=== PATIENT | female | born 1955 | race Caucasian/White ===

== ENCOUNTER 2016-11-06 15:03 | Inpatient (IN) | payer MEDICAID ==
[~2016-11-06] VITALS: Ht 167.6 cm; Wt 114.0 kg
[~2016-11-06 15:03] MED LIST: ASPI-231 PO; ATO40T PO; CLOP75TA28 PO; ESCI20TA PO; FUR40T PO; KEP500T PO; PANT40TA2 PO; PREG25CA PO; ROPI1TAB22 PO; TRAZ100T2 PO
[2016-11-06] MEDS ORDERED: ASPirin 81 mg TAB PO ONE (15:45)
[2016-11-06] MEDS ORDERED: SODIUM CHLORIDE 0.9% 1,000 ML IV ONE (16:05)
[2016-11-06] MEDS ORDERED: MORPHINE SULFATE 4 MG/ML SYRG IV ONE (16:30)
[2016-11-06] MEDS ORDERED: ONDANSETRON HCL 4 MG/2 ML VIAL IV ONE (16:30)
[2016-11-06 16:50] LABS: Basophils # (auto) 0 uL; Eosinophils # (auto) 0 uL; Eosinophils % (auto) 0.1 % (0.0-7.0); Hematocrit 42.2 % (36.0-46.0); Hemoglobin 14.2 g/dL (12.2-16.2); Lymphocytes # (auto) 0.8 uL; Lymphocytes % (auto) 8.4 % (10.0-50.0); Mean Corpuscular Hemoglobin 31.7 pg (28.0-32.0); Mean Corpuscular Hgb Conc. 33.6 g/dL (32.0-36.0); Mean Corpuscular Volume 94.3 fL (80.0-100.0); Mean Platelet Volume 9.2 fL (7.4-10.4); Monocytes # (auto) 0.3 uL; Monocytes % (auto) 3.4 % (0.0-12.0); Neutrophils # (auto) 8.8 uL; Neutrophils % (auto) 88.1 % (37.0-80.0); Platelet Count (auto) 136 10^3/uL (140-450); Red Cell Distribution Width 14.5 % (11.6-16.0)
[2016-11-06 17:00] LABS: Partial Thromboplastin Time 27.1 sec (22.64-33.71)
[2016-11-06 17:12] LABS: Albumin 3.4 g/dL (3.4-5.0); BUN/Creatinine Ratio 32.9; Bilirubin, Total 1.5 mg/dL (0.2-1.0); Calcium 8.8 mg/dL (8.5-10.1); Total Protein 6.7 g/dL (6.4-8.2)
[2016-11-06 17:16] LABS: INR 1.22 (0.9-1.15); Prothrombin Time 12.6 sec (9.37-12.3)
[2016-11-06 17:18] LABS: Amylase 13 U/L (25-115)
[2016-11-06] MEDS: diphenhdrAMINE HCL 50 MG/1 ML VL ONE ×2 (17:27→17:47)
[2016-11-06] MEDS ORDERED: diphenhdrAMINE HCL 50 MG/1 ML VL IV ONE (18:00)
[2016-11-06] MEDS ORDERED: metroNIDAZOLE 500MG/100ML 100 ML IV ONE (18:15)
[2016-11-06] MEDS ORDERED: PIPERACILLIN-TAZOB 3.375GM 100 ML IV ONE (18:15)
[2016-11-06] MEDS ORDERED: ASPirin 325 MG TAB PO ONE (18:15)
[2016-11-06] MEDS ORDERED: SODIUM CHLORIDE 0.9% 1,000 ML IV SCH (18:39)
[2016-11-06] MEDS ORDERED: PANTOPRAZOLE SODIUM 40 MG/10 ML VIAL IV ONE (18:45)
[2016-11-06] MEDS ORDERED: DEXTROSE (50%) 50ML SYRG IV PRN (18:45)
[2016-11-06] MEDS ORDERED: cefTRIAXone 1GM/50ML D5W 50 ML IV ONE (18:45)
[2016-11-06] MEDS ORDERED: LORazepam 2MG/ML-1ML VIAL IV PRN (18:45)
[2016-11-06] MEDS ORDERED: MORPHINE SULF INJ 2 MG/ML SYRINGE 1ML IV PRN (18:45)
[2016-11-06] MEDS ORDERED: NITROGLYCERIN 0.4 MG SL TAB SL PRN (18:45)
[2016-11-06] MEDS ORDERED: SOD CHL 0.9%/ KCL 20MEQ 1,000 ML IV ONE (18:45)
[2016-11-06] MEDS: POTASSIUM CHL 20MEQ/100ML 100 ML IV SCH ×3 (18:57→23:55)
[2016-11-06] MEDS ORDERED: IOHEXOL 350 MG/ML 100ML IJ ONE (20:01)
[2016-11-06] MEDS: HYDROmorphone HCL 2 MG/ML VL IV PRN (20:30)
[2016-11-06 20:53] VITALS: BP 88/47
[2016-11-06 22:00] VITALS: BP 88/47
[2016-11-07] MEDS ORDERED: metroNIDAZOLE 500MG/100ML 100 ML IV SCH
[2016-11-07] MEDS: ACCU-CHEK COMFORT CURVE STRIP VI SCH ×4 (00:22→18:15)
[2016-11-07 02:50] LABS: Urine Bilirubin Negative (Negative); Urine Blood Negative /uL (Negative); Urine Color Yellow (Yellow); Urine Glucose Normal (Normal); Urine Ketone Negative (Negative); Urine Mucus FEW (None Seen); Urine Nitrite Negative (Negative); Urine RBC 34 /hpf (0 - 4); Urine Squamous Epithelial Cell FEW /hpf (<5); Urine Urobilinogen Normal (Negative)
[2016-11-07] MEDS: HYDROmorphone HCL 2 MG/ML VL IV PRN ×5 (03:09→23:49)
[2016-11-07 05:00] VITALS: BP 105/51
[2016-11-07] MEDS: InsuLIN REG 1unit/0.01ml Soln (100units/ml) SC SCH ×4 (06:00→18:00)
[2016-11-07 06:24] LABS: Basophils # (auto) 0 uL; Basophils % (auto) 0.1 % (0.0-2.0); Eosinophils # (auto) 0.1 uL; Eosinophils % (auto) 0.8 % (0.0-7.0); Hematocrit 36.9 % (36.0-46.0); Lymphocytes # (auto) 0.8 uL; Lymphocytes % (auto) 12.1 % (10.0-50.0); Mean Corpuscular Hemoglobin 30.8 pg (28.0-32.0); Mean Corpuscular Hgb Conc. 32.4 g/dL (32.0-36.0); Mean Corpuscular Volume 94.9 fL (80.0-100.0); Mean Platelet Volume 8.6 fL (7.4-10.4); Monocytes # (auto) 0.3 uL; Monocytes % (auto) 3.7 % (0.0-12.0); Neutrophils # (auto) 5.8 uL; Neutrophils % (auto) 83.3 % (37.0-80.0); Platelet Count (auto) 115 10^3/uL (140-450); Red Cell Distribution Width 14.5 % (11.6-16.0)
[2016-11-07 06:44] LABS: Albumin 2.6 g/dL (3.4-5.0); BUN/Creatinine Ratio 34.5; Bilirubin, Total 0.7 mg/dL (0.2-1.0); Calcium 8.6 mg/dL (8.5-10.1); Potassium 3.7 mmol/L (3.5-5.1); Total Protein 5.6 g/dL (6.4-8.2)
[2016-11-07 08:00] VITALS: BP 100/47
[2016-11-07 08:11] VITALS: BP 100/47
[2016-11-07] MEDS ORDERED: GASTROGRAFIN 120 ML SOL ONE (08:35)
[2016-11-07] MEDS ORDERED: cefTRIAXone 1GM/50ML D5W 50 ML IV SCH (09:00)
[2016-11-07] MEDS: metroNIDAZOLE 500MG/100ML 100 ML IV SCH ×3 (09:00→21:59)
[2016-11-07] MEDS: PANTOPRAZOLE SODIUM 40 MG/10 ML VIAL IV SCH (11:19)
[2016-11-07] MEDS: cefTRIAXone 1GM/50ML D5W 50 ML IV SCH (11:19)
[2016-11-07 12:50] VITALS: BP 107/57
[2016-11-07 17:14] VITALS: BP 108/52
[2016-11-07 22:00] VITALS: BP 80/37
[2016-11-08] MEDS: ACCU-CHEK COMFORT CURVE STRIP VI SCH ×5 (00:01→22:10)
[2016-11-08] MEDS: metroNIDAZOLE 500MG/100ML 100 ML IV SCH ×4 (03:09→22:06)
[2016-11-08] MEDS: HYDROmorphone HCL 2 MG/ML VL IV PRN ×5 (04:30→22:09)
[2016-11-08 05:00] VITALS: BP 98/52
[2016-11-08 05:58] LABS: Basophils # (auto) 0 uL; Basophils % (auto) 0.1 % (0.0-2.0); Eosinophils # (auto) 0.1 uL; Eosinophils % (auto) 1.1 % (0.0-7.0); Hematocrit 36.6 % (36.0-46.0); Hemoglobin 11.7 g/dL (12.2-16.2); Lymphocytes # (auto) 0.6 uL; Lymphocytes % (auto) 9.2 % (10.0-50.0); Mean Corpuscular Hemoglobin 30.5 pg (28.0-32.0); Mean Corpuscular Volume 95.2 fL (80.0-100.0); Mean Platelet Volume 8.3 fL (7.4-10.4); Monocytes # (auto) 0.2 uL; Monocytes % (auto) 3.5 % (0.0-12.0); Neutrophils # (auto) 5.2 uL; Neutrophils % (auto) 86.1 % (37.0-80.0); Platelet Count (auto) 138 10^3/uL (140-450); Red Cell Distribution Width 14.4 % (11.6-16.0); White Blood Cell 6.1 10^3/uL (4.4-10.8)
[2016-11-08] MEDS: InsuLIN REG 1unit/0.01ml Soln (100units/ml) SC SCH ×5 (06:00→22:10)
[2016-11-08 06:16] LABS: Albumin 2.6 g/dL (3.4-5.0); BUN/Creatinine Ratio 39.5; Calcium 8.5 mg/dL (8.5-10.1); Potassium 3.7 mmol/L (3.5-5.1)
[2016-11-08 06:19] LABS: Bilirubin, Total 0.5 mg/dL (0.2-1.0); Total Protein 5.6 g/dL (6.4-8.2)
[2016-11-08 08:00] VITALS: BP 101/54
[2016-11-08 08:55] VITALS: BP 111/57
[2016-11-08 12:39] VITALS: BP 101/54
[2016-11-08] MEDS: PANTOPRAZOLE SODIUM 40 MG/10 ML VIAL IV SCH (14:29)
[2016-11-08] MEDS: cefTRIAXone 1GM/50ML D5W 50 ML IV SCH (14:29)
[2016-11-08 16:38] VITALS: BP 125/70
[2016-11-08 22:00] VITALS: BP 125/66
[2016-11-08] MEDS: PROMETHAZINE HCL 25 MG/ML 1ML IV PRN (22:09)
[2016-11-09] MEDS: metroNIDAZOLE 500MG/100ML 100 ML IV SCH ×4 (03:06→20:59)
[2016-11-09] MEDS: HYDROmorphone HCL 2 MG/ML VL IV PRN ×5 (04:01→23:57)
[2016-11-09 05:00] VITALS: BP 121/74
[2016-11-09] MEDS: InsuLIN REG 1unit/0.01ml Soln (100units/ml) SC SCH ×3 (06:00→17:34)
[2016-11-09] MEDS: ACCU-CHEK COMFORT CURVE STRIP VI SCH ×3 (06:16→17:33)
[2016-11-09 06:51] LABS: BUN/Creatinine Ratio 34.1; Calcium 8.2 mg/dL (8.5-10.1); Potassium 3.2 mmol/L (3.5-5.1)
[2016-11-09] MEDS: cefTRIAXone 1GM/50ML D5W 50 ML IV SCH (08:51)
[2016-11-09] MEDS: PANTOPRAZOLE SODIUM 40 MG/10 ML VIAL IV SCH (08:52)
[2016-11-09 09:00] VITALS: BP 176/65
[2016-11-09] MEDS ORDERED: POTASSIUM CHLORIDE 40 MEQ, LIDOCAINE 1% (LOCAL ANESTH.) 4 ML in SODIUM CHL 0.9% 250 ML IV ONE (10:30)
[2016-11-09 13:00] VITALS: BP 133/73
[2016-11-09] MEDS: PROMETHAZINE HCL 25 MG/ML 1ML IV PRN ×3 (15:12→23:57)
[2016-11-09 16:54] VITALS: BP 125/65
[2016-11-09 21:51] VITALS: BP 126/74
[2016-11-10] MEDS: ACCU-CHEK COMFORT CURVE STRIP VI SCH ×5 (00:11→21:23)
[2016-11-10] MEDS: metroNIDAZOLE 500MG/100ML 100 ML IV SCH ×4 (02:41→21:17)
[2016-11-10] MEDS: HYDROmorphone HCL 2 MG/ML VL IV PRN ×5 (04:39→21:18)
[2016-11-10] MEDS: PROMETHAZINE HCL 25 MG/ML 1ML IV PRN ×2 (04:39→22:52)
[2016-11-10 05:00] VITALS: BP 13/70
[2016-11-10] MEDS: InsuLIN REG 1unit/0.01ml Soln (100units/ml) SC SCH ×5 (05:50→21:23)
[2016-11-10 05:53] LABS: Basophils # (auto) 0 uL; Basophils % (auto) 0.2 % (0.0-2.0); Eosinophils # (auto) 0.1 uL; Eosinophils % (auto) 2.5 % (0.0-7.0); Hematocrit 36.8 % (36.0-46.0); Hemoglobin 11.9 g/dL (12.2-16.2); Lymphocytes % (auto) 27.7 % (10.0-50.0); Mean Corpuscular Hemoglobin 30.4 pg (28.0-32.0); Mean Corpuscular Hgb Conc. 32.4 g/dL (32.0-36.0); Mean Corpuscular Volume 93.7 fL (80.0-100.0); Mean Platelet Volume 8.4 fL (7.4-10.4); Monocytes # (auto) 0.2 uL; Monocytes % (auto) 5.5 % (0.0-12.0); Neutrophils # (auto) 2.2 uL; Neutrophils % (auto) 64.1 % (37.0-80.0); Platelet Count (auto) 149 10^3/uL (140-450); Red Cell Distribution Width 14.1 % (11.6-16.0); White Blood Cell 3.5 10^3/uL (4.4-10.8)
[2016-11-10 06:15] LABS: Albumin 2.5 g/dL (3.4-5.0); BUN/Creatinine Ratio 14.3; Calcium 8.5 mg/dL (8.5-10.1)
[2016-11-10 06:17] LABS: Bilirubin, Total 0.5 mg/dL (0.2-1.0); Total Protein 5.4 g/dL (6.4-8.2)
[2016-11-10 09:00] VITALS: BP 134/76
[2016-11-10] MEDS: PANTOPRAZOLE SODIUM 40 MG/10 ML VIAL IV SCH (09:07)
[2016-11-10] MEDS: cefTRIAXone 1GM/50ML D5W 50 ML IV SCH (09:07)
[2016-11-10 12:48] VITALS: BP 140/93
[2016-11-10 17:25] VITALS: BP 150/86
[2016-11-10 22:59] VITALS: BP 120/61
[2016-11-11] MEDS: metroNIDAZOLE 500MG/100ML 100 ML IV SCH ×2 (03:26→08:32)
[2016-11-11 05:46] VITALS: BP 122/60
[2016-11-11] MEDS: ACCU-CHEK COMFORT CURVE STRIP VI SCH ×2 (05:51→12:00)
[2016-11-11] MEDS: HYDROmorphone HCL 2 MG/ML VL IV PRN ×2 (05:54→10:27)
[2016-11-11] MEDS: InsuLIN REG 1unit/0.01ml Soln (100units/ml) SC SCH ×2 (05:54→12:00)
[2016-11-11 09:00] VITALS: BP 132/80
[2016-11-11] MEDS: PANTOPRAZOLE SODIUM 40 MG/10 ML VIAL IV SCH (10:00)
[2016-11-11] MEDS: cefTRIAXone 1GM/50ML D5W 50 ML IV SCH (10:00)
[2016-11-11] MEDS: PROMETHAZINE HCL 25 MG/ML 1ML IV PRN (10:28)
== END 2016-11-11 13:00 | disposition home or self-care (01) | DRG 247 ==
LOC: ER 15:21 → TELE 15:22 → TELE-WESTW 20:50
PROVIDERS: ADMIT Internal Medicine; ATTEND Internal Medicine
DX: K56.5 Intestinal adhesions [bands] with obstruction (postinfection) (principal); E87.0 Hyperosmolality and hypernatremia; E44.0 Moderate protein-calorie malnutrition; I50.9 Heart failure, unspecified; I11.0 Hypertensive heart disease with heart failure; K56.60 Unspecified intestinal obstruction; E87.1 Hypo-osmolality and hyponatremia; K52.9 Noninfective gastroenteritis and colitis, unspecified; R07.89 Other chest pain; E87.6 Hypokalemia; E66.01 Morbid (severe) obesity due to excess calories; E11.65 Type 2 diabetes mellitus with hyperglycemia; G89.29 Other chronic pain; F32.9 Major depressive disorder, single episode, unspecified; G40.909 Epilepsy, unspecified, not intractable, without status epilepticus; I25.10 Atherosclerotic heart disease of native coronary artery without angina pectoris; J45.909 Unspecified asthma, uncomplicated; K21.9 Gastro-esophageal reflux disease without esophagitis; Z82.49 Family history of ischemic heart disease and other diseases of the circulatory system; Z86.711 Personal history of pulmonary embolism; Z98.84 Bariatric surgery status; Z83.3 Family history of diabetes mellitus; Z86.718 Personal history of other venous thrombosis and embolism; Z86.73 Personal history of transient ischemic attack (TIA), and cerebral infarction without residual deficits; Z87.11 Personal history of peptic ulcer disease; Z90.49 Acquired absence of other specified parts of digestive tract; Z98.890 Other specified postprocedural states; Z90.89 Acquired absence of other organs; Z88.5 Allergy status to narcotic agent; Z88.8 Allergy status to other drugs, medicaments and biological substances; Z68.41 Body mass index [BMI] 40.0-44.9, adult
CPT/HCPCS: 36415; 51702; 71010; 71275; 74000; 74176; 74250; 80048; 80053; 80061; 81001; 82150; 82378; 82550; 82962; 83036; 83605; 83690; 84443; 84484; 85025; 85379; 85610; 85652; 85730; 86141; 87040; 87493; 93005; 93306; 93970; 96361; 96365; 96368; 96375; 97001; 97116; 97530; 99291; C9113; G0434; J0696; J2001; J2405; J2543; J3480; J3490

== ENCOUNTER 2016-12-23 14:05 | Emergency (ER) | payer MEDICAID ==
[~2016-12-23] VITALS: Ht 167.6 cm; Wt 106.6 kg
[2016-12-23 20:23] VITALS: BP 114/70
[2016-12-23] MEDS ORDERED: diphenhdrAMINE HCL 50 MG/1 ML VL IM ONE (21:15)
== END 2016-12-23 22:28 | disposition home or self-care (01) ==
LOC: ER 14:05
DX: R21 Rash and other nonspecific skin eruption (principal); E11.9 Type 2 diabetes mellitus without complications; K21.9 Gastro-esophageal reflux disease without esophagitis; I10 Essential (primary) hypertension; Z79.899 Other long term (current) drug therapy; Z88.5 Allergy status to narcotic agent; Z88.8 Allergy status to other drugs, medicaments and biological substances; Z86.73 Personal history of transient ischemic attack (TIA), and cerebral infarction without residual deficits
CPT/HCPCS: 82962; 94761; 96372; 99283; J1200

== ENCOUNTER 2017-07-26 18:33 | Inpatient (IN) | payer MEDICAID ==
[~2017-07-26] VITALS: Ht 167.6 cm; Wt 112.1 kg
[2017-07-26 20:18] LABS: Basophils # (auto) 0 uL; Basophils % (auto) 0.6 % (0.0-2.0); Eosinophils # (auto) 0.7 uL; Eosinophils % (auto) 10.8 % (0.0-7.0); Hematocrit 39.7 % (36.0-46.0); Hemoglobin 13.2 g/dL (12.2-16.2); Lymphocytes # (auto) 1.7 uL; Lymphocytes % (auto) 26.8 % (10.0-50.0); Mean Corpuscular Hemoglobin 29.7 pg (28.0-32.0); Mean Corpuscular Hgb Conc. 33.2 g/dL (32.0-36.0); Mean Corpuscular Volume 89.3 fL (80.0-100.0); Monocytes # (auto) 0.3 uL; Monocytes % (auto) 5.3 % (0.0-12.0); Neutrophils # (auto) 3.6 uL; Neutrophils % (auto) 56.5 % (37.0-80.0); Nucleated Red Blood Cells % 0.1 %; Platelet Count (auto) 160 10^3/uL (140-450); Red Blood Cells 4.45 10^6/uL (4.0-5.20); Red Cell Distribution Width 17.4 % (11.8-14.3); White Blood Cell 6.3 10^3/uL (4.4-10.8)
[2017-07-26 20:33] LABS: INR 0.96 (0.9-1.15); Partial Thromboplastin Time 29.4 sec (22.64-33.71); Prothrombin Time 10.5 sec (9.37-12.3)
[2017-07-26 20:38] LABS: Alanine Aminotransferase 28 U/L (13-56); Albumin 3.2 g/dL (3.4-5.0); Alkaline Phosphatase 127 U/L (45-117); Anion Gap 6 (5-15); Aspartate Aminotransferase 22 U/L (15-37); BUN/Creatinine Ratio 32.3; Bilirubin, Total 0.3 mg/dL (0.2-1.0); Blood Urea Nitrogen 21 mg/dL (7-18); Calcium 8.6 mg/dL (8.5-10.1); Carbon Dioxide 25 mmol/L (21-32); Chloride 110 mmol/L (98-107); GFR African American 118 mL/min; GFR Non-African American 98 mL/min; Glucose 73 mg/dL (74-106); Potassium 3.9 mmol/L (3.5-5.1); Sodium 141 mmol/L (136-145); Total Protein 7.3 g/dL (6.4-8.2)
[2017-07-27] MEDS ORDERED: HYDROcodone-ACET 10/325MG TAB PO ONE (02:15)
[2017-07-27] MEDS ORDERED: ACETAMINOPHEN 500 MG TAB PO PRN (06:45)
[2017-07-27] MEDS ORDERED: NITROGLYCERIN 0.4 MG SL TAB SL PRN (06:45)
[2017-07-27] MEDS: PREGABALIN 25 MG CAP PO SCH ×2 (07:39→21:39)
[2017-07-27] MEDS: LEVETIRACETAM 500 MG TAB PO SCH ×2 (07:39→21:38)
[2017-07-27] MEDS: PANTOPRAZOLE 40 MG TAB PO SCH (07:39)
[2017-07-27] MEDS: FUROSEMIDE 40 MG TAB PO SCH (07:39)
[2017-07-27] MEDS: HYDROcodone-ACET 5/325MG TAB PO PRN ×2 (08:24→12:13)
[2017-07-27 08:39] LABS: Basophils # (auto) 0 uL; Basophils % (auto) 0.5 % (0.0-2.0); Eosinophils # (auto) 0.5 uL; Eosinophils % (auto) 10.4 % (0.0-7.0); Hematocrit 35.9 % (36.0-46.0); Hemoglobin 12.1 g/dL (12.2-16.2); Lymphocytes # (auto) 1.6 uL; Lymphocytes % (auto) 31.6 % (10.0-50.0); Mean Corpuscular Hemoglobin 29.4 pg (28.0-32.0); Mean Corpuscular Hgb Conc. 33.8 g/dL (32.0-36.0); Mean Corpuscular Volume 86.9 fL (80.0-100.0); Monocytes # (auto) 0.3 uL; Monocytes % (auto) 5.3 % (0.0-12.0); Neutrophils # (auto) 2.6 uL; Neutrophils % (auto) 52.2 % (37.0-80.0); Nucleated Red Blood Cells % 0.1 %; Platelet Count (auto) 118 10^3/uL (140-450); Red Blood Cells 4.13 10^6/uL (4.0-5.20); Red Cell Distribution Width 17.5 % (11.8-14.3); White Blood Cell 5.1 10^3/uL (4.4-10.8)
[2017-07-27] MEDS ORDERED: DEXTROSE (50%) 50ML SYRG IV PRN (09:00)
[2017-07-27 09:06] LABS: BUN/Creatinine Ratio 32.1; Calcium 8.3 mg/dL (8.5-10.1); Potassium 3.8 mmol/L (3.5-5.1)
[2017-07-27] MEDS: ONDANSETRON HCL 4 MG/2 ML VIAL IV PRN (09:59)
[2017-07-27] MEDS ORDERED: ASPirin-EC 81 mg tab PO SCH (10:00)
[2017-07-27 10:30] LABS: Urine Bacteria FEW /hpf (None Seen); Urine Blood Negative /uL (Negative); Urine Specific Gravity 1.005 (1.001-1.035); Urine WBC 1 /hpf (0 - 5)
[2017-07-27] MEDS: ACCU-CHEK COMFORT CURVE STRIP VI SCH ×3 (11:16→21:39)
[2017-07-27] MEDS: InsuLIN REG 1unit/0.01ml Soln (100units/ml) SC SCH ×3 (11:16→21:40)
[2017-07-27] MEDS ORDERED: LORazepam 2MG/ML-1ML VIAL IV PRN (18:15)
[2017-07-27 18:41] LABS: Cholesterol 117 mg/dL (< 200); HDL Cholesterol 42 mg/dL (40-59); LDL Cholesterol 60 mg/dL (< 100); Triglycerides 168 mg/dL (< 150)
[2017-07-27] MEDS ORDERED: MET50T PO (20:25)
[2017-07-27] MEDS ORDERED: LORA-655 PO (20:25)
[2017-07-27] MEDS ORDERED: IPRAAER6 IN (20:25)
[2017-07-27] MEDS ORDERED: CYAN100023 PO (20:25)
[2017-07-27] MEDS ORDERED: FLUT1SPR5 (20:25)
[2017-07-27] MEDS ORDERED: FER325T PO (20:25)
[2017-07-27] MEDS ORDERED: HYDR-4072 PO (20:25)
[2017-07-27] MEDS ORDERED: PYRI50TA67 PO (20:25)
[2017-07-27] MEDS ORDERED: LIDO5DIS21 TOP (20:25)
[2017-07-27] MEDS: HYDROmorphone HCL 2 MG/ML VL IV PRN (21:38)
[2017-07-27] MEDS: ATORVASTATIN 20 MG TAB PO SCH (21:38)
[2017-07-27] MEDS: PRAMIPEXOLE DIHYDROCHLORIDE MO 0.25 MG TAB PO SCH (21:39)
[2017-07-27] MEDS: ASPIRIN-DIPYRIDAMOLE (25/200MG) CAPSULE PO SCH (21:39)
[2017-07-27] MEDS: traZODone HCL 50 MG TAB PO SCH (21:39)
[2017-07-27 22:00] VITALS: BP 108/71
[2017-07-28] MEDS: HYDROmorphone HCL 2 MG/ML VL IV PRN ×5 (02:36→22:11)
[2017-07-28] MEDS: ONDANSETRON HCL 4 MG/2 ML VIAL IV PRN (02:37)
[2017-07-28 05:00] VITALS: BP 109/69
[2017-07-28] MEDS: InsuLIN REG 1unit/0.01ml Soln (100units/ml) SC SCH ×4 (06:35→21:49)
[2017-07-28] MEDS: ACCU-CHEK COMFORT CURVE STRIP VI SCH ×4 (06:35→21:49)
[2017-07-28 07:48] LABS: Basophils # (auto) 0 uL; Basophils % (auto) 0.4 % (0.0-2.0); Eosinophils # (auto) 0.5 uL; Eosinophils % (auto) 8.6 % (0.0-7.0); Hematocrit 36.5 % (36.0-46.0); Hemoglobin 12.3 g/dL (12.2-16.2); Lymphocytes # (auto) 1.7 uL; Lymphocytes % (auto) 31.1 % (10.0-50.0); Mean Corpuscular Hemoglobin 29.7 pg (28.0-32.0); Mean Corpuscular Hgb Conc. 33.6 g/dL (32.0-36.0); Mean Corpuscular Volume 88.3 fL (80.0-100.0); Monocytes # (auto) 0.3 uL; Monocytes % (auto) 5.7 % (0.0-12.0); Neutrophils % (auto) 54.2 % (37.0-80.0); Nucleated Red Blood Cells % 0.1 %; Platelet Count (auto) 121 10^3/uL (140-450); Red Blood Cells 4.14 10^6/uL (4.0-5.20); Red Cell Distribution Width 17.5 % (11.8-14.3); White Blood Cell 5.6 10^3/uL (4.4-10.8)
[2017-07-28 07:51] LABS: Calcium 8.6 mg/dL (8.5-10.1); Potassium 4.4 mmol/L (3.5-5.1)
[2017-07-28 07:54] LABS: BUN/Creatinine Ratio 31.4
[2017-07-28 07:58] LABS: Bilirubin, Total 0.4 mg/dL (0.2-1.0); Total Protein 6.4 g/dL (6.4-8.2)
[2017-07-28] MEDS: HYDROcodone-ACET 5/325MG TAB PO PRN ×3 (08:43→17:54)
[2017-07-28 08:58] VITALS: BP 105/62
[2017-07-28] MEDS: LEVETIRACETAM 500 MG TAB PO SCH ×2 (10:22→21:44)
[2017-07-28] MEDS: PREGABALIN 25 MG CAP PO SCH ×2 (10:22→21:45)
[2017-07-28] MEDS: FUROSEMIDE 40 MG TAB PO SCH (10:23)
[2017-07-28] MEDS: ASPIRIN-DIPYRIDAMOLE (25/200MG) CAPSULE PO SCH ×2 (10:23→21:45)
[2017-07-28] MEDS: PANTOPRAZOLE 40 MG TAB PO SCH (10:24)
[2017-07-28] MEDS ORDERED: LORazepam 2MG/ML-1ML VIAL IV ONE ×2 (12:00→12:15)
[2017-07-28 14:13] VITALS: BP 106/64
[2017-07-28] MEDS: traZODone HCL 50 MG TAB PO SCH (21:44)
[2017-07-28] MEDS: ATORVASTATIN 20 MG TAB PO SCH (21:45)
[2017-07-28] MEDS: PRAMIPEXOLE DIHYDROCHLORIDE MO 0.25 MG TAB PO SCH (21:45)
[2017-07-28 22:00] VITALS: BP 109/53
[2017-07-29] MEDS: HYDROmorphone HCL 2 MG/ML VL IV PRN ×4 (02:50→18:02)
[2017-07-29 05:00] VITALS: BP 97/51
[2017-07-29] MEDS: HYDROcodone-ACET 5/325MG TAB PO PRN (06:25)
[2017-07-29] MEDS: InsuLIN REG 1unit/0.01ml Soln (100units/ml) SC SCH ×3 (06:26→17:40)
[2017-07-29] MEDS: ACCU-CHEK COMFORT CURVE STRIP VI SCH ×3 (06:26→17:39)
[2017-07-29 08:49] VITALS: BP 123/76
[2017-07-29] MEDS: PREGABALIN 25 MG CAP PO SCH (09:44)
[2017-07-29] MEDS: LEVETIRACETAM 500 MG TAB PO SCH (09:44)
[2017-07-29] MEDS: PANTOPRAZOLE 40 MG TAB PO SCH (09:44)
[2017-07-29] MEDS: ASPIRIN-DIPYRIDAMOLE (25/200MG) CAPSULE PO SCH (09:44)
[2017-07-29] MEDS: FUROSEMIDE 40 MG TAB PO SCH (09:45)
[2017-07-29 13:00] VITALS: BP 130/74
[2017-07-29] MEDS: ONDANSETRON HCL 4 MG/2 ML VIAL IV PRN (13:50)
[2017-07-29 16:54] VITALS: BP 124/69
== END 2017-07-29 19:10 | disposition home health service (06) | DRG 45 ==
LOC: ER 18:40 → TELE 18:41 → TELE-CENTR 07-27 15:00
PROVIDERS: ADMIT Nurse Practitioner Family; ATTEND Internal Medicine
DX: I63.9 Cerebral infarction, unspecified (principal); E11.42 Type 2 diabetes mellitus with diabetic polyneuropathy; D68.69 Other thrombophilia; E44.0 Moderate protein-calorie malnutrition; I48.92 Unspecified atrial flutter; I11.0 Hypertensive heart disease with heart failure; I50.9 Heart failure, unspecified; I48.91 Unspecified atrial fibrillation; F32.9 Major depressive disorder, single episode, unspecified; E78.5 Hyperlipidemia, unspecified; G25.81 Restless legs syndrome; D64.9 Anemia, unspecified; K21.9 Gastro-esophageal reflux disease without esophagitis; G89.29 Other chronic pain; G40.909 Epilepsy, unspecified, not intractable, without status epilepticus; G47.00 Insomnia, unspecified; I25.2 Old myocardial infarction; Z79.82 Long term (current) use of aspirin; Z79.899 Other long term (current) drug therapy; Z82.49 Family history of ischemic heart disease and other diseases of the circulatory system; Z86.711 Personal history of pulmonary embolism; Z83.3 Family history of diabetes mellitus; Z87.11 Personal history of peptic ulcer disease; Z88.5 Allergy status to narcotic agent; Z90.49 Acquired absence of other specified parts of digestive tract; Z90.89 Acquired absence of other organs; Z68.39 Body mass index [BMI] 39.0-39.9, adult
CPT/HCPCS: 36415; 70450; 70551; 71010; 80048; 80053; 80061; 81001; 82962; 84443; 84484; 85025; 85610; 85730; 93005; 93306; 93886; 96374; 97163; J1815; J2405

== ENCOUNTER 2017-08-20 13:35 | Inpatient (IN) | payer MEDICAID ==
[~2017-08-20] VITALS: Ht 167.6 cm; Wt 108.7 kg
[~2017-08-20 13:35] MED LIST changes: +CYAN100023 PO; +FER325T PO; +FLUT1SPR5; +HYDR-4072 PO; +IPRAAER6 IN; +LIDO5DIS21 TOP; +LORA-655 PO; +MET50T PO; +PYRI50TA67 PO
[2017-08-20 15:44] LABS: Urine RBC None Seen /hpf (0 - 4)
[2017-08-20 15:50] LABS: Basophils # (auto) 0 uL; Basophils % (auto) 0.7 % (0.0-2.0); Eosinophils # (auto) 0.2 uL; Eosinophils % (auto) 4.4 % (0.0-7.0); Hematocrit 42.6 % (36.0-46.0); Hemoglobin 14.2 g/dL (12.2-16.2); Lymphocytes % (auto) 34.6 % (10.0-50.0); Mean Corpuscular Hemoglobin 29.6 pg (28.0-32.0); Mean Corpuscular Hgb Conc. 33.4 g/dL (32.0-36.0); Mean Corpuscular Volume 88.5 fL (80.0-100.0); Mean Platelet Volume 7.9 fL (6.9-10.8); Monocytes # (auto) 0.4 uL; Monocytes % (auto) 6.5 % (0.0-12.0); Neutrophils % (auto) 53.8 % (37.0-80.0); Platelet Count (auto) 187 10^3/uL (140-450); Red Cell Distribution Width 18.5 % (11.8-14.3); White Blood Cell 5.7 10^3/uL (4.4-10.8)
[2017-08-20 15:54] LABS: Urine Bilirubin Negative (Negative); Urine Blood Negative /uL (Negative); Urine Color Colorless (Yellow); Urine Glucose Normal (Normal); Urine Ketone Negative (Negative); Urine Nitrite Negative (Negative); Urine Squamous Epithelial Cell FEW /hpf (<5); Urine Urobilinogen Normal (Negative)
[2017-08-20 16:06] LABS: Albumin 3.8 g/dL (3.4-5.0); BUN/Creatinine Ratio 22.4; Calcium 8.9 mg/dL (8.5-10.1)
[2017-08-20 16:08] LABS: Bilirubin, Total 0.6 mg/dL (0.2-1.0); Total Protein 7.8 g/dL (6.4-8.2)
[2017-08-21] MEDS ORDERED: HYDROmorphone HCL 2 MG/ML VL IV ONE (01:45)
[2017-08-21] MEDS ORDERED: LORazepam 2MG/ML-1ML VIAL IV ONE (01:45)
[2017-08-21] MEDS ORDERED: ONDANSETRON HCL 4 MG/2 ML VIAL IV ONE (01:45)
[2017-08-21] MEDS ORDERED: PENICILLIN G POTASSIUM 2,500,000 UNITS in D5W 5% 50 ML IV SCH ×2 (03:15→07:00)
[2017-08-21 03:25] LABS: Basophils # (auto) 0 uL; Basophils % (auto) 0.5 % (0.0-2.0); Eosinophils # (auto) 0.3 uL; Eosinophils % (auto) 5.4 % (0.0-7.0); Hematocrit 41.6 % (36.0-46.0); Hemoglobin 14.2 g/dL (12.2-16.2); Lymphocytes # (auto) 1.9 uL; Lymphocytes % (auto) 31.2 % (10.0-50.0); Mean Corpuscular Hemoglobin 30.2 pg (28.0-32.0); Mean Corpuscular Hgb Conc. 34.2 g/dL (32.0-36.0); Mean Corpuscular Volume 88.4 fL (80.0-100.0); Monocytes # (auto) 0.5 uL; Neutrophils # (auto) 3.3 uL; Neutrophils % (auto) 54.9 % (37.0-80.0); Nucleated Red Blood Cells % 0.1 %; Platelet Count (auto) 152 10^3/uL (140-450); Red Cell Distribution Width 18.2 % (11.8-14.3); White Blood Cell 6.1 10^3/uL (4.4-10.8)
[2017-08-21 03:41] LABS: Albumin 3.6 g/dL (3.4-5.0); Potassium 3.7 mmol/L (3.5-5.1)
[2017-08-21 03:44] LABS: Bilirubin, Total 0.5 mg/dL (0.2-1.0); Total Protein 7.4 g/dL (6.4-8.2)
[2017-08-21] MEDS ORDERED: CEFTRIAXONE SODIUM 2 GM in D5W 5% 50 ML IV ONE (03:45)
[2017-08-21] MEDS ORDERED: MIDAZOLAM DRIP 50 mg/50mL 50 ML IV SCH (05:09)
[2017-08-21] MEDS ORDERED: TEMAZEPAM 15 MG CAP PO PRN (05:15)
[2017-08-21] MEDS ORDERED: ONDANSETRON HCL 4 MG/2 ML VIAL IV PRN (05:15)
[2017-08-21] MEDS ORDERED: ACETAMINOPHEN 325 MG TAB PO PRN (05:15)
[2017-08-21] MEDS ORDERED: DEXTROSE (50%) 50ML SYRG IV PRN (05:15)
[2017-08-21] MEDS ORDERED: cefTRIAXone SOD 1,000 MG VL ONE (06:01)
[2017-08-21] MEDS: ACCU-CHEK COMFORT CURVE STRIP VI SCH ×4 (06:27→23:12)
[2017-08-21] MEDS: InsuLIN REG 1unit/0.01ml Soln (100units/ml) SC SCH ×4 (06:30→23:12)
[2017-08-21] MEDS: HYDROcodone-ACET 5/325MG TAB PO PRN ×3 (08:19→16:36)
[2017-08-21 09:00] VITALS: BP_SYST 114; BP_SYST 134; BP_DIAS 64; BP_DIAS 78
[2017-08-21] MEDS ORDERED: CLOPIDOGREL BISULFATE 75 MG TAB PO SCH (10:00)
[2017-08-21] MEDS ORDERED: ENOXAPARIN SOD 40 MG/0.4 ML SYRINGE SC SCH (10:00)
[2017-08-21] MEDS: PREGABALIN CAPSULE 75 MG CAP PO SCH (10:05)
[2017-08-21] MEDS: FAMOTIDINE 20 MG TAB PO SCH ×2 (10:05→21:41)
[2017-08-21] MEDS: predniSONE 20 MG TAB PO SCH (10:05)
[2017-08-21] MEDS: LEVETIRACETAM 500 MG TAB PO SCH ×2 (10:06→21:41)
[2017-08-21] MEDS: FUROSEMIDE 40 MG TAB PO SCH (10:06)
[2017-08-21] MEDS: METOPROLOL TARTRATE 50 MG TAB PO SCH ×2 (10:07→21:45)
[2017-08-21 12:58] VITALS: BP 110/67
[2017-08-21] MEDS: PENICILLIN G POTASSIUM 2,500,000 UNITS in D5W 5% 50 ML IV SCH ×3 (14:12→21:57)
[2017-08-21 17:00] VITALS: BP 110/64
[2017-08-21] MEDS: ATORVASTATIN 20 MG TAB PO SCH (21:41)
[2017-08-21] MEDS: traZODone HCL 50 MG TAB PO SCH (21:41)
[2017-08-21] MEDS: HYDROmorphone HCL 2 MG TAB PO PRN (21:42)
[2017-08-21 22:00] VITALS: BP 105/92
[2017-08-21] MEDS: PRAMIPEXOLE DIHYDROCHLORIDE MO 0.25 MG TAB PO SCH (22:00)
[2017-08-21 23:32] LABS: INR 1.02 (0.9-1.15); Prothrombin Time 11.1 sec (9.37-12.3)
[2017-08-22] MEDS: PENICILLIN G POTASSIUM 2,500,000 UNITS in D5W 5% 50 ML IV SCH ×6 (02:00→22:46)
[2017-08-22] MEDS: HYDROcodone-ACET 5/325MG TAB PO PRN ×3 (04:44→23:48)
[2017-08-22 05:00] VITALS: BP 102/60
[2017-08-22 05:50] LABS: Basophils # (auto) 0 uL; Basophils % (auto) 0.3 % (0.0-2.0); Eosinophils # (auto) 0.1 uL; Eosinophils % (auto) 1.9 % (0.0-7.0); Hematocrit 40.5 % (36.0-46.0); Hemoglobin 13.9 g/dL (12.2-16.2); Lymphocytes # (auto) 2.2 uL; Lymphocytes % (auto) 29.4 % (10.0-50.0); Mean Corpuscular Hgb Conc. 34.3 g/dL (32.0-36.0); Mean Corpuscular Volume 87.7 fL (80.0-100.0); Mean Platelet Volume 8.3 fL (6.9-10.8); Monocytes # (auto) 0.5 uL; Monocytes % (auto) 7.2 % (0.0-12.0); Neutrophils # (auto) 4.6 uL; Neutrophils % (auto) 61.2 % (37.0-80.0); Platelet Count (auto) 173 10^3/uL (140-450); Red Cell Distribution Width 18.3 % (11.8-14.3); White Blood Cell 7.5 10^3/uL (4.4-10.8)
[2017-08-22] MEDS: InsuLIN REG 1unit/0.01ml Soln (100units/ml) SC SCH ×4 (06:00→23:52)
[2017-08-22] MEDS: ACCU-CHEK COMFORT CURVE STRIP VI SCH ×4 (06:10→23:52)
[2017-08-22 06:16] LABS: Albumin 3.5 g/dL (3.4-5.0); BUN/Creatinine Ratio 28.8; Bilirubin, Total 0.4 mg/dL (0.2-1.0); Calcium 9.2 mg/dL (8.5-10.1); Potassium 3.7 mmol/L (3.5-5.1); Total Protein 7.5 g/dL (6.4-8.2)
[2017-08-22 08:31] VITALS: BP 106/68
[2017-08-22] MEDS: HYDROmorphone HCL 2 MG TAB PO PRN ×2 (09:27→17:59)
[2017-08-22] MEDS: PREGABALIN CAPSULE 75 MG CAP PO SCH (09:28)
[2017-08-22] MEDS: LEVETIRACETAM 500 MG TAB PO SCH ×2 (09:28→22:38)
[2017-08-22] MEDS: predniSONE 20 MG TAB PO SCH (09:28)
[2017-08-22] MEDS: METOPROLOL TARTRATE 50 MG TAB PO SCH ×2 (09:29→22:00)
[2017-08-22] MEDS: FUROSEMIDE 40 MG TAB PO SCH (09:29)
[2017-08-22] MEDS: FAMOTIDINE 20 MG TAB PO SCH ×2 (09:29→22:38)
[2017-08-22 12:39] VITALS: BP 108/65
[2017-08-22 17:00] VITALS: BP 95/62
[2017-08-22 22:00] VITALS: BP 116/79
[2017-08-22] MEDS: ATORVASTATIN 20 MG TAB PO SCH (22:37)
[2017-08-22] MEDS: traZODone HCL 50 MG TAB PO SCH (22:38)
[2017-08-23] MEDS: PENICILLIN G POTASSIUM 2,500,000 UNITS in D5W 5% 50 ML IV SCH ×6 (03:47→21:49)
[2017-08-23] MEDS: InsuLIN REG 1unit/0.01ml Soln (100units/ml) SC SCH ×4 (05:58→23:31)
[2017-08-23] MEDS: ACCU-CHEK COMFORT CURVE STRIP VI SCH ×4 (05:58→23:31)
[2017-08-23] MEDS: HYDROcodone-ACET 5/325MG TAB PO PRN ×2 (05:58→13:19)
[2017-08-23 09:00] VITALS: BP 116/73
[2017-08-23] MEDS ORDERED: LIDOCAINE 2%HCL (LOCAL ANESTH.) INJ 20ML MDV ONE (10:14)
[2017-08-23] MEDS: predniSONE 20 MG TAB PO SCH (10:18)
[2017-08-23] MEDS: PREGABALIN CAPSULE 75 MG CAP PO SCH (10:18)
[2017-08-23] MEDS: FAMOTIDINE 20 MG TAB PO SCH ×2 (10:19→21:48)
[2017-08-23] MEDS: LEVETIRACETAM 500 MG TAB PO SCH ×2 (10:19→21:48)
[2017-08-23] MEDS: METOPROLOL TARTRATE 50 MG TAB PO SCH ×2 (10:20→21:48)
[2017-08-23] MEDS: HYDROmorphone HCL 2 MG TAB PO PRN ×2 (10:20→18:51)
[2017-08-23] MEDS: FUROSEMIDE 40 MG TAB PO SCH (10:21)
[2017-08-23 13:00] VITALS: BP 114/61
[2017-08-23 17:00] VITALS: BP 127/70
[2017-08-23 18:11] LABS: TUBE NUMBER TUBE 3
[2017-08-23] MEDS ORDERED: INFLUENZA QUAD 2017-2018 0.5 ML SYRG IM ONE (18:15)
[2017-08-23] MEDS: traZODone HCL 50 MG TAB PO SCH (21:47)
[2017-08-23] MEDS: ATORVASTATIN 20 MG TAB PO SCH (21:47)
[2017-08-23] MEDS: PRAMIPEXOLE DIHYDROCHLORIDE MO 0.25 MG TAB PO SCH (21:48)
[2017-08-23 22:18] VITALS: BP 101/55
[2017-08-24] MEDS: PENICILLIN G POTASSIUM 2,500,000 UNITS in D5W 5% 50 ML IV SCH ×3 (01:42→10:00)
[2017-08-24] MEDS: HYDROcodone-ACET 5/325MG TAB PO PRN (04:42)
[2017-08-24 05:32] VITALS: BP 135/84
[2017-08-24] MEDS: InsuLIN REG 1unit/0.01ml Soln (100units/ml) SC SCH ×2 (05:48→12:00)
[2017-08-24] MEDS: ACCU-CHEK COMFORT CURVE STRIP VI SCH ×2 (05:48→12:00)
[2017-08-24 05:59] LABS: Basophils # (auto) 0 uL; Basophils % (auto) 0.2 % (0.0-2.0); Eosinophils # (auto) 0.1 uL; Eosinophils % (auto) 0.7 % (0.0-7.0); Hematocrit 40.8 % (36.0-46.0); Lymphocytes # (auto) 2.2 uL; Lymphocytes % (auto) 26.3 % (10.0-50.0); Mean Corpuscular Hemoglobin 30.3 pg (28.0-32.0); Mean Corpuscular Hgb Conc. 34.3 g/dL (32.0-36.0); Mean Corpuscular Volume 88.4 fL (80.0-100.0); Mean Platelet Volume 8.4 fL (6.9-10.8); Monocytes # (auto) 0.5 uL; Monocytes % (auto) 6.1 % (0.0-12.0); Neutrophils # (auto) 5.6 uL; Neutrophils % (auto) 66.7 % (37.0-80.0); Nucleated Red Blood Cells % 0.1 %; Platelet Count (auto) 142 10^3/uL (140-450); Red Cell Distribution Width 17.9 % (11.8-14.3); White Blood Cell 8.4 10^3/uL (4.4-10.8)
[2017-08-24 06:24] LABS: Albumin 3.6 g/dL (3.4-5.0); BUN/Creatinine Ratio 39.7; Bilirubin, Total 0.4 mg/dL (0.2-1.0); Calcium 9.2 mg/dL (8.5-10.1); Total Protein 7.5 g/dL (6.4-8.2)
[2017-08-24 09:00] VITALS: BP 145/65
[2017-08-24] MEDS: FAMOTIDINE 20 MG TAB PO SCH (09:08)
[2017-08-24] MEDS: HYDROmorphone HCL 2 MG TAB PO PRN (09:08)
[2017-08-24] MEDS: predniSONE 20 MG TAB PO SCH (09:09)
[2017-08-24] MEDS: PREGABALIN CAPSULE 75 MG CAP PO SCH (09:09)
[2017-08-24] MEDS: LEVETIRACETAM 500 MG TAB PO SCH (09:09)
[2017-08-24] MEDS: FUROSEMIDE 40 MG TAB PO SCH (09:12)
[2017-08-24] MEDS: METOPROLOL TARTRATE 50 MG TAB PO SCH (09:12)
[2017-08-24 10:56] VITALS: BP 130/60
== END 2017-08-24 13:15 | disposition home or self-care (01) | DRG 54 ==
LOC: ER 13:35 → OVERFLOW 13:36 → WEST WING 08-21 07:57
PROVIDERS: ADMIT Nurse Practitioner; ATTEND Internal Medicine
PROC: 009U3ZX Drainage of Spinal Canal, Percutaneous Approach, Diagnostic (ICD-10-PCS; principal; 2017-08-23)
PROC: B01B1ZZ Fluoroscopy of Spinal Cord using Low Osmolar Contrast (ICD-10-PCS; 2017-08-23)
DX: R51 Headache (principal); E11.42 Type 2 diabetes mellitus with diabetic polyneuropathy; I10 Essential (primary) hypertension; E11.9 Type 2 diabetes mellitus without complications; F32.9 Major depressive disorder, single episode, unspecified; E66.9 Obesity, unspecified; G47.00 Insomnia, unspecified; G25.81 Restless legs syndrome; G40.909 Epilepsy, unspecified, not intractable, without status epilepticus; I70.0 Atherosclerosis of aorta; K21.9 Gastro-esophageal reflux disease without esophagitis; M17.10 Unilateral primary osteoarthritis, unspecified knee; G89.29 Other chronic pain; M54.5 Low back pain; Z90.49 Acquired absence of other specified parts of digestive tract; Z88.8 Allergy status to other drugs, medicaments and biological substances; Z88.5 Allergy status to narcotic agent; Z79.899 Other long term (current) drug therapy; Z82.49 Family history of ischemic heart disease and other diseases of the circulatory system; Z83.3 Family history of diabetes mellitus; Z86.73 Personal history of transient ischemic attack (TIA), and cerebral infarction without residual deficits; Z87.11 Personal history of peptic ulcer disease; Z88.6 Allergy status to analgesic agent; Z68.38 Body mass index [BMI] 38.0-38.9, adult; Z23 Encounter for immunization
CPT/HCPCS: 36415; 62272; 70450; 71010; 71020; 80053; 81001; 82945; 82962; 84157; 85025; 85610; 87040; 89051; 93005; 96365; 96375; J0696; J1815; J2250; J2405; J7060

== ENCOUNTER 2017-09-28 19:24 | Emergency (ER) | payer MEDICAID ==
[~2017-09-28] VITALS: Ht 167.6 cm; Wt 104.8 kg
[~2017-09-28 19:24] MED LIST changes: -CLOP75TA28 PO
[2017-09-28 20:16] LABS: Urine Bilirubin Negative (Negative); Urine Blood Negative /uL (Negative); Urine Color Yellow (Yellow); Urine Glucose Normal (Normal); Urine Ketone Negative (Negative); Urine Nitrite Negative (Negative); Urine RBC <1 /hpf (0 - 4); Urine Squamous Epithelial Cell FEW /hpf (<5); Urine Urobilinogen Normal (Negative)
[2017-09-28 20:23] LABS: Basophils # (auto) 0 uL; Basophils % (auto) 0.2 % (0.0-2.0); Eosinophils # (auto) 0.3 uL; Eosinophils % (auto) 3.7 % (0.0-7.0); Hematocrit 42.6 % (36.0-46.0); Hemoglobin 14.2 g/dL (12.2-16.2); Lymphocytes # (auto) 1.9 uL; Lymphocytes % (auto) 27.7 % (10.0-50.0); Mean Corpuscular Hgb Conc. 33.4 g/dL (32.0-36.0); Mean Corpuscular Volume 89.8 fL (80.0-100.0); Mean Platelet Volume 8.5 fL (6.9-10.8); Monocytes # (auto) 0.4 uL; Monocytes % (auto) 5.8 % (0.0-12.0); Neutrophils # (auto) 4.3 uL; Neutrophils % (auto) 62.6 % (37.0-80.0); Platelet Count (auto) 139 10^3/uL (140-450); Red Cell Distribution Width 16.5 % (11.8-14.3); White Blood Cell 6.8 10^3/uL (4.4-10.8)
[2017-09-28 20:34] LABS: INR 0.98 (0.9-1.15); Partial Thromboplastin Time 26.9 sec (22.64-33.71); Prothrombin Time 10.7 sec (9.37-12.3)
[2017-09-28 20:36] LABS: Albumin 3.6 g/dL (3.4-5.0); Anion Gap 8 (5-15); Aspartate Aminotransferase 22 U/L (15-37); BUN/Creatinine Ratio 30.7; Blood Urea Nitrogen 23 mg/dL (7-18); Calcium 8.9 mg/dL (8.5-10.1); Carbon Dioxide 28 mmol/L (21-32); Chloride 104 mmol/L (98-107); GFR African American 100 mL/min; GFR Non-African American 83 mL/min; Glucose 92 mg/dL (74-106); Magnesium 2.5 mg/dL (1.6-2.6); Potassium 3.6 mmol/L (3.5-5.1); Sodium 140 mmol/L (136-145)
[2017-09-28 20:41] LABS: Alkaline Phosphatase 105 U/L (45-117); Bilirubin, Total 0.6 mg/dL (0.2-1.0); Total Protein 7.3 g/dL (6.4-8.2)
[2017-09-28 22:53] VITALS: BP 103/62
[2017-09-28] MEDS ORDERED: HYDROcodone-ACET 7.5/325MG TAB PO ONE (23:45)
[2017-09-28] MEDS ORDERED: HYDROcodone-ACET 5/325MG TAB PO ONE (23:45)
== END 2017-09-29 00:05 | disposition home or self-care (01) ==
LOC: ER 19:24
DX: I87.2 Venous insufficiency (chronic) (peripheral) (principal); E11.9 Type 2 diabetes mellitus without complications; K21.9 Gastro-esophageal reflux disease without esophagitis; I10 Essential (primary) hypertension; Z90.49 Acquired absence of other specified parts of digestive tract; Z79.899 Other long term (current) drug therapy; Z88.8 Allergy status to other drugs, medicaments and biological substances; Z88.6 Allergy status to analgesic agent
CPT/HCPCS: 36415; 71010; 80053; 81001; 83735; 84484; 85025; 85379; 85610; 85730; 93005; 93971

== ENCOUNTER 2018-09-02 10:18 | Emergency (ER) | payer MEDICAID ==
[~2018-09-02] VITALS: Ht 167.6 cm; Wt 103.4 kg
[~2018-09-02 10:18] MED LIST changes: +ROPI1TAB PO; -ROPI1TAB22 PO
[2018-09-02 11:44] LABS: Basophils # (auto) 0 uL; Basophils % (auto) 0.3 % (0.0-2.0); Eosinophils # (auto) 0.2 uL; Hematocrit 41.1 % (36.0-46.0); Lymphocytes # (auto) 1.7 uL; Lymphocytes % (auto) 22.4 % (10.0-50.0); Mean Corpuscular Hemoglobin 31.6 pg (28.0-32.0); Mean Corpuscular Hgb Conc. 34.1 g/dL (32.0-36.0); Mean Corpuscular Volume 92.6 fL (80.0-100.0); Monocytes # (auto) 0.4 uL; Monocytes % (auto) 4.8 % (0.0-12.0); Neutrophils # (auto) 5.4 uL; Neutrophils % (auto) 69.5 % (37.0-80.0); Nucleated Red Blood Cells % 0.2 %; Platelet Count (auto) 145 10^3/uL (140-450); Red Blood Cells 4.43 10^6/uL (4.0-5.20); Red Cell Distribution Width 14.3 % (11.8-14.3); White Blood Cell 7.7 10^3/uL (4.4-10.8)
[2018-09-02 11:54] LABS: Albumin 3.5 g/dL (3.4-5.0); Calcium 8.6 mg/dL (8.5-10.1); Potassium 3.8 mmol/L (3.5-5.1)
[2018-09-02 11:57] LABS: BUN/Creatinine Ratio 18.8; Bilirubin, Total 0.7 mg/dL (0.2-1.0); Total Protein 6.9 g/dL (6.4-8.2)
[2018-09-02] MEDS ORDERED: MORPHINE SULFATE 4 MG/ML SYR/VIAL IV ONE (12:00)
[2018-09-02] MEDS ORDERED: ONDANSETRON HCL 4 MG/2 ML VIAL IV ONE (12:00)
[2018-09-02 12:12] LABS: Urine Bacteria FEW /hpf (None Seen); Urine Blood Negative /uL (Negative); Urine Specific Gravity 1.008 (1.001-1.035); Urine WBC 11 /hpf (0 - 5)
[2018-09-02] MEDS ORDERED: KETOROLAC TROMETH 30 MG/ML 1ML VIAL IV ONE (12:30)
[2018-09-02 13:02] VITALS: BP 129/72
== END 2018-09-02 13:11 | disposition home or self-care (01) ==
LOC: ER 10:18
DX: N39.0 Urinary tract infection, site not specified (principal); R11.0 Nausea; R19.7 Diarrhea, unspecified; I25.10 Atherosclerotic heart disease of native coronary artery without angina pectoris; E11.9 Type 2 diabetes mellitus without complications; K21.9 Gastro-esophageal reflux disease without esophagitis; I11.0 Hypertensive heart disease with heart failure; I50.9 Heart failure, unspecified; Z88.5 Allergy status to narcotic agent; Z88.8 Allergy status to other drugs, medicaments and biological substances; Z79.82 Long term (current) use of aspirin; Z79.899 Other long term (current) drug therapy; Z86.73 Personal history of transient ischemic attack (TIA), and cerebral infarction without residual deficits
CPT/HCPCS: 36415; 74176; 80053; 81001; 85025; 96374; 96375; 99284; J1885; J2405

== ENCOUNTER 2018-09-11 09:55 | Emergency (ER) | payer MEDICAID ==
[~2018-09-11] VITALS: Ht 167.6 cm; Wt 103.4 kg
[2018-09-11 10:13] VITALS: BP 144/73
[2018-09-11] MEDS ORDERED: ONDANSETRON HCL 4 MG/2 ML VIAL IV ONE (10:45)
[2018-09-11] MEDS ORDERED: HYDROmorphone HCL 2 MG/ML VL IV ONE (11:00)
[2018-09-11 11:07] LABS: Basophils # (auto) 0 uL; Basophils % (auto) 0.4 % (0.0-2.0); Eosinophils # (auto) 0.2 uL; Eosinophils % (auto) 3.5 % (0.0-7.0); Hematocrit 41.5 % (36.0-46.0); Hemoglobin 14.2 g/dL (12.2-16.2); Lymphocytes # (auto) 1.1 uL; Lymphocytes % (auto) 16.4 % (10.0-50.0); Mean Corpuscular Hemoglobin 31.6 pg (28.0-32.0); Mean Corpuscular Hgb Conc. 34.3 g/dL (32.0-36.0); Mean Corpuscular Volume 92.2 fL (80.0-100.0); Monocytes # (auto) 0.3 uL; Neutrophils # (auto) 5.1 uL; Neutrophils % (auto) 74.7 % (37.0-80.0); Nucleated Red Blood Cells % 0.1 %; Platelet Count (auto) 150 10^3/uL (140-450); Red Cell Distribution Width 14.2 % (11.8-14.3); White Blood Cell 6.9 10^3/uL (4.4-10.8)
[2018-09-11 11:20] LABS: INR 0.92 (0.9-1.15); Partial Thromboplastin Time 25.7 sec (23.78-33.04); Prothrombin Time 9.9 sec (9.27-12.13)
[2018-09-11 11:38] LABS: Albumin 3.6 g/dL (3.4-5.0); Calcium 8.9 mg/dL (8.5-10.1); Potassium 3.3 mmol/L (3.5-5.1)
[2018-09-11 11:42] LABS: BUN/Creatinine Ratio 25.4; Bilirubin, Total 0.6 mg/dL (0.2-1.0); Total Protein 7.1 g/dL (6.4-8.2)
[2018-09-11] MEDS ORDERED: cefTRIAXone 1GM/50ML D5W 50 ML IV ONE (12:45)
== END 2018-09-11 13:14 | disposition home or self-care (01) ==
LOC: ER 09:55
DX: N39.0 Urinary tract infection, site not specified (principal); J45.909 Unspecified asthma, uncomplicated; I11.0 Hypertensive heart disease with heart failure; I50.9 Heart failure, unspecified; E11.9 Type 2 diabetes mellitus without complications; K21.9 Gastro-esophageal reflux disease without esophagitis; E78.5 Hyperlipidemia, unspecified; I25.10 Atherosclerotic heart disease of native coronary artery without angina pectoris; Z86.73 Personal history of transient ischemic attack (TIA), and cerebral infarction without residual deficits; Z87.11 Personal history of peptic ulcer disease; Z90.49 Acquired absence of other specified parts of digestive tract; Z90.710 Acquired absence of both cervix and uterus; Z88.6 Allergy status to analgesic agent; Z88.8 Allergy status to other drugs, medicaments and biological substances
CPT/HCPCS: 36415; 80053; 81002; 85025; 85610; 85730; 96365; 96375; 99284; J0696; J1170; J2405

== ENCOUNTER 2018-09-17 10:35 | Emergency (ER) | payer MEDICAID ==
[~2018-09-17] VITALS: Ht 167.6 cm; Wt 108.9 kg
[2018-09-17 11:26] LABS: Basophils # (auto) 0 uL; Basophils % (auto) 0.3 % (0.0-2.0); Eosinophils # (auto) 0.3 uL; Eosinophils % (auto) 5.3 % (0.0-7.0); Hematocrit 41.1 % (36.0-46.0); Hemoglobin 13.9 g/dL (12.2-16.2); Lymphocytes # (auto) 1.3 uL; Lymphocytes % (auto) 20.6 % (10.0-50.0); Mean Corpuscular Hemoglobin 31.8 pg (28.0-32.0); Mean Corpuscular Hgb Conc. 33.8 g/dL (32.0-36.0); Mean Corpuscular Volume 94.1 fL (80.0-100.0); Monocytes # (auto) 0.4 uL; Monocytes % (auto) 5.7 % (0.0-12.0); Neutrophils # (auto) 4.5 uL; Neutrophils % (auto) 68.1 % (37.0-80.0); Platelet Count (auto) 148 10^3/uL (140-450); Red Blood Cells 4.37 10^6/uL (4.0-5.20); Red Cell Distribution Width 14.2 % (11.8-14.3); White Blood Cell 6.6 10^3/uL (4.4-10.8)
[2018-09-17 11:49] LABS: Alanine Aminotransferase 23 U/L (13-56); Albumin 3.4 g/dL (3.4-5.0); Anion Gap 2 (5-15); Aspartate Aminotransferase 11 U/L (15-37); BUN/Creatinine Ratio 18.8; Blood Urea Nitrogen 12 mg/dL (7-18); Calcium 8.7 mg/dL (8.5-10.1); Carbon Dioxide 27 mmol/L (21-32); Chloride 109 mmol/L (98-107); GFR African American 120 mL/min; GFR Non-African American 99 mL/min; Glucose 135 mg/dL (74-106); Potassium 4.3 mmol/L (3.5-5.1); Sodium 138 mmol/L (136-145)
[2018-09-17 11:54] LABS: Alkaline Phosphatase 124 U/L (45-117); Bilirubin, Total 0.5 mg/dL (0.2-1.0); Total Protein 6.8 g/dL (6.4-8.2)
[2018-09-17 12:03] LABS: Urine Bacteria NONE SEEN /hpf (None Seen); Urine Blood Negative /uL (Negative); Urine Specific Gravity 1.013 (1.001-1.035); Urine WBC <1 /hpf (0 - 5)
[2018-09-17] MEDS ORDERED: SODIUM CHLORIDE 0.9% 1,000 ML IVB ONE (12:04)
[2018-09-17 12:41] LABS: INR 0.92 (0.9-1.15); Partial Thromboplastin Time 26.6 sec (23.78-33.04); Prothrombin Time 9.9 sec (9.27-12.13)
[2018-09-17 12:47] LABS: Magnesium 2.4 mg/dL (1.6-2.6)
[2018-09-17] MEDS ORDERED: ONDANSETRON HCL 4 MG/2 ML VIAL IV ONE (13:30)
[2018-09-17] MEDS ORDERED: MEPERIDINE HCL (25 MG/ML) 1ML VIAL IV ONE (13:30)
[2018-09-17 16:18] VITALS: BP 131/79
== END 2018-09-17 17:02 | disposition home or self-care (01) ==
LOC: EDBD 10:35 → ER 10:39
DX: R10.9 Unspecified abdominal pain (principal); E11.9 Type 2 diabetes mellitus without complications; K21.9 Gastro-esophageal reflux disease without esophagitis; I11.0 Hypertensive heart disease with heart failure; I50.9 Heart failure, unspecified; Z90.710 Acquired absence of both cervix and uterus; Z90.89 Acquired absence of other organs; Z90.49 Acquired absence of other specified parts of digestive tract; Z79.899 Other long term (current) drug therapy; Z88.6 Allergy status to analgesic agent; Z88.1 Allergy status to other antibiotic agents
CPT/HCPCS: 36415; 71045; 74176; 80053; 81001; 82150; 83690; 83735; 84484; 85025; 85610; 85730; 93005; 94761; 96374; 96375; 99284; J2175; J2405

== ENCOUNTER 2019-12-17 20:09 | Inpatient (IN) | payer MEDICARE, MEDICAID ==
[~2019-12-17] VITALS: Ht 167.6 cm; Wt 112.5 kg
--- NOTE | 2019-12-17 02:09 | NUR ---
Telemetry admit from ER [facility] admitted to Telemetry unit after SBAR received. Patient oriented to Alexia Rodrigues primary RN, unit, room, bed, and unit policies regarding patient care and visiting hours. Patient now on continuous telemetry monitoring, tele box # [id number] and telemetry reading on arrival to unit is SINUS RHYTHM. Patient placed on bedside oxygen, weighed by bed scale and encouraged to call if they need something. All questions and concerns addressed, patient verbalized understanding.
[~2019-12-17 20:09] MED LIST changes: +DIA5T PO; +DIGO1TAB35 PO; -LORA-655 PO; -TRAZ100T2 PO; +TRAZ100T3 PO
[2019-12-17 21:34] LABS: Basophils # (auto) 0 10 ^3/uL (0-0.2); Basophils % (auto) 0.5 % (0.0-2.0); Eosinophils # (auto) 0.1 10 ^3/uL (0-0.8); Eosinophils % (auto) 1.4 % (0.0-7.0); Hematocrit 36.9 % (36.0-46.0); Hemoglobin 12.9 g/dL (12.2-16.2); Lymphocytes # (auto) 1.1 10 ^3/uL (0.4-5.4); Lymphocytes % (auto) 10.4 % (10.0-50.0); Mean Corpuscular Hemoglobin 30.6 pg (28.0-32.0); Mean Corpuscular Hgb Conc. 34.9 g/dL (32.0-36.0); Mean Corpuscular Volume 87.7 fL (80.0-100.0); Monocytes # (auto) 0.5 10 ^3/uL (0-1.3); Monocytes % (auto) 5.2 % (0.0-12.0); Neutrophils # (auto) 8.4 10 ^3/uL (1.6-8.6); Neutrophils % (auto) 82.5 % (37.0-80.0); Platelet Count (auto) 234 10^3/uL (140-450); Red Blood Cells 4.21 10^6/uL (4.0-5.20); Red Cell Distribution Width 14.3 % (11.8-14.3); White Blood Cell 10.1 10^3/uL (4.4-10.8)
[2019-12-17 21:54] LABS: Albumin 2.9 g/dL (3.4-5.0); Calcium 8.5 mg/dL (8.5-10.1); Potassium 3.6 mmol/L (3.5-5.1)
[2019-12-17 21:57] LABS: BUN/Creatinine Ratio 17.5; Bilirubin, Total 0.8 mg/dL (0.2-1.0)
[2019-12-18] VITALS (8 sets, daily range): BP systolic 89–111; BP diastolic 46–75
[2019-12-18] MEDS ORDERED: LORazepam 0.5 MG TAB PO ONE (00:30)
[2019-12-18] MEDS ORDERED: PIPERACILLIN-TAZOB 3.375GM 100 ML IV ONE (00:30)
[2019-12-18] MEDS ORDERED: VANCOMYCIN PER PHARMACY 0 MG IV SCH (00:30)
[2019-12-18] MEDS ORDERED: diazePAM 5 MG TAB PO PRN (01:00)
[2019-12-18] MEDS ORDERED: MORPHINE SULFATE 4 MG/ML SYR/VIAL IV PRN (01:00)
[2019-12-18] MEDS ORDERED: HYDROmorphone HCL 2 MG/ML VL IV ONE (01:00)
[2019-12-18] MEDS ORDERED: VANCOMYCIN 1GM/250ML 250 ML IV ONE (01:00)
[2019-12-18] MEDS ORDERED: ONDANSETRON HCL 4 MG/2 ML VIAL IV ONE (01:00)
[2019-12-18] MEDS ORDERED: ALBUTEROL SULF 2.5 MG/0.5ML(0.5%) NEB SOLN NEB PRN (01:00)
[2019-12-18] MEDS ORDERED: ACETAMINOPHEN 325 MG TAB PO PRN (01:00)
[2019-12-18] MEDS ORDERED: DOCUSATE SOD 100 MG CAP PO PRN (01:00)
[2019-12-18] MEDS ORDERED: DEXTROSE (50%) 50ML SYRG IV PRN ×3 (01:00→13:00)
[2019-12-18] MEDS ORDERED: FLUTICASONE PROP NASAL SPR 0.05 % (50MCG) 16GM PRN (01:00)
[2019-12-18] MEDS ORDERED: IPRATROPIUM BROM 0.5 MG/2.5ML INH SOL NEB PRN (01:00)
[2019-12-18] MEDS: SODIUM CHLORIDE 0.9% 1,000 ML IV SCH ×2 (01:00→16:30)
[2019-12-18] MEDS ORDERED: metroNIDAZOLE 500MG/100ML 100 ML IV SCH ×2 (02:00→10:00)
--- NOTE | 2019-12-18 02:28 | NUR ---
Respiratory note: PT STATES SHE IS IN NOT IN DISTRESS AT THIS TIME. PRN HHN TX NOT INDICATED AT THIS TIME. HR 85 RR 20 SPO2 96% ON RA BS CLEAR WILL CONTINUE TO MONITOR.
[2019-12-18] MEDS: HYDROcodone-ACET 5/325MG TAB PO PRN ×4 (03:16→23:58)
[2019-12-18] MEDS: InsuLIN REG 1unit/0.01ml Soln (100units/ml) SC SCH ×4 (03:59→23:56)
[2019-12-18] MEDS ORDERED: InsuLIN REG 1unit/0.01ml Soln (100units/ml) SC SCH (04:00)
[2019-12-18] MEDS ORDERED: ACCU-CHEK COMFORT CURVE STRIP VI SCH (04:00)
[2019-12-18] MEDS: ACCU-CHEK COMFORT CURVE STRIP VI SCH ×4 (04:00→23:57)
[2019-12-18] MEDS ORDERED: FERROUS SULFATE 325 MG TAB PO SCH ×2 (06:00→12:00)
[2019-12-18] MEDS: ONDANSETRON HCL 4 MG/2 ML VIAL IV PRN (06:23)
[2019-12-18 06:32] LABS: Basophils # (auto) 0 10 ^3/uL (0-0.2); Basophils % (auto) 0.2 % (0.0-2.0); Eosinophils # (auto) 0.2 10 ^3/uL (0-0.8); Eosinophils % (auto) 2.2 % (0.0-7.0); Hemoglobin 11.3 g/dL (12.2-16.2); Lymphocytes # (auto) 1.3 10 ^3/uL (0.4-5.4); Lymphocytes % (auto) 18.5 % (10.0-50.0); Mean Corpuscular Hemoglobin 30.4 pg (28.0-32.0); Mean Corpuscular Hgb Conc. 34.1 g/dL (32.0-36.0); Mean Corpuscular Volume 89.1 fL (80.0-100.0); Monocytes # (auto) 0.5 10 ^3/uL (0-1.3); Monocytes % (auto) 6.8 % (0.0-12.0); Neutrophils % (auto) 72.3 % (37.0-80.0); Platelet Count (auto) 189 10^3/uL (140-450); Red Blood Cells 3.71 10^6/uL (4.0-5.20)
[2019-12-18 06:40] LABS: Potassium 3.4 mmol/L (3.5-5.1)
[2019-12-18 06:43] LABS: BUN/Creatinine Ratio 15.6
--- NOTE | 2019-12-18 08:00 | NUR ---
Received pt resting in bed, call light within reach, pt reports incision pain 8/10, mid abdominal dressing clean and dry, rt lower abdomen LILI drain present with minimal brown drainage, lili dressing clean and dry, will medicate pt for pain and will continue to monitor pt. Addendum: 12/18/19 at 1657 by Maria C Gleason RN Received pt resting in bed, call light within reach, pt reports incision pain 10/10, mid abdominal dressing clean and dry, rt lower abdomen LILI drain present with minimal brown drainage, lili dressing clean and dry, will medicate pt for pain and will continue to monitor pt.
--- NOTE | 2019-12-18 08:54 | NUR ---
Pt resting sleeping comfortably, call light within reach, no pain or distress noted at this time.
--- NOTE | 2019-12-18 09:05 | NUR ---
Respiratory note: PT AWAKE, AND ALERT. NO RESPIRATORY DISTRESS NOTED. SPO2 100% ON 3L NC, (TITRATED FIO2 TO 2L NC) PT TOLERATING CHANGE WELL. SPO2 98% 2L NC, HR 66, RR 18, BS CLEAR BILATERALLY. PRN MEDNEB TX NOT INDICATED. PT INFORMED TO PUSH CALL BUTTON IF INCREASED WOB, SOB, OR WHEEZING OCCURS.
[2019-12-18] MEDS ORDERED: METOPROLOL TARTRATE 50 MG TAB PO SCH (10:00)
[2019-12-18] MEDS: levETIRAcetam 500 MG TAB PO SCH ×2 (11:11→21:26)
[2019-12-18] MEDS: PANTOPRAZOLE 40 MG TAB PO SCH (11:11)
[2019-12-18] MEDS: DIGOXIN 0.125 MG TAB PO SCH (11:11)
[2019-12-18] MEDS: PREGABALIN CAPSULE 75 MG CAP PO SCH (11:12)
[2019-12-18] MEDS: CITALOPRAM HYDROBR 20 MG TAB PO SCH (11:12)
[2019-12-18] MEDS: PYRIDOXINE HCL 50 MG TAB PO SCH (11:12)
[2019-12-18] MEDS: ATORVASTATIN 20 MG TAB PO SCH (11:13)
[2019-12-18] MEDS: FUROSEMIDE 40 MG TAB PO SCH (11:13)
[2019-12-18] MEDS: ASPirin-EC 81 mg tab PO SCH (11:13)
--- NOTE | 2019-12-18 12:08 | NUR ---
WOUND CARE NOTE: Wound care in to see patient per wound care request regarding abdominal wound/incision that are noted present on admission. Bedside nurse took photograph of patient's wound upon admission for reference. Patient is 64 years old female with admitting diagnosis of Intraabdominal Infection. Patient is resting in bed in Rm. 298B. Patient is awake, alert and oriented. Patient is in no stated pain at this time. She's able to turn and reposition self. Her López score is 20. Patient recently at [facility] and diagnosed of ischemic Colitis. She undergone Exploratory Lap and Rt colectomy by Dr. Wallace. Patient's medial abdomen has 20 cm, well approximated, stapled incision. 29 intact ramos noted along incision, surrounding skin has erythema, possible skin irritation from drainage. No active drainage noted at this time, however old dressing has minimal serous drainage, no odor noted. Wound culture noted sent to lab for processing. Cleansed patient's abdominal wound with NS,patted dry with sterile gauze, applied Sure prep skin protectant to surrounding skin, covered wound with large abd pad and secure with Medipore tape. Patient has pending surgical consult. No pressure injury noted. Patient tolerated well. Bed in low position, call clement on hand, all safety precautions in placed. No further wound care monitoring needed at this time. RECOMMENDATION: Nursing to continue Daily/PRN dressing change to abdominal wound per MD order, surgical consult, reconsult for active wound, pressure injury, Low López score of 12 and below. Addendum: 12/18/19 at 1650 by Jill Grant RN Amended: Links added.
[2019-12-18] MEDS: CYANOCOBALAMIN 500 MCG TAB PO SCH (12:14)
[2019-12-18] MEDS: PIPERACILLIN-TAZOB 3.375GM 100 ML IV SCH ×3 (12:15→23:56)
--- NOTE | 2019-12-18 12:50 | NUR ---
Dr. Nova at bed side to see pt, doctor discussed the plan of care with pt, doctor informed that metoprolol was held due to low BP.
--- NOTE | 2019-12-18 12:50 | NUR ---
Dr. Luke informed that pt only has norco for pain medication.
[2019-12-18] MEDS ORDERED: POTASSIUM CHL 20 Meq TABLET PO ONE (13:00)
[2019-12-18] MEDS: VANCOMYCIN 1GM/250ML 250 ML IV SCH (14:03)
--- NOTE | 2019-12-18 16:30 | NUR ---
Respiratory note: PT CLAIMS THAT SHE WEARS CPAP AT NIGHT FOR SLEEP APNEA. RN MADE AWARE, AND PAGED DR TO GET AN ORDER FOR CPAP @ NOC.
--- NOTE | 2019-12-18 16:30 | NUR ---
UA sample sent out to lab.
[2019-12-18 17:15] LABS: Urine Bacteria NONE SEEN /hpf (None Seen); Urine Blood Negative /uL (Negative); Urine Hyaline Cast FEW /lpf (0 - 2); Urine Specific Gravity 1.009 (1.001-1.035); Urine WBC 1 /hpf (0 - 5)
[2019-12-18] MEDS: traZODone HCL 50 MG TAB PO SCH ×2 (17:36→17:44)
--- NOTE | 2019-12-18 18:33 | NUR ---
Pt reported pain 6/10 and requested the [facility] for pain medication, will medicate pt as order.
--- NOTE | 2019-12-18 19:15 | NUR ---
Opening Shift Note Assumed care of patient, awake and alert. No S/S of distress/SOB or pain. Instructed on POC and to call for assist PRN, will continue to monitor for changes Q1hr and PRN. PATIENT RESTING IN BED PATIENT GRANDSON AT BEDSIDE, BED IN LOWEST POSITION, SIDE RALES UP X2, AND CALL LIGHT WITHIN REACH.
--- NOTE | 2019-12-18 21:50 | NUR ---
Respiratory note: PT ASSESSED FOR PRN MED NEB TX. HR 66, RR 18, SPO2 96% ON 1L NC. NO SIGNS OF ANY RESPIRATORY DISTRESS NOTED. ADVISED PT TO CALL IF TX IS NEEDED. RT NAME AND PAGER NUMBER WRITTEN ON PT'S BOARD.
--- NOTE | 2019-12-18 22:36 | NUR ---
RT NOTE: PT WOKEN UP FOR CPAP, PT STATED SHE FEELS FINE WITH JUST THE NASAL CANULA ON. PT NOTIFIED OF CPAP ORDER AND IF SHE CHANGES HER MIND TO HAVE RT PAGED. RN NOTIFIED.
--- NOTE | 2019-12-18 23:59 | NUR ---
PATIENT HAVING PAIN 6/10 ADMINISTERED NORCO 5 PER DOCTORS ORDER WILL REASSESS IN ONE HOUR.
[2019-12-19] VITALS (7 sets, daily range): BP systolic 86–110; BP diastolic 54–62
[2019-12-19] MEDS: SODIUM CHLORIDE 0.9% 1,000 ML IV SCH ×2 (00:48→19:54)
[2019-12-19] MEDS: VANCOMYCIN 1GM/250ML 250 ML IV SCH ×3 (00:53→14:20)
[2019-12-19] MEDS: ONDANSETRON HCL 4 MG/2 ML VIAL IV PRN (01:23)
[2019-12-19 05:10] LABS: Basophils # (auto) 0 10 ^3/uL (0-0.2); Basophils % (auto) 0.2 % (0.0-2.0); Eosinophils # (auto) 0.3 10 ^3/uL (0-0.8); Eosinophils % (auto) 5.1 % (0.0-7.0); Hematocrit 32.6 % (36.0-46.0); Hemoglobin 11.1 g/dL (12.2-16.2); Lymphocytes # (auto) 0.9 10 ^3/uL (0.4-5.4); Lymphocytes % (auto) 15.3 % (10.0-50.0); Mean Corpuscular Hemoglobin 30.3 pg (28.0-32.0); Monocytes # (auto) 0.3 10 ^3/uL (0-1.3); Monocytes % (auto) 4.6 % (0.0-12.0); Neutrophils # (auto) 4.4 10 ^3/uL (1.6-8.6); Neutrophils % (auto) 74.8 % (37.0-80.0); Platelet Count (auto) 194 10^3/uL (140-450); Red Blood Cells 3.66 10^6/uL (4.0-5.20); Red Cell Distribution Width 14.1 % (11.8-14.3); White Blood Cell 5.9 10^3/uL (4.4-10.8)
[2019-12-19 05:30] LABS: Calcium 8.3 mg/dL (8.5-10.1); Potassium 3.5 mmol/L (3.5-5.1)
[2019-12-19 05:33] LABS: BUN/Creatinine Ratio 19.6
[2019-12-19] MEDS: ACCU-CHEK COMFORT CURVE STRIP VI SCH ×4 (06:05→23:47)
[2019-12-19] MEDS: PIPERACILLIN-TAZOB 3.375GM 100 ML IV SCH ×3 (06:05→21:41)
[2019-12-19] MEDS: InsuLIN REG 1unit/0.01ml Soln (100units/ml) SC SCH ×4 (06:06→23:47)
[2019-12-19] MEDS: HYDROcodone-ACET 5/325MG TAB PO PRN ×4 (06:45→20:30)
--- NOTE | 2019-12-19 06:45 | NUR ---
PT HAVING PAIN 6/10 PATIENT REPORTS BACK PAIN ADMINISTERED NORCO 5 AND REPOSITIONED WITH PILLOW TO COMFORT WILL ENDORSE REASSESSMENT TO DAY SHIFT NURSE.
--- NOTE | 2019-12-19 07:09 | NUR ---
PRN [place] TX NOT INDICATED AT THIS TIME. PT IS AWAKE, ALERT AND ORIENTED. PT ON 1L/MIN VIA NC, 97% O2 SATS, HR 69 BPM, RR19 BPM, BS ARE CLEAR TO AUSCULTATION. PT DENIES SOB OR ANY OTHER RESPIRATORY DISTRESS. PT INSTRUCTED TO CALL IF [place] TX IS INDICATED. PT VERBALIZED UNDERSTANDING.
[2019-12-19] MEDS: ASPirin-EC 81 mg tab PO SCH (09:33)
[2019-12-19] MEDS: CITALOPRAM HYDROBR 20 MG TAB PO SCH (09:34)
[2019-12-19] MEDS: FUROSEMIDE 40 MG TAB PO SCH (09:35)
[2019-12-19] MEDS: levETIRAcetam 500 MG TAB PO SCH ×2 (09:35→21:42)
[2019-12-19] MEDS: ATORVASTATIN 20 MG TAB PO SCH (09:35)
[2019-12-19] MEDS: POTASSIUM CHL 20 Meq TABLET PO SCH (09:35)
[2019-12-19] MEDS: PANTOPRAZOLE 40 MG TAB PO SCH (09:36)
[2019-12-19] MEDS: DIGOXIN 0.125 MG TAB PO SCH (09:36)
[2019-12-19] MEDS: PREGABALIN CAPSULE 75 MG CAP PO SCH (09:37)
[2019-12-19] MEDS: PYRIDOXINE HCL 50 MG TAB PO SCH (09:38)
[2019-12-19] MEDS: CYANOCOBALAMIN 500 MCG TAB PO SCH (09:38)
--- NOTE | 2019-12-19 10:25 | NUR ---
PAIN PATIENT VERBALIZES RIGHT LOWER BACK PAIN, RATES IT 6/10. PATIENT REPOSITIONED FOR OPTIMAL COMFORT. WILL ADMINISTER PAIN PRN PER ORDER.
--- NOTE | 2019-12-19 11:00 | NUR ---
AM CARE PATIENT AMBULATED TO RESTROOM WITH MINIMUM ASSIST FOR AM HYGIENE CARE. BED LINEN CHANGE COMPLETED
--- NOTE | 2019-12-19 11:26 | NUR ---
PAIN REASSESSMENT PATIENT VERBALIZES PAIN RELIEF, RATING IT A 2/10 WHICH IS TOLERABLE LEVEL FOR PATIENT. PATIENT ENCOURAGED TO SIT ON BED SIDE CHAIR FOR BACK PRESSURE RELIEF. PATIENT VERBALIZES UNDERSTANDING.
--- NOTE | 2019-12-19 12:00 | NUR ---
1200 ABX LATE DUE TO NO IV ACCESS. WILL ATTEMPT NEW ACCESS.
--- NOTE | 2019-12-19 13:10 | NUR ---
AWAITING MIDLINE PLACEMENT TO RESUME ABX
--- NOTE | 2019-12-19 14:00 | NUR ---
RIGHT AC 18G MIDLINE IN PLACE PATIENT TOLERATED WELL
--- NOTE | 2019-12-19 14:12 | NUR ---
Midline Placement: Patient educated on need for midline placement. All risks and benefits explained and all questions and concerns addresses prior to procedure. 18g/10cm midline inserted via right basilic vein using Ultrasound. Sterile technique utilized. Blood return obtained from lumen and flushed easily with NS using proper technique. Midline secured with saline lock; biodisc and occlusive dressing applied. Primary RN notified. Midline lot #[id number].
--- NOTE | 2019-12-19 14:56 | NUR ---
NUTRITION ASSESSMENT NOTES Please refer to link notes of nutrition screen form filed under the intervention section of the plan of care for further details. Est. Energy Needs: 2182-5911 kcal (14-18 kcal/kg BW). Est. Protein Needs: 86-108 gms/day (1.2-1.5 gms/kg Adj.BW). Will continue to monitor pertinent labs and reassess nutrient need prn Addendum: 12/19/19 at [address] Amended: Links added.
--- NOTE | 2019-12-19 16:00 | NUR ---
DR SHIPMAN AT BED SIDE DISCUSSING POC WITH PATIENT. PATIENT VERBALIZES UNDERSTANDING.
--- NOTE | 2019-12-19 16:06 | NUR ---
SURGICAL CONSULT/ DR Fabiano ADHIKARI SURGICAL CONSULT RE CALLED
[2019-12-19] MEDS: traZODone HCL 50 MG TAB PO SCH (18:00)
--- NOTE | 2019-12-19 19:15 | NUR ---
Opening Shift Note Assumed care of patient, awake and alert. No S/S of distress/SOB or pain. Instructed on POC and to call for assist PRN, will continue to monitor for changes Q1hr and PRN. PATIENT RESTING IN BED, BED IN LOWEST POSITION, SIDE RALES UP X2, AND CALL LIGHT WITHIN REACH.
--- NOTE | 2019-12-19 20:30 | NUR ---
PAT REQUESTING PAIN MED PATIENT STATES ABDOMINAL/BACK PAIN 8/10 PATIENT ALLERGIC TO MORPHINE SO NORCO 5 WAS GIVEN AND PATIENT REPOSITIONED. WILL REASSESS IN ONE HOUR.
[2019-12-19] MEDS ORDERED: diphenhdrAMINE HCL 25 MG CAP PO ONE (20:45)
--- NOTE | 2019-12-19 21:10 | NUR ---
RECALLED REQUIP PATIENT NOW REQUESTING REQUIP THAT WAS "NON ADMINISTERED" EARLIER SHE USUALLY TAKES IT LATTER IN THE EVENING RECALLED DOSE TO ADMINISTER NOW.
--- NOTE | 2019-12-20 00:40 | NUR ---
PT CARE RESUMED/REPORT RECEIVED FROM KYARA SANTOS PT AT THIS TIME, SLEEPING, BREATHING EVEN AND UNLABORED, CURRENTLY ON C-PAP MACHINE, NO DISTRESS NOTED, EASILY AWAKENED VIA VERBAL STIMULI, RIGHT AC ML CDI, MID ABD DRESSING CDI, AND RLQ JAMIE DRAIN NOTED DRAINING MIN SEROUS FLUID, NO CURRENT C/O SOB, PAIN, N/V, BLE +2 NONPITTING EDEMA NOTED, REDNESS NOTED BEHIND BILATERAL KNEES , INSTRUCTED TO CALL FOR ASSIST, CALL LIGHT WITHIN REACH, BED ALARM ACTIVATED, 2 SIDE RAILS UP, CONT CARE
[2019-12-20] MEDS: VANCOMYCIN 1GM/250ML 250 ML IV SCH ×2 (00:44→13:00)
--- NOTE | 2019-12-20 01:00 | NUR ---
Respiratory note: PT TAKEN OFF CPAP PER PT REQUEST AT 0100. PT STATED SHE IS IN PAIN AND DOESN'T WANT TO WEAR IT ANYMORE. PT AWARE TO CALL FOR RT IF SHE WISHES TO GO BACK ON AT A LATER TIME.
[2019-12-20] MEDS: HYDROcodone-ACET 5/325MG TAB PO PRN ×2 (01:03→09:53)
--- NOTE | 2019-12-20 01:04 | NUR ---
PAIN PT REQUESTING PAIN MEDICATIONS, ADMINISTERED NORCO ORDERED, REPORTS PAIN 8 OUT OF 10 PAIN SCALE, PT REPORTS HAVING AN ALLERGY TO MORPHINE AND STATES " I GET WELTS", PT REPOSITIONED WITH PILLOWS AND LIGHTS TURNED DOWN, WILL CLOSELY MONITOR EFFECTIVENESS OF MEDICATION
[2019-12-20] MEDS: PIPERACILLIN-TAZOB 3.375GM 100 ML IV SCH ×4 (04:09→21:33)
--- NOTE | 2019-12-20 04:18 | NUR ---
MUSIC STORE MANAGER HOSPITALIST PAGED/RE:PAIN PT C/O ABD AND RIGHT HIP PAIN, NORCO NOT DUE AND PT HAS A HX OF ALLERGY TO MORPHINE, CURRENTLY ASSISTED TO TURN ON HER LEFT FOR COMFORT, CALL LIGHT WITHIN REACH, WILL AWAIT CALL BACK FROM MD FOR FURTHER ORDERS
[2019-12-20 05:00] VITALS: BP 104/48
[2019-12-20] MEDS ORDERED: KETOROLAC TROMETH 15 mg/ml 1ML VL IV ONE (05:00)
[2019-12-20] MEDS: InsuLIN REG 1unit/0.01ml Soln (100units/ml) SC SCH ×4 (05:03→23:55)
[2019-12-20] MEDS: ACCU-CHEK COMFORT CURVE STRIP VI SCH ×4 (06:06→23:52)
--- NOTE | 2019-12-20 06:30 | NUR ---
ACTIVITY PT ABLE TO TRANSFER SELF TO BSC, WITH STANDBY ASSIST, PT TOLERATED TRANSFER WELL, NO C/O SOB, OR PAIN AT THIS TIME, PT GOT PAIN RELIEF FROM ADMINISTRATION OF TORADOL, ASSISTED BACK TO BED, BED ALARM ACTIVATED AND CALL LIGHT WITHIN REACH, CONT CARE
[2019-12-20 06:51] LABS: INR 1.12 (0.9-1.15); Partial Thromboplastin Time 27.1 sec (23.64-32.05)
--- NOTE | 2019-12-20 07:30 | NUR ---
Opening shift note Assumed care of patient. Patient sitting up in bed A&Ox4, respirations even and non-labored without s/s of distress. IV flushed, patent and intact. Applied antifungal cream/linen sheet to bilateral posterior knees. Discussed NPO status and POC with patient. Bed lowered, wheels locked and side rails up x2. Call light within reach, advised patient to call for assistance. Family bedside, will continue to monitor.
[2019-12-20 08:00] VITALS: BP 114/61
--- NOTE | 2019-12-20 08:37 | NUR ---
Respiratory note: ASSESSED PT FOR PRN TX PT WAS AWAKE AND ALERT, NO RESP DISTRESS NOTED. HR 67, RR 18, SPO2 96% ON ROOM AIR. BS ARE CLEAR, NO INDICATION FOR TX AT THIS TIME. PT KNOWS TO HAVE RT PAGED IF TX IS NEEDED.
[2019-12-20 09:00] VITALS: BP 114/61
[2019-12-20] MEDS: DIGOXIN 0.125 MG TAB PO SCH (09:53)
[2019-12-20] MEDS: PREGABALIN CAPSULE 75 MG CAP PO SCH (09:53)
[2019-12-20] MEDS: levETIRAcetam 500 MG TAB PO SCH ×2 (09:53→21:33)
--- NOTE | 2019-12-20 09:53 | NUR ---
Pain Patient c/o 8 pain. Administered [place] per EMAR. Will continue to monitor.
[2019-12-20] MEDS: CITALOPRAM HYDROBR 20 MG TAB PO SCH (09:54)
[2019-12-20] MEDS: POTASSIUM CHL 20 Meq TABLET PO SCH (10:00)
[2019-12-20] MEDS: ASPirin-EC 81 mg tab PO SCH (10:00)
[2019-12-20] MEDS: ATORVASTATIN 20 MG TAB PO SCH (10:00)
[2019-12-20] MEDS: PANTOPRAZOLE 40 MG TAB PO SCH (10:00)
[2019-12-20] MEDS: CYANOCOBALAMIN 500 MCG TAB PO SCH (10:00)
[2019-12-20] MEDS: PYRIDOXINE HCL 50 MG TAB PO SCH (10:00)
[2019-12-20] MEDS: SODIUM CHLORIDE 0.9% 1,000 ML IV SCH (10:12)
--- NOTE | 2019-12-20 10:53 | NUR ---
Pain Reassessment Patient reassessed for pain after [place] administration. Patient stated 6/10 pain and tolerable. Will continue to monitor.
[2019-12-20] MEDS: diphenhdrAMINE HCL 50 MG/1 ML VL IV PRN ×2 (11:25→22:16)
--- NOTE | 2019-12-20 11:25 | NUR ---
Patient c/o itching to arms and legs. Administered Benadryl per EMAR. Will Continue to monitor.
--- NOTE | 2019-12-20 11:55 | NUR ---
Reassessed Patient reassessed for itching on arms and legs after benadryl administration. Patient stated that she no longer felt any sensation of itching and had no other complaints. Will continue to monitor.
--- NOTE | 2019-12-20 12:20 | NUR ---
CHG wipes administered per protocol.
--- NOTE | 2019-12-20 12:30 | NUR ---
Patient taken to surgery.
--- NOTE | 2019-12-20 12:51 | NUR ---
PATIENT TAKEN DOWN FOR PROCEDURE.
[2019-12-20 13:00] VITALS: BP 162/74
--- NOTE | 2019-12-20 13:15 | NUR ---
HOLD P.T. TODAY. PT WENT DOWN FOR A PROCEDURE.
[2019-12-20] MEDS ORDERED: ROCURONIUM 10MG/ML 10ML VIAL IV ONE (13:19)
[2019-12-20] MEDS ORDERED: ceFAZolin 1GM VL ONE (13:21)
[2019-12-20] MEDS ORDERED: MIDAZOLAM HCL 1MG/1ML-2 ML VIAL ONE (13:23)
[2019-12-20] MEDS ORDERED: LIDOCAINE 1% (LOCAL ANESTH.) PF 5ml SDV ONE (13:23)
[2019-12-20] MEDS ORDERED: ETOMIDATE (2MG/ML) 20ML VIAL IV ONE (13:25)
[2019-12-20] MEDS ORDERED: hydrALAZINE HCL 20 MG/ML VL IV PRN (13:45)
[2019-12-20] MEDS ORDERED: HYDROmorphone HCL 2 MG/ML VL IV PRN ×2 (13:45)
[2019-12-20] MEDS ORDERED: NALOXONE HCL 0.4 MG/ML VIAL IV PRN (13:45)
[2019-12-20] MEDS ORDERED: ACCU-CHEK COMFORT CURVE STRIP VI ONE (13:45)
[2019-12-20] MEDS ORDERED: ONDANSETRON HCL 4 MG/2 ML VIAL IV PRN (13:45)
[2019-12-20] MEDS ORDERED: fentaNYL CITRATE 100 MCG/2 ML VL ONE (13:48)
[2019-12-20] MEDS ORDERED: NEOSTIGMINE 1 MG/ML INJ (10mg/10ML VIAL) ONE (13:56)
[2019-12-20] MEDS ORDERED: GLYCOPYRROLATE 0.2 MG/ML 1ML VIAL ONE (13:56)
--- NOTE | 2019-12-20 16:08 | NUR ---
WOUND CARE NOTE: Received order from Dr. Henson to apply Ulta Vac to patient's abdominal wound/incision. Patient is resting in bed in Rm. 298B. Patient is awake, alert and oriented. Patient is in no stated pain at this time. She's able to turn and reposition self. Her López score is 18. Patient's education provided regarding NPWT, patient verbalized understanding. Patient is s/p abdominal wound exploration, drainage of abscess, secondary closure of non healing wound by Dr. Cullen. Wound care in to apply wound vac to patient's abdominal wounds per Dr. Henson's order. Removed patient's abdominal wound dressing. Patient's medial abdominal incision measuring 16cm, closed with 22 ramos and two sutures. There's 1x0.5cm open wound noted to distal aspect of incision to lower abdominal area. Wound is red with bright and dark red jan wound. Two drains noted, one to L upper quadrant with serosanguineous drainage, and one to Rt lower quadrant with clear yellow serous drainage. Lower abdominal wound has packing with minimal sanguinous drainage. Removed lower abdominal wound packing. Cleansed patient's abdominal wounds with NS,patted dry with sterile gauze, applied Sure prep skin protectant to surrounding skin. Applied surrounding skin near incision and open wound with transparent drape. Applied two pieces black granu foam on wounds, secured with transparent drape, applied trac pad on hole and attached to wound Vac. Good suction noted, no leak detected. Wound Vac functioning well. Reviewed with bedside nurse wound vac trouble shooting's steps; verbalized understanding. Patient tolerated well. New photograph of patient's wounds are taken for reference. Bed in low position, call clement on hand, all safety precautions in placed. RECOMMENDATION: Wound vac dressing change per surgeon's order, continue with skin wound plan of care, continue monitoring by wound care while patient is hospitalized. Addendum: 12/20/19 at 1736 by Jill Grant RN Amended: Links added.
[2019-12-20] MEDS: HYDROmorphone HCL 2 MG/ML VL IV PRN ×2 (16:12→21:02)
[2019-12-20] MEDS: traZODone HCL 50 MG TAB PO SCH (18:00)
--- NOTE | 2019-12-20 19:50 | NUR ---
Opening Shift Note Assumed care of patient, sleeping at this time. No S/S of distress/SOB or pain. Will continue to monitor for changes Q1hr and PRN.
--- NOTE | 2019-12-20 19:50 | NUR ---
Respiratory note: PT ASSESSED FOR PRN MED NEB TX. HR 69, RR 16, SPO2 99% ON 2L NC. NO SIGNS OF ANY RESPIRATORY DISTRESS NOTED. ADVISED PT TO CALL IF TX IS NEEDED. RT NAME AND PAGER NUMBER WRITTEN ON PT'S BOARD.
[2019-12-20] MEDS: ONDANSETRON HCL 4 MG/2 ML VIAL IV PRN (21:02)
--- NOTE | 2019-12-20 21:08 | NUR ---
NAUSEA/PAIN ASSESSMENT PATIENT COMPLAINS OF PAIN 8/10 ASSOCIATED WITH NAUSEA. PRN PAIN AND NAUSEA MEDICATION GIVEN AT THIS TIME. PATIENT DRY HEAVING, NO EMESIS NOTED. PATIENT RESTING IN BED. WILL CONTINUE TO MONITOR.
[2019-12-20 22:00] VITALS: BP 102/62
--- NOTE | 2019-12-20 22:08 | NUR ---
REASSESSMENT REASSESSMENT OF PAIN AND NAUSEA, PATIENT STATED NAUSEA RESOLVED WELL PAIN BEING TOLERABLE. WILL CONTINUE TO MONITOR. PATIENT RESTING COMFORTABLY IN BED.
--- NOTE | 2019-12-20 23:30 | NUR ---
Respiratory note: PT REFUSING TO WEAR CPAP AT THIS TIME. PT STATED SHE FELT FINE WITHOUT IT AND DID NOT WANT TO WEAR IT. NO SIGNS OF ANY DISTRESS NOTED. RN NOTIFIED.
[2019-12-21] MEDS: SODIUM CHLORIDE 0.9% 1,000 ML IV SCH ×2 (00:35→14:48)
[2019-12-21] MEDS: VANCOMYCIN 1GM/250ML 250 ML IV SCH ×2 (01:26→13:07)
[2019-12-21] MEDS: PIPERACILLIN-TAZOB 3.375GM 100 ML IV SCH ×4 (04:26→21:27)
[2019-12-21] MEDS: diphenhdrAMINE HCL 50 MG/1 ML VL IV PRN ×3 (04:27→18:09)
[2019-12-21] MEDS: HYDROmorphone HCL 2 MG/ML VL IV PRN ×4 (04:27→22:25)
--- NOTE | 2019-12-21 04:27 | NUR ---
PAIN AND ITCHINESS PATIENT COMPLAINS OF PAIN 10/10 AND ITCHINESS AT THIS TIME. PRN MEDICATION FOR PAIN AND ITCHING GIVEN AT THIS TIME. PATIENT IS RESTING IN BED, WILL CONTINUE TO MONITOR.
[2019-12-21 05:00] VITALS: BP 110/58
[2019-12-21] MEDS: InsuLIN REG 1unit/0.01ml Soln (100units/ml) SC SCH ×3 (06:00→18:07)
[2019-12-21 06:01] LABS: Basophils # (auto) 0 10 ^3/uL (0-0.2); Basophils % (auto) 0.3 % (0.0-2.0); Eosinophils # (auto) 0.4 10 ^3/uL (0-0.8); Eosinophils % (auto) 7.5 % (0.0-7.0); Hematocrit 34.5 % (36.0-46.0); Hemoglobin 11.6 g/dL (12.2-16.2); Lymphocytes # (auto) 0.8 10 ^3/uL (0.4-5.4); Lymphocytes % (auto) 15.9 % (10.0-50.0); Mean Corpuscular Hemoglobin 30.3 pg (28.0-32.0); Mean Corpuscular Hgb Conc. 33.6 g/dL (32.0-36.0); Mean Corpuscular Volume 90.2 fL (80.0-100.0); Monocytes # (auto) 0.2 10 ^3/uL (0-1.3); Monocytes % (auto) 4.6 % (0.0-12.0); Neutrophils # (auto) 3.7 10 ^3/uL (1.6-8.6); Neutrophils % (auto) 71.7 % (37.0-80.0); Platelet Count (auto) 201 10^3/uL (140-450); Red Blood Cells 3.83 10^6/uL (4.0-5.20); Red Cell Distribution Width 14.3 % (11.8-14.3); White Blood Cell 5.2 10^3/uL (4.4-10.8)
[2019-12-21 06:17] LABS: Potassium 3.9 mmol/L (3.5-5.1)
[2019-12-21 06:24] LABS: Albumin 2.2 g/dL (3.4-5.0); BUN/Creatinine Ratio 14.5; Bilirubin, Total 0.2 mg/dL (0.2-1.0); Calcium 8.4 mg/dL (8.5-10.1); Total Protein 5.5 g/dL (6.4-8.2)
[2019-12-21] MEDS: ACCU-CHEK COMFORT CURVE STRIP VI SCH ×3 (06:24→17:53)
[2019-12-21 08:43] VITALS: BP 110/58
--- NOTE | 2019-12-21 08:58 | NUR ---
WOUND CARE NOTE: Wound care in for daily monitoring of wound vac functioning. Patient's abdominal wound has C/D/I wound vac dressing and remain attached to Ulta Vac. Wound Vac functioning well @ 125mmHg continuos per MD order. Good seal noted, no indications of leak. Patient tolerated well. No drainage noted in canister. Wound care will continue monitoring.
[2019-12-21 09:00] VITALS: BP 96/55
[2019-12-21] MEDS: PYRIDOXINE HCL 50 MG TAB PO SCH (10:30)
[2019-12-21] MEDS: CYANOCOBALAMIN 500 MCG TAB PO SCH (10:30)
[2019-12-21] MEDS: CITALOPRAM HYDROBR 20 MG TAB PO SCH (10:31)
[2019-12-21] MEDS: PANTOPRAZOLE 40 MG TAB PO SCH (10:32)
[2019-12-21] MEDS: ATORVASTATIN 20 MG TAB PO SCH (10:33)
[2019-12-21] MEDS: PREGABALIN CAPSULE 75 MG CAP PO SCH (10:33)
[2019-12-21] MEDS: DIGOXIN 0.125 MG TAB PO SCH (10:34)
[2019-12-21] MEDS: ASPirin-EC 81 mg tab PO SCH (10:35)
[2019-12-21] MEDS: levETIRAcetam 500 MG TAB PO SCH ×2 (10:35→21:27)
[2019-12-21] MEDS: POTASSIUM CHL 20 Meq TABLET PO SCH (10:36)
[2019-12-21 13:00] VITALS: BP 107/63
[2019-12-21] MEDS: ONDANSETRON HCL 4 MG/2 ML VIAL IV PRN (13:08)
--- NOTE | 2019-12-21 14:50 | NUR ---
assessment Patient is a 64 year old female who is alert and oriented. Patients cognitive abilities are intact. Prior to admission patient lived home with family and functioned with assistance. 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 Patient informed me she has a fww, cane, wheelchair, and cpap for home use. Patients PCP is Dr Martinez. Patient has an [facility] caregiver. Patient is on service with [facility]. Patient will need a resumption order on discharge if she returns home. Patient has no safety issues. I informed patient she has a right to speak to a criminal justice social worker regarding all care. I informed patient she has a right to participate in any and all discharge planning. Patient does not have a POA and advanced directive. I have offered patient information on POA and advanced directives. I informed the patient the advantages and benefits of having an Advanced Directive. Patient verbalized understanding and agreed to discharge plan. Addendum: 12/21/19 at 1452 by Zuly CHAVARRIA Amended: Links added.
[2019-12-21 17:00] VITALS: BP 114/64
--- NOTE | 2019-12-21 19:32 | NUR ---
Opening Shift Note Assumed care of patient, patient sleeping. No S/S of distress/SOB or pain. Will continue to monitor for changes Q1hr and PRN.
--- NOTE | 2019-12-21 20:13 | NUR ---
Trazadone Held Helped the patient's 1800hr Trazadone per her request. She stated its a sleeping aid and it was too early to take it. Left the medication available on the MAR so she could get it later. Explained it to the on coming nurse, Betsey. Will continue to monitor.
[2019-12-21] MEDS: traZODone HCL 50 MG TAB PO SCH (21:45)
--- NOTE | 2019-12-21 21:46 | NUR ---
TRAZADONE GIVEN DAY NURSE, ATTILA, STATED PATIENTS REQUEST TO HOLD TRAZADONE AT 1800, PATIENT STATING SHE TAKES IT LATER IN THE EVENING TO AIDE HER WITH SLEEP. PATIENT REQUESTED TRAZADONE AT THIS TIME, MEDICATION GIVEN AND DOCUMENTED IN DEC.
--- NOTE | 2019-12-21 21:49 | NUR ---
ITCHING PATIENT COMPLAINS OF ITCHING, PATIENT WAS INFORMED THAT PRN BENADRYL FOR ITCHING IS NOT YET DUE AT THIS TIME. PATIENT VERBALIZED UNDERSTANDING. COMFORT MEASURES TAKEN; APPLIED ZGAURD TO IRRITATED AREAS WELL ICE PACKS. PATIENT STATED THAT IT HELPED. PATIENT RESTING COMFORTABLY IN BED AT THIS TIME, WILL ADMINISTER PRN MEDICATION FOR ITCHING WHEN IT IS AVAILABLE.
[2019-12-21 22:00] VITALS: BP 112/64
--- NOTE | 2019-12-21 22:24 | NUR ---
PT CHECKED FOR TO SEE IF SHE'D LIKE TO GO ON HER CPAP FOR THE NIGHT. PT DENIED NEED FOR IT AT THIS TIME AND IS AWARE TO PAGE IF SHE WANTED TO GO ON. PT WAS SLEEPING WITH NO ACUTE DISTRESS NOTED. TX IS NOT INDICATED. HR 72 RR 20 POX 92% ON ROOM AIR.
[2019-12-22] MEDS: ACCU-CHEK COMFORT CURVE STRIP VI SCH ×4 (00:27→18:05)
[2019-12-22] MEDS: diphenhdrAMINE HCL 50 MG/1 ML VL IV PRN ×2 (01:26→13:34)
[2019-12-22] MEDS: VANCOMYCIN 1GM/250ML 250 ML IV SCH ×2 (01:30→13:30)
[2019-12-22] MEDS: PIPERACILLIN-TAZOB 3.375GM 100 ML IV SCH ×4 (03:58→21:55)
[2019-12-22] MEDS: HYDROmorphone HCL 2 MG/ML VL IV PRN ×4 (04:07→20:58)
[2019-12-22 05:00] VITALS: BP 110/66
[2019-12-22] MEDS: SODIUM CHLORIDE 0.9% 1,000 ML IV SCH ×2 (05:23→19:56)
[2019-12-22 05:41] LABS: Basophils # (auto) 0 10 ^3/uL (0-0.2); Basophils % (auto) 0.1 % (0.0-2.0); Eosinophils # (auto) 0.4 10 ^3/uL (0-0.8); Eosinophils % (auto) 7.8 % (0.0-7.0); Hematocrit 32.5 % (36.0-46.0); Lymphocytes % (auto) 18.6 % (10.0-50.0); Mean Corpuscular Hemoglobin 30.2 pg (28.0-32.0); Mean Corpuscular Hgb Conc. 33.9 g/dL (32.0-36.0); Mean Corpuscular Volume 88.8 fL (80.0-100.0); Monocytes # (auto) 0.3 10 ^3/uL (0-1.3); Monocytes % (auto) 5.6 % (0.0-12.0); Neutrophils # (auto) 3.7 10 ^3/uL (1.6-8.6); Neutrophils % (auto) 67.9 % (37.0-80.0); Nucleated Red Blood Cells % 0.1 %; Platelet Count (auto) 185 10^3/uL (140-450); Red Blood Cells 3.66 10^6/uL (4.0-5.20); Red Cell Distribution Width 14.1 % (11.8-14.3); White Blood Cell 5.5 10^3/uL (4.4-10.8)
[2019-12-22] MEDS: InsuLIN REG 1unit/0.01ml Soln (100units/ml) SC SCH ×4 (06:49→18:00)
--- NOTE | 2019-12-22 07:30 | NUR ---
Opening Shift Note Assuming care of patient at this time. Patient is awake and alert. Patient denies pain. Patient shows no signs or symptoms of distress or shortness of breath. Instructed patient on the plan of care for today and to call for assistance as needed. Call light within reach. Will continue to round hourly and as needed. Call light within reach.
--- NOTE | 2019-12-22 07:35 | NUR ---
Drain Output Emptied drain at this time. Drain to left upper quadrant had 30mL of serosanguineous fluid. Drain to right lower quadrant had 15 mL of yellow-tinged malodorous fluid. Patient is wearing and abdominal binder with wound vac currently on and draining.
--- NOTE | 2019-12-22 07:44 | NUR ---
CARE ENDORSED PATIENT RESTING COMFORTABLY IN BED, NO S/S OF DISTRESS, SOB, OR PAIN.
[2019-12-22 09:00] VITALS: BP 114/58
[2019-12-22] MEDS: PREGABALIN CAPSULE 75 MG CAP PO SCH (10:10)
[2019-12-22] MEDS: PANTOPRAZOLE 40 MG TAB PO SCH (10:10)
[2019-12-22] MEDS: CYANOCOBALAMIN 500 MCG TAB PO SCH (10:11)
[2019-12-22] MEDS: levETIRAcetam 500 MG TAB PO SCH ×2 (10:11→21:55)
[2019-12-22] MEDS: ATORVASTATIN 20 MG TAB PO SCH (10:11)
[2019-12-22] MEDS: ASPirin-EC 81 mg tab PO SCH (10:11)
[2019-12-22] MEDS: POTASSIUM CHL 20 Meq TABLET PO SCH (10:11)
[2019-12-22] MEDS: CITALOPRAM HYDROBR 20 MG TAB PO SCH (10:11)
[2019-12-22] MEDS: DIGOXIN 0.125 MG TAB PO SCH (10:13)
[2019-12-22] MEDS: PYRIDOXINE HCL 50 MG TAB PO SCH (10:13)
[2019-12-22] MEDS: ONDANSETRON HCL 4 MG/2 ML VIAL IV PRN ×2 (10:21→15:55)
--- NOTE | 2019-12-22 11:00 | NUR ---
WOUND CARE NOTE: IN TO ASSESS FUNCTION OF WOUND VAC TO WOUND ON ABDOMEN AT THIS TIME. PATIENT'S VAC IS SET TO 125 MM/HG CONTINUOUS. GOOD SUCTION, NO LEAKS DETECTED. WOUND CARE TEAM WILL CONTINUE TO MONITOR. HOME VAC REQUEST FORM COMPLETE, SIGNED BY HOSPITALIST, PLACED IN FRONT OF CHART FOR RADIOLOGY ADMINISTRATOR ACTION.
[2019-12-22 13:00] VITALS: BP 92/46
--- NOTE | 2019-12-22 14:10 | NUR ---
ASSESSED PT FOR MED NEB PRN TX, PT IN NO DISTRESS ON RA WITH SPO2 100%, HR 77, RR 15. NO INDICATION FOR PRN MED NEB AT THIS TIME.
[2019-12-22] MEDS: Glucerna Carbsteady SHAKE Vanilla 8oz PO SCH ×2 (14:28→18:05)
[2019-12-22 17:00] VITALS: BP 99/55
[2019-12-22] MEDS: traZODone HCL 50 MG TAB PO SCH (18:00)
--- NOTE | 2019-12-22 18:43 | NUR ---
Drain Output Emptied drain at this time. Drain to left upper quadrant had 50mL of serosanguineous fluid. Drain to right lower quadrant had 10 mL of yellow-tinged malodorous fluid.
--- NOTE | 2019-12-22 19:16 | NUR ---
Closing Shift Note Patient resting in bed. No distress noted. Report given. Will endorse care to the material handler 1st shift RN.
--- NOTE | 2019-12-22 19:43 | NUR ---
OPENING SHIFT NOTE ASSUMED CARE OF PATIENT AFTER REPORT FROM DAY RNDAYANA. INTRODUCED SELF TO PATIENT, INSTRUCTED ON PLAN OF CARE AND TO CALL FOR ASSISTANCE PRN. NO S/S OF DISTRESS OR SOB NOTED AT THIS TIME. PATIENT CURRENTLY OUT OF BED ON BSC. WILL CONTINUE TO MONITOR Q1H AND PRN.
[2019-12-22 22:00] VITALS: BP 111/58
[2019-12-23] MEDS: ACCU-CHEK COMFORT CURVE STRIP VI SCH ×5 (00:21→23:27)
[2019-12-23] MEDS: VANCOMYCIN 1GM/250ML 250 ML IV SCH ×2 (01:28→15:23)
[2019-12-23] MEDS: diphenhdrAMINE HCL 50 MG/1 ML VL IV PRN ×3 (01:40→21:35)
[2019-12-23] MEDS: HYDROmorphone HCL 2 MG/ML VL IV PRN ×4 (01:41→20:10)
[2019-12-23] MEDS: PIPERACILLIN-TAZOB 3.375GM 100 ML IV SCH ×4 (04:14→21:35)
[2019-12-23 05:00] VITALS: BP 112/61
[2019-12-23] MEDS: InsuLIN REG 1unit/0.01ml Soln (100units/ml) SC SCH ×4 (06:00→17:50)
--- NOTE | 2019-12-23 07:00 | NUR ---
Opening Shift Note Received report on the patient. Awake lying in bed. Discussed the plan of care with the patient. Patient shows no signs of distress at this time. Bed in lowest position, side rails up x2, and the call light is within reach. Will continue to monitor.
[2019-12-23 07:14] LABS: Basophils # (auto) 0 10 ^3/uL (0-0.2); Basophils % (auto) 0.2 % (0.0-2.0); Eosinophils # (auto) 0.4 10 ^3/uL (0-0.8); Eosinophils % (auto) 8.6 % (0.0-7.0); Hematocrit 31.6 % (36.0-46.0); Hemoglobin 10.7 g/dL (12.2-16.2); Lymphocytes # (auto) 0.9 10 ^3/uL (0.4-5.4); Lymphocytes % (auto) 18.9 % (10.0-50.0); Mean Corpuscular Hgb Conc. 33.7 g/dL (32.0-36.0); Mean Corpuscular Volume 88.9 fL (80.0-100.0); Monocytes # (auto) 0.3 10 ^3/uL (0-1.3); Monocytes % (auto) 6.5 % (0.0-12.0); Neutrophils # (auto) 3.2 10 ^3/uL (1.6-8.6); Neutrophils % (auto) 65.8 % (37.0-80.0); Platelet Count (auto) 163 10^3/uL (140-450); Red Blood Cells 3.55 10^6/uL (4.0-5.20); Red Cell Distribution Width 14.1 % (11.8-14.3); White Blood Cell 4.9 10^3/uL (4.4-10.8)
--- NOTE | 2019-12-23 07:20 | NUR ---
DRAINAGE DRAINED 15 ML TIFFANY RED FROM MARY DRAIN.
[2019-12-23 07:34] LABS: Calcium 8.4 mg/dL (8.5-10.1); Potassium 4.1 mmol/L (3.5-5.1)
[2019-12-23 07:36] LABS: BUN/Creatinine Ratio 14.5
[2019-12-23 08:00] VITALS: BP 99/62
[2019-12-23 08:50] VITALS: BP 118/69
[2019-12-23] MEDS: Glucerna Carbsteady SHAKE Vanilla 8oz PO SCH ×3 (08:52→17:49)
[2019-12-23] MEDS: ASPirin-EC 81 mg tab PO SCH (10:57)
[2019-12-23] MEDS: CITALOPRAM HYDROBR 20 MG TAB PO SCH (10:57)
[2019-12-23] MEDS: POTASSIUM CHL 20 Meq TABLET PO SCH (10:58)
[2019-12-23] MEDS: levETIRAcetam 500 MG TAB PO SCH ×2 (10:58→21:34)
[2019-12-23] MEDS: DIGOXIN 0.125 MG TAB PO SCH (10:58)
[2019-12-23] MEDS: CYANOCOBALAMIN 500 MCG TAB PO SCH (10:59)
[2019-12-23] MEDS: ATORVASTATIN 20 MG TAB PO SCH (10:59)
[2019-12-23] MEDS: PANTOPRAZOLE 40 MG TAB PO SCH (10:59)
[2019-12-23] MEDS: PREGABALIN CAPSULE 75 MG CAP PO SCH (10:59)
[2019-12-23] MEDS: PYRIDOXINE HCL 50 MG TAB PO SCH (11:00)
[2019-12-23] MEDS: ONDANSETRON HCL 4 MG/2 ML VIAL IV PRN ×2 (11:01→20:10)
[2019-12-23] MEDS: SODIUM CHLORIDE 0.9% 1,000 ML IV SCH ×2 (11:01→23:19)
[2019-12-23 12:43] VITALS: BP 122/70
--- NOTE | 2019-12-23 13:00 | NUR ---
ASSESSED PT FOR PRN MED NEB PRN TX, PT ON RA WITH SPO2 95, HR 72, RR 16 WITH CLEAR BS. NO DISTRESS NOTED. PRN MED NEB NOT INDICATED AT THIS TIME. WILL CONTINUE TO MONITOR PT.
--- NOTE | 2019-12-23 14:24 | NUR ---
Vanco Trough Vanco trough still pending. Called lab and they said it's running now. Awaiting results.
[2019-12-23 16:37] VITALS: BP 98/64
[2019-12-23] MEDS: traZODone HCL 50 MG TAB PO SCH (19:06)
--- NOTE | 2019-12-23 19:35 | NUR ---
Opening Shift Note Assumed care of patient, awake and alert oriented x4. No S/S of distress/SOB noted. Bed is in lowest locked position with bedrails up x2 and call light is within reach of the patient. Instructed on POC and to call for assist PRN.
--- NOTE | 2019-12-23 19:56 | NUR ---
Respiratory note: ASSESSED PT FOR PRN MED NEB AT THIS TIME, PT DENIES SOB AT THIS TIME, NO RESP DISTRESS NOTED, NO TX INDICATED. PULSE OX 89 ON RA, PLACED PT ON 2LNC AT THIS TIME, HR 90, RR 18, BILATERAL BS CLEAR. PT STATES SHE DOES NOT WANT TO WEAR CPAP AND TO TAKE IT OUT OF HER ROOM. REMOVED CPAP AT THIS TIME
[2019-12-23 22:00] VITALS: BP 103/42
[2019-12-24] VITALS (7 sets, daily range): BP systolic 91–119; BP diastolic 52–65
[2019-12-24] MEDS: VANCOMYCIN 1GM/250ML 250 ML IV SCH ×2 (02:39→16:33)
[2019-12-24] MEDS: HYDROmorphone HCL 2 MG/ML VL IV PRN ×4 (02:52→21:47)
[2019-12-24] MEDS: ONDANSETRON HCL 4 MG/2 ML VIAL IV PRN (02:52)
[2019-12-24] MEDS: PIPERACILLIN-TAZOB 3.375GM 100 ML IV SCH ×4 (03:58→23:48)
[2019-12-24] MEDS: ACCU-CHEK COMFORT CURVE STRIP VI SCH ×4 (05:36→23:48)
[2019-12-24] MEDS: InsuLIN REG 1unit/0.01ml Soln (100units/ml) SC SCH ×5 (05:36→23:52)
[2019-12-24 06:01] LABS: Basophils # (auto) 0 10 ^3/uL (0-0.2); Basophils % (auto) 0.3 % (0.0-2.0); Eosinophils # (auto) 0.4 10 ^3/uL (0-0.8); Eosinophils % (auto) 8.1 % (0.0-7.0); Hematocrit 30.8 % (36.0-46.0); Hemoglobin 10.9 g/dL (12.2-16.2); Lymphocytes # (auto) 0.9 10 ^3/uL (0.4-5.4); Mean Corpuscular Hemoglobin 31.5 pg (28.0-32.0); Mean Corpuscular Hgb Conc. 35.4 g/dL (32.0-36.0); Monocytes # (auto) 0.3 10 ^3/uL (0-1.3); Monocytes % (auto) 5.9 % (0.0-12.0); Neutrophils # (auto) 3.3 10 ^3/uL (1.6-8.6); Neutrophils % (auto) 66.7 % (37.0-80.0); Nucleated Red Blood Cells % 0.1 %; Platelet Count (auto) 165 10^3/uL (140-450); Red Blood Cells 3.46 10^6/uL (4.0-5.20); Red Cell Distribution Width 14.6 % (11.8-14.3); White Blood Cell 4.9 10^3/uL (4.4-10.8)
[2019-12-24 06:27] LABS: BUN/Creatinine Ratio 12.5; Calcium 8.2 mg/dL (8.5-10.1); Potassium 4.2 mmol/L (3.5-5.1)
--- NOTE | 2019-12-24 07:30 | NUR ---
Opening Shift Note Received report on the patient. Awake sitting up in bed eating breakfast. Discussed the plan of care with the patient. The patient shows no signs of distress at this time. The bed is in the lowest position, the side rails are up x2, and the call light is within reach. Will continue to monitor.
--- NOTE | 2019-12-24 07:30 | NUR ---
DRAINAGE DRAINED 30 ML TIFFANY RED FROM MARY DRAIN. DRAINED 5 ML OF YELLOW FLUID FROM JAMIE DRAIN.
[2019-12-24] MEDS: CITALOPRAM HYDROBR 20 MG TAB PO SCH (11:29)
[2019-12-24] MEDS: Glucerna Carbsteady SHAKE Vanilla 8oz PO SCH ×3 (11:29→18:00)
[2019-12-24] MEDS: ASPirin-EC 81 mg tab PO SCH (11:29)
[2019-12-24] MEDS: POTASSIUM CHL 20 Meq TABLET PO SCH (11:30)
[2019-12-24] MEDS: DIGOXIN 0.125 MG TAB PO SCH (11:30)
[2019-12-24] MEDS: levETIRAcetam 500 MG TAB PO SCH ×2 (11:30→21:40)
[2019-12-24] MEDS: ATORVASTATIN 20 MG TAB PO SCH (11:30)
[2019-12-24] MEDS: PANTOPRAZOLE 40 MG TAB PO SCH (11:31)
[2019-12-24] MEDS: PREGABALIN CAPSULE 75 MG CAP PO SCH (11:31)
[2019-12-24] MEDS: PYRIDOXINE HCL 50 MG TAB PO SCH (11:31)
[2019-12-24] MEDS: CYANOCOBALAMIN 500 MCG TAB PO SCH (11:31)
[2019-12-24] MEDS: diphenhdrAMINE HCL 50 MG/1 ML VL IV PRN ×2 (11:32→20:32)
--- NOTE | 2019-12-24 12:00 | NUR ---
WOUND CARE NOTE: IN TO SEE PATIENT, CHANGE WOUND VAC DRESSING AT THIS TIME. PATIENT HAS CURRENT DIOGO SCORE OF 20. PATIENT IS ABLE TO SELF TURN/REPOSITION SELF. WOUND VAC DRESSING TO ABDOMINAL INCISION CHANGED AT THIS TIME. DRESSING REMOVED. 19 CM MIDLINE ABDOMINAL INCISION CONTINUES TO BE WELL APPROXIMATED, WITH MADELINE/SUTURES INTACT. LOWER MIDLINE ABDOMEN OPEN INCISION APPEARS TO BE GRANULATING WELL, WITH BRIGHT RED BEEFY RED GRANULATION NOTED WITHIN WOUND BED. WOUND MEASURES 1.2 X 0.8 X 1 CM. SCANT SEROUS DRAINAGE NOTED, PINK PERIWOUND. APPLIED CAVILON NO STING BARRIER FILM TO ALL PERIWOUND SKIN AREAS. APPLIED PROTECTIVE DRAPE. APPLIED BLACK GRANUFOAM FROM OPEN INCISION, BRIDGING UP ALONG INCISION WITH MADELINE. COVERED/SEALED WITH DRAPE. APPLIED TRAC PAD. TURNED ON VAC, SET TO 125 MM/HG CONTINUOUS. GOOD SUCTION, NO LEAKS DETECTED. PATIENT TURNED TO RIGHT SIDE LYING POSITION, SO TO VISUALIZE SKIN TO BILATERAL POSTERIOR KNEES/LEGS. SHE IS NOTED NO HAVE INTACT SKIN, BUT IT IS DARK RED/PURPLE WITH ECCHYMOSIS AND RASH. PATIENT NOT SURE OF HOW SHE OBTAINED THESE ECCHYMOTIC AREAS. LEFT OPEN TO AIR. RECOMMEND: BID APPLICATIONS WITH HYDRAGUARD CREAM TO ECCHYMOTIC AREAS OF POSTERIOR BILATERAL KNEES, CONTINUATION WITH ALL OTHER WOUND CARE ORDERS PREVIOUSLY PRESCRIBED BY MD. WOUND CARE TEAM WILL CONTINUE TO MONITOR. Addendum: 12/24/19 at 1654 by Kate Warner RN Amended: Links added.
[2019-12-24] MEDS: SODIUM CHLORIDE 0.9% 1,000 ML IV SCH (14:18)
[2019-12-24] MEDS: traZODone HCL 50 MG TAB PO SCH (19:05)
--- NOTE | 2019-12-24 19:30 | NUR ---
Opening Shift Note Assumed care of patient, awake and alert oriented x4. No S/S of distress/SOB noted. Bed is in lowest locked position with bedrails up x2 and call light is within reach of the patient. Instructed on POC and to call for assist PRN. Wound vac attached and at 125 mmhg. Patient on 2 liters nasal cannula.
--- NOTE | 2019-12-24 21:56 | NUR ---
Called [facility] pharmacy regarding Zosyn: Previous zosyn still infusing from previous shift and Zosyn is due now. Called extended pharmacy for clarification and rescheduling antibiotic. Zosyn rescheduled for midnight. Holding Zosyn pulled out at 2200 for 0000.
--- NOTE | 2019-12-24 23:26 | NUR ---
Respiratory note: AT BEDSIDE TO ASSESS PT FOR PRN TX. PT CURRENTLY FOUND OFF O2 POX88% ON RA PT STATED SHE TOOK IT OFF A LITTLE WHILE AGO TO GO TO THE RESTROOM. PLACED PT ON 2LPM NC. SATS UP TO 90S. RT NAME AND PAGER ASSIGNMENT WRITTEN ON PTS ROOM BOARD. BS ARE DIMINISHED CLEAR T/O. NO TX INDICATED AT THIS TIME.
[2019-12-25] MEDS: SODIUM CHLORIDE 0.9% 1,000 ML IV SCH (00:38)
[2019-12-25] MEDS: VANCOMYCIN 1GM/250ML 250 ML IV SCH (02:57)
[2019-12-25] MEDS: diphenhdrAMINE HCL 50 MG/1 ML VL IV PRN ×3 (03:23→23:35)
[2019-12-25] MEDS: HYDROmorphone HCL 2 MG/ML VL IV PRN ×4 (04:43→22:09)
[2019-12-25 05:00] VITALS: BP 95/54
[2019-12-25 05:25] LABS: Basophils # (auto) 0 10 ^3/uL (0-0.2); Basophils % (auto) 0.4 % (0.0-2.0); Eosinophils # (auto) 0.4 10 ^3/uL (0-0.8); Eosinophils % (auto) 7.2 % (0.0-7.0); Hematocrit 34.7 % (36.0-46.0); Hemoglobin 11.8 g/dL (12.2-16.2); Lymphocytes # (auto) 1.1 10 ^3/uL (0.4-5.4); Lymphocytes % (auto) 22.8 % (10.0-50.0); Mean Corpuscular Hemoglobin 30.5 pg (28.0-32.0); Mean Corpuscular Hgb Conc. 33.9 g/dL (32.0-36.0); Mean Corpuscular Volume 89.9 fL (80.0-100.0); Monocytes # (auto) 0.3 10 ^3/uL (0-1.3); Monocytes % (auto) 5.8 % (0.0-12.0); Neutrophils # (auto) 3.2 10 ^3/uL (1.6-8.6); Neutrophils % (auto) 63.8 % (37.0-80.0); Platelet Count (auto) 171 10^3/uL (140-450); Red Blood Cells 3.86 10^6/uL (4.0-5.20); Red Cell Distribution Width 14.8 % (11.8-14.3)
[2019-12-25] MEDS: PIPERACILLIN-TAZOB 3.375GM 100 ML IV SCH ×4 (05:30→23:35)
[2019-12-25] MEDS: ACCU-CHEK COMFORT CURVE STRIP VI SCH ×4 (05:31→23:35)
[2019-12-25 05:41] LABS: BUN/Creatinine Ratio 13.1; Calcium 8.6 mg/dL (8.5-10.1); Potassium 3.8 mmol/L (3.5-5.1)
[2019-12-25] MEDS: InsuLIN REG 1unit/0.01ml Soln (100units/ml) SC SCH ×4 (05:43→23:35)
--- NOTE | 2019-12-25 05:46 | NUR ---
DRAINAGE DRAINED 30 ML OF SANGUINOUS FROM MARY DRAIN. DRAINED 10 ML OF YELLOW FLUID FROM JAMIE DRAIN.
--- NOTE | 2019-12-25 07:15 | NUR ---
PT ASSESSED FOR PRN HHN TX. PT IS ON 2LNC, SPO2 93%, HR 57, RR 16. NO S/S OF RESPIRATORY DISTRESS. HHN TX NOT INDICATED AT THIS TIME. WILL CONTINUE TO MONITOR.
[2019-12-25 07:30] VITALS: BP 99/62
[2019-12-25 08:00] VITALS: BP 120/53
[2019-12-25] MEDS: ASPirin-EC 81 mg tab PO SCH (10:27)
[2019-12-25] MEDS: Glucerna Carbsteady SHAKE Vanilla 8oz PO SCH ×3 (10:27→17:42)
[2019-12-25] MEDS: CITALOPRAM HYDROBR 20 MG TAB PO SCH (10:27)
[2019-12-25] MEDS: levETIRAcetam 500 MG TAB PO SCH ×2 (10:27→22:06)
[2019-12-25] MEDS: PREGABALIN CAPSULE 75 MG CAP PO SCH (10:28)
[2019-12-25] MEDS: DIGOXIN 0.125 MG TAB PO SCH (10:28)
[2019-12-25] MEDS: ATORVASTATIN 20 MG TAB PO SCH (10:28)
[2019-12-25] MEDS: POTASSIUM CHL 20 Meq TABLET PO SCH (10:28)
[2019-12-25] MEDS: PANTOPRAZOLE 40 MG TAB PO SCH (10:29)
[2019-12-25] MEDS: PYRIDOXINE HCL 50 MG TAB PO SCH (10:29)
[2019-12-25] MEDS: CYANOCOBALAMIN 500 MCG TAB PO SCH (10:29)
[2019-12-25 12:00] VITALS: BP 117/62
[2019-12-25 17:00] VITALS: BP 104/65
[2019-12-25] MEDS: traZODone HCL 50 MG TAB PO SCH (19:17)
--- NOTE | 2019-12-25 19:30 | NUR ---
Opening Shift Note Assumed care of patient, awake and alert. No S/S of distress/SOB. Patient stated pain 7/10. Will medicate for pain. Instructed on POC and to call for assist as needed. Pt is currently in bed with the rails up x2 and the bed is locked in the lowest position. Wound Vac is running and both drain bulbs are depressed. Hydraguard was applied to the bilateral knee areas. Call light was explained and left within the patients reach. Will continue to monitor.
[2019-12-25 22:00] VITALS: BP 104/55
[2019-12-25] MEDS: DOXYCYCLINE 100 MG TAB/CAP PO SCH (22:06)
[2019-12-26] MEDS: HYDROmorphone HCL 2 MG/ML VL IV PRN ×2 (03:19→16:09)
[2019-12-26 05:00] VITALS: BP 112/61
[2019-12-26] MEDS: PIPERACILLIN-TAZOB 3.375GM 100 ML IV SCH ×3 (05:46→18:00)
[2019-12-26] MEDS: diphenhdrAMINE HCL 50 MG/1 ML VL IV PRN ×2 (05:46→14:17)
[2019-12-26] MEDS: ACCU-CHEK COMFORT CURVE STRIP VI SCH ×3 (05:47→18:00)
[2019-12-26] MEDS: InsuLIN REG 1unit/0.01ml Soln (100units/ml) SC SCH ×3 (06:00→18:00)
--- NOTE | 2019-12-26 06:09 | NUR ---
25ml of serous fluid drained from Left upper quadrant Clayton drain. Bulb compressed and recapped. No drainage noted from Right lower quadrant JAMIE drain. Bulb still compressed.
--- NOTE | 2019-12-26 07:30 | NUR ---
OPENING NOTE ASSUMED CARE OF PT. ALERT AND ORIENTED. NO S/S OF SOB/DISTRESS NOTED. DENIES ANY PAIN. SAFETY PRECAUTIONS IN PLACE. BED SET TO LOWEST POSITION/LOCKED, BEDSIDE RAILS UP X2, CALL LIGHT WITHIN REACH. INSTRUCTED PT TO CALL FOR ASSISTANCE. UPDATED ON POC. PT VERBALIZED UNDERSTANDING. WILL CONTINUE TO MONITOR Q 1HR AND PRN.
[2019-12-26 08:00] VITALS: BP 98/55
[2019-12-26] MEDS: Glucerna Carbsteady SHAKE Vanilla 8oz PO SCH ×3 (08:00→18:00)
--- NOTE | 2019-12-26 09:05 | NUR ---
Respiratory note: PT ASSESSED FOR PRN HHN TX. PT IS ON ROOM AIR, SPO2 98%, HR 74, RR 16. NO S/S OF RESPIRATORY DISTRESS. HHN TX NOT INDICATED AT THIS TIME. PATIENT KNOWS TO HAVE RT PAGED IF TX IS NEEDED.
[2019-12-26] MEDS: ASPirin-EC 81 mg tab PO SCH (10:00)
[2019-12-26] MEDS: HYDROcodone-ACET 5/325MG TAB PO PRN (10:35)
[2019-12-26] MEDS: POTASSIUM CHL 20 Meq TABLET PO SCH (10:35)
[2019-12-26] MEDS: PREGABALIN CAPSULE 75 MG CAP PO SCH (10:36)
[2019-12-26] MEDS: DOXYCYCLINE 100 MG TAB/CAP PO SCH (10:36)
[2019-12-26] MEDS: ATORVASTATIN 20 MG TAB PO SCH (10:36)
[2019-12-26] MEDS: PANTOPRAZOLE 40 MG TAB PO SCH (10:36)
[2019-12-26] MEDS: PYRIDOXINE HCL 50 MG TAB PO SCH (10:36)
[2019-12-26] MEDS: levETIRAcetam 500 MG TAB PO SCH (10:37)
[2019-12-26] MEDS: CYANOCOBALAMIN 500 MCG TAB PO SCH (10:37)
[2019-12-26] MEDS: CITALOPRAM HYDROBR 20 MG TAB PO SCH (10:37)
[2019-12-26] MEDS: DIGOXIN 0.125 MG TAB PO SCH (10:41)
--- NOTE | 2019-12-26 10:45 | NUR ---
WOUND CARE NOTE: Wound care in for daily monitoring of wound vac functioning. Patient continue resting ini bed in 298B, awake, alert and oriented. She's in no stated pain at this time. Abdominal wound vac dressing is C/D/I and attached to Ulta Vac, functioning well at 125mm Hg continuous with no leak detected. No drainage noted in Vacutainer. Wound care team will continue to monitor.
--- NOTE | 2019-12-26 12:03 | NUR ---
consult for Home Health and Wound Vac completed. Clinical information faxed to Demetrius Callahan ( [phone]) and confirmed with Sierra that pt is on schedule to be seen for today after discharged. Clinical information faxed to [facility](ph [phone]) and confirmed delivery of wound vac to pt's home today. Daughter has been contacted and delivery time has been coordinated with her. Pt's family to provide transportation home. No further social service needs or concerns at this time. Addendum: 12/26/19 at 1206 by LAZ TENA Amended: Links added.
[2019-12-26 13:00] VITALS: BP 107/62
--- NOTE | 2019-12-26 14:20 | NUR ---
DRAINAGE OUTPUT LUQ 5ML SEROSANGUINEOUS FLUID RLQ 2ML SEROUS FLUID
[2019-12-26 15:33] VITALS: BP 110/58
--- NOTE | 2019-12-26 16:05 | NUR ---
NUTRITION FOLLOWUP NOTES . Pt weight is 112.5 kg today Pt was awake with no relatives at bedside when rounded this morning. Pt noted no distress or complaints. Pt appetite is good aeb 100% x7 PO intake per RN doc. Will continue to monitor and followup prn. Est. Energy Needs: 7066-1645 kcal (14-18 kcal/kg BW). Est. Protein Needs: 86-108 gms/day (1.2-1.5 gms/kg Adj.BW). Will continue to monitor pertinent labs and reassess nutrient need prn LABS: GLUC WNL, A1C 6.8 H, TOT PRO 5.5 L, ALB 2.2 L GI: Last BM noted on 12/26/19 per RN doc BS: 19 low risk, Please refer to wound assessment report for full details PES: Problem 1) Altered nutrition related lab values r/t current medical condition aeb hyperglycemia, hypocalcemia 2) Obese, Class II r/t excessive emergy intake prior to admission aeb BMI 39.2 kg/m2 and 186% IBW Comments Will continue to monitor PO intake, pertinent labs, skin status and weight trends. F/u in 3 to 5 days. Additional Recommendation: 1) Provide Prostat 1 pkt daily 2) Continue close supervision and feeding assistance prn during meals. 3) Refer to RD for further nutrition education and weight monitoring upon discharge. 4) Continue current plan of care.
[2019-12-26 17:00] VITALS: BP 106/69
[2019-12-26] MEDS: traZODone HCL 50 MG TAB PO SCH (18:00)
--- NOTE | 2019-12-26 18:30 | NUR ---
WOUND VAC PATIENT [id number] BROUGHT IN PATIENT WOUND VAC THAT WAS DELIVERED TO HOME. WOUND CARE NURSE APPLIED WOUND VAC.
--- NOTE | 2019-12-26 18:50 | NUR ---
DISCHARGE Discharge instructions given as ordered. Encourage to follow up with PMD as instructed. All questions and concerns addressed. Patient verbalized understanding. Home medications held in Pharmacy returned to patient. IV removed with catheter intact, pressure dressing applied. Patient taken to vehicle via wheelchair with all personal belongings, accompanied by staff and family member. No distress noted at time of departure.
== END 2019-12-26 18:50 | disposition home or self-care (01) | DRG 857 ==
LOC: ER 20:11 → TELE 20:12 → TELE-WESTW 12-18 02:09 → WEST WING 12-25 12:45
PROVIDERS: ADMIT Hospitalist; ATTEND Internal Medicine
PROC: 0W9F00Z Drainage of Abdominal Wall with Drainage Device, Open Approach (ICD-10-PCS; principal; 2019-12-20 13:24)
DX: T81.49XA Infection following a procedure, other surgical site, initial encounter (principal); I50.32 Chronic diastolic (congestive) heart failure; Z68.41 Body mass index [BMI] 40.0-44.9, adult; E44.0 Moderate protein-calorie malnutrition; L02.211 Cutaneous abscess of abdominal wall; L03.90 Cellulitis, unspecified; I11.0 Hypertensive heart disease with heart failure; E11.9 Type 2 diabetes mellitus without complications; E66.9 Obesity, unspecified; Z98.84 Bariatric surgery status; I89.0 Lymphedema, not elsewhere classified; K21.9 Gastro-esophageal reflux disease without esophagitis; E78.5 Hyperlipidemia, unspecified; J45.909 Unspecified asthma, uncomplicated; D64.9 Anemia, unspecified; F41.9 Anxiety disorder, unspecified; K27.9 Peptic ulcer, site unspecified, unspecified as acute or chronic, without hemorrhage or perforation; I25.10 Atherosclerotic heart disease of native coronary artery without angina pectoris; F32.9 Major depressive disorder, single episode, unspecified; Y83.9 Surgical procedure, unspecified as the cause of abnormal reaction of the patient, or of later complication, without mention of misadventure at the time of the procedure; K43.9 Ventral hernia without obstruction or gangrene; B95.62 Methicillin resistant Staphylococcus aureus infection as the cause of diseases classified elsewhere; E78.00 Pure hypercholesterolemia, unspecified; G40.909 Epilepsy, unspecified, not intractable, without status epilepticus; Z86.711 Personal history of pulmonary embolism; Z90.49 Acquired absence of other specified parts of digestive tract; Z86.73 Personal history of transient ischemic attack (TIA), and cerebral infarction without residual deficits; Z88.5 Allergy status to narcotic agent; Z88.8 Allergy status to other drugs, medicaments and biological substances; Z79.899 Other long term (current) drug therapy; Z79.82 Long term (current) use of aspirin; Z90.710 Acquired absence of both cervix and uterus; Z83.3 Family history of diabetes mellitus; Z82.49 Family history of ischemic heart disease and other diseases of the circulatory system; Z95.828 Presence of other vascular implants and grafts
CPT/HCPCS: 36415; 71045; 74176; 80048; 80053; 80162; 80202; 81001; 82565; 82962; 83036; 85025; 85610; 85730; 86850; 86900; 86901; 87070; 87075; 87077; 87081; 87186; 87205; 94660; 96365; 96375; 97116; 97163; 97530; G0378; J0690; J1815; J2250; J2405; J2543; J3490

== ENCOUNTER 2020-09-02 11:28 | Inpatient (IN) | payer MEDICARE, MEDICAID ==
[~2020-09-02] VITALS: Ht 167.6 cm; Wt 105.5 kg
[2020-09-02] MEDS ORDERED: SODIUM CHLORIDE 0.9% 500 ML IVB ONE (12:00)
[2020-09-02] MEDS ORDERED: ONDANSETRON HCL 4 MG/2 ML VIAL IV ONE (12:00)
[2020-09-02] MEDS ORDERED: MORPHINE SULFATE 4 MG/ML SYR/VIAL IV ONE (12:00)
[2020-09-02 13:43] LABS: Basophils # (auto) 0 10 ^3/uL (0-0.2); Basophils % (auto) 0.4 % (0.0-2.0); Eosinophils # (auto) 0.2 10 ^3/uL (0-0.8); Eosinophils % (auto) 2.9 % (0.0-7.0); Hematocrit 42.9 % (36.0-46.0); Hemoglobin 14.9 g/dL (12.2-16.2); Lymphocytes # (auto) 1.4 10 ^3/uL (0.4-5.4); Lymphocytes % (auto) 20.5 % (10.0-50.0); Mean Corpuscular Hemoglobin 31.6 pg (28.0-32.0); Mean Corpuscular Hgb Conc. 34.7 g/dL (32.0-36.0); Mean Corpuscular Volume 91.2 fL (80.0-100.0); Monocytes # (auto) 0.4 10 ^3/uL (0-1.3); Monocytes % (auto) 5.5 % (0.0-12.0); Neutrophils # (auto) 4.8 10 ^3/uL (1.6-8.6); Neutrophils % (auto) 70.7 % (37.0-80.0); Nucleated Red Blood Cells % 0.2 %; Platelet Count (auto) 173 10^3/uL (140-450); Red Blood Cells 4.71 10^6/uL (4.0-5.20); White Blood Cell 6.8 10^3/uL (4.4-10.8)
[2020-09-02 15:25] LABS: BUN/Creatinine Ratio 23.6; Bilirubin, Total 0.8 mg/dL (0.2-1.0); Calcium 9.1 mg/dL (8.5-10.1); Potassium 3.8 mmol/L (3.5-5.1)
[2020-09-02 15:26] LABS: Albumin 3.9 g/dL (3.4-5.0); Total Protein 7.3 g/dL (6.4-8.2)
[2020-09-02] MEDS ORDERED: MORPHINE SULF INJ 2 MG/ML SYRINGE 1ML IV PRN (16:15)
[2020-09-02] MEDS ORDERED: DEXTROSE (50%) 50ML SYRG IV PRN (16:15)
[2020-09-02] MEDS ORDERED: ACETAMINOPHEN 500 MG TAB PO PRN (16:15)
[2020-09-02] MEDS ORDERED: NITROGLYCERIN 0.4 MG SL TAB SL PRN (16:15)
[2020-09-02] MEDS: ACCU-CHEK COMFORT CURVE STRIP VI SCH ×2 (17:00→21:54)
[2020-09-02] MEDS: InsuLIN REG 1unit/0.01ml Soln (100units/ml) SC SCH ×2 (17:00→22:09)
--- NOTE | 2020-09-02 17:45 | NUR ---
I did not receive report from ER, there was no IV and there was no belonging sheet done.
--- NOTE | 2020-09-02 17:58 | NUR ---
Telemetry admit from ER TRI[facility] FOOTE admitted to Telemetry unit after SBAR received. Patient oriented to Vida Vazquez, primary RN, unit, room, bed, and unit policies regarding patient care and visiting hours. Patient now on continuous telemetry monitoring, tele box and telemetry reading on arrival to unit is . Patient placed on bedside oxygen, weighed by bed scale and encouraged to call if they need something. All questions and concerns addressed, patient verbalized understanding.
[2020-09-02 18:05] VITALS: BP 140/73
[2020-09-02] MEDS: DOCUSATE SOD 100 MG CAP PO SCH (21:54)
[2020-09-02 21:58] VITALS: BP 122/66
[2020-09-02 22:25] LABS: Urine Bacteria MOD /hpf (None Seen); Urine Blood Negative /uL (Negative); Urine Specific Gravity 1.012 (1.001-1.035); Urine WBC 25 /hpf (0 - 5)
[2020-09-02] MEDS: SODIUM CHLORIDE 0.9% 1,000 ML IV SCH (22:51)
[2020-09-02] MEDS: MORPHINE SULF INJ 2 MG/ML SYRINGE 1ML IV PRN (22:52)
[2020-09-03] MEDS: ONDANSETRON HCL 4 MG/2 ML VIAL IV PRN ×3 (00:09→21:14)
[2020-09-03] MEDS: MORPHINE SULF INJ 2 MG/ML SYRINGE 1ML IV PRN ×3 (04:10→21:14)
[2020-09-03 04:53] VITALS: BP 95/50
--- NOTE | 2020-09-03 06:10 | NUR ---
HOSPITALIST PAGED PATIENT REQUESTING MEDICATION FOR MUSCLE SPASMS.
[2020-09-03] MEDS ORDERED: CYCL10TA6 PO (06:14)
--- NOTE | 2020-09-03 06:50 | NUR ---
HOSPITALIST RETURNS CALL SPOKE TO RHEA ROWELL. INFORMED HIM OF PATIENT REQUEST FOR FLEXERIL FOR MUSCLE SPASMS. NEW ORDER RECEIVED FOR FLEXERIL 10MGPO X1. ORDER READ BACK AND VERIFIED.
[2020-09-03] MEDS ORDERED: CYCLOBENZAPRINE HCL 10 MG TAB PO ONE (07:00)
[2020-09-03] MEDS: InsuLIN REG 1unit/0.01ml Soln (100units/ml) SC SCH ×4 (07:00→21:39)
[2020-09-03] MEDS: SODIUM CHLORIDE 0.9% 1,000 ML IV SCH ×2 (07:07→19:00)
[2020-09-03] MEDS: ACCU-CHEK COMFORT CURVE STRIP VI SCH ×4 (07:07→21:14)
--- NOTE | 2020-09-03 07:26 | NUR ---
IV removal IV DC'd RT UA with clean sterile technique, catheter fully intact. Pressure dressing applied to site. Patient tolerated well. NOTE: Patient reporting tenderness at site.
[2020-09-03 09:00] VITALS: BP 112/83
[2020-09-03] MEDS: PANTOPRAZOLE 40 MG/10 ML VIAL INJ IV SCH (10:00)
[2020-09-03] MEDS: DOCUSATE SOD 100 MG CAP PO SCH ×2 (10:23→21:12)
[2020-09-03] MEDS ORDERED: cefTRIAXone 1GM/50ML D5W 50 ML IV ONE (12:15)
[2020-09-03 12:42] VITALS: BP 119/67
[2020-09-03] MEDS ORDERED: CYCLOBENZAPRINE HCL 10 MG TAB PO PRN (13:30)
--- NOTE | 2020-09-03 15:25 | NUR ---
Midline Placement: Patient educated on need for midline placement. All risks and benefits explained and all questions and concerns addresses prior to procedure. 18g/10 cm midline inserted via RIGHT BRACHIAL vein using Ultrasound. Sterile technique utilized. Blood return obtained from THE SINGLE lumen and flushed easily with NS using proper technique. Midline secured with saline lock; biodisc and occlusive dressing applied. Primary RN notified. Midline lot # [id number]
[2020-09-03 16:53] VITALS: BP 154/77
[2020-09-03] MEDS ORDERED: PREGABALIN CAPSULE 75 MG CAP PO ONE (20:30)
[2020-09-03] MEDS: levETIRAcetam 500 MG TAB PO SCH (21:13)
[2020-09-03] MEDS: traZODone HCL 50 MG TAB PO SCH (21:59)
[2020-09-03 22:00] VITALS: BP 106/64
--- NOTE | 2020-09-04 00:34 | NUR ---
PATIENT STATES, SHE IS NOT ALLERGIC TO MORPHINE. SHE HAS RECEIVED IT DURING THE DAY AND NO REACTIONS TO MORPHINE. WILL CONTINUE TO MONITOR PATIENT.
[2020-09-04] MEDS: MORPHINE SULF INJ 2 MG/ML SYRINGE 1ML IV PRN ×4 (04:51→21:18)
[2020-09-04] MEDS: ONDANSETRON HCL 4 MG/2 ML VIAL IV PRN ×2 (04:51→22:01)
[2020-09-04 05:29] VITALS: BP 110/63
[2020-09-04] MEDS: InsuLIN REG 1unit/0.01ml Soln (100units/ml) SC SCH ×4 (06:21→21:18)
[2020-09-04] MEDS: ACCU-CHEK COMFORT CURVE STRIP VI SCH ×4 (06:21→21:18)
--- NOTE | 2020-09-04 07:26 | NUR ---
PROVIDED REPORT TO DAY RN, PATIENT IS RESTING IN BED WITH NO SIGNS OF DISTRESS.
[2020-09-04 08:00] VITALS: BP 116/59
[2020-09-04] MEDS: SODIUM CHLORIDE 0.9% 1,000 ML IV SCH ×3 (08:15→23:54)
[2020-09-04] MEDS: cefTRIAXone 1GM/50ML D5W 50 ML IV SCH (08:46)
[2020-09-04 09:00] VITALS: BP 116/59
[2020-09-04] MEDS: PANTOPRAZOLE 40 MG/10 ML VIAL INJ IV SCH (10:00)
[2020-09-04] MEDS: PREGABALIN CAPSULE 75 MG CAP PO SCH (10:13)
[2020-09-04] MEDS: levETIRAcetam 500 MG TAB PO SCH ×2 (10:14→21:23)
[2020-09-04] MEDS: DOCUSATE SOD 100 MG CAP PO SCH ×2 (10:15→21:22)
[2020-09-04] MEDS: ASPirin 81 mg TAB PO SCH (10:15)
[2020-09-04] MEDS ORDERED: FAMOTIDINE (10MG/ML) 2ML VL IV ONE (10:45)
[2020-09-04 13:00] VITALS: BP 129/69
[2020-09-04 16:29] VITALS: BP 142/74
--- NOTE | 2020-09-04 19:30 | NUR ---
Opening Shift Note Assumed care of patient, awake and alert. No S/S of distress/SOB or pain. Instructed on POC and to call for assist PRN, will continue to monitor for changes Q1hr and PRN.
[2020-09-04] MEDS: traZODone HCL 50 MG TAB PO SCH (21:23)
[2020-09-04 22:00] VITALS: BP 121/73
[2020-09-05] MEDS: MORPHINE SULF INJ 2 MG/ML SYRINGE 1ML IV PRN ×2 (02:59→08:51)
[2020-09-05 05:00] VITALS: BP 106/58
[2020-09-05] MEDS: InsuLIN REG 1unit/0.01ml Soln (100units/ml) SC SCH (06:17)
[2020-09-05] MEDS: ACCU-CHEK COMFORT CURVE STRIP VI SCH (06:18)
--- NOTE | 2020-09-05 07:18 | NUR ---
closing note endorsed care to TOM Thrasher. Pt is resting comfortably. no sign of distress/pain at this time
[2020-09-05] MEDS: cefTRIAXone 1GM/50ML D5W 50 ML IV SCH (08:48)
[2020-09-05] MEDS: PREGABALIN CAPSULE 75 MG CAP PO SCH (08:49)
[2020-09-05] MEDS: levETIRAcetam 500 MG TAB PO SCH (08:49)
[2020-09-05] MEDS: DOCUSATE SOD 100 MG CAP PO SCH (08:49)
[2020-09-05] MEDS: ASPirin 81 mg TAB PO SCH (08:49)
--- NOTE | 2020-09-05 09:20 | NUR ---
PATIENT PAIN LEVEL NOW 6/10, DOWN FROM 9/10. PATIENT STATES SHE IS COMFORTABLE RIGHT NOW.
[2020-09-05] MEDS ORDERED: FAMOTIDINE (10MG/ML) 2ML VL IV SCH (10:00)
[2020-09-05 10:15] VITALS: BP 110/53
--- NOTE | 2020-09-05 10:49 | NUR ---
PATIENT BEING DISCHARGED HOME. PATIENT RECEIVED PRESCRIPTIONS AND EDUCATION, BOTH VERBAL AND WRITTEN ON FOLLOW UP APPTS., MEDICATIONS, DIET AND ACTIVITY. ALSO, INSTRUCTED TO RETURN TO ED FOR WORSENING ABD PAIN, SOB OR CHEST PAIN. PATIENT IS ALERT/ORIENTED AND VERBALIZED UNDERSTANDING. MIDLINE REMOVED/ TIP INTACT AND DRY DRESSING PLACED- NO OVERT S/S OF BLEEDING. VS ARE WNL. TELE BOX REMOVED AND RETURNED. PATIENT WHEELED DOWN TO PRIVATE VEHICLE.
--- NOTE | 2020-09-05 11:38 | NUR ---
PATIENT INFORMED PRIMARY RN THAT SHE HAS AN APPOINTMENT WITH PCP ON 09/09.
== END 2020-09-05 11:31 | disposition home or self-care (01) | DRG 690 ==
LOC: ER 11:28 → TELE-CENTR 16:13
PROVIDERS: ADMIT Nurse Practitioner Acute Care; ATTEND Family Medicine
DX: N39.0 Urinary tract infection, site not specified (principal); I50.32 Chronic diastolic (congestive) heart failure; K43.9 Ventral hernia without obstruction or gangrene; I25.10 Atherosclerotic heart disease of native coronary artery without angina pectoris; E66.9 Obesity, unspecified; E11.9 Type 2 diabetes mellitus without complications; F41.9 Anxiety disorder, unspecified; E78.5 Hyperlipidemia, unspecified; G40.909 Epilepsy, unspecified, not intractable, without status epilepticus; B96.20 Unspecified Escherichia coli [E. coli] as the cause of diseases classified elsewhere; I11.0 Hypertensive heart disease with heart failure; J45.909 Unspecified asthma, uncomplicated; K21.9 Gastro-esophageal reflux disease without esophagitis; F32.9 Major depressive disorder, single episode, unspecified; M16.11 Unilateral primary osteoarthritis, right hip; Z68.37 Body mass index [BMI] 37.0-37.9, adult; Z88.8 Allergy status to other drugs, medicaments and biological substances; Z88.5 Allergy status to narcotic agent; Z79.82 Long term (current) use of aspirin; Z79.84 Long term (current) use of oral hypoglycemic drugs; Z79.899 Other long term (current) drug therapy; Z82.49 Family history of ischemic heart disease and other diseases of the circulatory system; Z83.3 Family history of diabetes mellitus; Z86.73 Personal history of transient ischemic attack (TIA), and cerebral infarction without residual deficits; Z87.11 Personal history of peptic ulcer disease; Z90.49 Acquired absence of other specified parts of digestive tract; Z90.710 Acquired absence of both cervix and uterus; Z95.828 Presence of other vascular implants and grafts; Z98.84 Bariatric surgery status
CPT/HCPCS: 36415; 74176; 80053; 81001; 82962; 83036; 83690; 85025; 87086; 87088; 87186; 93005; G0378; J0696; J1815; J2405; J3490

== ENCOUNTER 2021-05-04 16:52 | Inpatient (IN) | payer MEDICARE, MEDICAID ==
[~2021-05-04] VITALS: Ht 167.6 cm; Wt 96.0 kg
[~2021-05-04 16:52] MED LIST changes: -ASPI-231 PO; +ASPI1TAB20 PO; +CYCL-839 PO
[2021-05-04 18:34] LABS: Basophils # (auto) 0 10 ^3/uL (0-0.2); Basophils % (auto) 0.5 % (0.0-2.0); Eosinophils # (auto) 0.4 10 ^3/uL (0-0.8); Eosinophils % (auto) 10.2 % (0.0-7.0); Hematocrit 36.3 % (36.0-46.0); Hemoglobin 12.4 g/dL (12.2-16.2); Lymphocytes # (auto) 0.7 10 ^3/uL (0.4-5.4); Lymphocytes % (auto) 16.7 % (10.0-50.0); Mean Corpuscular Hemoglobin 30.4 pg (28.0-32.0); Mean Corpuscular Hgb Conc. 34.1 g/dL (32.0-36.0); Monocytes # (auto) 0.3 10 ^3/uL (0-1.3); Monocytes % (auto) 7.4 % (0.0-12.0); Neutrophils # (auto) 2.7 10 ^3/uL (1.6-8.6); Neutrophils % (auto) 65.2 % (37.0-80.0); Red Blood Cells 4.07 10^6/uL (4.0-5.20); Red Cell Distribution Width 14.2 % (11.8-14.3); White Blood Cell 4.2 10^3/uL (4.4-10.8)
[2021-05-04 18:51] LABS: Albumin 2.8 g/dL (3.4-5.0); Anion Gap 5 (5-15); Blood Urea Nitrogen 9 mg/dL (7-18); Calcium 8.3 mg/dL (8.5-10.1); Carbon Dioxide 27 mmol/L (21-32); Chloride 105 mmol/L (98-107); Glucose 103 mg/dL (74-106); Potassium 3.2 mmol/L (3.5-5.1); Sodium 137 mmol/L (136-145)
[2021-05-04 18:56] LABS: Alanine Aminotransferase 21 U/L (13-56); Alkaline Phosphatase 102 U/L (45-117); Aspartate Aminotransferase 23 U/L (15-37); BUN/Creatinine Ratio 23.7; Bilirubin, Total 0.5 mg/dL (0.2-1.0); GFR African American 218 mL/min; GFR Non-African American 180 mL/min; Total Protein 6.8 g/dL (6.4-8.2)
[2021-05-04] MEDS ORDERED: POTASSIUM EFFERVESENT TAB 25 MEQ PO ONE (19:45)
[2021-05-04 20:41] LABS: INR 1.02 (0.9-1.15)
[2021-05-04] MEDS ORDERED: DOCUSATE SOD 100 MG CAP PO PRN (22:00)
[2021-05-04] MEDS ORDERED: MORPHINE SULFATE INJECTION 2 MG/ML SYRG IV PRN (22:00)
[2021-05-04] MEDS ORDERED: NITROGLYCERIN 0.4 MG SL TAB SL PRN (22:00)
[2021-05-04] MEDS ORDERED: LORazepam 0.5 MG TAB PO PRN (22:00)
[2021-05-04] MEDS ORDERED: ACETAMINOPHEN 325 MG TAB PO PRN (22:00)
[2021-05-04] MEDS ORDERED: MORPHINE SULFATE INJECTION 2 MG/ML SYRG IV ONE (23:00)
[2021-05-04] MEDS ORDERED: ONDANSETRON HCL 4 MG/2 ML VIAL IV ONE (23:00)
[2021-05-05] MEDS ORDERED: levETIRAcetam 500 MG/5ML INJ IV ONE (00:02)
[2021-05-05] MEDS: CARVEDILOL 12.5 MG TAB PO SCH ×2 (00:15→10:00)
[2021-05-05] MEDS: FAMOTIDINE (10MG/ML) 2ML VL IV SCH ×3 (00:15→21:52)
[2021-05-05] MEDS: SODIUM CHLOR 0.9% PF (SALINE LOCK) 10ML VIAL/SYR IV SCH ×4 (00:15→21:52)
[2021-05-05] MEDS: ATORVASTATIN 20 MG TAB PO SCH ×2 (00:16→21:51)
[2021-05-05] MEDS: ASCORBIC ACID 500 MG TAB PO SCH ×2 (00:16→11:39)
[2021-05-05] MEDS: MORPHINE SULFATE 4 MG/ML SYR/VIAL IV PRN ×3 (03:26→22:31)
[2021-05-05 05:47] LABS: Basophils # (auto) 0 10 ^3/uL (0-0.2); Basophils % (auto) 0.4 % (0.0-2.0); Eosinophils # (auto) 0.3 10 ^3/uL (0-0.8); Eosinophils % (auto) 9.9 % (0.0-7.0); Hematocrit 30.5 % (36.0-46.0); Lymphocytes # (auto) 0.8 10 ^3/uL (0.4-5.4); Lymphocytes % (auto) 23.8 % (10.0-50.0); Mean Corpuscular Hemoglobin 31.6 pg (28.0-32.0); Mean Corpuscular Volume 87.9 fL (80.0-100.0); Monocytes # (auto) 0.3 10 ^3/uL (0-1.3); Monocytes % (auto) 8.7 % (0.0-12.0); Neutrophils # (auto) 1.9 10 ^3/uL (1.6-8.6); Neutrophils % (auto) 57.2 % (37.0-80.0); Red Blood Cells 3.47 10^6/uL (4.0-5.20); Red Cell Distribution Width 13.9 % (11.8-14.3); White Blood Cell 3.3 10^3/uL (4.4-10.8)
[2021-05-05 06:19] LABS: Potassium 3.6 mmol/L (3.5-5.1)
[2021-05-05 06:27] LABS: Albumin 2.4 g/dL (3.4-5.0); BUN/Creatinine Ratio 20.9; Bilirubin, Total 0.4 mg/dL (0.2-1.0); Calcium 8.2 mg/dL (8.5-10.1); Total Protein 5.6 g/dL (6.4-8.2)
[2021-05-05] MEDS: ONDANSETRON HCL 4 MG/2 ML VIAL IV PRN (08:39)
[2021-05-05] MEDS: FERROUS SULFATE 325mg EC TAB PO SCH ×3 (08:40→17:48)
[2021-05-05] MEDS ORDERED: ENOXAPARIN SOD 40 MG/0.4 ML SYRINGE SC SCH (10:00)
[2021-05-05] MEDS: MULTIPLE VITAMIN TAB PO SCH (10:00)
[2021-05-05] MEDS ORDERED: FUROSEMIDE 20 MG/2 ML VIAL IV SCH (10:00)
[2021-05-05] MEDS: ZINC SULFATE 220mg CAP or TAB PO SCH (11:38)
[2021-05-05] MEDS: ASPirin 81 mg TAB PO SCH (11:38)
[2021-05-05] MEDS: HYDROcodone-ACET 5/325MG TAB PO PRN ×2 (14:15→18:16)
[2021-05-05 15:18] VITALS: BP 131/66
[2021-05-05] MEDS ORDERED: DexAMETHasone SOD PHOS 10MG/1ML VIAL INJ IV ONE (15:36)
[2021-05-05] MEDS ORDERED: IVERMECTIN 3 MG TAB PO ONE (15:36)
[2021-05-05] MEDS ORDERED: PNEUMOCOCCAL VACC POLYS 25 MCG/0.5 ML VIAL IM ONE (15:45)
[2021-05-05] MEDS ORDERED: ACETAMINOPHEN 500 MG TAB PO PRN (15:45)
[2021-05-05 15:51] VITALS: BP 131/66
[2021-05-05] MEDS ORDERED: DEXTROSE (50%) 50ML SYRG IV PRN (16:00)
[2021-05-05 17:00] VITALS: BP 112/52
[2021-05-05] MEDS: InsuLIN REG 1unit/0.01ml Soln (100units/ml) SC SCH ×2 (17:00→21:54)
[2021-05-05] MEDS: ACCU-CHEK COMFORT CURVE STRIP VI SCH ×2 (17:00→21:50)
[2021-05-05] MEDS: IPRATROPIUM BROMIDE HFA AER IN SCH ×2 (19:29→22:50)
[2021-05-05 21:37] VITALS: BP 143/86
[2021-05-05] MEDS: ENOXAPARIN SOD 40 MG/0.4 ML SYRINGE SC SCH (21:51)
[2021-05-05] MEDS: levETIRAcetam 500 MG TAB PO SCH (21:52)
[2021-05-05] MEDS: traZODone HCL 50 MG TAB PO SCH (21:52)
[2021-05-05] MEDS: METOPROLOL TARTRATE 25 MG TAB PO SCH (21:52)
[2021-05-05] MEDS: DOXYCYCLINE 100MG/250ML 250 ML IV SCH (21:53)
[2021-05-05] MEDS: ALBUTEROL SULF HFA 90MCG INH 200DOSE IN PRN (22:50)
[2021-05-05] MEDS: BUDESONIDE (INHALATION) 180 MCG IH IN SCH (22:50)
[2021-05-06] MEDS: MORPHINE SULFATE 4 MG/ML SYR/VIAL IV PRN ×5 (02:31→23:05)
[2021-05-06 04:32] VITALS: BP 136/73
[2021-05-06 05:25] VITALS: BP 140/69
[2021-05-06] MEDS: SODIUM CHLOR 0.9% PF (SALINE LOCK) 10ML VIAL/SYR IV SCH ×3 (05:56→21:58)
[2021-05-06] MEDS: ACCU-CHEK COMFORT CURVE STRIP VI SCH ×4 (06:26→22:00)
[2021-05-06] MEDS: InsuLIN REG 1unit/0.01ml Soln (100units/ml) SC SCH ×4 (06:30→22:01)
[2021-05-06 07:20] LABS: Basophils # (auto) 0 10 ^3/uL (0-0.2); Basophils % (auto) 0.2 % (0.0-2.0); Eosinophils # (auto) 0 10 ^3/uL (0-0.8); Eosinophils % (auto) 0.2 % (0.0-7.0); Hematocrit 32.4 % (36.0-46.0); Hemoglobin 11.5 g/dL (12.2-16.2); Lymphocytes # (auto) 0.5 10 ^3/uL (0.4-5.4); Lymphocytes % (auto) 14.3 % (10.0-50.0); Mean Corpuscular Hemoglobin 31.3 pg (28.0-32.0); Mean Corpuscular Hgb Conc. 35.5 g/dL (32.0-36.0); Mean Corpuscular Volume 88.3 fL (80.0-100.0); Monocytes # (auto) 0.3 10 ^3/uL (0-1.3); Monocytes % (auto) 8.7 % (0.0-12.0); Neutrophils # (auto) 2.5 10 ^3/uL (1.6-8.6); Neutrophils % (auto) 76.6 % (37.0-80.0); Nucleated Red Blood Cells % 0.1 %; Red Blood Cells 3.66 10^6/uL (4.0-5.20); Red Cell Distribution Width 13.8 % (11.8-14.3); White Blood Cell 3.2 10^3/uL (4.4-10.8)
[2021-05-06] MEDS: IPRATROPIUM BROMIDE HFA AER IN SCH ×4 (07:25→22:22)
[2021-05-06 07:36] LABS: Calcium 8.5 mg/dL (8.5-10.1); Magnesium 2.4 mg/dL (1.6-2.6)
[2021-05-06 07:48] LABS: BUN/Creatinine Ratio 21.1; CRP High Sensitivity 1.81 mg/dL (< 0.3)
[2021-05-06 09:00] VITALS: BP 129/61
[2021-05-06] MEDS: ENOXAPARIN SOD 40 MG/0.4 ML SYRINGE SC SCH ×2 (09:22→21:59)
[2021-05-06] MEDS: FAMOTIDINE (10MG/ML) 2ML VL IV SCH ×2 (09:23→21:58)
[2021-05-06] MEDS: DexAMETHasone SOD PHOS 10MG/1ML VIAL INJ IV SCH (09:24)
[2021-05-06] MEDS: FUROSEMIDE 20 MG/2 ML VIAL IV SCH (09:24)
[2021-05-06] MEDS: FERROUS SULFATE 325mg EC TAB PO SCH ×3 (09:24→17:27)
[2021-05-06] MEDS: ZINC SULFATE 220mg CAP or TAB PO SCH (09:25)
[2021-05-06] MEDS: ASPirin 81 mg TAB PO SCH (09:25)
[2021-05-06] MEDS: levETIRAcetam 500 MG TAB PO SCH ×2 (09:26→21:59)
[2021-05-06] MEDS: METOPROLOL TARTRATE 25 MG TAB PO SCH ×2 (09:26→22:00)
[2021-05-06] MEDS: ASCORBIC ACID 1,000 MG TAB PO SCH (09:39)
[2021-05-06] MEDS: MULTIPLE VITAMIN TAB PO SCH (09:39)
[2021-05-06] MEDS: CHOLECALCIFEROL (VITD3) 2,000 UNIT CAP/TAB PO SCH (09:39)
[2021-05-06] MEDS: IVERMECTIN 3 MG TAB PO SCH (09:40)
[2021-05-06] MEDS: DOXYCYCLINE 100MG/250ML 250 ML IV SCH ×2 (09:40→21:58)
[2021-05-06] MEDS ORDERED: DIGOXIN 0.125 MG TAB PO SCH (10:00)
[2021-05-06] MEDS: BUDESONIDE (INHALATION) 180 MCG IH IN SCH ×2 (12:08→19:06)
[2021-05-06 13:00] VITALS: BP 137/66
[2021-05-06] MEDS: ALBUTEROL SULF HFA 90MCG INH 200DOSE IN PRN (14:02)
[2021-05-06] MEDS: HYDROcodone-ACET 5/325MG TAB PO PRN ×2 (14:47→19:56)
[2021-05-06 17:00] VITALS: BP 139/69
[2021-05-06] MEDS: ONDANSETRON HCL 4 MG/2 ML VIAL IV PRN (18:05)
[2021-05-06] MEDS: ATORVASTATIN 20 MG TAB PO SCH (21:59)
[2021-05-06] MEDS: traZODone HCL 50 MG TAB PO SCH (21:59)
[2021-05-06 22:00] VITALS: BP 143/80
[2021-05-07 05:00] VITALS: BP 133/73
[2021-05-07] MEDS: MORPHINE SULFATE 4 MG/ML SYR/VIAL IV PRN ×5 (05:19→21:00)
[2021-05-07] MEDS: IPRATROPIUM BROMIDE HFA AER IN SCH ×4 (06:08→22:00)
[2021-05-07] MEDS: BUDESONIDE (INHALATION) 180 MCG IH IN SCH ×2 (06:09→19:58)
[2021-05-07] MEDS: ALBUTEROL SULF HFA 90MCG INH 200DOSE IN PRN ×2 (06:09→20:01)
[2021-05-07] MEDS: InsuLIN REG 1unit/0.01ml Soln (100units/ml) SC SCH ×4 (06:24→22:06)
[2021-05-07] MEDS: ACCU-CHEK COMFORT CURVE STRIP VI SCH ×4 (06:24→22:02)
[2021-05-07] MEDS: SODIUM CHLOR 0.9% PF (SALINE LOCK) 10ML VIAL/SYR IV SCH ×3 (06:24→20:59)
[2021-05-07] MEDS: DexAMETHasone SOD PHOS 10MG/1ML VIAL INJ IV SCH (08:20)
[2021-05-07] MEDS: FAMOTIDINE (10MG/ML) 2ML VL IV SCH (08:20)
[2021-05-07] MEDS: MULTIPLE VITAMIN TAB PO SCH (08:21)
[2021-05-07] MEDS: ASCORBIC ACID 1,000 MG TAB PO SCH (08:21)
[2021-05-07] MEDS: ENOXAPARIN SOD 40 MG/0.4 ML SYRINGE SC SCH ×2 (08:21→21:00)
[2021-05-07] MEDS: FERROUS SULFATE 325mg EC TAB PO SCH ×3 (08:21→17:38)
[2021-05-07] MEDS: ZINC SULFATE 220mg CAP or TAB PO SCH (08:21)
[2021-05-07] MEDS: ASPirin 81 mg TAB PO SCH (08:21)
[2021-05-07] MEDS: IVERMECTIN 3 MG TAB PO SCH (08:21)
[2021-05-07] MEDS: METOPROLOL TARTRATE 25 MG TAB PO SCH ×2 (08:22→22:04)
[2021-05-07] MEDS: levETIRAcetam 500 MG TAB PO SCH ×2 (08:22→21:00)
[2021-05-07] MEDS: DOXYCYCLINE 100MG/250ML 250 ML IV SCH ×2 (08:23→20:59)
[2021-05-07] MEDS: FUROSEMIDE 20 MG/2 ML VIAL IV SCH (08:23)
[2021-05-07] MEDS: CHOLECALCIFEROL (VITD3) 2,000 UNIT CAP/TAB PO SCH (08:24)
[2021-05-07 09:00] VITALS: BP 142/70
[2021-05-07] MEDS: ONDANSETRON HCL 4 MG/2 ML VIAL IV PRN (11:05)
[2021-05-07 12:34] VITALS: BP 108/64
[2021-05-07 16:32] VITALS: BP 123/75
[2021-05-07] MEDS: traZODone HCL 50 MG TAB PO SCH (21:00)
[2021-05-07] MEDS: ATORVASTATIN 20 MG TAB PO SCH (21:00)
[2021-05-07 22:00] VITALS: BP 138/71
[2021-05-08] MEDS: MORPHINE SULFATE 4 MG/ML SYR/VIAL IV PRN (02:49)
[2021-05-08 05:00] VITALS: BP 123/52
[2021-05-08] MEDS: SODIUM CHLOR 0.9% PF (SALINE LOCK) 10ML VIAL/SYR IV SCH ×2 (05:56→14:01)
[2021-05-08] MEDS: InsuLIN REG 1unit/0.01ml Soln (100units/ml) SC SCH ×2 (06:07→11:13)
[2021-05-08] MEDS: ACCU-CHEK COMFORT CURVE STRIP VI SCH ×2 (06:07→11:12)
[2021-05-08] MEDS: BUDESONIDE (INHALATION) 180 MCG IH IN SCH (06:45)
[2021-05-08] MEDS: IPRATROPIUM BROMIDE HFA AER IN SCH ×2 (06:46→11:22)
[2021-05-08] MEDS: ALBUTEROL SULF HFA 90MCG INH 200DOSE IN PRN (06:46)
[2021-05-08] MEDS: FERROUS SULFATE 325mg EC TAB PO SCH ×3 (08:00→12:00)
[2021-05-08] MEDS ORDERED: IOHEXOL 350 MG/ML 100ML IJ ONE (08:33)
[2021-05-08 09:00] VITALS: BP 128/74
[2021-05-08] MEDS: MORPHINE SULFATE INJECTION 2 MG/ML SYRG IV PRN ×2 (09:27→12:45)
[2021-05-08] MEDS: ZINC SULFATE 220mg CAP or TAB PO SCH (09:31)
[2021-05-08] MEDS: DOXYCYCLINE 100MG/250ML 250 ML IV SCH (09:31)
[2021-05-08] MEDS: ASPirin 81 mg TAB PO SCH (09:31)
[2021-05-08] MEDS: levETIRAcetam 500 MG TAB PO SCH (09:32)
[2021-05-08] MEDS: ENOXAPARIN SOD 40 MG/0.4 ML SYRINGE SC SCH (09:32)
[2021-05-08] MEDS: ASCORBIC ACID 1,000 MG TAB PO SCH (09:32)
[2021-05-08] MEDS: CHOLECALCIFEROL (VITD3) 2,000 UNIT CAP/TAB PO SCH (09:32)
[2021-05-08] MEDS: IVERMECTIN 3 MG TAB PO SCH (09:32)
[2021-05-08] MEDS: MULTIPLE VITAMIN TAB PO SCH (09:32)
[2021-05-08] MEDS: METOPROLOL TARTRATE 25 MG TAB PO SCH (09:35)
[2021-05-08] MEDS: FUROSEMIDE 20 MG/2 ML VIAL IV SCH (09:35)
[2021-05-08 13:00] VITALS: BP 95/44
[2021-05-08] MEDS ORDERED: MET25T PO (14:28)
[2021-05-08] MEDS ORDERED: CHOL1CAP47 PO (14:33)
[2021-05-08] MEDS ORDERED: ZINC220T6 PO (14:33)
[2021-05-08] MEDS ORDERED: ALBUAER3 IN (14:33)
[2021-05-08] MEDS ORDERED: ASCO10003 PO (14:33)
[2021-05-08] MEDS ORDERED: IVER3TAB PO (15:12)
[2021-05-08 15:27] VITALS: BP 95/44
[2021-05-08] MEDS: HYDROcodone-ACET 5/325MG TAB PO PRN (15:51)
== END 2021-05-08 16:20 | disposition home or self-care (01) | DRG 177 ==
LOC: ER 16:52 → TELE 22:00 → TELE-EAST 05-05 15:15
PROVIDERS: ADMIT Nurse Practitioner Family; ATTEND Internal Medicine
DX: U07.1 COVID-19 (principal); J12.82 Pneumonia due to coronavirus disease 2019; I50.33 Acute on chronic diastolic (congestive) heart failure; J21.9 Acute bronchiolitis, unspecified; F11.20 Opioid dependence, uncomplicated; I25.110 Atherosclerotic heart disease of native coronary artery with unstable angina pectoris; E87.6 Hypokalemia; E88.09 Other disorders of plasma-protein metabolism, not elsewhere classified; D89.839 Cytokine release syndrome, grade unspecified; E78.5 Hyperlipidemia, unspecified; E66.9 Obesity, unspecified; G47.30 Sleep apnea, unspecified; K21.9 Gastro-esophageal reflux disease without esophagitis; F41.8 Other specified anxiety disorders; E11.9 Type 2 diabetes mellitus without complications; I11.0 Hypertensive heart disease with heart failure; J45.909 Unspecified asthma, uncomplicated; G40.909 Epilepsy, unspecified, not intractable, without status epilepticus; Z86.718 Personal history of other venous thrombosis and embolism; Z79.51 Long term (current) use of inhaled steroids; Z79.84 Long term (current) use of oral hypoglycemic drugs; Z82.49 Family history of ischemic heart disease and other diseases of the circulatory system; Z83.3 Family history of diabetes mellitus; Z86.711 Personal history of pulmonary embolism; Z86.73 Personal history of transient ischemic attack (TIA), and cerebral infarction without residual deficits; Z87.11 Personal history of peptic ulcer disease; Z90.710 Acquired absence of both cervix and uterus; Z95.828 Presence of other vascular implants and grafts; Z98.84 Bariatric surgery status; Z79.899 Other long term (current) drug therapy; Z88.6 Allergy status to analgesic agent; Z88.8 Allergy status to other drugs, medicaments and biological substances; Z99.81 Dependence on supplemental oxygen; Z90.89 Acquired absence of other organs; Z68.36 Body mass index [BMI] 36.0-36.9, adult
CPT/HCPCS: 36415; 71045; 71250; 71275; 76604; 80048; 80053; 80061; 80162; 82306; 82542; 82728; 82962; 83036; 83605; 83615; 83735; 83880; 84484; 85025; 85379; 85610; 86141; 87081; 87426; 93005; 93306; 93970; 94640; 96365; 96366; 96372; 96375; 96376; G0378; J1100; J1815; J2405; J3490; J7060

== ENCOUNTER 2021-07-28 03:46 | Emergency (ER) | payer MEDICARE, MEDICAID ==
[~2021-07-28] VITALS: Ht 175.3 cm; Wt 99.8 kg
[~2021-07-28 03:46] MED LIST changes: +ALBUAER3 IN; +ASCO10003 PO; +CHOL1CAP47 PO; +MET25T PO; -MET50T PO; +ZINC220T6 PO
[2021-07-28] MEDS ORDERED: TETANUS-DIPTH-ACEL PERTUSSIS 0.5ML SYR Tdap IM ONE (04:00)
[2021-07-28] MEDS ORDERED: HYDROcodone-ACET 5/325MG TAB PO ONE (05:15)
[2021-07-28 05:30] VITALS: BP 132/67
== END 2021-07-28 05:51 | disposition home or self-care (01) ==
LOC: EDBD 03:46 → ER 03:46
DX: S91.312A Laceration without foreign body, left foot, initial encounter (principal); F41.9 Anxiety disorder, unspecified; J45.909 Unspecified asthma, uncomplicated; I25.10 Atherosclerotic heart disease of native coronary artery without angina pectoris; F32.9 Major depressive disorder, single episode, unspecified; E11.9 Type 2 diabetes mellitus without complications; K21.9 Gastro-esophageal reflux disease without esophagitis; E78.5 Hyperlipidemia, unspecified; I11.0 Hypertensive heart disease with heart failure; I50.9 Heart failure, unspecified; Z88.6 Allergy status to analgesic agent; Z88.8 Allergy status to other drugs, medicaments and biological substances; Z88.9 Allergy status to unspecified drugs, medicaments and biological substances; Z79.82 Long term (current) use of aspirin; Z79.899 Other long term (current) drug therapy; Z86.711 Personal history of pulmonary embolism; Z87.11 Personal history of peptic ulcer disease; W23.0XXA Caught, crushed, jammed, or pinched between moving objects, initial encounter; Y93.89 Activity, other specified; Y92.89 Other specified places as the place of occurrence of the external cause; Y99.8 Other external cause status; Z90.89 Acquired absence of other organs; Z90.49 Acquired absence of other specified parts of digestive tract; Z90.710 Acquired absence of both cervix and uterus
CPT/HCPCS: 12001; 73620; 90471; 90715

== ENCOUNTER 2021-09-10 15:27 | Inpatient (IN) | payer MEDICARE, MEDICAID ==
[~2021-09-10] VITALS: Ht 167.6 cm; Wt 100.0 kg
[2021-09-10] MEDS ORDERED: ASPirin 81 mg TAB PO ONE (17:15)
[2021-09-10] MEDS ORDERED: HYDROcodone-ACET 5/325MG TAB PO ONE (18:15)
[2021-09-10 19:08] LABS: Basophils # (auto) 0 10 ^3/uL (0-0.2); Basophils % (auto) 0.2 % (0.0-2.0); Eosinophils # (auto) 0.2 10 ^3/uL (0-0.8); Eosinophils % (auto) 1.3 % (0.0-7.0); Hematocrit 42.9 % (36.0-46.0); Lymphocytes # (auto) 1.3 10 ^3/uL (0.4-5.4); Lymphocytes % (auto) 10.1 % (10.0-50.0); Mean Corpuscular Hemoglobin 28.1 pg (28.0-32.0); Mean Corpuscular Hgb Conc. 32.7 g/dL (32.0-36.0); Monocytes # (auto) 0.8 10 ^3/uL (0-1.3); Monocytes % (auto) 5.9 % (0.0-12.0); Neutrophils % (auto) 82.5 % (37.0-80.0); Nucleated Red Blood Cells % 0.1 %; Red Blood Cells 4.99 10^6/uL (4.0-5.20); White Blood Cell 13.3 10^3/uL (4.4-10.8)
[2021-09-10 19:26] LABS: Albumin 3.3 g/dL (3.4-5.0); BUN/Creatinine Ratio 24.7; Calcium 8.7 mg/dL (8.5-10.1); Magnesium 2.4 mg/dL (1.6-2.6); Potassium 4.3 mmol/L (3.5-5.1)
[2021-09-10 19:28] LABS: Bilirubin, Total 0.7 mg/dL (0.2-1.0); Total Protein 6.8 g/dL (6.4-8.2)
[2021-09-11] MEDS ORDERED: NITROGLYCERIN 0.4 MG SL TAB SL PRN (02:30)
[2021-09-11] MEDS ORDERED: ACETAMINOPHEN 325 MG TAB PO PRN (02:30)
[2021-09-11] MEDS ORDERED: DEXTROSE (50%) 50ML SYRG IV PRN (02:30)
[2021-09-11] MEDS ORDERED: ALBUTEROL SULF 2.5 MG/0.5ML(0.5%) NEB SOLN NEB PRN (02:30)
[2021-09-11] MEDS ORDERED: IOHEXOL 350 MG/ML 100ML IJ ONE (02:50)
[2021-09-11] MEDS: MORPHINE SULFATE INJECTION 2 MG/ML SYRG IV PRN ×3 (03:18→07:35)
[2021-09-11] MEDS: ONDANSETRON HCL 4 MG/2 ML VIAL IV PRN (04:32)
[2021-09-11 05:44] VITALS: BP 154/81
[2021-09-11] MEDS ORDERED: LORazepam 0.5 MG TAB PO ONE (05:45)
[2021-09-11] MEDS ORDERED: LORazepam 0.5 MG TAB ONE (05:52)
[2021-09-11] MEDS: ACCU-CHEK COMFORT CURVE STRIP VI SCH ×4 (07:33→22:02)
[2021-09-11] MEDS: InsuLIN REG 1unit/0.01ml Soln (100units/ml) SC SCH ×4 (07:34→22:03)
[2021-09-11] MEDS: PANTOPRAZOLE 40 MG TAB PO SCH (09:20)
[2021-09-11] MEDS ORDERED: PANTOPRAZOLE 40 MG TAB PO SCH (10:00)
[2021-09-11] MEDS: ASPirin 81 mg TAB PO SCH (10:24)
[2021-09-11] MEDS: levETIRAcetam 500 MG TAB PO SCH ×2 (10:25→22:01)
[2021-09-11] MEDS: DIGOXIN 0.125 MG TAB PO SCH (10:25)
[2021-09-11] MEDS: METOPROLOL TARTRATE 25 MG TAB PO SCH ×2 (10:25→22:02)
[2021-09-11] MEDS: ENOXAPARIN SOD 40 MG/0.4 ML SYRINGE SC SCH (10:26)
[2021-09-11] MEDS: HYDROcodone-ACET 5/325MG TAB PO PRN ×2 (16:26→21:16)
[2021-09-11] MEDS: ATORVASTATIN 20 MG TAB PO SCH (22:01)
[2021-09-12] MEDS ORDERED: PNEUMOCOCCAL VACC POLYS 25 MCG/0.5 ML VIAL IM ONE
[2021-09-12 00:02] VITALS: BP 130/61
[2021-09-12] MEDS ORDERED: DIPH25CA66 PO (00:23)
[2021-09-12] MEDS ORDERED: ONDA-144 PO (00:25)
[2021-09-12] MEDS ORDERED: NORT25CA PO (00:28)
[2021-09-12] MEDS ORDERED: ECON1CRE6 TOP (00:32)
[2021-09-12] MEDS ORDERED: ERGO2000 PO (00:32)
[2021-09-12] MEDS ORDERED: MYC15TP TOP (00:32)
[2021-09-12] MEDS ORDERED: PYRI50TA71 PO (00:32)
[2021-09-12] MEDS: TEMAZEPAM 15 MG CAP PO PRN ×2 (00:51→22:00)
[2021-09-12] MEDS: HYDROcodone-ACET 5/325MG TAB PO PRN ×3 (02:23→17:25)
[2021-09-12] MEDS: ACCU-CHEK COMFORT CURVE STRIP VI SCH ×4 (06:37→21:42)
[2021-09-12] MEDS: InsuLIN REG 1unit/0.01ml Soln (100units/ml) SC SCH ×4 (06:43→21:43)
[2021-09-12 07:55] LABS: Basophils # (auto) 0 10 ^3/uL (0-0.2); Basophils % (auto) 0.1 % (0.0-2.0); Eosinophils # (auto) 0.1 10 ^3/uL (0-0.8); Eosinophils % (auto) 2.9 % (0.0-7.0); Hematocrit 38.2 % (36.0-46.0); Hemoglobin 12.8 g/dL (12.2-16.2); Lymphocytes # (auto) 0.7 10 ^3/uL (0.4-5.4); Lymphocytes % (auto) 14.3 % (10.0-50.0); Mean Corpuscular Hemoglobin 28.9 pg (28.0-32.0); Mean Corpuscular Hgb Conc. 33.6 g/dL (32.0-36.0); Monocytes # (auto) 0.5 10 ^3/uL (0-1.3); Monocytes % (auto) 8.8 % (0.0-12.0); Neutrophils # (auto) 3.8 10 ^3/uL (1.6-8.6); Neutrophils % (auto) 73.9 % (37.0-80.0); Nucleated Red Blood Cells % 0.1 %; Red Blood Cells 4.43 10^6/uL (4.0-5.20); Red Cell Distribution Width 14.5 % (11.8-14.3); White Blood Cell 5.2 10^3/uL (4.4-10.8)
[2021-09-12 09:00] VITALS: BP 122/51
[2021-09-12] MEDS: ASPirin 81 mg TAB PO SCH (10:44)
[2021-09-12] MEDS: PANTOPRAZOLE 40 MG TAB PO SCH (10:45)
[2021-09-12] MEDS: levETIRAcetam 500 MG TAB PO SCH ×2 (10:45→21:42)
[2021-09-12] MEDS: DIGOXIN 0.125 MG TAB PO SCH (10:48)
[2021-09-12] MEDS: FUROSEMIDE 40 MG TAB PO SCH (10:48)
[2021-09-12] MEDS: METOPROLOL TARTRATE 25 MG TAB PO SCH ×2 (10:49→21:42)
[2021-09-12] MEDS: ENOXAPARIN SOD 40 MG/0.4 ML SYRINGE SC SCH (10:53)
[2021-09-12 12:01] LABS: BUN/Creatinine Ratio 35.9; Calcium 8.7 mg/dL (8.5-10.1); Magnesium 2.8 mg/dL (1.6-2.6); Potassium 3.7 mmol/L (3.5-5.1)
[2021-09-12 12:15] LABS: Barbiturate Scree,Urine NEGATIVE (NEGATIVE); Benzodiazephine Screen, Urine NEGATIVE (NEGATIVE); Cannabinoid Screen, Urine NEGATIVE (NEGATIVE)
[2021-09-12 12:34] LABS: Alcohol, Urine < 3.0 mg/dL (0-10); Amphetamine Screen, Urine NEGATIVE (NEGATIVE); Cocaine Screen, Urine NEGATIVE (NEGATIVE); Opiate Scree,Urine POSITIVE (NEGATIVE); Phencyclidine Screen, Urine NEGATIVE (NEGATIVE)
[2021-09-12 13:00] VITALS: BP 127/67
[2021-09-12 17:00] VITALS: BP 141/83
[2021-09-12] MEDS: ATORVASTATIN 20 MG TAB PO SCH (21:42)
[2021-09-12 21:53] VITALS: BP 122/63
[2021-09-13] MEDS: HYDROcodone-ACET 5/325MG TAB PO PRN ×5 (04:42→23:10)
[2021-09-13 05:03] VITALS: BP 121/62
[2021-09-13] MEDS: ACCU-CHEK COMFORT CURVE STRIP VI SCH ×4 (06:28→21:33)
[2021-09-13] MEDS: InsuLIN REG 1unit/0.01ml Soln (100units/ml) SC SCH ×4 (06:31→21:33)
[2021-09-13 09:00] VITALS: BP 130/62
[2021-09-13] MEDS: FUROSEMIDE 40 MG TAB PO SCH (09:35)
[2021-09-13] MEDS: ENOXAPARIN SOD 40 MG/0.4 ML SYRINGE SC SCH (09:36)
[2021-09-13] MEDS: ASPirin 81 mg TAB PO SCH (09:36)
[2021-09-13] MEDS: PANTOPRAZOLE 40 MG TAB PO SCH (09:36)
[2021-09-13] MEDS: levETIRAcetam 500 MG TAB PO SCH ×2 (09:36→21:32)
[2021-09-13] MEDS: METOPROLOL TARTRATE 25 MG TAB PO SCH ×2 (09:37→21:33)
[2021-09-13] MEDS: DIGOXIN 0.125 MG TAB PO SCH (09:37)
[2021-09-13 13:00] VITALS: BP 130/64
[2021-09-13 17:00] VITALS: BP 147/82
[2021-09-13] MEDS: SUCRALFATE 1 GM/10 ML ORAL SUSP PO SCH ×2 (17:16→21:32)
[2021-09-13] MEDS: ATORVASTATIN 20 MG TAB PO SCH (21:32)
[2021-09-13 22:00] VITALS: BP 128/56
[2021-09-13] MEDS: TEMAZEPAM 15 MG CAP PO PRN (22:30)
[2021-09-14 05:00] VITALS: BP 118/61
[2021-09-14] MEDS: HYDROcodone-ACET 5/325MG TAB PO PRN ×4 (05:03→22:00)
[2021-09-14] MEDS: ACCU-CHEK COMFORT CURVE STRIP VI SCH ×4 (06:26→21:58)
[2021-09-14] MEDS: SUCRALFATE 1 GM/10 ML ORAL SUSP PO SCH ×4 (06:26→21:57)
[2021-09-14] MEDS: InsuLIN REG 1unit/0.01ml Soln (100units/ml) SC SCH ×4 (06:26→21:58)
[2021-09-14 09:28] VITALS: BP 114/54
[2021-09-14] MEDS: ASPirin 81 mg TAB PO SCH (10:53)
[2021-09-14] MEDS: levETIRAcetam 500 MG TAB PO SCH ×2 (10:53→21:57)
[2021-09-14] MEDS: DIGOXIN 0.125 MG TAB PO SCH (10:57)
[2021-09-14] MEDS: FUROSEMIDE 40 MG TAB PO SCH (10:58)
[2021-09-14] MEDS: METOPROLOL TARTRATE 25 MG TAB PO SCH ×2 (10:59→21:58)
[2021-09-14] MEDS: PANTOPRAZOLE 40 MG TAB PO SCH (10:59)
[2021-09-14] MEDS: ENOXAPARIN SOD 40 MG/0.4 ML SYRINGE SC SCH (10:59)
[2021-09-14 12:50] LABS: Basophils # (auto) 0 10 ^3/uL (0-0.2); Basophils % (auto) 0.5 % (0.0-2.0); Eosinophils # (auto) 0.1 10 ^3/uL (0-0.8); Eosinophils % (auto) 2.5 % (0.0-7.0); Hematocrit 43.7 % (36.0-46.0); Hemoglobin 14.3 g/dL (12.2-16.2); Lymphocytes # (auto) 0.7 10 ^3/uL (0.4-5.4); Lymphocytes % (auto) 14.6 % (10.0-50.0); Mean Corpuscular Hemoglobin 28.2 pg (28.0-32.0); Mean Corpuscular Hgb Conc. 32.7 g/dL (32.0-36.0); Mean Corpuscular Volume 86.1 fL (80.0-100.0); Monocytes # (auto) 0.5 10 ^3/uL (0-1.3); Monocytes % (auto) 10.5 % (0.0-12.0); Neutrophils # (auto) 3.7 10 ^3/uL (1.6-8.6); Neutrophils % (auto) 71.9 % (37.0-80.0); Nucleated Red Blood Cells % 0.1 %; Red Blood Cells 5.07 10^6/uL (4.0-5.20); Red Cell Distribution Width 14.5 % (11.8-14.3); White Blood Cell 5.1 10^3/uL (4.4-10.8)
[2021-09-14 13:02] LABS: BUN/Creatinine Ratio 29.8; Calcium 8.9 mg/dL (8.5-10.1); Potassium 4.4 mmol/L (3.5-5.1)
[2021-09-14] MEDS: LORATADINE 10 MG TAB PO SCH (15:08)
[2021-09-14 16:00] VITALS: BP 137/73
[2021-09-14] MEDS: ONDANSETRON HCL 4 MG/2 ML VIAL IV PRN (19:46)
[2021-09-14] MEDS: ATORVASTATIN 20 MG TAB PO SCH (21:57)
[2021-09-14 22:21] LABS: INR 1.03 (0.9-1.15); Partial Thromboplastin Time 26.5 sec (23.6-33.0)
[2021-09-14 23:07] VITALS: BP 130/71
[2021-09-14] MEDS: TEMAZEPAM 15 MG CAP PO PRN (23:40)
[2021-09-15] VITALS (9 sets, daily range): BP systolic 108–150; BP diastolic 50–85
[2021-09-15 05:40] LABS: Basophils # (auto) 0 10 ^3/uL (0-0.2); Basophils % (auto) 0.4 % (0.0-2.0); Eosinophils # (auto) 0.2 10 ^3/uL (0-0.8); Eosinophils % (auto) 3.3 % (0.0-7.0); Hematocrit 40.1 % (36.0-46.0); Hemoglobin 13.4 g/dL (12.2-16.2); Lymphocytes # (auto) 1.1 10 ^3/uL (0.4-5.4); Lymphocytes % (auto) 19.3 % (10.0-50.0); Mean Corpuscular Hemoglobin 28.6 pg (28.0-32.0); Mean Corpuscular Hgb Conc. 33.4 g/dL (32.0-36.0); Mean Corpuscular Volume 85.8 fL (80.0-100.0); Monocytes # (auto) 0.6 10 ^3/uL (0-1.3); Monocytes % (auto) 10.9 % (0.0-12.0); Neutrophils # (auto) 3.9 10 ^3/uL (1.6-8.6); Neutrophils % (auto) 66.1 % (37.0-80.0); Nucleated Red Blood Cells % 0.2 %; Red Blood Cells 4.67 10^6/uL (4.0-5.20); Red Cell Distribution Width 14.4 % (11.8-14.3); White Blood Cell 5.9 10^3/uL (4.4-10.8)
[2021-09-15 05:50] LABS: INR 1.05 (0.9-1.15)
[2021-09-15 05:57] LABS: Calcium 8.6 mg/dL (8.5-10.1)
[2021-09-15 06:00] LABS: BUN/Creatinine Ratio 28.8
[2021-09-15] MEDS: InsuLIN REG 1unit/0.01ml Soln (100units/ml) SC SCH ×4 (06:28→22:06)
[2021-09-15] MEDS: SUCRALFATE 1 GM/10 ML ORAL SUSP PO SCH ×4 (06:28→22:04)
[2021-09-15] MEDS: ACCU-CHEK COMFORT CURVE STRIP VI SCH ×4 (06:28→22:05)
[2021-09-15] MEDS: HYDROcodone-ACET 5/325MG TAB PO PRN ×3 (07:53→22:05)
[2021-09-15] MEDS: ONDANSETRON HCL 4 MG/2 ML VIAL IV PRN ×2 (08:04→13:24)
[2021-09-15] MEDS: ENOXAPARIN SOD 40 MG/0.4 ML SYRINGE SC SCH (09:30)
[2021-09-15] MEDS: ASPirin 81 mg TAB PO SCH (09:35)
[2021-09-15] MEDS: METOPROLOL TARTRATE 25 MG TAB PO SCH ×2 (09:35→22:00)
[2021-09-15] MEDS: LORATADINE 10 MG TAB PO SCH (09:36)
[2021-09-15] MEDS: PANTOPRAZOLE 40 MG TAB PO SCH (09:36)
[2021-09-15] MEDS: levETIRAcetam 500 MG TAB PO SCH ×2 (09:36→22:04)
[2021-09-15] MEDS: FUROSEMIDE 40 MG TAB PO SCH (09:36)
[2021-09-15] MEDS: DIGOXIN 0.125 MG TAB PO SCH (09:36)
[2021-09-15] MEDS ORDERED: fentaNYL CITRATE 100 MCG/2 ML VL ONE (15:56)
[2021-09-15] MEDS ORDERED: MIDAZOLAM HCL 2MG/2ML 2ml VIAL (1mg/ml) ONE (15:56)
[2021-09-15] MEDS ORDERED: METOCLOPRAMIDE HCL 5MG/ml INJ 2ml VIAL ONE (15:59)
[2021-09-15] MEDS ORDERED: HEPARIN IN NS 1000Units/500mL 1,500 ML ONE (16:25)
[2021-09-15] MEDS ORDERED: LIDOCAINE 2%HCL (LOCAL ANESTH.) INJ 20ML MDV ONE (16:25)
[2021-09-15] MEDS ORDERED: IOHEXOL 350 MG/ML 100ML IJ ONE (16:25)
[2021-09-15] MEDS: ATORVASTATIN 20 MG TAB PO SCH (22:04)
[2021-09-15] MEDS: TEMAZEPAM 15 MG CAP PO PRN (22:05)
[2021-09-16] MEDS: HYDROcodone-ACET 5/325MG TAB PO PRN ×3 (04:01→13:17)
[2021-09-16 05:00] VITALS: BP 122/68
[2021-09-16] MEDS: ONDANSETRON HCL 4 MG/2 ML VIAL IV PRN ×3 (05:00→13:17)
[2021-09-16] MEDS: ACCU-CHEK COMFORT CURVE STRIP VI SCH ×2 (06:17→12:02)
[2021-09-16] MEDS: SUCRALFATE 1 GM/10 ML ORAL SUSP PO SCH ×2 (06:17→12:02)
[2021-09-16] MEDS: InsuLIN REG 1unit/0.01ml Soln (100units/ml) SC SCH ×2 (06:18→11:30)
[2021-09-16 06:32] LABS: BUN/Creatinine Ratio 23.5; Calcium 8.7 mg/dL (8.5-10.1); Magnesium 2.5 mg/dL (1.6-2.6); Potassium 3.9 mmol/L (3.5-5.1)
[2021-09-16 09:00] VITALS: BP 117/53
[2021-09-16] MEDS: FUROSEMIDE 40 MG TAB PO SCH (09:14)
[2021-09-16] MEDS: ASPirin 81 mg TAB PO SCH (09:14)
[2021-09-16] MEDS: LORATADINE 10 MG TAB PO SCH (09:14)
[2021-09-16] MEDS: PANTOPRAZOLE 40 MG TAB PO SCH (09:15)
[2021-09-16] MEDS: METOPROLOL TARTRATE 25 MG TAB PO SCH (09:16)
[2021-09-16] MEDS: DIGOXIN 0.125 MG TAB PO SCH (09:16)
[2021-09-16] MEDS: levETIRAcetam 500 MG TAB PO SCH (09:16)
[2021-09-16] MEDS: ENOXAPARIN SOD 40 MG/0.4 ML SYRINGE SC SCH (09:17)
[2021-09-16 11:27] VITALS: BP 117/53
== END 2021-09-16 14:30 | disposition home or self-care (01) | DRG 286 ==
LOC: ER 15:27 → TELE 09-11 02:30 → TELE-WESTW 09-11 20:40
PROVIDERS: ADMIT Nurse Practitioner; ATTEND Internal Medicine
PROC: 4A023N7 Measurement of Cardiac Sampling and Pressure, Left Heart, Percutaneous Approach (ICD-10-PCS; principal; 2021-09-15)
PROC: B211YZZ Fluoroscopy of Multiple Coronary Arteries using Other Contrast (ICD-10-PCS; 2021-09-15)
PROC: B215YZZ Fluoroscopy of Left Heart using Other Contrast (ICD-10-PCS; 2021-09-15)
DX: R07.89 Other chest pain (principal); I50.43 Acute on chronic combined systolic (congestive) and diastolic (congestive) heart failure; I24.9 Acute ischemic heart disease, unspecified; R65.10 Systemic inflammatory response syndrome (SIRS) of non-infectious origin without acute organ dysfunction; F11.20 Opioid dependence, uncomplicated; I25.110 Atherosclerotic heart disease of native coronary artery with unstable angina pectoris; E11.9 Type 2 diabetes mellitus without complications; E66.9 Obesity, unspecified; G40.909 Epilepsy, unspecified, not intractable, without status epilepticus; K21.9 Gastro-esophageal reflux disease without esophagitis; E78.5 Hyperlipidemia, unspecified; G25.81 Restless legs syndrome; G89.29 Other chronic pain; I73.9 Peripheral vascular disease, unspecified; Z20.822 Contact with and (suspected) exposure to COVID-19; I11.0 Hypertensive heart disease with heart failure; F32.A Depression, unspecified; F41.9 Anxiety disorder, unspecified; J44.9 Chronic obstructive pulmonary disease, unspecified; Z82.49 Family history of ischemic heart disease and other diseases of the circulatory system; Z83.3 Family history of diabetes mellitus; Z85.038 Personal history of other malignant neoplasm of large intestine; Z86.718 Personal history of other venous thrombosis and embolism; Z86.73 Personal history of transient ischemic attack (TIA), and cerebral infarction without residual deficits; Z87.11 Personal history of peptic ulcer disease; Z90.49 Acquired absence of other specified parts of digestive tract; Z90.710 Acquired absence of both cervix and uterus; Z98.84 Bariatric surgery status; Z88.8 Allergy status to other drugs, medicaments and biological substances; Z68.34 Body mass index [BMI] 34.0-34.9, adult
CPT/HCPCS: 36415; 71045; 71275; 80048; 80053; 80162; 80307; 82306; 82962; 83036; 83735; 83880; 84484; 85025; 85379; 85610; 85730; 87081; 87426; 93005; 93458; 93970; 94640; 96372; 96374; 96375; 99152; G0378; J1815; J2250; J2405

== ENCOUNTER 2022-05-28 17:23 | Inpatient (IN) | payer MEDICARE, MEDICAID ==
[~2022-05-28] VITALS: Ht 167.6 cm; Wt 106.5 kg
[~2022-05-28 17:23] MED LIST changes: -DIA5T PO; +DIPH25CA66 PO; +ECON1CRE6 TOP; +ERGO2000 PO; +MYC15TP TOP; +NORT25CA PO; +ONDA-144 PO; -PYRI50TA67 PO; +PYRI50TA71 PO
[2022-05-28 18:09] LABS: Basophils # (auto) 0 10 ^3/uL (0-0.2); Basophils % (auto) 0.2 % (0.0-2.0); Eosinophils # (auto) 0.2 10 ^3/uL (0-0.8); Eosinophils % (auto) 3.1 % (0.0-7.0); Hematocrit 40.3 % (36.0-46.0); Hemoglobin 13.4 g/dL (12.2-16.2); Lymphocytes # (auto) 1.4 10 ^3/uL (0.4-5.4); Mean Corpuscular Hemoglobin 27.6 pg (28.0-32.0); Mean Corpuscular Hgb Conc. 33.3 g/dL (32.0-36.0); Mean Corpuscular Volume 82.8 fL (80.0-100.0); Monocytes # (auto) 0.5 10 ^3/uL (0-1.3); Monocytes % (auto) 6.8 % (0.0-12.0); Neutrophils # (auto) 5.2 10 ^3/uL (1.6-8.6); Neutrophils % (auto) 70.9 % (37.0-80.0); Nucleated Red Blood Cells % 0.1 %; Red Blood Cells 4.86 10^6/uL (4.0-5.20); Red Cell Distribution Width 15.5 % (11.8-14.3); White Blood Cell 7.3 10^3/uL (4.4-10.8)
[2022-05-28 18:28] LABS: INR 0.96 (0.9-1.15); Partial Thromboplastin Time 22.8 sec (24.6-33.4)
[2022-05-28 18:30] LABS: Albumin 3.6 g/dL (3.4-5.0); Calcium 9.3 mg/dL (8.5-10.1); Magnesium 2.3 mg/dL (1.6-2.6)
[2022-05-28 18:34] LABS: BUN/Creatinine Ratio 25.8; Bilirubin, Total 0.5 mg/dL (0.2-1.0); Total Protein 6.8 g/dL (6.4-8.2)
[2022-05-28 18:43] LABS: Potassium 2.2 mmol/L (3.5-5.1)
[2022-05-28] MEDS: POTASSIUM CHL 20 Meq TABLET PO ONE ×2 (19:15→19:58)
[2022-05-28] MEDS ORDERED: POTASSIUM CHL 20MEQ/100ML 100 ML IV ONE (19:15)
[2022-05-28 19:32] LABS: Urine Bacteria NONE SEEN /hpf (None Seen); Urine Blood Negative /uL (Negative); Urine Specific Gravity 1.016 (1.001-1.035); Urine WBC <1 /hpf (0 - 5)
[2022-05-28] MEDS ORDERED: POTASSIUM EFFERVESENT TAB 25 MEQ PO ONE (20:30)
[2022-05-29] VITALS (8 sets, daily range): BP systolic 94–122; BP diastolic 41–55
[2022-05-29] MEDS ORDERED: DEXTROSE (50%) 50ML SYRG IV PRN (02:30)
[2022-05-29] MEDS ORDERED: MORPHINE SULFATE INJ 2 MG/ml SYRG IV PRN (02:30)
[2022-05-29] MEDS ORDERED: DOCUSATE SOD 100 MG CAP PO PRN (02:30)
[2022-05-29] MEDS ORDERED: NITROGLYCERIN 0.4 MG SL TAB SL PRN (02:30)
[2022-05-29] MEDS ORDERED: ONDANSETRON HCL 4 MG/2 ML VIAL IV PRN (02:30)
[2022-05-29] MEDS: HYDROcodone-ACET 5/325MG TAB PO PRN ×4 (03:00→21:51)
[2022-05-29] MEDS: SODIUM CHLOR 0.9% PF (SALINE LOCK) 10ML VIAL/SYR IV SCH ×3 (06:26→21:49)
[2022-05-29] MEDS: ACCU-CHEK COMFORT CURVE STRIP VI SCH ×4 (06:26→21:50)
[2022-05-29] MEDS: InsuLIN REG 1unit/0.01ml Soln (100units/ml) SC SCH ×4 (06:59→22:29)
[2022-05-29] MEDS: ASPirin 81 mg TAB PO SCH (11:12)
[2022-05-29] MEDS: FAMOTIDINE (10MG/ML) 2ML VL IV SCH ×2 (11:13→21:49)
[2022-05-29] MEDS: FUROSEMIDE 20 MG/2 ML VIAL IV SCH (11:13)
[2022-05-29 12:19] LABS: Basophils # (auto) 0 10 ^3/uL (0-0.2); Basophils % (auto) 0.3 % (0.0-2.0); Eosinophils # (auto) 0.2 10 ^3/uL (0-0.8); Eosinophils % (auto) 2.6 % (0.0-7.0); Hematocrit 38.4 % (36.0-46.0); Hemoglobin 12.8 g/dL (12.2-16.2); Lymphocytes # (auto) 1.1 10 ^3/uL (0.4-5.4); Lymphocytes % (auto) 18.1 % (10.0-50.0); Mean Corpuscular Hemoglobin 28.2 pg (28.0-32.0); Mean Corpuscular Hgb Conc. 33.3 g/dL (32.0-36.0); Mean Corpuscular Volume 84.5 fL (80.0-100.0); Monocytes # (auto) 0.4 10 ^3/uL (0-1.3); Monocytes % (auto) 6.8 % (0.0-12.0); Neutrophils # (auto) 4.3 10 ^3/uL (1.6-8.6); Neutrophils % (auto) 72.2 % (37.0-80.0); Nucleated Red Blood Cells % 0.1 %; Red Blood Cells 4.54 10^6/uL (4.0-5.20); Red Cell Distribution Width 15.3 % (11.8-14.3)
[2022-05-29 12:50] LABS: Albumin 3.1 g/dL (3.4-5.0); Calcium 8.9 mg/dL (8.5-10.1)
[2022-05-29 12:53] LABS: BUN/Creatinine Ratio 26.6; Bilirubin, Total 0.6 mg/dL (0.2-1.0); Total Protein 6.2 g/dL (6.4-8.2)
[2022-05-29 13:50] LABS: Potassium 2.5 mmol/L (3.5-5.1)
[2022-05-29] MEDS ORDERED: POTASSIUM CHLORIDE 40 MEQ, LIDOCAINE 1% (LOCAL ANESTH.) 4 ML in SODIUM CHL 0.9% 250 ML IV ONE (14:15)
[2022-05-29] MEDS ORDERED: POTASSIUM EFFERVESENT TAB 25 MEQ PO ONE (14:15)
[2022-05-29] MEDS: ATORVASTATIN 20 MG TAB PO SCH (21:49)
[2022-05-30] MEDS: HYDROcodone-ACET 5/325MG TAB PO PRN ×4 (04:01→20:23)
[2022-05-30 05:00] VITALS: BP 95/42
[2022-05-30] MEDS: SODIUM CHLOR 0.9% PF (SALINE LOCK) 10ML VIAL/SYR IV SCH ×3 (06:27→22:05)
[2022-05-30] MEDS: ACCU-CHEK COMFORT CURVE STRIP VI SCH ×4 (06:27→22:06)
[2022-05-30] MEDS: InsuLIN REG 1unit/0.01ml Soln (100units/ml) SC SCH ×4 (06:29→22:05)
[2022-05-30 09:00] VITALS: BP 99/40
[2022-05-30] MEDS: ASPirin 81 mg TAB PO SCH (09:42)
[2022-05-30] MEDS: FUROSEMIDE 20 MG/2 ML VIAL IV SCH (09:43)
[2022-05-30] MEDS: FAMOTIDINE (10MG/ML) 2ML VL IV SCH ×2 (09:43→22:04)
[2022-05-30 10:15] LABS: Potassium 2.9 mmol/L (3.5-5.1)
[2022-05-30 10:19] LABS: BUN/Creatinine Ratio 18.2; Bilirubin, Total 0.4 mg/dL (0.2-1.0); Calcium 8.5 mg/dL (8.5-10.1); Total Protein 5.9 g/dL (6.4-8.2)
[2022-05-30] MEDS ORDERED: POTASSIUM EFFERVESENT TAB 25 MEQ PO ONE (10:45)
[2022-05-30] MEDS: POTASSIUM CHLORIDE 40 MEQ in SOD CHL 0.45% 1,000 ML IV SCH (11:51)
[2022-05-30 13:00] VITALS: BP 109/56
[2022-05-30] MEDS: ACETAMINOPHEN 325 MG TAB PO PRN ×2 (14:43→20:23)
[2022-05-30 17:33] VITALS: BP 122/59
[2022-05-30 20:00] VITALS: BP 122/55
[2022-05-30 22:00] VITALS: BP 117/51
[2022-05-30] MEDS: ATORVASTATIN 20 MG TAB PO SCH (22:05)
[2022-05-31] MEDS: HYDROcodone-ACET 5/325MG TAB PO PRN ×4 (02:09→21:44)
[2022-05-31] MEDS: ACETAMINOPHEN 325 MG TAB PO PRN ×2 (02:10→08:33)
[2022-05-31] MEDS: POTASSIUM CHLORIDE 40 MEQ in SOD CHL 0.45% 1,000 ML IV SCH ×2 (03:45→16:50)
[2022-05-31 05:00] VITALS: BP 114/37
[2022-05-31 06:22] LABS: Albumin 3.2 g/dL (3.4-5.0); Potassium 3.5 mmol/L (3.5-5.1)
[2022-05-31 06:24] LABS: BUN/Creatinine Ratio 20.6
[2022-05-31] MEDS: ACCU-CHEK COMFORT CURVE STRIP VI SCH ×4 (06:24→21:34)
[2022-05-31] MEDS: InsuLIN REG 1unit/0.01ml Soln (100units/ml) SC SCH ×4 (06:25→21:35)
[2022-05-31] MEDS: SODIUM CHLOR 0.9% PF (SALINE LOCK) 10ML VIAL/SYR IV SCH ×3 (06:25→21:35)
[2022-05-31 06:27] LABS: Bilirubin, Total 0.5 mg/dL (0.2-1.0); Total Protein 6.2 g/dL (6.4-8.2)
[2022-05-31 08:00] VITALS: BP 113/67
[2022-05-31 09:00] VITALS: BP 111/67
[2022-05-31] MEDS: FAMOTIDINE (10MG/ML) 2ML VL IV SCH ×2 (11:46→21:45)
[2022-05-31] MEDS: FUROSEMIDE 20 MG/2 ML VIAL IV SCH (11:46)
[2022-05-31] MEDS: ASPirin 81 mg TAB PO SCH (11:46)
[2022-05-31 13:00] VITALS: BP 128/61
[2022-05-31 17:00] VITALS: BP 118/57
[2022-05-31] MEDS ORDERED: ATORVASTATIN 20 MG TAB PO SCH (20:15)
[2022-05-31] MEDS: levETIRAcetam 500 MG TAB PO SCH (21:44)
[2022-05-31 22:00] VITALS: BP 113/55
[2022-06-01] MEDS: HYDROcodone-ACET 5/325MG TAB PO PRN ×2 (04:46→09:16)
[2022-06-01] MEDS: POTASSIUM CHLORIDE 40 MEQ in SOD CHL 0.45% 1,000 ML IV SCH (04:47)
[2022-06-01 05:00] VITALS: BP 113/52
[2022-06-01] MEDS: SODIUM CHLOR 0.9% PF (SALINE LOCK) 10ML VIAL/SYR IV SCH (06:00)
[2022-06-01] MEDS: ACCU-CHEK COMFORT CURVE STRIP VI SCH ×2 (06:38→11:20)
[2022-06-01] MEDS: InsuLIN REG 1unit/0.01ml Soln (100units/ml) SC SCH ×2 (06:39→11:20)
[2022-06-01 06:47] LABS: Chloride 106 mmol/L (98-107); Potassium 3.7 mmol/L (3.5-5.1); Sodium 141 mmol/L (136-145)
[2022-06-01 06:52] LABS: Alanine Aminotransferase 21 U/L (13-56); Albumin 2.8 g/dL (3.4-5.0); Anion Gap 6 (5-15); Blood Urea Nitrogen 12 mg/dL (7-18); Calcium 8.5 mg/dL (8.5-10.1); Carbon Dioxide 29 mmol/L (21-32); GFR African American 121 mL/min; GFR Non-African American 100 mL/min; Glucose 104 mg/dL (74-106)
[2022-06-01 07:01] LABS: Alkaline Phosphatase 48 U/L (45-117); Aspartate Aminotransferase 15 U/L (15-37); Bilirubin, Total 0.4 mg/dL (0.2-1.0); Total Protein 5.8 g/dL (6.4-8.2)
[2022-06-01 09:00] VITALS: BP 126/65
[2022-06-01] MEDS: FUROSEMIDE 20 MG/2 ML VIAL IV SCH (09:14)
[2022-06-01] MEDS: FAMOTIDINE (10MG/ML) 2ML VL IV SCH (09:15)
[2022-06-01] MEDS: levETIRAcetam 500 MG TAB PO SCH (09:15)
[2022-06-01] MEDS: ASPirin 81 mg TAB PO SCH (09:15)
[2022-06-01 12:01] VITALS: BP 116/67
== END 2022-06-01 14:13 | disposition home or self-care (01) | DRG 303 ==
LOC: ER 17:23 → TELE 05-29 02:48 → ER 05-29 03:43 → TELE 05-29 05:42 → TELE-CENTR 05-29 05:46
PROVIDERS: ADMIT Nurse Practitioner Family; ATTEND Family Medicine
DX: I25.10 Atherosclerotic heart disease of native coronary artery without angina pectoris (principal); C18.9 Malignant neoplasm of colon, unspecified; G45.9 Transient cerebral ischemic attack, unspecified; I11.0 Hypertensive heart disease with heart failure; F41.9 Anxiety disorder, unspecified; D64.9 Anemia, unspecified; E11.36 Type 2 diabetes mellitus with diabetic cataract; E78.5 Hyperlipidemia, unspecified; E87.6 Hypokalemia; F17.210 Nicotine dependence, cigarettes, uncomplicated; F32.A Depression, unspecified; G40.909 Epilepsy, unspecified, not intractable, without status epilepticus; I50.9 Heart failure, unspecified; J45.909 Unspecified asthma, uncomplicated; M54.50 Low back pain, unspecified; R07.89 Other chest pain; G89.29 Other chronic pain; R47.81 Slurred speech; Z20.822 Contact with and (suspected) exposure to COVID-19; K21.9 Gastro-esophageal reflux disease without esophagitis; R26.9 Unspecified abnormalities of gait and mobility; K27.9 Peptic ulcer, site unspecified, unspecified as acute or chronic, without hemorrhage or perforation; M19.90 Unspecified osteoarthritis, unspecified site; Z79.82 Long term (current) use of aspirin; Z85.038 Personal history of other malignant neoplasm of large intestine; Z87.11 Personal history of peptic ulcer disease; Z90.710 Acquired absence of both cervix and uterus; Z83.3 Family history of diabetes mellitus; Z82.49 Family history of ischemic heart disease and other diseases of the circulatory system; Z79.899 Other long term (current) drug therapy; Z88.8 Allergy status to other drugs, medicaments and biological substances; Z90.49 Acquired absence of other specified parts of digestive tract; Z86.73 Personal history of transient ischemic attack (TIA), and cerebral infarction without residual deficits
CPT/HCPCS: 36415; 70450; 70551; 71045; 80053; 81001; 82962; 83735; 83880; 84443; 84484; 85025; 85610; 85730; 93005; 93306; 96360; 97163; G0378; J1815; J2001; J2405; J3480; J3490; J7060

== ENCOUNTER 2022-06-08 11:00 | Outpatient (CLI) | payer MEDICARE, MEDICAID ==
[2022-06-08 11:32] LABS: Basophils # (auto) 0 10 ^3/uL (0-0.2); Basophils % (auto) 0.5 % (0.0-2.0); Eosinophils # (auto) 0.2 10 ^3/uL (0-0.8); Eosinophils % (auto) 1.8 % (0.0-7.0); Hematocrit 42.8 % (36.0-46.0); Hemoglobin 13.9 g/dL (12.2-16.2); Lymphocytes # (auto) 1.8 10 ^3/uL (0.4-5.4); Lymphocytes % (auto) 19.7 % (10.0-50.0); Mean Corpuscular Hemoglobin 27.2 pg (28.0-32.0); Mean Corpuscular Hgb Conc. 32.4 g/dL (32.0-36.0); Mean Corpuscular Volume 83.8 fL (80.0-100.0); Monocytes # (auto) 0.5 10 ^3/uL (0-1.3); Monocytes % (auto) 5.3 % (0.0-12.0); Neutrophils # (auto) 6.8 10 ^3/uL (1.6-8.6); Neutrophils % (auto) 72.7 % (37.0-80.0); Red Blood Cells 5.12 10^6/uL (4.0-5.20); Red Cell Distribution Width 15.3 % (11.8-14.3); White Blood Cell 9.3 10^3/uL (4.4-10.8)
[2022-06-08 11:49] LABS: INR 1.02 (0.9-1.15)
[2022-06-08 11:52] LABS: Partial Thromboplastin Time 23.9 sec (24.6-33.4)
[2022-06-08 12:13] LABS: Albumin 3.7 g/dL (3.4-5.0); Calcium 9.9 mg/dL (8.5-10.1)
[2022-06-08 12:16] LABS: BUN/Creatinine Ratio 26.9; Bilirubin, Total 0.7 mg/dL (0.2-1.0); Total Protein 7.3 g/dL (6.4-8.2)
[2022-06-08 14:05] LABS: Potassium 2.7 mmol/L (3.5-5.1)
[2022-06-09] MEDS ORDERED: ALEN70TA2 PO (12:29)
[2022-06-09] MEDS ORDERED: SUVO1TAB PO (12:29)
[2022-06-09] MEDS ORDERED: SERT50TA PO (12:29)
[2022-06-09] MEDS ORDERED: EMPA1TAB3 PO (12:29)
[2022-06-09] MEDS ORDERED: GLYB5TAB9 PO (12:29)
[2022-06-09] MEDS ORDERED: LORA-622 PO (12:29)
[2022-06-09] MEDS ORDERED: BUPR1TAB11 PO (12:29)
[2022-06-09] MEDS ORDERED: SECU1INJ4 SC (12:29)
[2022-06-09] MEDS ORDERED: MET50T PO (12:29)
== END 2022-06-08 13:16 | disposition home or self-care (01) ==
LOC: LAB 11:00 → EDSTATUS 06-10 09:15
PROVIDERS: ATTEND Internal Medicine Gastroenterology
DX: K21.9 Gastro-esophageal reflux disease without esophagitis (principal); Z86.2 Personal history of diseases of the blood and blood-forming organs and certain disorders involving the immune mechanism
CPT/HCPCS: 36415; 80053; 85025; 85610; 85730; U0003

== ENCOUNTER 2022-06-08 17:12 | Inpatient (IN) | payer MEDICARE, MEDICAID ==
[~2022-06-08] VITALS: Ht 167.6 cm; Wt 100.2 kg
[2022-06-08 19:10] LABS: Basophils # (auto) 0.2 10 ^3/uL (0-0.2); Basophils % (auto) 2.5 % (0.0-2.0); Eosinophils # (auto) 0.2 10 ^3/uL (0-0.8); Eosinophils % (auto) 2.4 % (0.0-7.0); Hematocrit 42.6 % (36.0-46.0); Hemoglobin 13.9 g/dL (12.2-16.2); Lymphocytes # (auto) 1.6 10 ^3/uL (0.4-5.4); Lymphocytes % (auto) 16.4 % (10.0-50.0); Mean Corpuscular Hemoglobin 27.7 pg (28.0-32.0); Mean Corpuscular Hgb Conc. 32.5 g/dL (32.0-36.0); Mean Corpuscular Volume 85.1 fL (80.0-100.0); Monocytes # (auto) 0.5 10 ^3/uL (0-1.3); Monocytes % (auto) 5.4 % (0.0-12.0); Neutrophils # (auto) 7.1 10 ^3/uL (1.6-8.6); Neutrophils % (auto) 73.3 % (37.0-80.0); Nucleated Red Blood Cells % 0.1 %; Red Blood Cells 5.01 10^6/uL (4.0-5.20); Red Cell Distribution Width 15.1 % (11.8-14.3); White Blood Cell 9.7 10^3/uL (4.4-10.8)
[2022-06-08] MEDS ORDERED: SODIUM CHLORIDE 0.9% 1,000 ML IV ONE (19:15)
[2022-06-08 19:19] LABS: Albumin 3.7 g/dL (3.4-5.0); Calcium 9.8 mg/dL (8.5-10.1)
[2022-06-08 19:22] LABS: BUN/Creatinine Ratio 28.7; Bilirubin, Total 0.8 mg/dL (0.2-1.0); Total Protein 7.3 g/dL (6.4-8.2)
[2022-06-08 19:29] LABS: Potassium 2.3 mmol/L (3.5-5.1)
[2022-06-08] MEDS: POTASSIUM CHL 20MEQ/100ML 100 ML IV SCH ×2 (20:22→23:47)
[2022-06-08 21:01] LABS: Urine Bacteria FEW /hpf (None Seen); Urine Blood Negative /uL (Negative); Urine Hyaline Cast FEW /lpf (0 - 2); Urine Specific Gravity 1.012 (1.001-1.035); Urine WBC 25 /hpf (0 - 5)
[2022-06-08] MEDS ORDERED: ONDANSETRON HCL 4 MG/2 ML VIAL IV ONE (21:45)
[2022-06-08] MEDS ORDERED: MORPHINE SULFATE INJ 2 MG/ml SYRG IV ONE (21:45)
[2022-06-08] MEDS ORDERED: cefTRIAXone 1GM/50ML D5W 50 ML IV ONE (22:15)
[2022-06-08] MEDS ORDERED: ENOXAPARIN SOD 100 MG/1 ML SYRINGE SC ONE (22:15)
[2022-06-09] MEDS: POTASSIUM CHL 20MEQ/100ML 100 ML IV SCH (01:59)
[2022-06-09] MEDS ORDERED: MORPHINE SULFATE INJ 2 MG/ml SYRG IV PRN (03:15)
[2022-06-09] MEDS ORDERED: DEXTROSE (50%) 50ML SYRG IV PRN (03:15)
[2022-06-09] MEDS ORDERED: NITROGLYCERIN 0.4 MG SL TAB SL PRN (03:15)
[2022-06-09] MEDS ORDERED: ONDANSETRON HCL 4 MG/2 ML VIAL IV PRN (03:15)
[2022-06-09] MEDS: ACETAMINOPHEN 325 MG TAB PO PRN ×2 (03:40→12:56)
[2022-06-09] MEDS: ACCU-CHEK COMFORT CURVE STRIP VI SCH ×4 (07:17→22:08)
[2022-06-09] MEDS: InsuLIN REG 1unit/0.01ml Soln (100units/ml) SC SCH ×4 (07:18→22:15)
[2022-06-09] MEDS: levETIRAcetam 500 MG TAB PO SCH ×2 (09:50→22:15)
[2022-06-09] MEDS: ENOXAPARIN SOD 40 MG/0.4 ML SYRINGE SC SCH (09:50)
[2022-06-09] MEDS: PANTOPRAZOLE 40 MG TAB PO SCH (09:50)
[2022-06-09] MEDS: ASPirin 81 mg TAB PO SCH (09:50)
[2022-06-09] MEDS ORDERED: FUROSEMIDE 40 MG TAB PO SCH (10:00)
[2022-06-09] MEDS ORDERED: GLYB5TAB9 PO (12:29)
[2022-06-09] MEDS ORDERED: BUPR1TAB11 PO (12:29)
[2022-06-09] MEDS ORDERED: SERT50TA PO (12:29)
[2022-06-09] MEDS ORDERED: EMPA1TAB3 PO (12:29)
[2022-06-09] MEDS ORDERED: MET50T PO (12:29)
[2022-06-09] MEDS ORDERED: LORA-622 PO (12:29)
[2022-06-09] MEDS ORDERED: SUVO1TAB PO (12:29)
[2022-06-09] MEDS ORDERED: SECU1INJ4 SC (12:29)
[2022-06-09] MEDS ORDERED: ALEN70TA2 PO (12:29)
[2022-06-09 13:42] LABS: Albumin 3.3 g/dL (3.4-5.0); Calcium 9.1 mg/dL (8.5-10.1)
[2022-06-09 13:59] LABS: BUN/Creatinine Ratio 29.2; Bilirubin, Total 0.5 mg/dL (0.2-1.0); Total Protein 6.4 g/dL (6.4-8.2)
[2022-06-09 14:18] LABS: Potassium 2.7 mmol/L (3.5-5.1)
[2022-06-09] MEDS ORDERED: POTASSIUM CHL 20 Meq TABLET PO ONE ×2 (14:30→18:30)
[2022-06-09 16:30] VITALS: BP 108/52
[2022-06-09 22:00] VITALS: BP 95/55
[2022-06-10] VITALS (7 sets, daily range): BP systolic 101–117; BP diastolic 48–63
[2022-06-10] MEDS: HYDROcodone-ACET 5/325MG TAB PO PRN ×4 (00:25→22:32)
[2022-06-10 06:02] LABS: Basophils # (auto) 0 10 ^3/uL (0-0.2); Basophils % (auto) 0.3 % (0.0-2.0); Eosinophils # (auto) 0.1 10 ^3/uL (0-0.8); Eosinophils % (auto) 2.2 % (0.0-7.0); Lymphocytes # (auto) 1.1 10 ^3/uL (0.4-5.4); Lymphocytes % (auto) 19.4 % (10.0-50.0); Mean Corpuscular Hemoglobin 28.1 pg (28.0-32.0); Mean Corpuscular Hgb Conc. 34.1 g/dL (32.0-36.0); Mean Corpuscular Volume 82.5 fL (80.0-100.0); Monocytes # (auto) 0.4 10 ^3/uL (0-1.3); Monocytes % (auto) 6.8 % (0.0-12.0); Neutrophils % (auto) 71.3 % (37.0-80.0); Nucleated Red Blood Cells % 0.1 %; Red Blood Cells 4.61 10^6/uL (4.0-5.20); Red Cell Distribution Width 15.3 % (11.8-14.3); White Blood Cell 5.6 10^3/uL (4.4-10.8)
[2022-06-10 06:22] LABS: Albumin 3.3 g/dL (3.4-5.0); Calcium 9.3 mg/dL (8.5-10.1)
[2022-06-10 06:26] LABS: Bilirubin, Total 0.5 mg/dL (0.2-1.0); Total Protein 6.5 g/dL (6.4-8.2)
[2022-06-10] MEDS: ACCU-CHEK COMFORT CURVE STRIP VI SCH ×4 (06:28→21:41)
[2022-06-10 06:29] LABS: Potassium 2.9 mmol/L (3.5-5.1)
[2022-06-10] MEDS: InsuLIN REG 1unit/0.01ml Soln (100units/ml) SC SCH ×4 (06:38→22:31)
[2022-06-10] MEDS: POTASSIUM CHL 20 Meq TABLET PO SCH ×2 (09:22→11:14)
[2022-06-10] MEDS: PANTOPRAZOLE 40 MG TAB PO SCH (09:23)
[2022-06-10] MEDS: ASPirin 81 mg TAB PO SCH (09:23)
[2022-06-10] MEDS: levETIRAcetam 500 MG TAB PO SCH ×2 (09:23→21:41)
[2022-06-10] MEDS: ENOXAPARIN SOD 40 MG/0.4 ML SYRINGE SC SCH (09:24)
[2022-06-10] MEDS ORDERED: POTASSIUM CHL 20MEQ/100ML 100 ML IV ONE (11:15)
[2022-06-10] MEDS ORDERED: POTASSIUM CHL 20 Meq TABLET PO ONE (12:00)
[2022-06-10] MEDS: SOD CHL 0.9%/ KCL 40MEQ 1,000 ML IV ONE ×3 (12:16→23:00)
[2022-06-10 12:49] LABS: Urine Bacteria NONE SEEN /hpf (None Seen); Urine Blood Negative /uL (Negative); Urine Hyaline Cast FEW /lpf (0 - 2); Urine Specific Gravity 1.028 (1.001-1.035); Urine WBC 2 /hpf (0 - 5)
[2022-06-10 19:24] LABS: BUN/Creatinine Ratio 23.9; Calcium 9.3 mg/dL (8.5-10.1); Potassium 3.4 mmol/L (3.5-5.1)
[2022-06-10] MEDS: ACETAMINOPHEN 325 MG TAB PO PRN (20:20)
[2022-06-11] MEDS: ACETAMINOPHEN 325 MG TAB PO PRN (03:38)
[2022-06-11 04:55] VITALS: BP 127/48
[2022-06-11] MEDS: ACCU-CHEK COMFORT CURVE STRIP VI SCH ×2 (06:19→12:18)
[2022-06-11] MEDS: InsuLIN REG 1unit/0.01ml Soln (100units/ml) SC SCH ×2 (06:29→12:17)
[2022-06-11 06:49] LABS: BUN/Creatinine Ratio 31.5; Magnesium 2.1 mg/dL (1.6-2.6); Potassium 3.3 mmol/L (3.5-5.1)
[2022-06-11] MEDS ORDERED: POTASSIUM CHLORIDE 20 MEQ, LIDOCAINE 1% (LOCAL ANESTH.) 2 ML in SODIUM CHL 0.9% 100 ML IV ONE (07:30)
[2022-06-11] MEDS ORDERED: POTASSIUM CHL 20 Meq TABLET PO ONE ×3 (07:30→12:00)
[2022-06-11 09:00] VITALS: BP 111/40
[2022-06-11 09:03] LABS: Creatinine, Urine 50 mg/dL (30.0-125.0); Sodium Urine 79 mmol/L (40-220)
[2022-06-11] MEDS: ASPirin 81 mg TAB PO SCH (09:07)
[2022-06-11] MEDS: PANTOPRAZOLE 40 MG TAB PO SCH (09:08)
[2022-06-11] MEDS: levETIRAcetam 500 MG TAB PO SCH (09:08)
[2022-06-11] MEDS: ENOXAPARIN SOD 40 MG/0.4 ML SYRINGE SC SCH (09:08)
[2022-06-11] MEDS ORDERED: SPIRONOLACTONE 25 MG TAB PO SCH (10:00)
[2022-06-11 13:00] VITALS: BP 116/58
[2022-06-11] MEDS: HYDROcodone-ACET 5/325MG TAB PO PRN (13:59)
[2022-06-11 14:45] VITALS: BP 109/81
== END 2022-06-11 16:18 | disposition home or self-care (01) | DRG 303 ==
LOC: ER 17:12 → TELE 06-09 03:07 → TELE-WESTW 06-09 16:04
PROVIDERS: ADMIT Nurse Practitioner; ATTEND Internal Medicine
PROC: 05HA33Z Insertion of Infusion Device into Left Brachial Vein, Percutaneous Approach (ICD-10-PCS; principal; 2022-06-10)
PROC: B54NZZA Ultrasonography of Left Upper Extremity Veins, Guidance (ICD-10-PCS; 2022-06-10)
DX: I25.110 Atherosclerotic heart disease of native coronary artery with unstable angina pectoris (principal); N39.0 Urinary tract infection, site not specified; E87.3 Alkalosis; I11.0 Hypertensive heart disease with heart failure; I95.9 Hypotension, unspecified; E78.5 Hyperlipidemia, unspecified; E87.6 Hypokalemia; F17.210 Nicotine dependence, cigarettes, uncomplicated; R00.1 Bradycardia, unspecified; J45.909 Unspecified asthma, uncomplicated; E66.9 Obesity, unspecified; I89.0 Lymphedema, not elsewhere classified; Z82.49 Family history of ischemic heart disease and other diseases of the circulatory system; Z86.73 Personal history of transient ischemic attack (TIA), and cerebral infarction without residual deficits; Z87.11 Personal history of peptic ulcer disease; Z88.8 Allergy status to other drugs, medicaments and biological substances; Z68.35 Body mass index [BMI] 35.0-35.9, adult; Z83.3 Family history of diabetes mellitus; Z90.710 Acquired absence of both cervix and uterus
CPT/HCPCS: 36415; 71045; 80048; 80053; 80162; 81001; 82088; 82570; 82962; 83735; 84133; 84244; 84300; 84484; 85025; 85610; 85730; 93005; 96361; 96365; 96367; 96372; 96375; G0378; J0696; J1815; J2001; J2405; J3480

== ENCOUNTER 2022-08-20 17:49 | Inpatient (IN) | payer MEDICARE, MEDICAID ==
[~2022-08-20] VITALS: Ht 167.6 cm; Wt 95.4 kg
[~2022-08-20 17:49] MED LIST changes: +ALEN70TA2 PO; +BUPR1TAB11 PO; +EMPA1TAB3 PO; -ESCI20TA PO; +GLYB5TAB9 PO; +LORA-622 PO; -MET25T PO; +MET50T PO; -NORT25CA PO; +SECU1INJ4 SC; +SERT50TA PO; +SUVO1TAB PO; -TRAZ100T3 PO
[2022-08-20] MEDS ORDERED: SODIUM CHLORIDE 0.9% 1,000 ML IVB ONE (19:00)
[2022-08-20 19:53] LABS: Basophils # (auto) 0 10 ^3/uL (0-0.2); Basophils % (auto) 0.2 % (0.0-2.0); Eosinophils # (auto) 0.2 10 ^3/uL (0-0.8); Eosinophils % (auto) 2.4 % (0.0-7.0); Hematocrit 40.9 % (36.0-46.0); Hemoglobin 13.9 g/dL (12.2-16.2); Lymphocytes # (auto) 1.3 10 ^3/uL (0.4-5.4); Lymphocytes % (auto) 18.9 % (10.0-50.0); Mean Corpuscular Hemoglobin 27.8 pg (28.0-32.0); Mean Corpuscular Volume 81.8 fL (80.0-100.0); Monocytes # (auto) 0.5 10 ^3/uL (0-1.3); Monocytes % (auto) 6.8 % (0.0-12.0); Neutrophils % (auto) 71.7 % (37.0-80.0); Nucleated Red Blood Cells % 0.1 %; Red Blood Cells 4.99 10^6/uL (4.0-5.20); Red Cell Distribution Width 15.7 % (11.8-14.3); White Blood Cell 6.9 10^3/uL (4.4-10.8)
[2022-08-20 20:09] LABS: Albumin 3.7 g/dL (3.4-5.0); BUN/Creatinine Ratio 23.1; Calcium 8.9 mg/dL (8.5-10.1)
[2022-08-20 20:12] LABS: Bilirubin, Total 1.1 mg/dL (0.2-1.0); Total Protein 7.1 g/dL (6.4-8.2)
[2022-08-20 20:16] LABS: Potassium 2.6 mmol/L (3.5-5.1)
[2022-08-20] MEDS ORDERED: SODIUM CHLORIDE 0.9% 1,000 ML IV ONE (20:30)
[2022-08-20] MEDS ORDERED: POTASSIUM CHL 20 Meq TABLET PO ONE (21:15)
[2022-08-20] MEDS ORDERED: ALBUTEROL SULF HFA 90MCG INH 200DOSE IN SCH (22:00)
[2022-08-20] MEDS ORDERED: DOCUSATE SOD 100 MG CAP PO PRN (22:00)
[2022-08-20] MEDS ORDERED: ACETAMINOPHEN 325 MG TAB PO PRN (22:00)
[2022-08-20] MEDS: InsuLIN REG 1unit/0.01ml Soln (100units/ml) SC SCH (22:00)
[2022-08-20] MEDS ORDERED: DEXTROSE (50%) 50ML SYRG IV PRN (22:00)
[2022-08-20] MEDS ORDERED: ONDANSETRON HCL 4 MG/2 ML VIAL IV PRN (22:00)
[2022-08-20] MEDS: SODIUM CHLOR 0.9% PF (SALINE LOCK) 10ML VIAL/SYR IV SCH (22:15)
[2022-08-20 22:25] LABS: Urine Bacteria FEW /hpf (None Seen); Urine Blood TRACE /uL (Negative); Urine Budding Yeast OCCASIONAL /hpf (None Seen); Urine Hyaline Cast FEW /lpf (0 - 2); Urine Specific Gravity 1.013 (1.001-1.035); Urine WBC 6 /hpf (0 - 5)
[2022-08-20] MEDS: ACCU-CHEK COMFORT CURVE STRIP VI SCH (22:28)
[2022-08-20] MEDS: FAMOTIDINE (10MG/ML) 2ML VL IV SCH (22:31)
[2022-08-20] MEDS: ATORVASTATIN 20 MG TAB PO SCH (22:31)
[2022-08-21] MEDS ORDERED: NITROGLYCERIN 0.4 MG SL TAB SL PRN
[2022-08-21] MEDS ORDERED: MORPHINE SULFATE INJ 2 MG/ml SYRG IV PRN
[2022-08-21] MEDS ORDERED: ALBUTEROL SULF 2.5 MG/0.5ML(0.5%) NEB SOLN NEB PRN (01:30)
[2022-08-21 02:57] VITALS: BP 102/50
[2022-08-21 06:14] VITALS: BP 110/61
[2022-08-21] MEDS: ACCU-CHEK COMFORT CURVE STRIP VI SCH ×4 (06:45→21:23)
[2022-08-21] MEDS: SODIUM CHLOR 0.9% PF (SALINE LOCK) 10ML VIAL/SYR IV SCH ×3 (06:45→21:21)
[2022-08-21] MEDS: InsuLIN REG 1unit/0.01ml Soln (100units/ml) SC SCH ×4 (06:45→21:19)
[2022-08-21] MEDS: HYDROcodone-ACET 5/325MG TAB PO PRN ×2 (06:46→12:22)
[2022-08-21 08:43] VITALS: BP 94/38
[2022-08-21 09:17] LABS: Albumin 3.3 g/dL (3.4-5.0)
[2022-08-21 09:20] LABS: BUN/Creatinine Ratio 23.2; Bilirubin, Total 0.8 mg/dL (0.2-1.0); Total Protein 7.1 g/dL (6.4-8.2)
[2022-08-21 09:26] LABS: Hematocrit 41.9 % (36.0-46.0); Hemoglobin 13.7 g/dL (12.2-16.2); Mean Corpuscular Hemoglobin 27.3 pg (28.0-32.0); Mean Corpuscular Hgb Conc. 32.6 g/dL (32.0-36.0); Mean Corpuscular Volume 83.7 fL (80.0-100.0); Potassium 2.9 mmol/L (3.5-5.1); Red Blood Cells 5.01 10^6/uL (4.0-5.20); Red Cell Distribution Width 15.3 % (11.8-14.3); White Blood Cell 8.7 10^3/uL (4.4-10.8)
[2022-08-21 09:32] LABS: Basophils % (manual) 0 (0.0-2.0); Blast Cells 0; Metamyelocytes % 0; Myelocytes % 0; Promyelocytes % 0; Reactive Lymphocytes 0
[2022-08-21] MEDS: ASPirin 81 mg TAB PO SCH (10:20)
[2022-08-21] MEDS: SERTRALINE HCL 50 MG TAB PO SCH (10:20)
[2022-08-21] MEDS: FAMOTIDINE (10MG/ML) 2ML VL IV SCH ×2 (10:20→21:21)
[2022-08-21] MEDS ORDERED: POTASSIUM CHLORIDE 60 MEQ, LIDOCAINE 1% (LOCAL ANESTH.) 6 ML in SODIUM CHL 0.9% 500 ML IV ONE (11:00)
[2022-08-21] MEDS ORDERED: cefTRIAXone 1GM/50ML D5W 50 ML IV ONE (11:15)
[2022-08-21] MEDS ORDERED: METO-158 PO (11:30)
[2022-08-21 12:46] VITALS: BP 125/65
[2022-08-21] MEDS: IPRATROPIUM BROM 0.5 MG/2.5ML INH SOL NEB SCH ×2 (12:56→17:48)
[2022-08-21] MEDS: ALBUTEROL SULF 2.5 MG/0.5ML(0.5%) NEB SOLN NEB SCH ×2 (12:56→17:48)
[2022-08-21 13:13] LABS: Magnesium 2.4 mg/dL (1.6-2.6)
[2022-08-21] MEDS: metroNIDAZOLE 500MG/100ML 100 ML IV SCH ×2 (14:19→21:20)
[2022-08-21 16:11] LABS: Band Neutrophils % (manual) 4; Eosinophils % (manual) 2 (0-7); Lymphocytes % (manual) 16 (10.0-50.0); Monocytes % (manual) 1 (0-12)
[2022-08-21 17:00] VITALS: BP 109/63
[2022-08-21] MEDS: SUCRALFATE 1 GM/10 ML ORAL SUSP PO SCH (17:40)
[2022-08-21] MEDS: ATORVASTATIN 20 MG TAB PO SCH (21:22)
[2022-08-21] MEDS: levETIRAcetam 500 MG TAB PO SCH (21:22)
[2022-08-21 22:00] VITALS: BP 115/53
[2022-08-22 05:00] VITALS: BP 125/59
[2022-08-22 06:18] LABS: Basophils # (auto) 0 10 ^3/uL (0-0.2); Basophils % (auto) 0.2 % (0.0-2.0); Eosinophils # (auto) 0.2 10 ^3/uL (0-0.8); Eosinophils % (auto) 3.1 % (0.0-7.0); Hematocrit 36.5 % (36.0-46.0); Hemoglobin 12.3 g/dL (12.2-16.2); Lymphocytes # (auto) 1.1 10 ^3/uL (0.4-5.4); Mean Corpuscular Hemoglobin 27.6 pg (28.0-32.0); Mean Corpuscular Hgb Conc. 33.7 g/dL (32.0-36.0); Monocytes # (auto) 0.3 10 ^3/uL (0-1.3); Monocytes % (auto) 5.7 % (0.0-12.0); Neutrophils # (auto) 3.5 10 ^3/uL (1.6-8.6); Nucleated Red Blood Cells % 0.1 %; Red Blood Cells 4.44 10^6/uL (4.0-5.20); Red Cell Distribution Width 15.5 % (11.8-14.3); White Blood Cell 5.1 10^3/uL (4.4-10.8)
[2022-08-22] MEDS: metroNIDAZOLE 500MG/100ML 100 ML IV SCH (06:23)
[2022-08-22] MEDS: SODIUM CHLOR 0.9% PF (SALINE LOCK) 10ML VIAL/SYR IV SCH ×3 (06:23→22:01)
[2022-08-22] MEDS: SUCRALFATE 1 GM/10 ML ORAL SUSP PO SCH ×2 (06:24→17:30)
[2022-08-22] MEDS: InsuLIN REG 1unit/0.01ml Soln (100units/ml) SC SCH ×4 (06:25→22:00)
[2022-08-22] MEDS: ACCU-CHEK COMFORT CURVE STRIP VI SCH ×4 (06:25→22:02)
[2022-08-22 06:45] LABS: Calcium 8.5 mg/dL (8.5-10.1); Magnesium 2.2 mg/dL (1.6-2.6)
[2022-08-22 06:49] LABS: BUN/Creatinine Ratio 30.3; Bilirubin, Total 0.6 mg/dL (0.2-1.0)
[2022-08-22] MEDS: ALBUTEROL SULF 2.5 MG/0.5ML(0.5%) NEB SOLN NEB SCH ×3 (06:49→18:14)
[2022-08-22] MEDS: IPRATROPIUM BROM 0.5 MG/2.5ML INH SOL NEB SCH ×3 (06:49→18:14)
[2022-08-22 08:00] VITALS: BP 105/70
[2022-08-22 09:00] VITALS: BP 105/70
[2022-08-22] MEDS: cefTRIAXone 1GM/50ML D5W 50 ML IV SCH (10:40)
[2022-08-22] MEDS: FAMOTIDINE (10MG/ML) 2ML VL IV SCH ×2 (10:41→22:01)
[2022-08-22] MEDS: ASPirin 81 mg TAB PO SCH (10:41)
[2022-08-22] MEDS: SERTRALINE HCL 50 MG TAB PO SCH (10:41)
[2022-08-22] MEDS: levETIRAcetam 500 MG TAB PO SCH ×2 (10:41→22:01)
[2022-08-22] MEDS: HYDROcodone-ACET 5/325MG TAB PO PRN ×3 (10:42→22:12)
[2022-08-22] MEDS ORDERED: POTASSIUM EFFERVESENT TAB 25 MEQ PO ONE (12:15)
[2022-08-22 13:00] VITALS: BP 133/68
[2022-08-22] MEDS: guaiFENesin-DM 100/10mg/5ml SYR PO PRN ×2 (13:16→17:32)
[2022-08-22] MEDS: metroNIDAZOLE 500 MG TAB PO SCH ×2 (14:25→22:01)
[2022-08-22 17:00] VITALS: BP 116/64
[2022-08-22 22:00] VITALS: BP 137/63
[2022-08-22] MEDS: ATORVASTATIN 20 MG TAB PO SCH (22:01)
[2022-08-23] VITALS (7 sets, daily range): BP systolic 107–137; BP diastolic 46–77
[2022-08-23] MEDS: HYDROcodone-ACET 5/325MG TAB PO PRN ×5 (02:08→21:23)
[2022-08-23] MEDS: IPRATROPIUM BROM 0.5 MG/2.5ML INH SOL NEB SCH ×3 (06:19→18:32)
[2022-08-23] MEDS: ALBUTEROL SULF 2.5 MG/0.5ML(0.5%) NEB SOLN NEB SCH ×3 (06:19→18:33)
[2022-08-23] MEDS: SODIUM CHLOR 0.9% PF (SALINE LOCK) 10ML VIAL/SYR IV SCH ×3 (06:24→21:44)
[2022-08-23] MEDS: metroNIDAZOLE 500 MG TAB PO SCH ×3 (06:24→21:22)
[2022-08-23] MEDS: ACCU-CHEK COMFORT CURVE STRIP VI SCH ×4 (06:25→21:28)
[2022-08-23] MEDS: SUCRALFATE 1 GM/10 ML ORAL SUSP PO SCH ×2 (06:26→18:28)
[2022-08-23] MEDS: InsuLIN REG 1unit/0.01ml Soln (100units/ml) SC SCH ×4 (06:26→21:27)
[2022-08-23 07:03] LABS: Calcium 8.4 mg/dL (8.5-10.1); Magnesium 2.3 mg/dL (1.6-2.6)
[2022-08-23 07:04] LABS: Potassium 2.7 mmol/L (3.5-5.1)
[2022-08-23] MEDS: cefTRIAXone 1GM/50ML D5W 50 ML IV SCH (09:37)
[2022-08-23] MEDS: FAMOTIDINE (10MG/ML) 2ML VL IV SCH ×2 (09:37→21:22)
[2022-08-23] MEDS: ASPirin 81 mg TAB PO SCH (09:37)
[2022-08-23] MEDS: levETIRAcetam 500 MG TAB PO SCH ×2 (09:38→21:22)
[2022-08-23] MEDS: SERTRALINE HCL 50 MG TAB PO SCH (09:38)
[2022-08-23] MEDS: guaiFENesin-DM 100/10mg/5ml SYR PO PRN ×3 (09:39→21:44)
[2022-08-23] MEDS ORDERED: POTASSIUM EFFERVESENT TAB 25 MEQ PO ONE (11:45)
[2022-08-23] MEDS: POTASSIUM CHL 20MEQ/100ML 100 ML IV SCH ×2 (12:00→13:45)
[2022-08-23] MEDS: ATORVASTATIN 20 MG TAB PO SCH (21:22)
[2022-08-23] MEDS ORDERED: POTASSIUM CHL 20MEQ/100ML 100 ML IV SCH (21:45)
[2022-08-24 00:28] VITALS: BP 137/55
[2022-08-24] MEDS: HYDROcodone-ACET 5/325MG TAB PO PRN ×4 (02:30→20:30)
[2022-08-24] MEDS: guaiFENesin-DM 100/10mg/5ml SYR PO PRN ×2 (02:36→09:21)
[2022-08-24 04:56] VITALS: BP 108/51
[2022-08-24] MEDS: metroNIDAZOLE 500 MG TAB PO SCH ×3 (06:05→22:20)
[2022-08-24] MEDS: SUCRALFATE 1 GM/10 ML ORAL SUSP PO SCH ×2 (06:06→16:54)
[2022-08-24] MEDS: ACCU-CHEK COMFORT CURVE STRIP VI SCH ×4 (06:09→22:20)
[2022-08-24] MEDS: InsuLIN REG 1unit/0.01ml Soln (100units/ml) SC SCH ×4 (06:24→22:00)
[2022-08-24] MEDS: SODIUM CHLOR 0.9% PF (SALINE LOCK) 10ML VIAL/SYR IV SCH ×3 (06:25→22:19)
[2022-08-24] MEDS: ALBUTEROL SULF 2.5 MG/0.5ML(0.5%) NEB SOLN NEB SCH ×3 (06:31→18:57)
[2022-08-24] MEDS: IPRATROPIUM BROM 0.5 MG/2.5ML INH SOL NEB SCH ×3 (06:31→18:57)
[2022-08-24 09:00] VITALS: BP 114/51
[2022-08-24] MEDS: cefTRIAXone 1GM/50ML D5W 50 ML IV SCH (09:08)
[2022-08-24] MEDS: levETIRAcetam 500 MG TAB PO SCH ×2 (09:09→22:20)
[2022-08-24] MEDS: FAMOTIDINE (10MG/ML) 2ML VL IV SCH (09:09)
[2022-08-24] MEDS: SERTRALINE HCL 50 MG TAB PO SCH (09:09)
[2022-08-24] MEDS: ASPirin 81 mg TAB PO SCH (09:09)
[2022-08-24] MEDS ORDERED: AMOXICILLIN/CLAVUL 875 MG TAB PO ONE (12:30)
[2022-08-24] MEDS ORDERED: NYSTATIN (MOUTH-THROAT) 500,000 UNITS/5 ML SUSP MT ONE (12:30)
[2022-08-24 13:00] VITALS: BP 110/74
[2022-08-24 13:30] LABS: BUN/Creatinine Ratio 15.2; Calcium 8.8 mg/dL (8.5-10.1); Magnesium 2.1 mg/dL (1.6-2.6); Potassium 3.5 mmol/L (3.5-5.1)
[2022-08-24 17:00] VITALS: BP 115/58
[2022-08-24] MEDS: NYSTATIN (MOUTH-THROAT) 500,000 UNITS/5 ML SUSP MT SCH ×2 (18:00→22:19)
[2022-08-24 22:18] VITALS: BP 124/70
[2022-08-24] MEDS: AMOXICILLIN/CLAVUL 875 MG TAB PO SCH (22:19)
[2022-08-24] MEDS: ATORVASTATIN 20 MG TAB PO SCH (22:20)
[2022-08-25] MEDS: guaiFENesin-DM 100/10mg/5ml SYR PO PRN ×2 (02:39→09:15)
[2022-08-25] MEDS: HYDROcodone-ACET 5/325MG TAB PO PRN ×2 (02:39→08:40)
[2022-08-25 05:00] VITALS: BP 132/76
[2022-08-25 06:20] LABS: BUN/Creatinine Ratio 16.1; Calcium 8.6 mg/dL (8.5-10.1); Potassium 3.5 mmol/L (3.5-5.1)
[2022-08-25] MEDS: IPRATROPIUM BROM 0.5 MG/2.5ML INH SOL NEB SCH (06:25)
[2022-08-25] MEDS: ALBUTEROL SULF 2.5 MG/0.5ML(0.5%) NEB SOLN NEB SCH (06:25)
[2022-08-25] MEDS: NYSTATIN (MOUTH-THROAT) 500,000 UNITS/5 ML SUSP MT SCH ×2 (06:52→12:00)
[2022-08-25] MEDS: SODIUM CHLOR 0.9% PF (SALINE LOCK) 10ML VIAL/SYR IV SCH (06:52)
[2022-08-25] MEDS: metroNIDAZOLE 500 MG TAB PO SCH (06:52)
[2022-08-25] MEDS: InsuLIN REG 1unit/0.01ml Soln (100units/ml) SC SCH ×2 (06:53→11:30)
[2022-08-25] MEDS: ACCU-CHEK COMFORT CURVE STRIP VI SCH ×2 (06:53→11:34)
[2022-08-25] MEDS: SUCRALFATE 1 GM/10 ML ORAL SUSP PO SCH (06:53)
[2022-08-25 09:00] VITALS: BP 141/73
[2022-08-25] MEDS ORDERED: PANTOPRAZOLE 40 MG TAB PO SCH (10:00)
[2022-08-25] MEDS: ASPirin 81 mg TAB PO SCH (10:35)
[2022-08-25] MEDS: AMOXICILLIN/CLAVUL 875 MG TAB PO SCH (10:36)
[2022-08-25] MEDS: SERTRALINE HCL 50 MG TAB PO SCH (10:36)
[2022-08-25] MEDS: levETIRAcetam 500 MG TAB PO SCH (10:36)
[2022-08-25] MEDS ORDERED: AMOX500T86 PO (10:41)
[2022-08-25] MEDS ORDERED: NYS5LQ MT (10:41)
[2022-08-25 12:13] VITALS: BP 141/73
[2022-08-25 13:00] VITALS: BP 135/79
== END 2022-08-25 13:20 | disposition home or self-care (01) | DRG 641 ==
LOC: ER 17:49 → TELE 23:52 → TELE-WESTW 08-21 05:39
PROVIDERS: ADMIT Nurse Practitioner Family; ATTEND Internal Medicine
DX: E87.6 Hypokalemia (principal); N17.9 Acute kidney failure, unspecified; I50.32 Chronic diastolic (congestive) heart failure; N39.0 Urinary tract infection, site not specified; J96.10 Chronic respiratory failure, unspecified whether with hypoxia or hypercapnia; I95.9 Hypotension, unspecified; E11.65 Type 2 diabetes mellitus with hyperglycemia; N28.9 Disorder of kidney and ureter, unspecified; J44.9 Chronic obstructive pulmonary disease, unspecified; B95.2 Enterococcus as the cause of diseases classified elsewhere; E66.01 Morbid (severe) obesity due to excess calories; F17.210 Nicotine dependence, cigarettes, uncomplicated; E78.5 Hyperlipidemia, unspecified; F32.A Depression, unspecified; G40.909 Epilepsy, unspecified, not intractable, without status epilepticus; R16.2 Hepatomegaly with splenomegaly, not elsewhere classified; I11.0 Hypertensive heart disease with heart failure; Z20.822 Contact with and (suspected) exposure to COVID-19; I25.10 Atherosclerotic heart disease of native coronary artery without angina pectoris; F41.9 Anxiety disorder, unspecified; R19.7 Diarrhea, unspecified; K21.9 Gastro-esophageal reflux disease without esophagitis; M06.9 Rheumatoid arthritis, unspecified; M16.11 Unilateral primary osteoarthritis, right hip; Z88.8 Allergy status to other drugs, medicaments and biological substances; Z82.49 Family history of ischemic heart disease and other diseases of the circulatory system; Z83.3 Family history of diabetes mellitus; Z86.711 Personal history of pulmonary embolism; Z86.73 Personal history of transient ischemic attack (TIA), and cerebral infarction without residual deficits; Z68.34 Body mass index [BMI] 34.0-34.9, adult; Z87.11 Personal history of peptic ulcer disease; Z90.710 Acquired absence of both cervix and uterus; Z95.828 Presence of other vascular implants and grafts; Z98.84 Bariatric surgery status; Z90.49 Acquired absence of other specified parts of digestive tract; Z79.84 Long term (current) use of oral hypoglycemic drugs
CPT/HCPCS: 36415; 71045; 74176; 80048; 80053; 80162; 81001; 82542; 82962; 83036; 83605; 83690; 83735; 83880; 84484; 85007; 85025; 85027; 87086; 87088; 87186; 87426; 87493; 87804; 93005; 94640; 96360; 96361; G0378; J0696; J1815; J2001; J3480; J3490; J7060

== ENCOUNTER 2023-02-18 15:19 | Emergency (ER) | payer MEDICARE, MEDICAID ==
[~2023-02-18] VITALS: Ht 167.6 cm; Wt 83.0 kg
[~2023-02-18 15:19] MED LIST changes: +AMOX500T86 PO; +METO-158 PO; +NYS5LQ MT
[2023-02-18 18:14] LABS: Albumin 3.7 g/dL (3.4-5.0); Potassium 3.9 mmol/L (3.5-5.1)
[2023-02-18 18:17] LABS: BUN/Creatinine Ratio 35.4 (10.0-20.0); Bilirubin, Total 0.4 mg/dL (0.2-1.0); Total Protein 7.3 g/dL (6.4-8.2)
[2023-02-18 18:27] LABS: Hemoglobin 12.4 g/dL (12.2-16.2)
[2023-02-18 18:29] LABS: Basophils # (auto) 0 10 ^3/uL (0-0.2); Basophils % (auto) 0.3 % (0.0-2.0); Eosinophils # (auto) 0.4 10 ^3/uL (0-0.8); Eosinophils % (auto) 4.4 % (0.0-7.0); Hematocrit 38.8 % (36.0-46.0); Lymphocytes # (auto) 2.3 10 ^3/uL (0.4-5.4); Lymphocytes % (auto) 23.6 % (10.0-50.0); Mean Corpuscular Hemoglobin 24.1 pg (28.0-32.0); Mean Corpuscular Hgb Conc. 31.9 g/dL (32.0-36.0); Mean Corpuscular Volume 75.5 fL (80.0-100.0); Monocytes # (auto) 0.5 10 ^3/uL (0-1.3); Monocytes % (auto) 5.4 % (0.0-12.0); Neutrophils # (auto) 6.4 10 ^3/uL (1.6-8.6); Neutrophils % (auto) 66.3 % (37.0-80.0); Nucleated Red Blood Cells % 0.2 %; Red Blood Cells 5.14 10^6/uL (4.0-5.20); Red Cell Distribution Width 16.1 % (11.8-14.3); White Blood Cell 9.6 10^3/uL (4.4-10.8)
[2023-02-18 20:11] LABS: Urine Bacteria FEW /hpf (None Seen); Urine Blood Negative /uL (Negative); Urine Specific Gravity 1.013 (1.001-1.035); Urine WBC 10 /hpf (0 - 5)
[2023-02-18] MEDS ORDERED: MORPHINE SULFATE 4 MG/ML SYR/VIAL IM ONE (20:45)
[2023-02-18] MEDS ORDERED: cefTRIAXone SOD 1,000 MG VL IM ONE (20:45)
[2023-02-18] MEDS ORDERED: NITR-87 PO (21:43)
[2023-02-18] MEDS ORDERED: HYDROcodone-ACET 10/325MG TAB PO ONE (22:00)
[2023-02-18] MEDS ORDERED: FUROSEMIDE 40 MG/4 ML VIAL IV ONE (22:30)
[2023-02-19] VITALS: BP 129/66
[2023-02-19] MEDS ORDERED: KETOROLAC TROMETH 30 MG/ML 1ML VIAL IV ONE (00:45)
== END 2023-02-19 01:15 | disposition home or self-care (01) ==
LOC: ER 15:19
DX: R60.9 Edema, unspecified (principal); N39.0 Urinary tract infection, site not specified
CPT/HCPCS: 36415; 71045; 74176; 80053; 81001; 82962; 83605; 83880; 85025; 93005; 93970; 96372; 96374; 96375; 99285; J0696; J1885; J1940

== ENCOUNTER → 2023-10-06 | Day surgery (SDC) | payer MEDICARE, MEDICAID ==
[2023-09-30 15:22] LABS: Basophils # (auto) 0.1 10 ^3/uL (0-0.2); Basophils % (auto) 0.7 % (0.0-2.0); Eosinophils # (auto) 0.3 10 ^3/uL (0-0.8); Eosinophils % (auto) 3.6 % (0.0-7.0); Hematocrit 45.8 % (36.0-46.0); Hemoglobin 15.5 g/dL (12.2-16.2); Lymphocytes # (auto) 1.5 10 ^3/uL (0.4-5.4); Lymphocytes % (auto) 19.4 % (10.0-50.0); Mean Corpuscular Hemoglobin 31.5 pg (28.0-32.0); Mean Corpuscular Hgb Conc. 33.8 g/dL (32.0-36.0); Mean Corpuscular Volume 93.1 fL (80.0-100.0); Monocytes # (auto) 0.4 10 ^3/uL (0-1.3); Neutrophils # (auto) 5.4 10 ^3/uL (1.6-8.6); Neutrophils % (auto) 71.3 % (37.0-80.0); Nucleated Red Blood Cells % 0.1 %; Red Blood Cells 4.92 10^6/uL (4.0-5.20); Red Cell Distribution Width 14.5 % (11.8-14.3); White Blood Cell 7.6 10^3/uL (4.4-10.8)
[2023-09-30 15:37] LABS: INR 0.99 (0.9-1.15); Partial Thromboplastin Time 26.5 SEC (24.5-34.5); Prothrombin Time 10.4 sec (9.3-11.8)
[2023-09-30 15:57] LABS: Alanine Aminotransferase 20 U/L (7-40); Albumin 4.4 g/dL (3.2-4.8); Alkaline Phosphatase 79 U/L (46-116); Anion Gap 10 (5-15); Aspartate Aminotransferase 15 U/L (13-40); BUN/Creatinine Ratio 32.1 (10.0-20.0); Blood Urea Nitrogen 18 mg/dL (9-23); Calcium 9.6 mg/dL (8.5-10.1); Carbon Dioxide 22 mmol/L (20-30); Chloride 110 mmol/L (98-107); Glucose 125 mg/dL (74-106); Potassium 4.2 mmol/L (3.5-5.1); Sodium 142 mmol/L (136-145)
[2023-09-30 15:58] LABS: Bilirubin, Total 0.4 mg/dL (0.2-1.0); Total Protein 6.7 g/dL (5.7-8.2)
[~2023-10-06] VITALS: Ht 167.6 cm; Wt 90.7 kg
[~2023-10-06] MED LIST changes: -ALEN70TA2 PO; -AMOX500T86 PO; -ASCO10003 PO; -ASPI1TAB20 PO; -BUPR1TAB11 PO; -CYCL-839 PO; +DICY20TA2 PO; -DIPH25CA66 PO; +DIPH50TA PO; -ECON1CRE6 TOP; -EMPA1TAB3 PO; +ERGO1CAP23 PO; -ERGO2000 PO; -GLYB5TAB9 PO; +LIDOCAINE VISCOUS 2% 15ML UD ONE; -METO-158 PO; +MIDAZOLAM HCL 5 MG/ML-1ML VIAL ONE; +SODIUM CHLORIDE LOCK 10 ML ONE; -SUVO1TAB PO; -ZINC220T6 PO; +diphenhdrAMINE HCL 50 MG/1 ML VL ONE; +fentaNYL CITRATE 100 MCG/2 ML VL ONE
[2023-10-06 15:51] VITALS: TEMP 98.2; O2SAT 99
[2023-10-06 16:36] VITALS: BP 133/64; PULSE 74; RESP 16; O2SAT 98
== END | disposition home or self-care (01) ==
LOC: GI 13:20
PROVIDERS: ATTEND Internal Medicine Gastroenterology
DX: K21.9 Gastro-esophageal reflux disease without esophagitis (principal); R13.10 Dysphagia, unspecified; K44.9 Diaphragmatic hernia without obstruction or gangrene; K29.50 Unspecified chronic gastritis without bleeding
CPT/HCPCS: 36415; 43239; 80053; 85025; 85610; 85730; J1200; J2250; J3010

== ENCOUNTER 2023-12-12 08:47 | Inpatient (IN) | payer MEDICARE, MEDICAID ==
[2023-12-12] VITALS (7 sets, daily range): BP systolic 99–131; BP diastolic 52–70; PULSE 60–70; RESP 18–20; TEMP 97.7–98.4; O2SAT 92–96
[~2023-12-12] VITALS: Ht 167.6 cm; Wt 98.3 kg
[~2023-12-12 08:47] MED LIST changes: -LIDOCAINE VISCOUS 2% 15ML UD ONE; -MIDAZOLAM HCL 5 MG/ML-1ML VIAL ONE; -SODIUM CHLORIDE LOCK 10 ML ONE; -diphenhdrAMINE HCL 50 MG/1 ML VL ONE; -fentaNYL CITRATE 100 MCG/2 ML VL ONE
[2023-12-12 10:30] LABS: Basophils # (auto) 0 10 ^3/uL (0-0.2); Basophils % (auto) 0.4 % (0.0-2.0); Eosinophils # (auto) 0.3 10 ^3/uL (0-0.8); Eosinophils % (auto) 3.4 % (0.0-7.0); Hematocrit 45.6 % (36.0-46.0); Hemoglobin 15.4 g/dL (12.2-16.2); Lymphocytes # (auto) 1.1 10 ^3/uL (0.4-5.4); Lymphocytes % (auto) 10.5 % (10.0-50.0); Mean Corpuscular Hemoglobin 31.9 pg (28.0-32.0); Mean Corpuscular Hgb Conc. 33.8 g/dL (32.0-36.0); Mean Corpuscular Volume 94.3 fL (80.0-100.0); Monocytes # (auto) 0.8 10 ^3/uL (0-1.3); Monocytes % (auto) 7.3 % (0.0-12.0); Neutrophils # (auto) 8.1 10 ^3/uL (1.6-8.6); Neutrophils % (auto) 78.4 % (37.0-80.0); Nucleated Red Blood Cells % 0.1 %; Red Blood Cells 4.83 10^6/uL (4.0-5.20); Red Cell Distribution Width 13.6 % (11.8-14.3); White Blood Cell 10.3 10^3/uL (4.4-10.8)
[2023-12-12 10:46] LABS: Alanine Aminotransferase 18 U/L (7-40); Albumin 4.2 g/dL (3.2-4.8); Alkaline Phosphatase 79 U/L (46-116); Anion Gap 4 (5-15); Aspartate Aminotransferase 16 U/L (13-40); BUN/Creatinine Ratio 18.5 (10.0-20.0); Blood Urea Nitrogen 12 mg/dL (9-23); Calcium 9.4 mg/dL (8.7-10.4); Carbon Dioxide 28 mmol/L (20-30); Chloride 107 mmol/L (98-107); Glucose 114 mg/dL (74-106); Lipase 95 U/L (12-53); Sodium 139 mmol/L (136-145)
[2023-12-12 10:47] LABS: Bilirubin, Total 0.9 mg/dL (0.2-1.0); Total Protein 6.5 g/dL (5.7-8.2)
[2023-12-12] MEDS: ONDANSETRON ODT 4 MG TAB PO ONE (13:45)
[2023-12-12] MEDS: DICYCLOMINE HCL (10MG/ML) 2 ML AMPULE IM ONE (13:45)
[2023-12-12] MEDS: SODIUM CHLORIDE 0.9% 1,000 ML IV ONE (13:56)
[2023-12-12] MEDS ORDERED: DOCUSATE SOD 100 MG CAP PO PRN (14:30)
[2023-12-12] MEDS ORDERED: ACETAMINOPHEN 325 MG TAB PO PRN (14:30)
[2023-12-12] MEDS: levoFLOXacin 500MG 100 ML IV ONE (15:25)
[2023-12-12 15:38] LABS: Urine Bacteria NONE SEEN /hpf (None Seen); Urine Blood Negative /uL (Negative); Urine Clarity Clear (Clear); Urine Color Yellow (Yellow); Urine Protein, UAD Negative (Negative); Urine Specific Gravity 1.009 (1.001-1.035); Urine Urobilinogen Normal (Negative); Urine WBC 2 /hpf (0 - 5); Urine pH 7.5 (5.0-8.0)
[2023-12-12] MEDS: HYDROcodone-ACET 5/325MG TAB PO PRN (16:48)
[2023-12-12] MEDS ORDERED: PREG-111 PO (18:54)
[2023-12-12] MEDS ORDERED: ALEN70TA74 PO (18:54)
[2023-12-12] MEDS ORDERED: FURO40TA4 PO (18:54)
[2023-12-12] MEDS ORDERED: FAMO20TA10 PO (18:54)
[2023-12-12] MEDS ORDERED: ALBUTEROL SULF 2.5 MG/0.5ML(0.5%) NEB SOLN NEB PRN (19:00)
[2023-12-12] MEDS ORDERED: IPRATROPIUM BROM 0.5 MG/2.5ML INH SOL NEB PRN (19:00)
[2023-12-12] MEDS ORDERED: DEXTROSE (50%) 50ML SYRG IV PRN (19:15)
[2023-12-12] MEDS: METOPROLOL TARTRATE 50 MG TAB PO SCH (21:46)
[2023-12-12] MEDS: PREGABALIN CAPSULE 75 MG CAP PO SCH (21:55)
[2023-12-12] MEDS: metroNIDAZOLE 500MG/100ML 100 ML IV SCH (21:55)
[2023-12-12] MEDS: ATORVASTATIN 20 MG TAB PO SCH (21:55)
[2023-12-12] MEDS: levETIRAcetam 500 MG TAB PO SCH (21:55)
[2023-12-12] MEDS: SERTRALINE HCL 50 MG TAB PO SCH (21:56)
[2023-12-12] MEDS: ACCU-CHEK COMFORT CURVE STRIP VI SCH (21:56)
[2023-12-12] MEDS ORDERED: ACCU-CHEK COMFORT CURVE STRIP VI SCH (22:00)
[2023-12-12] MEDS: InsuLIN REG 1unit/0.01ml Soln (100units/ml) SC SCH (22:00)
[2023-12-13] VITALS (9 sets, daily range): BP systolic 94–101; BP diastolic 42–58; PULSE 58–78; RESP 15–20; TEMP 97.5–98.9; O2SAT 93–97
[2023-12-13 05:36] LABS: Alanine Aminotransferase 14 U/L (7-40); Albumin 3.7 g/dL (3.2-4.8); Alkaline Phosphatase 73 U/L (46-116); Anion Gap 3 (5-15); Aspartate Aminotransferase 13 U/L (13-40); Bilirubin, Total 1.1 mg/dL (0.2-1.0); Blood Urea Nitrogen 6 mg/dL (9-23); Carbon Dioxide 29 mmol/L (20-30); Chloride 107 mmol/L (98-107); Glucose 136 mg/dL (74-106); Potassium 3.9 mmol/L (3.5-5.1); Sodium 139 mmol/L (136-145); Total Protein 5.7 g/dL (5.7-8.2)
[2023-12-13 05:41] LABS: Basophils # (auto) 0 10 ^3/uL (0-0.2); Basophils % (auto) 0.2 % (0.0-2.0); Eosinophils # (auto) 0.2 10 ^3/uL (0-0.8); Eosinophils % (auto) 3.1 % (0.0-7.0); Hematocrit 40.3 % (36.0-46.0); Hemoglobin 13.5 g/dL (12.2-16.2); Lymphocytes # (auto) 0.6 10 ^3/uL (0.4-5.4); Lymphocytes % (auto) 11.1 % (10.0-50.0); Mean Corpuscular Hemoglobin 31.3 pg (28.0-32.0); Mean Corpuscular Hgb Conc. 33.5 g/dL (32.0-36.0); Mean Corpuscular Volume 93.5 fL (80.0-100.0); Monocytes # (auto) 0.3 10 ^3/uL (0-1.3); Monocytes % (auto) 6.2 % (0.0-12.0); Neutrophils # (auto) 4.5 10 ^3/uL (1.6-8.6); Neutrophils % (auto) 79.4 % (37.0-80.0); Nucleated Red Blood Cells % 0.1 %; Red Blood Cells 4.31 10^6/uL (4.0-5.20); Red Cell Distribution Width 13.9 % (11.8-14.3); White Blood Cell 5.7 10^3/uL (4.4-10.8)
[2023-12-13] MEDS ORDERED: ALENDRONATE SODIUM 70 MG PO SCH (06:30)
[2023-12-13] MEDS: FLORASTOR (S. BOULARDII) 250 MG CAP PO SCH (09:04)
[2023-12-13] MEDS: levoFLOXacin 500MG 100 ML IV SCH (09:04)
[2023-12-13] MEDS: PANTOPRAZOLE 40 MG TAB PO SCH (09:04)
[2023-12-13] MEDS: FUROSEMIDE 40 MG TAB PO SCH (09:06)
[2023-12-13] MEDS ORDERED: levoFLOXacin 250MG 50 ML IV SCH (10:00)
[2023-12-13] MEDS: PYRIDOXINE HCL 50 MG TAB PO SCH (10:00)
[2023-12-13 11:42] LABS: Blood Alcohol < 3.0 mg/dL (<10)
[2023-12-13] MEDS ORDERED: diphenhdrAMINE HCL 25 MG CAP PO PRN (12:30)
[2023-12-13 12:56] LABS: Lipase 32 U/L (12-53)
[2023-12-13] MEDS ORDERED: ALBUAER3 INH (15:16)
[2023-12-13] MEDS ORDERED: FLUO-126 PO (15:46)
[2023-12-13] MEDS ORDERED: DOCU-94 PO (15:46)
[2023-12-13] MEDS ORDERED: NITR50CA24 PO (15:46)
[2023-12-13] MEDS ORDERED: DONE1TAB88 PO (15:46)
[2023-12-13] MEDS: HYDROcodone-ACET 5/325MG TAB PO PRN (17:42)
[2023-12-14] VITALS (11 sets, daily range): BP systolic 92–117; BP diastolic 57–62; PULSE 52–86; RESP 15–21; TEMP 97.9–98.4; O2SAT 92–100
[2023-12-14] MEDS: ENOXAPARIN SOD 40 MG/0.4 ML SYRINGE SC ONE (00:27)
[2023-12-14 01:38] LABS: COVID19 ANTIGEN SOFIA FIA NEGATIVE (NEGATIVE); Rapid Influenza A Negative (Negative); Rapid Influenza B Negative (Negative)
[2023-12-14] MEDS: ONDANSETRON HCL 4 MG/2 ML VIAL IV PRN (03:24)
[2023-12-14 05:33] LABS: Basophils # (auto) 0 10 ^3/uL (0-0.2); Basophils % (auto) 0.4 % (0.0-2.0); Eosinophils # (auto) 0.2 10 ^3/uL (0-0.8); Eosinophils % (auto) 3.8 % (0.0-7.0); Hematocrit 42.6 % (36.0-46.0); Hemoglobin 14.3 g/dL (12.2-16.2); Lymphocytes # (auto) 0.8 10 ^3/uL (0.4-5.4); Lymphocytes % (auto) 20.7 % (10.0-50.0); Mean Corpuscular Hemoglobin 31.5 pg (28.0-32.0); Mean Corpuscular Hgb Conc. 33.7 g/dL (32.0-36.0); Mean Corpuscular Volume 93.7 fL (80.0-100.0); Monocytes # (auto) 0.4 10 ^3/uL (0-1.3); Monocytes % (auto) 9.8 % (0.0-12.0); Neutrophils # (auto) 2.7 10 ^3/uL (1.6-8.6); Neutrophils % (auto) 65.3 % (37.0-80.0); Nucleated Red Blood Cells % 0.1 %; Red Blood Cells 4.55 10^6/uL (4.0-5.20); Red Cell Distribution Width 13.4 % (11.8-14.3); White Blood Cell 4.1 10^3/uL (4.4-10.8)
[2023-12-14 05:35] LABS: Chloride 103 mmol/L (98-107); Potassium 3.5 mmol/L (3.5-5.1); Sodium 135 mmol/L (136-145)
[2023-12-14 05:36] LABS: Anion Gap 3 (5-15); Carbon Dioxide 29 mmol/L (20-30)
[2023-12-14 05:37] LABS: Calcium 9.4 mg/dL (8.7-10.4)
[2023-12-14 05:41] LABS: Glucose 114 mg/dL (74-106)
[2023-12-14 05:44] LABS: BUN/Creatinine Ratio 7.5 (10.0-20.0); Blood Urea Nitrogen < 5 mg/dL (9-23)
[2023-12-14] MEDS ORDERED: cefTRIAXone 1GM/50ML D5W 50 ML IV SCH (09:00)
[2023-12-14] MEDS: levoFLOXacin 500MG 100 ML IV SCH (10:20)
[2023-12-14] MEDS: guaiFENesin-DM 100/10mg/5ml SYR PO PRN (20:02)
[2023-12-14] MEDS: MELATONIN 5 MG TAB PO SCH (21:34)
[2023-12-14] MEDS: ENOXAPARIN SOD 40 MG/0.4 ML SYRINGE SC SCH (21:35)
[2023-12-15 05:00] VITALS: BP 106/60; PULSE 60; RESP 16; TEMP 98.4; O2SAT 97
[2023-12-15 06:14] LABS: Basophils # (auto) 0 10 ^3/uL (0-0.2); Basophils % (auto) 0.3 % (0.0-2.0); Eosinophils # (auto) 0.3 10 ^3/uL (0-0.8); Eosinophils % (auto) 5.7 % (0.0-7.0); Hematocrit 42.2 % (36.0-46.0); Hemoglobin 14.3 g/dL (12.2-16.2); Lymphocytes # (auto) 0.6 10 ^3/uL (0.4-5.4); Lymphocytes % (auto) 12.1 % (10.0-50.0); Mean Corpuscular Hemoglobin 31.6 pg (28.0-32.0); Mean Corpuscular Hgb Conc. 33.9 g/dL (32.0-36.0); Mean Corpuscular Volume 93.2 fL (80.0-100.0); Monocytes # (auto) 0.4 10 ^3/uL (0-1.3); Monocytes % (auto) 8.3 % (0.0-12.0); Neutrophils # (auto) 3.5 10 ^3/uL (1.6-8.6); Neutrophils % (auto) 73.6 % (37.0-80.0); Nucleated Red Blood Cells % 0.1 %; Red Blood Cells 4.53 10^6/uL (4.0-5.20); Red Cell Distribution Width 13.3 % (11.8-14.3); White Blood Cell 4.7 10^3/uL (4.4-10.8)
[2023-12-15 06:21] LABS: Chloride 100 mmol/L (98-107); Potassium 3.7 mmol/L (3.5-5.1); Sodium 135 mmol/L (136-145)
[2023-12-15 06:22] LABS: Anion Gap 4 (5-15); Calcium 9.2 mg/dL (8.7-10.4); Carbon Dioxide 31 mmol/L (20-30)
[2023-12-15 06:27] LABS: Glucose 126 mg/dL (74-106)
[2023-12-15 06:28] LABS: BUN/Creatinine Ratio 10.1 (10.0-20.0); Blood Urea Nitrogen 7 mg/dL (9-23)
[2023-12-15 07:30] VITALS: PULSE 51; RESP 18; O2SAT 95
[2023-12-15] MEDS ORDERED: IPRATROPIUM BROM 0.5 MG/2.5ML INH SOL NEB PRN (07:30)
[2023-12-15] MEDS ORDERED: cefTRIAXone 1GM/50ML D5W 50 ML IV SCH (09:00)
[2023-12-15 09:09] VITALS: O2SAT 97
[2023-12-15 10:33] VITALS: BP 109/64; PULSE 51; RESP 19; TEMP 97.9; O2SAT 96
[2023-12-15 12:28] VITALS: BP 109/64; PULSE 51; RESP 18; TEMP 36.6; O2SAT 94
[2023-12-15 12:51] LABS: Base Excess 1.8 mmol/L (-2.0-2.0)
[2023-12-15 14:38] VITALS: BP 124/66; PULSE 51; RESP 18; TEMP 98.1; O2SAT 94
== END 2023-12-15 14:30 | disposition home or self-care (01) | DRG 392 ==
LOC: ER 08:47 → OVERFLOW 14:35 → EAST 21:00
PROVIDERS: ADMIT Internal Medicine Geriatric Medicine; ATTEND Internal Medicine Geriatric Medicine
PROC: 5A09357 Assistance with Respiratory Ventilation, Less than 24 Consecutive Hours, Continuous Positive Airway Pressure (ICD-10-PCS; principal; 2023-12-13)
DX: K52.9 Noninfective gastroenteritis and colitis, unspecified (principal); E11.9 Type 2 diabetes mellitus without complications; I11.0 Hypertensive heart disease with heart failure; I25.10 Atherosclerotic heart disease of native coronary artery without angina pectoris; K21.9 Gastro-esophageal reflux disease without esophagitis; J45.909 Unspecified asthma, uncomplicated; I50.9 Heart failure, unspecified; E78.5 Hyperlipidemia, unspecified; F41.9 Anxiety disorder, unspecified; G40.909 Epilepsy, unspecified, not intractable, without status epilepticus; K29.70 Gastritis, unspecified, without bleeding; E66.9 Obesity, unspecified; G47.33 Obstructive sleep apnea (adult) (pediatric); J20.9 Acute bronchitis, unspecified; M06.9 Rheumatoid arthritis, unspecified; F17.210 Nicotine dependence, cigarettes, uncomplicated; Z95.0 Presence of cardiac pacemaker; Z87.11 Personal history of peptic ulcer disease; Z90.710 Acquired absence of both cervix and uterus; Z86.711 Personal history of pulmonary embolism; Z86.73 Personal history of transient ischemic attack (TIA), and cerebral infarction without residual deficits; Z68.35 Body mass index [BMI] 35.0-35.9, adult
CPT/HCPCS: 36415; 36600; 71045; 74176; 80048; 80053; 80320; 81001; 82270; 82542; 82805; 82962; 83036; 83690; 83735; 83880; 84443; 84484; 85025; 85048; 87045; 87081; 87426; 87427; 87493; 87804; 93005; 94660; G0378; J1815; J1956; J2405; J3490; Q0162

== ENCOUNTER 2024-06-23 09:35 | Day surgery (SDC) | payer MEDICARE, MEDICAID ==
[2024-06-16 13:31] LABS: Basophils # (auto) 0 10 ^3/uL (0-0.2); Basophils % (auto) 0.3 % (0.0-2.0); Eosinophils # (auto) 0.2 10 ^3/uL (0-0.8); Eosinophils % (auto) 3.9 % (0.0-7.0); Hematocrit 41.3 % (36.0-46.0); Hemoglobin 14.1 g/dL (12.2-16.2); Lymphocytes % (auto) 23.3 % (10.0-50.0); Mean Corpuscular Hemoglobin 30.9 pg (28.0-32.0); Mean Corpuscular Hgb Conc. 34.2 g/dL (32.0-36.0); Mean Corpuscular Volume 90.2 fL (80.0-100.0); Monocytes # (auto) 0.3 10 ^3/uL (0-1.3); Monocytes % (auto) 8.4 % (0.0-12.0); Neutrophils # (auto) 2.6 10 ^3/uL (1.6-8.6); Neutrophils % (auto) 64.1 % (37.0-80.0); Nucleated Red Blood Cells % 0.2 %; Platelet Count (auto) 135 10^3/uL (140-450); Red Blood Cells 4.58 10^6/uL (4.0-5.20); Red Cell Distribution Width 14.6 % (11.8-14.3); White Blood Cell 4.1 10^3/uL (4.4-10.8)
[2024-06-16 13:51] LABS: INR 1.05 (0.9-1.15); Partial Thromboplastin Time 27.5 SEC (24.5-34.5); Prothrombin Time 11.1 sec (9.3-11.8)
[2024-06-16 14:13] LABS: Alanine Aminotransferase 17 U/L (7-40); Albumin 4.2 g/dL (3.2-4.8); Alkaline Phosphatase 66 U/L (46-116); Anion Gap 4 (5-15); Aspartate Aminotransferase 16 U/L (13-40); BUN/Creatinine Ratio 30.8 (10.0-20.0); Bilirubin, Total 0.8 mg/dL (0.2-1.0); Blood Urea Nitrogen 20 mg/dL (9-23); Calcium 9.3 mg/dL (8.7-10.4); Carbon Dioxide 26 mmol/L (20-30); Chloride 111 mmol/L (98-107); Glucose 108 mg/dL (74-106); Potassium 4.1 mmol/L (3.5-5.1); Sodium 141 mmol/L (136-145); Total Protein 6.5 g/dL (5.7-8.2)
[~2024-06-23] VITALS: Ht 162.6 cm; Wt 98.4 kg
[~2024-06-23 09:35] MED LIST changes: -ALBUAER3 IN; +ALBUAER3 INH; +ALEN70TA74 PO; -ATO40T PO; +ATOR-507 PO; +DOCU-94 PO; +DONE1TAB88 PO; +FLUO-126 PO; -FUR40T PO; +FURO40TA4 PO; -MYC15TP TOP; +NITR50CA24 PO; -NYS5LQ MT; +PREG150C63 PO; -PREG25CA PO
[2024-06-23] MEDS ORDERED: SODIUM CHLORIDE LOCK 10 ML ONE (10:45)
[2024-06-23 11:15] VITALS: O2SAT 98
[2024-06-23] MEDS: MIDAZOLAM HCL 5 MG/ML-1ML VIAL ONE (11:17)
[2024-06-23] MEDS: diphenhdrAMINE HCL 50 MG/1 ML VL ONE (11:17)
[2024-06-23] MEDS: fentaNYL CITRATE 100 MCG/2 ML VL ONE (11:17)
[2024-06-23 11:52] VITALS: PULSE 137; RESP 13; TEMP 98.6; O2SAT 99
[2024-06-23 12:05] VITALS: BP 147/79; PULSE 71; RESP 18; O2SAT 97
== END 2024-06-23 12:30 | disposition home or self-care (01) ==
LOC: GI 09:35
PROVIDERS: ATTEND Internal Medicine Gastroenterology
DX: Z12.11 Encounter for screening for malignant neoplasm of colon (principal); K63.5 Polyp of colon; K63.89 Other specified diseases of intestine; K64.8 Other hemorrhoids; K21.9 Gastro-esophageal reflux disease without esophagitis; I11.0 Hypertensive heart disease with heart failure; I50.9 Heart failure, unspecified; I34.0 Nonrheumatic mitral (valve) insufficiency; E11.9 Type 2 diabetes mellitus without complications; J45.909 Unspecified asthma, uncomplicated; F41.8 Other specified anxiety disorders; Z86.010 Personal history of colon polyps; Z85.038 Personal history of other malignant neoplasm of large intestine; Z98.0 Intestinal bypass and anastomosis status; Z95.0 Presence of cardiac pacemaker; Z90.710 Acquired absence of both cervix and uterus; Z86.2 Personal history of diseases of the blood and blood-forming organs and certain disorders involving the immune mechanism; Z86.73 Personal history of transient ischemic attack (TIA), and cerebral infarction without residual deficits; Z98.890 Other specified postprocedural states; Z87.891 Personal history of nicotine dependence; Z88.0 Allergy status to penicillin; Z88.8 Allergy status to other drugs, medicaments and biological substances
CPT/HCPCS: 36415; 45380; 80053; 82962; 85025; 85610; 85730; 88305; J1200; J2250; J3010; J7030; 99152; 99153

== ENCOUNTER 2025-04-26 20:20 | Emergency (ER) | payer MEDICARE, MEDICAID ==
[~2025-04-26] VITALS: Ht 167.6 cm; Wt 103.2 kg
[2025-04-26 22:00] VITALS: BP 118/69; PULSE 70; RESP 18; TEMP 97.9; O2SAT 96
--- NOTE | 2025-04-26 22:01 | DVH ---
EXAM: XY L FEMUR XRAY HISTORY: Fall/trauma COMPARISON: None TECHNIQUE: AP and lateral views of the left femur were performed. FINDINGS: No evidence of fracture or other osseous abnormality about the left femur. Status post left knee tota l arthroplasty, partially imaged. IMPRESSION: 1. No acute fracture of the left femur.
--- NOTE | 2025-04-26 22:02 | DVH ---
CLINICAL INDICATION: Fall/trauma TECHNIQUE: 3 radiographic views of the left elbow were obtained. Comparison: None FINDINGS/IMPRESSION: Bony alignment was normal. There is no fracture dislocation. HS:Y
--- NOTE | 2025-04-26 22:02 | DVH ---
CLINICAL HISTORY: Fall/head trauma TECHNIQUE: Helical scanning was performed of the head from the skull base to the vertex. Multiplanar reconstructions were performed. This exam was performed according to our departmental dose optimizat ion program. Up-to-date CT equipment and radiation dose reduction techniques are utilized as appropri ate. WID: COMPARISON: HEAD WITHOUT CONTRAST on DOS: 05/28/22 FINDINGS: There is no acute intracranial hemorrhage, CT evidence of acute ischemic changes, mass effect, midlin e shift, or extra-axial fluid collection. Ventricles are within normal limits There is minimal patchy subcortical and periventricular white hypoattenuation, non-specific. The im aged intraorbital structures are unremarkable The imaged paranasal sinuses are clear. The mastoid air cells are clear. The calvarium is intact. IMPRESSION: 1. NO ACUTE INTRACRANIAL FINDINGS
--- NOTE | 2025-04-26 22:08 | DVH ---
CT OF THE CERVICAL SPINE WITHOUT CONTRAST HISTORY: Fall/trauma COMPARISON: None TECHNIQUE: Helical images through the cervical spine were obtained without contrast. Sagittal and cor onal reformats were obtained. One or more of the following radiation dose reduction techniques were u sed for this examination: automated exposure control, adjustment of the mA and/or kV according to pat ient size, use of iterative reconstruction technique. FINDINGS: Straightening and mild reversal of the cervical curvature. Otherwise no grossly displaced fractures o r subluxations identified. Vertebral body heights appear maintained. The bony spinal canal is patent . Disc space narrowing and marginal osteophyte formation most apparent from C5-C7. Prevertebral soft tissues appear within normal limits. IMPRESSION: No displaced fractures or subluxations identified. Straightening and mild reversal of the cervical curvature may be in part related to patient positioni ng or muscular spasm. Degenerative changes.
--- NOTE | 2025-04-26 22:21 | ED.PDOC ---
Bryant. trauma (HPI) HPI Comments This patient is a severely morbidly obese 69-year-old female who was brought in by family members for evaluation of left leg, right elbow, head and cervical spine concerns status post ground level fall approximately 2 hours prior to arrival. Patient states she had a mechanical trip and fall outside landing on her right elbow and left leg as well as probable head injury concerns. Patient is in poor overall health and usually ambulates with a walker. Patient denies any blood loss. Vital signs were stable. Chief Complaint: Fall Injury Time Seen by MD: 20:37 Primary Care Provider: Renato Reviewed notes: Nurses Notes Allergies: Coded Allergies: Baclofen (Unverified Allergy, Severe, SOB, rash, cough, 06/07/23) Gabapentin (Unverified Adverse Reaction, Severe, seizure, SOB, 06/07/23) Enalapril (Unverified Adverse Reaction, Intermediate, SOB, cough, 06/07/23) Penicillins (Verified Adverse Reaction, Mild, Rash, 12/13/23) On 12/13/2023: Rx Student, Viviana, interviewed patient. She denies any allergies to PCN and states "She may of said it on accident on 12/12/23 since she was out of it". Patient has tolerated amoxicillin and keflex before in the past without any adverse reactions. Home Meds Active Scripts Cholecalciferol (Vitamin D3 Super Strength) 2,000 Unit Cap, 4000 UNIT PO DAILY for 30 Days, #60 CAP Prov:THIERNO HARRELL MD 05/08/21 Reported Medications Fluoxetine Hcl (Fluoxetine Hcl) 10 Mg Cap, 1 TAB PO DAILY 12/13/23 Docusate Sodium (Colace) 100 Mg Cap, 1 CAP PO BID 12/13/23 Nitrofurantoin (Macrodantin) 50 Mg Cap, 1 CAP PO DAILY 12/13/23 Donepezil Hydrochloride (DONEPEZIL HCL) 10 Mg Tab, 1 TAB PO DAILY 12/13/23 Pregabalin (Pregabalin) 150 Mg Cap, 1 CAP PO TID, CAP 12/13/23 Albuterol Sulfate (VENTOLIN MDI) 90 Mcg Ih, 2 PUFF INH QID 12/13/23 Alendronate Sodium (Alendronate Sodium) 70 Mg Tab, 1 TAB PO QWEEKLY 12/12/23 Furosemide (Furosemide) 40 Mg Tab, 1 TAB PO DAILY 12/12/23 Dicyclomine HCl (Dicyclomine Hydrochloride) 20 Mg Tab, 20 MG PO DAILY, TAB 06/07/23 Ergocalciferol (VITAMIN D 28778 UNIT) 50,000 Unit Cp, 00403 UNIT PO QWEEKLY, CAP 06/07/23 Diphenhydramine HCl (Benadryl Allergy Extra St) 50 Mg Tab, 50 MG PO TIDP, TAB 06/07/23 Sertraline Hcl (Zoloft) 50 Mg Tab, 50 MG PO DAILY, TAB 06/09/22 Loratadine (Claritin) 10 Mg Tab, 10 MG PO DAILY, TAB 06/09/22 Secukinumab (Cosentyx) 150 Mg/Ml Inj, 150 MG SC, INJ 06/09/22 Metoprolol Tartrate (LOPRESSOR TABLET) 50 Mg Tb, 50 MG PO BID, TAB 06/09/22 Pyridoxine Hcl (Vitamin B 6) 50 Mg Tab, 50 MG PO DAILY, TAB 09/12/21 Ondansetron (Zofran) 4 Mg Tab, 1 TAB PO Q8HR PRN 09/12/21 Digoxin (Digitek) 0.125 Mg Tab, 0.125 MG PO DAILY, TAB 11/29/19 Hydrocodone-Acetaminophen (Hydrocodone/Acetaminophen 10-325 mg) 1 Tab Tab, 1 TAB PO QID PRN 07/27/17 Lidocaine (LIDODERM 5% TOPICAL PATCH) 1 Patch Ph, 1 PATCH TOP DAILY, #30 PATCH 1 Refill 07/27/17 Fluticasone Propionate (Nasal) (Flonase Allergy Relief) 50 Mcg/Act Spr, 50 MCG NA BIDP PRN for SHORTNESS OF BREATH, SPR 07/27/17 Ipratropium-Albuterol (COMBIVENT RESPIMAT) Respimat Aer, 1 PUFF IN TIDPRN PRN for SHORTNESS OF BREATH, AER 07/27/17 Cyanocobalamin (Vitamin B12) 1,000 Cr Tab, 1 TAB PO DAILY, #30 TAB 5 Refills 07/27/17 Ferrous Sulfate (FERROUS SULFATE) 325 Mg Tb, 325 MG PO DAILY 07/27/17 Atorvastatin Calcium (Lipitor) 40 Mg Tab, 40 MG PO HS, TAB 04/14/16 Ropinirole Hydrochloride (Requip) 1 Mg Tab, 1 TAB PO QPM 04/14/16 Levetiracetam (KEPPRA TABLET) 500 Mg Tb, 500 MG PO BID 04/14/16 Pantoprazole Sodium Sesquihydr (Protonix) 40 Mg Tab, 40 MG PO DAILY, TAB 04/14/16 Information Source: Patient Mode of Arrival: Ambulatory Severity: Moderate Timing: Hours Duration: Since onset Prehospital treatment: None Location: (R) Elbow, Head, (L) Leg, Neck Location of neck pain: (R) Posterior, (L) Posterior Location of laceration: None Mechanism: Fall Past Medical History PAST MEDICAL HISTORY: Anemia, Anxiety, Asthma, CAD, CHF, CVA, Depression, DM, GERD, High Lipids, HTN, PE, PUD, Seizures Surgical History: Appendectomy, Cholecystectomy, Hernia Repair, Hysterectomy, Tonsillectomy ESTHETIC DERMATOLOGIST History: Denies all ESTHETIC DERMATOLOGIST Hx Family History Family History: No family hx of DM, No family hx of HTN, Family hx of Cancer Social History Smoker: Cigarettes Alcohol: Occasionally Drugs: Marijuana Lives In: Home Constitutional: denies: chills, diaphoresis, fatigue, fever, malaise, sweats, weakness, others EENTM: reports: others (Generalize headache); denies: blurred vision, double vision, ear bleeding, ear discharge, ear drainage, ear pain, ear ringing, eye pain, eye redness, hearing loss, mouth pain, mouth swelling, nasal discharge, nose bleeding, nose congestion, nose pain, photophobia, tearing, throat pain, throat swelling, voice changes Respiratory: denies: cough, hemoptysis, orthopnea, SOB at rest, shortness of breath, SOB with excertion, stridor, wheezing, others Cardiovascular: denies: chest pain, dizzy spells, diaphoresis, Dyspnea on exertion, edema, irregular heart beat, left arm pain, lightheadedness, pa lpitations, PND, syncope, others Gastrointestinal: denies: abdomen distended, abdominal pain, blood streaked bowels, constipated, diarrhea, dysphagia, difficulty swallowing, hematemesis, melena, nausea, poor appetite, poor fluid intake, rectal bleeding, rectal pain, vomiting, others Genitourinary: denies: abnormal vagina bleeding, burning, dyspareunia, dysuria, flank pain, frequency, hematuria, incontinence, pain, , vagina discharge, urgency, others Neurological: denies: dizziness, fainting, headache, left sided numbness, left sided weakness, numbness, paresthesia, pre-existing deficit, right sided numbness, right sided weakness, seizure, speech problems, tingling, tremors, weakness, others Musculoskeletal: reports: neck pain, others (Right elbow, left knee, neck); denies: back pain, gout, joint pain, joint swelling, muscle pain, muscle stiffness Integumetry: denies: bruises, change in color, change in hair/nails, dryness, laceration, lesions, lumps, rash, wounds, others Allergic/Immunocompromised: denies: Difficulty Healing, Frequent Infections, Hives, Itching, others Hematologic/Lymphatic: denies: anemia, blood clots, easy bleeding, easy bruising, swollen glands, others Endocrine: denies: excessive hunger, excessive sweating, excessive thirst, excessive urination, flushing, intolerance to cold, intolerance to heat, unexplained weight gain, unexplained weight loss, others Psychiatric: denies: anxiety, bipolar disorder, depression, hopeless, panic disorder, schizophrenia, sleepless, suicidal, others Physical Exam General Appearance: Moderate Distress (Lefl-[id number] distress due to musculoskeletal concerns.), Normal HEENT: Head (. On exam was relatively unremarkable. No definitive signs of trauma. Patient has some resolving ecchymosis noted to left side superior forehead. No skull depressions noted.), Normal ENT Inspection, Pharynx Normal, TMs Normal Neck: Other (Diffuse bilateral posterior tenderness to palpation throughout the cervical spine. [id number] hypertonicity appreciated. No step-offs noted. Moderate reduced range of motion.) Respiratory: Chest Non-Tender, Lungs Clear, No Accessory Muscle Use, No Respiratory Distress, Normal Breath Sounds Cardiovascular: No Edema, No JVD, No Murmur, No Gallop, Normal Peripheral Pulses, Regular Rate/Rhythm Breast Exam: Deferred Gastrointestinal: No Organomegaly, Non Tender, No Pulsatile Mass, Normal Bowel Sounds, Soft Genitalia: Deferred Pelvic: Deferred Rectal: Deferred Extremities: Other (Diffuse swelling with mild abrasion noted to right elbow region. Difficult to assess due to body habitus. Moderate reduced range of motion. Left distal femur reveals some edema without ecchymosis. Patient can not bear weight but with difficulty. Patient is utilizing a walker.) Neurologic: Alert, Normal Affect, Normal Mood Cerebellar Function: NOT DONE Reflexes: NOT DONE Skin: Dry, Normal Color, Warm, Wounds (Mild abrasion to right elbow) Lymphatic: No Adenopathy Was a procedure done? Was a procedure done?: No Differential Diagnosis Multiple Trauma: Other (Subarachnoid hemorrhage, subdural hematoma, skull fracture, cervical vertebrae fracture, cervical muscle strain, head trauma, right elbow fracture, right elbow to contusion, left leg fracture, left knee contusion) X-Ray, Labs, Meds, VS Vital Signs Date Time Temp Pulse Resp B/P (MAP) Pulse Ox O2 Delivery O2 Flow Rate FiO2 04/26/25 20:35 97.9 70 18 118/69 (85) 96 97.9 X-Ray, Labs, Meds, VS Comment All studies performed the ED were evaluated by me personally. Head CT was unremarkable for any acute intracranial process or skull fracture. Cervical spine series showed some hypertonicity but no fracture. Right elbow and left femur were unremarkable for any acute fractures. Patient sustained some contusions due to the fall. Advised pain medication as needed for symptomatic r elief as well as ice therapy. Patient has ample narcotic pain medication available at home. Time of 1ST Reevaluation: 22:20 Reevaluation 1ST: Improved Consultation: PCP Patient Education/Counseling: Diagnosis, Treatment Family Education/Counseling: Diagnosis, Treatment Departure 1 Departure Time of Disposition: 22:20 Impression: Primary Impression: Fall Additional Impressions: Head trauma Elbow contusion Contusion of leg Disposition: HOME / SELF CARE / HOMELESS Condition: Stable Additional Instructions: Advise utilizing pain medication as needed as well as ice therapy. Discharged With: Self, Relative Critical Care Note Critical Care Time?: No Stability Stability form required: No Heart Score Heart Score: Heart Score Response (Comments) Value History N/A 0 EKG N/A 0 Age N/A 0 Risk Factors N/A 0 Troponin N/A 0 Total 0 ABBY HOLM PAC Apr 26, 2025 22:21
[2025-04-26] MEDS: HYDROcodone-ACET 10/325MG TAB PO ONE (22:41)
== END 2025-04-26 22:41 | disposition home or self-care (01) ==
LOC: ER 20:20
DX: S50.01XA Contusion of right elbow, initial encounter (principal); S80.12XA Contusion of left lower leg, initial encounter; S09.8XXA Other specified injuries of head, initial encounter; F17.210 Nicotine dependence, cigarettes, uncomplicated; F12.90 Cannabis use, unspecified, uncomplicated; F10.90 Alcohol use, unspecified, uncomplicated; F41.9 Anxiety disorder, unspecified; J45.909 Unspecified asthma, uncomplicated; F32.A Depression, unspecified; I11.0 Hypertensive heart disease with heart failure; I50.9 Heart failure, unspecified; E11.9 Type 2 diabetes mellitus without complications; E78.5 Hyperlipidemia, unspecified; I25.10 Atherosclerotic heart disease of native coronary artery without angina pectoris; K21.9 Gastro-esophageal reflux disease without esophagitis; E66.01 Morbid (severe) obesity due to excess calories; Z68.36 Body mass index [BMI] 36.0-36.9, adult; Z04.3 Encounter for examination and observation following other accident; Z79.899 Other long term (current) drug therapy; Z86.73 Personal history of transient ischemic attack (TIA), and cerebral infarction without residual deficits; Z87.11 Personal history of peptic ulcer disease; Z88.0 Allergy status to penicillin; Z90.89 Acquired absence of other organs; Z86.711 Personal history of pulmonary embolism; Z88.1 Allergy status to other antibiotic agents; Z88.8 Allergy status to other drugs, medicaments and biological substances; Z90.49 Acquired absence of other specified parts of digestive tract; Z90.710 Acquired absence of both cervix and uterus; Z98.890 Other specified postprocedural states; W01.0XXA Fall on same level from slipping, tripping and stumbling without subsequent striking against object, initial encounter; Y93.89 Activity, other specified; Y92.89 Other specified places as the place of occurrence of the external cause; Y99.8 Other external cause status; Y90.9 Presence of alcohol in blood, level not specified
CPT/HCPCS: 70450; 72125; 73080

== ENCOUNTER 2025-08-15 11:58 | Inpatient (IN) | payer MEDICARE, MEDICAID ==
[~2025-08-15] VITALS: Ht 167.6 cm; Wt 109.7 kg
--- NOTE | 2025-08-15 12:21 | ED.PDOC ---
HPI Comments This is a 70 year old female presenting to the ED with chief complaint of chest pain. Patient reports that she has been experiencing left sided chest pain with associated left arm pain, chills, SOB, and cough for the past 2 weeks. Patient relays that she has also lost about 10 lbs in the last week. Patient denies any abdominal pain, N/V, dizziness, syncope, fever, or headache. Chief Complaint: Chest Pain Time Seen by MD: 12:16 Primary Care Provider: Renato Reviewed Notes: Nurses Notes, Medications, Allergies Allergies: Coded Allergies: Baclofen (Unverified Allergy, Severe, SOB, rash, cough, 06/07/23) Gabapentin (Unverified Adverse Reaction, Severe, seizure, SOB, 06/07/23) Enalapril (Unverified Adverse Reaction, Intermediate, SOB, cough, 06/07/23) Penicillins (Verified Adverse Reaction, Mild, Rash, 12/13/23) On 12/13/2023: Rx Student, Viviana, interviewed patient. She denies any allergies to PCN and states "She may of said it on accident on 12/12/23 since she was out of it". Patient has tolerated amoxicillin and keflex before in the past without any adverse reactions. Home Meds Active Scripts Cholecalciferol (Vitamin D3 Super Strength) 2,000 Unit Cap, 4000 UNIT PO DAILY for 30 Days, #60 CAP Prov:THIERNO HARRELL MD 05/08/21 Reported Medications Fluoxetine Hcl (Fluoxetine Hcl) 10 Mg Cap, 1 TAB PO DAILY 12/13/23 Docusate Sodium (Colace) 100 Mg Cap, 1 CAP PO BID 12/13/23 Nitrofurantoin (Macrodantin) 50 Mg Cap, 1 CAP PO DAILY 12/13/23 Donepezil Hydrochloride (DONEPEZIL HCL) 10 Mg Tab, 1 TAB PO DAILY 12/13/23 Pregabalin (Pregabalin) 150 Mg Cap, 1 CAP PO TID, CAP 12/13/23 Albuterol Sulfate (VENTOLIN MDI) 90 Mcg Ih, 2 PUFF INH QID 12/13/23 Alendronate Sodium (Alendronate Sodium) 70 Mg Tab, 1 TAB PO QWEEKLY 12/12/23 Furosemide (Furosemide) 40 Mg Tab, 1 TAB PO DAILY 12/12/23 Dicyclomine HCl (Dicyclomine Hydrochloride) 20 Mg Tab, 20 MG PO DAILY, TAB 06/07/23 Ergocalciferol (VITAMIN D 29544 UNIT) 50,000 Unit Cp, 53225 UNIT PO QWEEKLY, CAP 06/07/23 Diphenhydramine HCl (Benadryl Allergy Extra St) 50 Mg Tab, 50 MG PO TIDP, TAB 06/07/23 Sertraline Hcl (Zoloft) 50 Mg Tab, 50 MG PO DAILY, TAB 06/09/22 Loratadine (Claritin) 10 Mg Tab, 10 MG PO DAILY, TAB 06/09/22 Secukinumab (Cosentyx) 150 Mg/Ml Inj, 150 MG SC, INJ 06/09/22 Metoprolol Tartrate (LOPRESSOR TABLET) 50 Mg Tb, 50 MG PO BID, TAB 06/09/22 Pyridoxine Hcl (Vitamin B 6) 50 Mg Tab, 50 MG PO DAILY, TAB 09/12/21 Ondansetron (Zofran) 4 Mg Tab, 1 TAB PO Q8HR PRN 09/12/21 Digoxin (Digitek) 0.125 Mg Tab, 0.125 MG PO DAILY, TAB 11/29/19 Hydrocodone-Acetaminophen (Hydrocodone/Acetaminophen 10-325 mg) 1 Tab Tab, 1 TAB PO QID PRN 07/27/17 Lidocaine (LIDODERM 5% TOPICAL PATCH) 1 Patch Ph, 1 PATCH TOP DAILY, #30 PATCH 1 Refill 07/27/17 Fluticasone Propionate (Nasal) (Flonase Allergy Relief) 50 Mcg/Act Spr, 50 MCG NA BIDP PRN for SHORTNESS OF BREATH, SPR 07/27/17 Ipratropium-Albuterol (COMBIVENT RESPIMAT) Respimat Aer, 1 PUFF IN TIDPRN PRN for SHORTNESS OF BREATH, AER 07/27/17 Cyanocobalamin (Vitamin B12) 1,000 Cr Tab, 1 TAB PO DAILY, #30 TAB 5 Refills 07/27/17 Ferrous Sulfate (FERROUS SULFATE) 325 Mg Tb, 325 MG PO DAILY 07/27/17 Atorvastatin Calcium (Lipitor) 40 Mg Tab, 40 MG PO HS, TAB 04/14/16 Ropinirole Hydrochloride (Requip) 1 Mg Tab, 1 TAB PO QPM 04/14/16 Levetiracetam (KEPPRA TABLET) 500 Mg Tb, 500 MG PO BID 04/14/16 Pantoprazole Sodium Sesquihydr (Protonix) 40 Mg Tab, 40 MG PO DAILY, TAB 04/14/16 Information Source: Patient Mode of Arrival: Ambulatory Severity: Moderate Timing: Hours Duration: Since onset Prehospital treatment: None Location: Chest (L) Radiation: Arm (L) Quality: Sharp Onset: At Rest Cardiac Risk Factors: Hyperlipidemia, HTN, Diabetes History of: Similar pain in past Associated Signs and Symptoms: SOB Past Medical History PAST MEDICAL HISTORY: Anemia, Anxiety, Asthma, CAD, CHF, CVA, Depression, DM, GERD, High Lipids, HTN, PE, PUD, Seizures Surgical History: Appendectomy, Cholecystectomy, Hernia Repair, Hysterectomy, Pacemaker, Tonsillectomy HOSPITAL CNA History: Denies all HOSPITAL CNA Hx Family History Family History: No family hx of DM, No family hx of HTN, Family hx of Cancer Social History Smoker: Cigarettes Alcohol: Occasionally Drugs: Marijuana Lives In: Home Constitutional: reports: chills; denies: diaphoresis, fatigue, fever, malaise, sweats, weakness, others EENTM: denies: blurred vision, double vision, ear bleeding, ear discharge, ear drainage, ear pain, ear ringing, eye pain, eye redness, hearing loss, mouth pain, mouth swelling, nasal discharge, nose bleeding, nose congestion, nose pain, photophobia, tearing, throat pain, throat swelling, voice changes, others Respiratory: reports: cough, shortness of breath; denies: hemoptysis, orthopnea, SOB at rest, SOB with excertion, stridor, wheezing, others Cardiovascular: reports: chest pain, left arm pain; denies: dizzy spells, diaphoresis, Dyspnea on exertion, edema, irregular heart beat, lightheadedness, palpitations, PND, syncope, others Gastrointestinal: denies: abdomen distended, abdominal pain, blood streaked bowels, constipated, diarrhea, dysphagia, difficulty swallowing, hematemesis, melena, nausea, poor appetite, poor fluid intake, rectal bleeding, rectal pain, vomiting, others Genitourinary: denies: abnormal vagina bleeding, burning, dyspareunia, dysuria, flank pain, frequency, hematuria, incontinence, pain, , vagina discharge, urgency, others Neurological: denies: dizziness, fainting, headache, left sided numbness, left sided weakness, numbness, paresthesia, pre-existing deficit, right sided numbness, right sided weakness, seizure, speech problems, tingling, tremors, weakness, others Musculoskeletal: denies: back pain, gout, joint pain, joint swelling, muscle pain, muscle stiffness, neck pain, others Integumetry: denies: bruises, change in color, change in hair/nails, dryness, laceration, lesions, lumps, rash, wounds, others Allergic/Immunocompromised: denies: Difficulty Healing, Frequent Infections, Hives, Itching, others Hematologic/Lymphatic: denies: anemia, blood clots, easy bleeding, easy bruising, swollen glands, others Endocrine: denies: excessive hunger, excessive sweating, excessive thirst, excessive urination, flushing, intolerance to cold, intolerance to heat, unexplained weight gain, unexplained weight loss, others Psychiatric: denies: anxiety, bipolar disorder, depression, hopeless, panic disorder, schizophrenia, sleepless, suicidal, others All Other Systems: Reviewed and Negative Physical Exam General Appearance: No Apparent Distress, Normal HEENT: Normal ENT Inspection, Pharynx Normal, TMs Normal Neck: Full Range of Motion, Non-Tender, Normal, Normal Inspection Respiratory: Chest Non-Tender, Lungs Clear, No Accessory Muscle Use, No Respiratory Distress, Other (Non-productive cough with crackles noted throughout.) Cardiovascular: Irregular, No Edema, No JVD, No Murmur, No Gallop, Normal Peripheral Pulses Breast Exam: Deferred Gastrointestinal: No Organomegaly, Non Tender, No Pulsatile Mass, Normal Bowel Sounds, Soft Genitalia: Deferred Pelvic: Deferred Rectal: Deferred Extremities: No calf tenderness, Normal capillary refill, Normal inspection, Normal range of motion, Non-tender, No pedal edema Musculoskeletal : Apperance: Normal Neurologic: Alert, 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 Was a procedure done?: No CP Differential Dx Differential Diagnosis: MAT, DE Differential Diagnosis: HTN Essential, HTN Accelerated, Medical NonCompliance Differential Diagnosis: Gastritis, Myocardial Infarction, Pericarditis X-Ray, Labs, Meds, VS Vital Signs Date Time Temp Pulse Resp B/P (MAP) Pulse Ox O2 Delivery O2 Flow Rate FiO2 08/15/25 14:49 72 08/15/25 14:47 97.8 74 18 118/82 (94) 97 97.8 08/15/25 12:46 88 08/15/25 12:15 97.2 76 16 142/80 97 97.2 08/15/25 12:09 91 Lab Test 08/15/25 16:08 08/15/25 15:44 08/15/25 13:55 08/15/25 12:58 Range/Units Urine Color Yellow Yellow Urine Clarity Clear Clear Urine pH 8.0 5.0-9.0 Urine Specific [place] 1.029 1.001-1.035 Urine Protein Trace H Negative Urine Ketones 2+ H Negative Urine Blood Negative Negative /uL Urine Nitrite Negative Negative Urine Bilirubin Negative Negative Urine Urobilinogen 8 H Negative mg/dL Urine Leukocyte Esterase 1+ Negative /uL Urine RBC <1 0 - 4 /hpf Urine Microscopic WBC 6 H 0-5 /HPF Urine Squamous Epithelial Cells Few <5 /hpf Urine Calcium Oxalate Crystals Few None Seen Urine Bacteria None seen None Seen /hpf Urine Mucus Few None Seen Urine Glucose Normal Normal mg/dL Troponin I High Sensitivity 5 4 5 </=34 ng/L White Blood Count 7.0 4.4-10.8 10^3/uL Red Blood Count 4.76 4.0-5.20 10^6/uL Hemoglobin 15.4 12.2-16.2 g/dL Hematocrit 44.7 36.0-46.0 % Mean Corpuscular Volume 93.9 80.0-100.0 fL Mean Corpuscular Hemoglobin 32.4 H 28.0-32.0 pg Mean Corpuscular Hemoglobin Concent 34.5 32.0-36.0 g/dL Red Cell Distribution Width 13.4 11.8-14.3 % Platelet Count 129 L 140-450 10^3/uL Mean Platelet Volume 9.3 6.9-10.8 fL Neutrophils (%) (Auto) 81.5 H 37.0-80.0 % Lymphocytes (%) (Auto) 12.6 10.0-50.0 % Monocytes (%) (Auto) 3.8 0.0-12.0 % Eosinophils (%) (Auto) 1.8 0.0-7.0 % Basophils (%) (Auto) 0.3 0.0-2.0 % Neutrophils # (Auto) 5.7 1.6-8.6 10 ^3/uL Lymphocytes # (Auto) 0.9 0.4-5.4 10 ^3/uL Monocytes # (Auto) 0.3 0-1.3 10 ^3/uL Eosinophils # (Auto) 0.1 0-0.8 10 ^3/uL Basophils # (Auto) 0 0-0.2 10 ^3/uL Nucleated Red Blood Cells 0.0 % Sodium Level 142 136-145 mmol/L Potassium Level 4.0 3.5-5.1 mmol/L Chloride Level 111 H 98-107 mmol/L Carbon Dioxide Level 24 20-31 mmol/L Anion Gap 7 5-15 Blood Urea Nitrogen 27 H 9-23 mg/dL Creatinine 0.63 0.550-1.02 mg/dL Glomerular Filtration Rate Calc 95 >90 mL/min BUN/Creatinine Ratio 42.9 H 10.0-20.0 Serum Glucose 115 H 74-106 mg/dL Lactic Acid Level 0.9 0.4-2.0 mmol/L Calcium Level 8.9 8.7-10.4 mg/dL Current Medications Medications (Trade) Dose Ordered Sig/Lore Route Start Time Stop Time Status Last Admin Acetaminophen/ Hydrocodone Bitart ([place] 5/325MG Tab) 1 tab ONCE ONCE PO 08/15/25 16:30 08/15/25 16:31 DC 08/15/25 16:41 [place] [id number] Ph: [phone] DIAGNOSTIC IMAGING Diagnostic Imaging Report : [id number] Signed PATIENT: TRISTA FOOTE ACCT: [id number] UNIT: [id number] : 1955 LOC: ER ROOM / BED: / AGE / SEX: 70 / F ADM STATUS: REG ER SERVICE 1213 ORDERING PHYSICIAN: OLYA JACOBS MD PROCEDURE(s): CXRP - CHEST PORTABLE REASON: CP ORDER NUMBER(s): [id number], ACCESSION NUMBER(s): [id number] EXAM: XY CHEST PORTABLE Indication: CP Technique: Single frontal view of the chest was obtained Comparison: XY CHEST XRAY 1 VIEW on DOS: 12/13/23, XY CHEST XRAY 1 VIEW on DOS: 02/18/23, CXRP on DOS: 08/21/22, EKG on DOS: 08/20/22, CXRP on DOS: 06/08/22 FINDINGS: Lines and Tubes: Cardiac pacemaker projects over left chest wall. Lungs: No focal consolidation. Pleura: No effusion. No pneumothorax. Cardiomediastinal contours: Unremarkable. Atherosclerotic vascular calcifications of the thoracic aorta are noted. Bones: No acute osseous abnormality. IMPRESSION: No acute cardiopulmonary disease. ATED BY: MYLENE OLIVA MD DICTATED DATE/TIME: 08/15/251253 SIGNED BY: MYLENE OLIVA MD SIGNED DATE/TIME: 08/15/251253 CC: Time of 1ST Reevaluation: 13:15 Reevaluation 1ST: Unchanged Patient Education/Counseling: Diagnosis, Treatment Family Education/Counseling: No Family Present SEPSIS Sepsis Screen Physician Orders Chest Portable (08/15/25 12:13) Blood Culture (08/15/25 12:13) Vital Signs Date Time Temp Pulse Resp B/P (MAP) Pulse Ox O2 Delivery O2 Flow Rate FiO2 08/15/25 14:49 72 08/15/25 14:47 97.8 74 18 118/82 (94) 97 97.8 08/15/25 12:46 88 08/15/25 12:15 97.2 76 16 142/80 97 97.2 08/15/25 12:09 91 Laboratory Tests Test 08/15/25 12:58 Lactic Acid Level 0.9 mmol/L (0.4-2.0) White Blood Count 7.0 10^3/uL (4.4-10.8) Medications Medications Dose Ordered Sig/Lore Route Start Time Stop Time Status Last Admin Dose Admin Acetaminophen/ Hydrocodone Bitart 1 tab ONCE ONCE PO 08/15/25 16:30 08/15/25 16:31 DC 08/15/25 16:41 Departure 1 Departure Time of Disposition: 17:01 (Patient presented with chest pain that was concerning for possible STEMI, ACS, PE, Pneumonia, Muscle Strain, COPD, Dissection. Data: 1. I ordered and reviewed the result of at least 3 labs including a CBC, BMP, and Troponin. 2. I independently interpreted the following tests: EKG which shows sinus arrhythmia and Chest X-ray which shows benign chest.Risk:This patient has a high risk of morbidity due to further diagnostic testing or treatment and may suffer from an acute cardiac or respiratory disorder. Workup reveals concern for ACS and patient should be admitted for further workup and possible expert consultation. ) Impression: Primary Impression: Acute chest pain Disposition: ADMITTED INPATIENT Admit to: Tele Condition: Guarded Discharged With: Self Critical Care Note Critical Care Time?: Yes Critical care comment: Acute chest pain Authorized and Performed by: Olya Jacobs MD Total critical care time: Approximately 38 minutes Due to a high probability of clinically significant, life threatening deterioration, the patient required my highest level of preparedness to intervene emergently and I personally spent this critical care time directly and personally managing the patient. This critical care time included obtaining a history; examining the patient; pulse oximetry; ordering and review of studies; arranging urgent treatment with development of a management plan; evaluation of patient's response to treatment; frequent reassessment; and, discussions with other providers. This critical care time was performed to assess and manage the high probability of imminent, life-threatening deterioration that could result in multi-organ failure. It was exclusive of separately billable procedures and treating other patients and teaching time. Please see my other sections and the rest of the note for further information on patient assessment and treatment. Stability Stability form required: No Heart Score Heart Score: Heart Score Response (Comments) Value History Moderate Suspicious 1 EKG Repolarization Disturb 1 Age >65 2 Risk Factors >3 or Hx ASHD 2 Troponin 1-2 x's Normal limit 1 Total 7 I personally scribed for OLYA JACOBS MD ([email or web address]) on 08/15/25 at 12:21. Electronically submitted by Jan Ochoa ([email or web address]). I personally scribed for OLYA JACOBS MD ([email or web address]) on 08/15/25 at 13:03. Electronically submitted by Jan Ochoa ([email or web address]). OLYA JACOBS MD Aug 15, 2025 12:21
--- NOTE | 2025-08-15 12:56 | DVH ---
EXAM: XY CHEST PORTABLE Indication: CP Technique: Single frontal view of the chest was obtained Comparison: XY CHEST XRAY 1 VIEW on DOS: 12/13/23, XY CHEST XRAY 1 VIEW on DOS: 02/18/23, CXRP on DOS: 08/21/22, EKG on DOS: 08/20/22, CXRP on DOS: 06/08/22 FINDINGS: Lines and Tubes: Cardiac pacemaker projects over left chest wall. Lungs: No focal consolidation. Pleura: No effusion. No pneumothorax. Cardiomediastinal contours: Unremarkable. Atherosclerotic vascular calcifications of the thoracic aorta are noted. Bones: No acute osseous abnormality. IMPRESSION: No acute cardiopulmonary disease.
[2025-08-15 13:46] LABS: Potassium 4.0 mmol/L (3.5-5.1); Sodium 142 mmol/L (136-145)
[2025-08-15 13:47] LABS: Anion Gap 7 (5-15); Carbon Dioxide 24 mmol/L (20-31); Hematocrit 44.7 % (36.0-46.0); Hemoglobin 15.4 g/dL (12.2-16.2); Mean Corpuscular Hemoglobin 32.4 pg (28.0-32.0); Mean Corpuscular Volume 93.9 fL (80.0-100.0); Nucleated Red Blood Cells % 0.0 %
[2025-08-15 13:48] LABS: Calcium 8.9 mg/dL (8.7-10.4)
[2025-08-15 13:52] LABS: Chloride 111 mmol/L (98-107)
[2025-08-15 13:53] LABS: BUN/Creatinine Ratio 42.9 (10.0-20.0); Blood Urea Nitrogen 27 mg/dL (9-23); Glucose 115 mg/dL (74-106)
[2025-08-15 15:15] VITALS: PULSE 82; RESP 20; O2SAT 96
--- NOTE | 2025-08-15 16:32 | ECG ---
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
--- NOTE | 2025-08-15 16:32 | ECG ---
[facility] Test Date: 2025-08-15 Test Time: 12:09:48 Pat Name: TRISTA FOOTE Department: Room: 0273T Gender: F Gold Layer: TEDDY : 1955 Requested By: EMERGENCY EMERGENCY Order Number: [id number] Reading MD: Shen Montalvo Measurements Intervals [place] Rate: 91 P: 0 NC: 0 QRS: -31 QRSD: 133 T: 160 QT: 383 QTc: 472 Interpretive Statements Atrial fibrillation Ventricular premature complex Left bundle branch block Electronically Signed On 08-20-2025 10:08:36 PST by Shen Montalvo Please click the below link to view image of tracing.
--- NOTE | 2025-08-15 16:33 | ECG ---
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
[2025-08-15 16:34] LABS: Urine Protein, UAD TRACE (Negative)
[2025-08-15] MEDS: HYDROcodone-ACET 5/325MG TAB PO ONE (16:41)
--- NOTE | 2025-08-15 21:19 | DVHHPRES ---
History of Present Illness Resident Creating Document: MIKE DUNCAN History of Present Illness Patient is a 70-year-old female with past medical history of Anemia, Anxiety, Asthma, CAD, CHF, CVA, Depression, DM, GERD, High Lipids, HTN, PE, PUD, Seizures, NANY and restless legs syndrome, presented to [facility] ED with complaint of chest pain. She reports experiencing sharp, left-sided chest pain at rest for the past 3 days, radiating to her left arm. Associated symptoms include chills, nausea, shortness of breath, cough, watery diarrhea and an unintentional weight loss of approximately 10 lbs over the past week. On evaluation in the ED, patient is afebrile, blood pressure is 142/80 mmHg. Initial labs show thrombocytopenia, BUN 27, serum glucose 115 with normal lactic acid and troponin. Chest X-ray shows no acute intracranial findings. The patient was started on breathing treatment, IV antibiotics and IV fluids. Patient is admitted for further evaluation and management. Past Medical History Anemia, Anxiety, Asthma, CAD, CHF, CVA, Depression, DM, GERD, High Lipids, HTN, PE, PUD, Seizures, NANY, restless legs syndrome Past Surgical History Appendectomy, Cholecystectomy, Hernia Repair, Hysterectomy, Pacemaker, Tonsillectomy Family History: None Smoke: No ALCOHOL: none Drugs: None Review of Systems Review of Systems Constitutional: Chills, weakness, weight loss Eyes: No Pain, No Vision change, No Conjunctivae inflammation, No Eyelid inflammation, No Other, No Redness ENT: No Ear pain, No Ear discharge, No Nose pain, No Nose discharge, No Nose congestion, No Mouth pain, No Mouth swelling, No Throat pain, No Throat swelling, No Other Cardiovascular: Chest Pain, No Palpitations, No Orthopnea, No Paroxysmal No Dyspnea, No Edema, Lt Headedness, No Other Respiratory: Cough, No Dry, Shortness of breath, No SOB with exertion, No Wheezing, No Hemoptysis, No Pleuritic Pain, No Sputum, No Other Gastrointestinal: Nausea, No Vomiting, No Abdominal Pain, Diarrhea, No Constipation, No Melena, No Hematochezia, No Other Genitourinary: No Dysuria, No Frequency, No Incontinence, No Hematuria, No Retention, No Other Musculoskeletal: No other, No neck pain, No shoulder pain, left arm pain, No back pain, No hand pain, No leg pain, No foot pain Skin: No Rash, No Lesions, No Jaundice, No Bruising, No Other Allergies: Coded Allergies: Baclofen (Unverified Allergy, Severe, SOB, rash, cough, 06/07/23) Gabapentin (Unverified Adverse Reaction, Severe, seizure, SOB, 06/07/23) Enalapril (Unverified Adverse Reaction, Intermediate, SOB, cough, 06/07/23) Penicillins (Verified Adverse Reaction, Mild, Rash, 12/13/23) On 12/13/2023: Rx Student, Viviana, interviewed patient. She denies any allergies to PCN and states "She may of said it on accident on 12/12/23 since she was out of it". Patient has tolerated amoxicillin and keflex before in the past without any adverse reactions. Exam Vital Signs Vital Signs Date Time Temp Pulse Resp B/P (MAP) Pulse Ox O2 Delivery O2 Flow Rate FiO2 08/15/25 18:57 82 18 124/86 (99) 98 08/15/25 14:47 97.8 97.8 Exam General Appearance: Cooperative. Well developed. Well nourished. NAD Head Exam: Normal inspection Neck Exam: Normal inspection. Non-tender. Normal alignment Pulmonary/Respiratory: Chest Non-Tender, Lungs Clear, No Accessory Muscle Use, No Respiratory Distress, Non-productive cough with crackles noted throughout. Cardiovascular/Chest: Irregular, No Edema, No JVD, No Murmur, No Gallop, Normal Peripheral Pulses Peripheral Pulses: 2+ Radial (R). 2+ Radial (L). 2+ Pedal (R). 2+ Pedal (L) Abdominal Exam: Normal bowel sounds. Soft. normal abdomen, no visible veins, Nontender. No hepatospenomegaly. No masses Ankle Exam: Negative ankle edema Lower extremities: Negative lower extremity edema Neuro/Mental Status: A&O x4. Coherent. Thoughts/Psych: Normal thought pattern. Appropriate mood and affect. Good judgement and insight Skin Exam: Normal inspection. Normal color. Warm. Dry Labs/Xrays Labs Test 08/15/25 16:08 08/15/25 15:44 08/15/25 12:58 Range/Units Urine Color Yellow Yellow Urine Clarity Clear Clear Urine pH 8.0 5.0-9.0 Urine Specific [place] 1.029 1.001-1.035 Urine Protein Trace H Negative Urine Ketones 2+ H Negative Urine Blood Negative Negative /uL Urine Nitrite Negative Negative Urine Bilirubin Negative Negative Urine Urobilinogen 8 H Negative mg/dL Urine Leukocyte Esterase 1+ Negative /uL Urine RBC <1 0 - 4 /hpf Urine Microscopic WBC 6 H 0-5 /HPF Urine Squamous Epithelial Cells Few <5 /hpf Urine Calcium Oxalate Crystals Few None Seen Urine Bacteria None seen None Seen /hpf Urine Mucus Few None Seen Urine Glucose Normal Normal mg/dL Troponin I High Sensitivity 5 </=34 ng/L White Blood Count 7.0 4.4-10.8 10^3/uL Red Blood Count 4.76 4.0-5.20 10^6/uL Hemoglobin 15.4 12.2-16.2 g/dL Hematocrit 44.7 36.0-46.0 % Mean Corpuscular Volume 93.9 80.0-100.0 fL Mean Corpuscular Hemoglobin 32.4 H 28.0-32.0 pg Mean Corpuscular Hemoglobin Concent 34.5 32.0-36.0 g/dL Red Cell Distribution Width 13.4 11.8-14.3 % Platelet Count 129 L 140-450 10^3/uL Mean Platelet Volume 9.3 6.9-10.8 fL Neutrophils (%) (Auto) 81.5 H 37.0-80.0 % Lymphocytes (%) (Auto) 12.6 10.0-50.0 % Monocytes (%) (Auto) 3.8 0.0-12.0 % Eosinophils (%) (Auto) 1.8 0.0-7.0 % Basophils (%) (Auto) 0.3 0.0-2.0 % Neutrophils # (Auto) 5.7 1.6-8.6 10 ^3/uL Lymphocytes # (Auto) 0.9 0.4-5.4 10 ^3/uL Monocytes # (Auto) 0.3 0-1.3 10 ^3/uL Eosinophils # (Auto) 0.1 0-0.8 10 ^3/uL Basophils # (Auto) 0 0-0.2 10 ^3/uL Nucleated Red Blood Cells 0.0 % Sodium Level 142 136-145 mmol/L Potassium Level 4.0 3.5-5.1 mmol/L Chloride Level 111 H 98-107 mmol/L Carbon Dioxide Level 24 20-31 mmol/L Anion Gap 7 5-15 Blood Urea Nitrogen 27 H 9-23 mg/dL Creatinine 0.63 0.550-1.02 mg/dL Glomerular Filtration Rate Calc 95 >90 mL/min BUN/Creatinine Ratio 42.9 H 10.0-20.0 Serum Glucose 115 H 74-106 mg/dL Lactic Acid Level 0.9 0.4-2.0 mmol/L Calcium Level 8.9 8.7-10.4 mg/dL SEPSIS Sepsis Screen Date sepsis recognized/suspect: Aug 15, 2025 Time Sepsis recognized/suspect: 1856 Recent Procedure: No On Antibiotic Therapy: No Respiratory Rate >20: No Heart Rate >90: No Temp<36 C (96.8 F) or >38.3 C: No SBP <90 or MAP <65 mmHG: No New Acute Mental Status Change: No Is the patient on CPAP, BIPAP,: No Vital Signs Date Time Temp Pulse Resp B/P (MAP) Pulse Ox O2 Delivery O2 Flow Rate FiO2 08/15/25 18:57 82 18 124/86 (99) 98 08/15/25 14:49 72 08/15/25 14:47 97.8 74 18 118/82 (94) 97 97.8 Laboratory Tests Test 08/15/25 12:58 Lactic Acid Level 0.9 mmol/L (0.4-2.0) White Blood Count 7.0 10^3/uL (4.4-10.8) Medications Medications Dose Ordered Sig/Lore Route Start Time Stop Time Status Last Admin Dose Admin Acetaminophen/ Hydrocodone Bitart 1 tab ONCE ONCE PO 08/15/25 16:30 08/15/25 16:31 DC 08/15/25 16:41 1 TAB Assessment/Plan Assessment/Plan Unstable angina Acute intractable chest pain r/o ACS Pneumonia likely due to Gram +/- bacteria Echocardiogram ordered Echocardiogram (06/29/22) : LVEF 60% Chest X-ray: No acute cardiopulmonary disease. Pain management with [place] Nitroglycerin sublingual 0.4 mg sl q5minp Hepatic panel Zofran 4 MG IV q4h Albuterol 2.5 MG NEB q6h Ipratropium 0.5 MG NEB q6h Aspirin 325 mg p.o. once Atorvastatin 40 mg p.o. HS Ceftriaxone IV daily Doxycycline 100 mg p.o. q12h Sputum culture Blood culture Urine culture Protonix 40mg Atrial fibrillation EKG: Atrial fibrillation. Nonspecific intraventricular conduction delay. Repol abnrm suggests ischemia, inferior leads. Baseline wander in lead(s) I,V5,V6 Digoxin 0.125 mg p.o. daily Lovenox 40mg Seizures Keppra 500 mg p.o. b.i.d. Hypertension Metoprolol 50 mg p.o. b.i.d. MISAEL on CKD likely due to VMN Monitor renal function Avoid nephrotoxic drugs Neuropathy pregabalin 50 mg p.o. t.i.d. Depression Sertraline 50 MG PO daily Diet: Cardiac PUD prophylaxis: protonix 40mg DVT prophylaxis: Lovenox 40mg Goals of care: Full code, discussed for >30 minutes on 08/15/25 Plan discussed with patient Plan discussed with Dr. Finn Plan discussed with: Patient Date of Service: Aug 15, 2025 Billing Provider: PRATIMA FINN MD Common Visit Codes: [id number] INP/OBS CARE (HIGH) Secondary Visit Codes: [id number]-[id number] CARE PLAN 30 MINUTES MIKE DUNCAN RESIDENT Aug 15, 2025 21:19
[2025-08-15] MEDS ORDERED: HYDROcodone-ACET 5/325MG TAB PO PRN (22:00)
[2025-08-15] MEDS ORDERED: NITROGLYCERIN 0.4 MG SL TAB SL PRN (22:00)
[2025-08-15] MEDS: HYDROcodone-ACET 5/325MG TAB PO PRN (22:40)
[2025-08-15 23:01] LABS: Alanine Aminotransferase 12.0 U/L (7-40); Albumin 3.9 g/dL (3.2-4.8); Alkaline Phosphatase 104.0 U/L (46-116); Bilirubin, Total 0.8 mg/dL (0.2-1.0); Magnesium 2.0 mg/dL (1.6-2.6); Total Protein 6.5 g/dL (5.7-8.2)
[2025-08-15 23:07] LABS: Bilirubin, Direct 0.4 mg/dL (<0.3)
[2025-08-15 23:11] LABS: INR 1.08 (0.9-1.15); Partial Thromboplastin Time 26.5 SEC (24.5-34.5); Prothrombin Time 11.4 sec (9.3-11.8)
[2025-08-15] MEDS: ATORVASTATIN 20 MG TAB PO ONE (23:53)
[2025-08-15] MEDS: levETIRAcetam 500 MG TAB PO SCH (23:53)
[2025-08-15] MEDS: PREGABALIN CAPSULE 75 MG CAP PO SCH (23:54)
[2025-08-15] MEDS: METOPROLOL TARTRATE 50 MG TAB PO SCH (23:54)
[2025-08-15] MEDS: DOXYCYCLINE 100 MG TAB/CAP PO SCH (23:55)
[2025-08-15] MEDS: PANTOPRAZOLE 40 MG/10 ML VIAL INJ IV ONE (23:56)
[2025-08-16] VITALS (18 sets, daily range): BP systolic 107–167; BP diastolic 65–87; PULSE 69–92; RESP 16–20; TEMP 97.4–98.2; O2SAT 95–100
[2025-08-16] MEDS: ALBUTEROL SULF 2.5 MG/0.5ML(0.5%) NEB SOLN NEB SCH (01:41)
[2025-08-16] MEDS: IPRATROPIUM BROM 0.5 MG/2.5ML INH SOL NEB PRN (01:41)
[2025-08-16] MEDS: ENOXAPARIN SOD 100 MG/1 ML SYRINGE SC SCH (02:44)
[2025-08-16] MEDS ORDERED: DIPH-753 PO (06:23)
[2025-08-16] MEDS ORDERED: SUCR1SUS5 PO (06:23)
[2025-08-16] MEDS ORDERED: PREG150C PO (06:23)
[2025-08-16] MEDS ORDERED: FAMO20TA10 PO (06:23)
[2025-08-16] MEDS ORDERED: ONDA-155 PO (06:23)
[2025-08-16 06:41] LABS: Hematocrit 41.3 % (36.0-46.0); Hemoglobin 14.3 g/dL (12.2-16.2); Mean Corpuscular Hemoglobin 32.4 pg (28.0-32.0); Mean Corpuscular Volume 93.5 fL (80.0-100.0); Nucleated Red Blood Cells % 0.1 %
[2025-08-16 06:56] LABS: Alanine Aminotransferase 10 U/L (7-40); Albumin 3.6 g/dL (3.2-4.8); Alkaline Phosphatase 82 U/L (46-116); Anion Gap 4 (5-15); BUN/Creatinine Ratio 24.6 (10.0-20.0); Bilirubin, Total 1.0 mg/dL (0.2-1.0); Blood Urea Nitrogen 14 mg/dL (9-23); Calcium 8.9 mg/dL (8.7-10.4); Carbon Dioxide 24 mmol/L (20-31); Glucose 90 mg/dL (74-106); Potassium 3.7 mmol/L (3.5-5.1); Sodium 139 mmol/L (136-145); Total Protein 6.1 g/dL (5.7-8.2)
[2025-08-16 06:57] LABS: Chloride 111 mmol/L (98-107)
[2025-08-16 08:09] LABS: COVID19 ANTIGEN SOFIA FIA NEGATIVE (NEGATIVE)
[2025-08-16] MEDS: PANTOPRAZOLE 40 MG/10 ML VIAL INJ IV SCH (09:11)
[2025-08-16] MEDS: DIGOXIN 0.125 MG TAB PO SCH (09:12)
[2025-08-16] MEDS: SERTRALINE HCL 50 MG TAB PO SCH (09:13)
[2025-08-16] MEDS ORDERED: PREGABALIN CAPSULE 75 MG CAP PO ONE (09:30)
--- NOTE | 2025-08-16 10:30 | DVHPNRES ---
Progress Note Date Seen: Aug 16, 2025 Resident Creating Document: MARY LOU IRWIN RESIDENT Medical Necessity Reason Pt with a Central, PICC or Fol: No Subjective Review of Systems Maribell Tapia is a 70-year old female with past medical history of CAD s/p ICD placement, CVA with no residual weakness,colon cancer 4 years back s/p colectomy, asthma, COPD not on home oxygen,Diabetes mellitus, GERD, NANY with CPAP use at night, seizure disorder, lymphedema, restless leg syndrome who presented to the ED with the chief complaint of chest pain on the left side, radiating to the let arm, pressure like and progressing to sharp pain, 8/10 in intensity since 1 week which worsened 3 days back. She also complained of abdominal pain in the mid upper abdomen since almost 1 month which is worse after eating associated with gurgling sound. Patient has also had diarrhea on and off since 1 month and weight loss of 10-14 lbs in the last 1 week. She has also had a mild, nonproductive cough since the last 2 days. She denies any fever, chills, shortness of breath,nausea or vomiting. Past medical history: CAD s/p ICD placement, CVA with no residual weakness,colon cancer 4 years back s/p colectomy, asthma, COPD not on home oxygen,Diabetes mellitus, GERD, NANY with CPAP use at night, seizure disorder, lymphedema, restless leg syndrome Past surgical history: colectomy 4 years back, cholecystectomy, hysterectomy, ICD placement, THR-right, TKR -left, hernia repair Social & Personal history: lives at home with family, smokes <1 pack per day for 20 years, denies alcohol and drug use Allergies: Baclofen, enalapril, gabapentin, penicillins Patient seen and examined at bedside. Patient is alert and oriented to time, place person and responding to all questions. Eyes: No Pain, No Vision change, No Conjunctivae inflammation, No Eyelid inflammation, No Redness ENT: No Ear pain, No Ear discharge, No Nose pain, No Nose discharge, No Nose congestion, No Mouth pain, No Mouth swelling, No Throat pain, No Throat swelling Cardiovascular: mild Chest Pain, No Palpitations, No Orthopnea, No Paroxysmal No Dyspnea, No Edema, No Lt Headedness Respiratory: No Cough, No Dry, No Shortness of breath, No SOB with exertion, No Wheezing, No Hemoptysis, No Pleuritic Pain, No Sputum Gastrointestinal: No Nausea, No Vomiting, Abdominal Pain, No Diarrhea, No Constipation, No Melena, No Hematochezia Genitourinary: No Dysuria, No Frequency, No Incontinence, No Hematuria, No Retention Objective vital signs Vital Sign Date Time Temp Pulse Resp B/P (MAP) Pulse Ox O2 Delivery O2 Flow Rate FiO2 08/16/25 09:14 69 107/65 08/16/25 06:20 18 100 08/16/25 06:14 Room Air* 0 21 08/16/25 05:00 97.9 97.9 Total Intake and Output 08/15/25 08/15/25 08/16/25 15:00 23:00 07:00 Intake Total 460 ml Balance 460 ml medications Current Medications Medications Dose Ordered Sig/Lore Route Start Time Stop Time Status Last Admin Dose Admin Acetaminophen/ Hydrocodone Bitart 1 tab Q4HPRN PRN PO 08/15/25 21:30 08/16/25 09:11 1 TAB Acetaminophen/ Hydrocodone Bitart 1 tab Q4HP PRN PO 08/15/25 22:00 Ondansetron HCl 4 mg Q4HP PRN IV 08/15/25 22:00 Nitroglycerin 0.4 mg Q5MINP PRN SL 08/15/25 22:00 Albuterol 2.5 mg Q6HR NEB 08/16/25 00:00 08/16/25 06:14 2.5 MG Ipratropium [place] 0.5 mg Q6HPRN PRN NEB 08/15/25 22:00 08/16/25 01:41 0.5 MG Doxycycline Monohydrate 100 mg Q12HR PO 08/15/25 22:00 08/16/25 09:12 100 MG Ceftriaxone Sodium 50 ml @ 100 mls/hr DAILY@09 IV 08/16/25 09:00 08/16/25 09:09 100 MLS/HR Atorvastatin Calcium 40 mg HS PO 08/16/25 22:00 Enoxaparin Sodium 100 mg Q12HR SC 08/15/25 22:00 08/16/25 09:09 100 MG Digoxin 0.125 mg DAILY PO 08/16/25 10:00 08/16/25 09:12 0.125 MG Levetiracetam 500 mg BID PO 08/15/25 22:00 08/16/25 09:13 500 MG Metoprolol Tartrate 50 mg BID PO 08/15/25 22:00 08/16/25 09:14 50 MG Pantoprazole Sodium 40 mg DAILY IV 08/16/25 10:00 08/16/25 09:11 40 MG Sertraline HCl 50 mg DAILY PO 08/16/25 10:00 08/16/25 09:13 50 MG Sucralfate 1 gm TID PO 08/16/25 14:00 Pregabalin 150 mg TID PO 08/16/25 14:00 Examination General Appearance: Cooperative. Well developed. Well nourished. NAD Head Exam: Normal inspection Neck Exam: Normal inspection. Non-tender. Normal alignment Pulmonary/Respiratory: Chest tenderness left side,b/l rales, no crackles, no wheezing. Cardiovascular/Chest: Regular rate and rhythm. No murmurs. No JVD. Peripheral Pulses: 2+ Radial (R). 2+ Radial (L). 2+ Pedal (R). 2+ Pedal (L) Abdominal Exam: Normal bowel sounds. Soft. normal abdomen, no visible veins, tenderness in upper quadrants, No hepatospenomegaly. No masses Ankle Exam: Negative ankle edema Lower extremities: Negative lower extremity edema Neuro/Mental Status: A&O x4. Coherent. Thoughts/Psych: Normal thought pattern. Appropriate mood and affect. Good judgement and insight Skin Exam: Normal inspection. Normal color. Warm. Dry laboratory and microbiology Laboratory Tests 08/16/25 05:16 Test 08/16/25 05:16 Range/Units Serum Glucose 90 74-106 mg/dL Microbiology Date/Time Source Procedure Growth Status 08/15/25 16:08 Voided Urine Urine Culture - Preliminary Resulted Labs and/or images reviewed: Labs reviewed by me, Image(s) reviewed by me Problem List/Assessment/Plan Problem List/Assessment/Plan Assessment/Plan # Acute chest pain, R/O Acute coronary syndrome #Possible acute costochondritis #Hypertensive heart disease with diastolic dysfunction #Paroxysmal atrial fibrilation, currently paced rhythm -tropes negative -Echo ordered, pending report -chest xray- no acute cardiopulmonary disease -cardiology consult placed,pending evaluation -continue digoxin 0.125 mg po daily -lovenox 100 mg bid -metoprolol 50mg po bid # GERD - Protonix 40 mg bid and carafate 1 gm bid. # Acute complicated cystitis -ceftriaxone 1gm iv daily - Pending urine culture # Seizure disorder -continue home med keppra 500 mg po bid # Prediabetes -Ordered HbA1c # Peripheral Neuropathy, unknown etiology # Restless leg syndrome -continue home dose pregabalin 150mg po tid PUD prophylaxis: protonix DVT prophylaxis: lovenox Goals of care: Full code, discussed for >16 minutes Plan discussed with patient Plan discussed with Dr Finn Plan discussed with: Patient Date of Service: Aug 16, 2025 Billing Provider: PRATIMA FINN MD Common Visit Codes: [id number] INP/OBS CARE(HIGH) MARY LOU IRWIN RESIDENT Aug 16, 2025 10:29 JULIEN ALBARADO RESIDENT Aug 16, 2025 20:54
[2025-08-16] MEDS: PREGABALIN CAPSULE 75 MG CAP PO SCH (13:22)
[2025-08-16] MEDS: SUCRALFATE 1 GM TAB PO SCH (13:22)
[2025-08-16] MEDS: FUROSEMIDE 20 MG/2 ML VIAL IV ONE (13:31)
[2025-08-16] MEDS: PANTOPRAZOLE 40 MG TAB PO SCH (17:18)
[2025-08-16] MEDS: ONDANSETRON HCL 4 MG/2 ML VIAL IV PRN (18:42)
--- NOTE | 2025-08-16 20:03 | DVHINCON2 ---
Date of service: Aug 16, 2025 Referring Physician Ronni Reason for Consultation Chest pain History of Present Illness This is a 70-year-old female with a past medical history of Anemia, Anxiety, Asthma, CAD, CHF, CVA, Depression, DM, GERD, High Lipids, HTN, PE, PUD, Seizures, NANY and restless legs syndrome who presented to the ED with a complaint of chest pain. Patient reports experiencing sharp, left-sided chest pain at rest for the past 3 days, radiating to her left arm. Patient has associated symptoms include chills, nausea, shortness of breath, cough, watery diarrhea and an unintentional weight loss of approximately 10 lbs over the past week. Troponin is negative. Chest x-ray shows no acute intracranial findings. EKG showed A FIb at 91.Patient was admitted to the hospital. I am asked to consult on this patient. Family History: FH: CHF (congestive heart failure) G8 FATHER G8 BROTHER G8 SISTER FH: cancer G8 MOTHER G8 FATHER Family history: Cardiovascular disease G8 MOTHER G8 FATHER Family history: Diabetes mellitus G8 FATHER G8 SISTER Heart murmur G8 MOTHER Allergies: Coded Allergies: Baclofen (Unverified Allergy, Severe, SOB, rash, cough, 06/07/23) Gabapentin (Unverified Adverse Reaction, Severe, seizure, SOB, 06/07/23) Enalapril (Unverified Adverse Reaction, Intermediate, SOB, cough, 06/07/23) Penicillins (Verified Adverse Reaction, Mild, Rash, 12/13/23) On 12/13/2023: Rx StudentViviana, interviewed patient. She denies any allergies to PCN and states "She may of said it on accident on 12/12/23 since she was out of it". Patient has tolerated amoxicillin and keflex before in the past without any adverse reactions. Home Meds Active Scripts Cholecalciferol (Vitamin D3 Super Strength) 2,000 Unit Cap, 4000 UNIT PO DAILY for 30 Days, #60 CAP Prov:THIERNO HARRELL MD 05/08/21 Reported Medications Loratadine (Claritin) 10 Mg Tab, 1 TAB PO DAILY, #30 TAB 5 Refills 08/16/25 Ondansetron HCl (Ondansetron) 4 Mg Tab, 4 MG PO PRN for NAUSEA / VOMITING, TAB 08/16/25 Diphenhydramine Hcl (Diphenhydramine Hcl) 25 Mg Cap, 50 MG PO PRN, MG 08/16/25 Pregabalin (Lyrica) 150 Mg Cap, 1 CAP PO TID, #60 CAP 5 Refills 08/16/25 Sucralfate (Carafate) 1 Gm/10 Ml Khloe, 10 ML PO BID, #120 ML 1 Refill 08/16/25 Famotidine (PEPCID TABLET) 20 Mg Tb, 1 TAB PO BID, #60 TAB 5 Refills 08/16/25 Pantoprazole Sodium Sesquihydr (Protonix) 40 Mg Tab, 40 MG PO DAILY, #30 TAB 08/16/25 Fluoxetine Hcl (Fluoxetine Hcl) 10 Mg Cap, 1 TAB PO DAILY 12/13/23 Docusate Sodium (Colace) 100 Mg Cap, 1 CAP PO BID 12/13/23 Nitrofurantoin (Macrodantin) 50 Mg Cap, 1 CAP PO DAILY 12/13/23 Donepezil Hydrochloride (DONEPEZIL HCL) 10 Mg Tab, 1 TAB PO DAILY 12/13/23 Pregabalin (Pregabalin) 150 Mg Cap, 1 CAP PO TID, CAP 12/13/23 Albuterol Sulfate (VENTOLIN MDI) 90 Mcg Ih, 2 PUFF INH QID 12/13/23 Alendronate Sodium (Alendronate Sodium) 70 Mg Tab, 1 TAB PO QWEEKLY 12/12/23 Furosemide (Furosemide) 40 Mg Tab, 1 TAB PO DAILY 12/12/23 Dicyclomine HCl (Dicyclomine Hydrochloride) 20 Mg Tab, 20 MG PO DAILY, TAB 06/07/23 Ergocalciferol (VITAMIN D 46890 UNIT) 50,000 [place], 285[address] UNIT PO QWEEKLY, CAP 06/07/23 Diphenhydramine HCl (Benadryl Allergy Extra St) 50 Mg Tab, 50 MG PO TIDP, TAB 06/07/23 Sertraline Hcl (Zoloft) 50 Mg Tab, 50 MG PO DAILY, TAB 06/09/22 Loratadine (Claritin) 10 Mg Tab, 10 MG PO DAILY, TAB 06/09/22 Secukinumab (Cosentyx) 150 Mg/Ml Inj, 150 MG SC, INJ 06/09/22 Metoprolol Tartrate (LOPRESSOR TABLET) 50 Mg Tb, 50 MG PO BID, TAB 06/09/22 Pyridoxine Hcl (Vitamin B 6) 50 Mg Tab, 50 MG PO DAILY, TAB 09/12/21 Ondansetron (Zofran) 4 Mg Tab, 1 TAB PO Q8HR PRN 09/12/21 Digoxin (Digitek) 0.125 Mg Tab, 0.125 MG PO DAILY, TAB 11/29/19 Hydrocodone-Acetaminophen (Hydrocodone/Acetaminophen 10-325 mg) 1 Tab Tab, 1 TAB PO QID PRN 07/27/17 Lidocaine (LIDODERM 5% TOPICAL PATCH) 1 Patch Ph, 1 PATCH TOP DAILY, #30 PATCH 1 Refill 07/27/17 Fluticasone Propionate (Nasal) (Flonase Allergy Relief) 50 Mcg/Act Spr, 50 MCG NA BIDP PRN for SHORTNESS OF BREATH, SPR 07/27/17 Ipratropium-Albuterol (COMBIVENT RESPIMAT) Respimat Aer, 1 PUFF IN TIDPRN PRN for SHORTNESS OF BREATH, AER 07/27/17 Cyanocobalamin (Vitamin B12) 1,000 Cr Tab, 1 TAB PO DAILY, #30 TAB 5 Refills 07/27/17 Ferrous Sulfate (FERROUS SULFATE) 325 Mg Tb, 325 MG PO DAILY 07/27/17 Atorvastatin Calcium (Lipitor) 40 Mg Tab, 40 MG PO HS, TAB 04/14/16 Ropinirole Hydrochloride (Requip) 1 Mg Tab, 1 TAB PO QPM 04/14/16 Levetiracetam (KEPPRA TABLET) 500 Mg Tb, 500 MG PO BID 04/14/16 Pantoprazole Sodium Sesquihydr (Protonix) 40 Mg Tab, 40 MG PO DAILY, TAB 04/14/16 Current Medications Current Medications Medications (Trade) Dose Ordered Sig/Lore Route PRN Reason Start Time Stop Time Status Last Admin Acetaminophen/ Hydrocodone Bitart ([place] 5/325MG Tab) 1 tab Q4HPRN PRN PO SEVERE PAIN (7-10 PAIN SCALE) 08/15/25 21:30 08/16/25 17:26 Acetaminophen/ Hydrocodone Bitart ([place] 5/325MG Tab) 1 tab Q4HP PRN PO MODERATE PAIN (4-6 PAIN SCALE) 08/15/25 22:00 Ondansetron HCl (Zofran) 4 mg Q4HP PRN IV NAUSEA / VOMITING 08/15/25 22:00 08/16/25 18:42 Nitroglycerin (Ntrostat Sublingual) 0.4 mg Q5MINP PRN SL FOR CHEST PAIN 08/15/25 22:00 Albuterol (Ventolin Medneb) 2.5 mg Q6HR NEB 08/16/25 00:00 08/16/25 12:23 Ipratropium [place] (Atrovent Medneb) 0.5 mg Q6HPRN PRN NEB SHORTNESS OF BREATH 08/15/25 22:00 08/16/25 01:41 Doxycycline Monohydrate (Vibramycin Tablet) 100 mg Q12HR PO 08/15/25 22:00 08/16/25 13:59 DC 08/16/25 09:12 Ceftriaxone Sodium 50 ml @ 100 mls/hr DAILY@09 IV 08/16/25 09:00 08/16/25 09:09 Atorvastatin Calcium (Lipitor) 40 mg HS PO 08/16/25 22:00 Enoxaparin Sodium (Lovenox) 100 mg Q12HR SC 08/15/25 22:00 08/16/25 09:09 Digoxin (Lanoxin Tablet) 0.125 mg DAILY PO 08/16/25 10:00 08/16/25 09:12 Levetiracetam (Keppra Tablet) 500 mg BID PO 08/15/25 22:00 08/16/25 09:13 Metoprolol Tartrate (Lopressor Tablet) 50 mg BID PO 08/15/25 22:00 08/16/25 09:14 Pantoprazole Sodium (Protonix) 40 mg DAILY IV 08/16/25 10:00 08/16/25 13:15 DC 08/16/25 09:11 Pregabalin (Lyrica Capsule) 150 mg TID PO 08/15/25 22:00 08/16/25 09:37 DC 08/16/25 05:50 Sertraline HCl (Zoloft) 50 mg DAILY PO 08/16/25 10:00 08/16/25 09:13 Sucralfate (Carafate Tab) 1 gm TID PO 08/16/25 14:00 08/16/25 13:22 Pregabalin (Lyrica Capsule) 150 mg TID PO 08/16/25 14:00 11/6/25 13:22 Furosemide (Lasix Injection) 20 mg DAILY IV 08/17/25 10:00 Pantoprazole Sodium (Protonix Tablet) 40 mg BID@0600,1700 PO 08/16/25 17:00 08/16/25 17:18 Review of Systems Constitutional: reports: chills; denies: diaphoresis, fatigue, fever, malaise, sweats, weakness, others EENTM: denies: blurred vision, double vision, ear bleeding, ear discharge, ear drainage, ear pain, ear ringing, eye pain, eye redness, hearing loss, mouth pain, mouth swelling, nasal discharge, nose bleeding, nose congestion, nose pain, photophobia, tearing, throat pain, throat swelling, voice changes, others Respiratory: reports: cough, shortness of breath; denies: hemoptysis, orthopnea, SOB at rest, SOB with excertion, stridor, wheezing, others Cardiovascular: reports: chest pain, left arm pain; denies: dizzy spells, diaphoresis, Dyspnea on exertion, edema, irregular heart beat, lightheadedness, palpitations, PND, syncope, others Gastrointestinal: denies: abdomen distended, abdominal pain, blood streaked bowels, constipated, diarrhea, dysphagia, difficulty swallowing, hematemesis, melena, nausea, poor appetite, poor fluid intake, rectal bleeding, rectal pain, vomiting, others Genitourinary: denies: abnormal vagina bleeding, burning, dyspareunia, dysuria, flank pain, frequency, hematuria, incontinence, pain, , vagina discharge, urgency, others Neurological: denies: dizziness, fainting, headache, left sided numbness, left sided weakness, numbness, paresthesia, pre-existing deficit, right sided numbness, right sided weakness, seizure, speech problems, tingling, tremors, weakness, others Musculoskeletal: denies: back pain, gout, joint pain, joint swelling, muscle pain, muscle stiffness, neck pain, others Integumetry: denies: bruises, change in color, change in hair/nails, dryness, laceration, lesions, lumps, rash, wounds, others Allergic/Immunocompromised: denies: Difficulty Healing, Frequent Infections, Hives, Itching, others Hematologic/Lymphatic: denies: anemia, blood clots, easy bleeding, easy bruising, swollen glands, others Endocrine: denies: excessive hunger, excessive sweating, excessive thirst, excessive urination, flushing, intolerance to cold, intolerance to heat, unexplained weight gain, unexplained weight loss, others Psychiatric: denies: anxiety, bipolar disorder, depression, hopeless, panic disorder, schizophrenia, sleepless, suicidal, others All Other Systems: Reviewed and Negative Vital Signs Vital Signs Date Time Temp Pulse Resp B/P (MAP) Pulse Ox O2 Delivery O2 Flow Rate FiO2 08/16/25 16:53 98.2 70 18 123/73 (90) 96 98.2 08/16/25 12:23 Room Air 0.0 08/16/25 12:23 21 Physical Exam GENERAL: Alert and oriented x 3. No acute distress. EYES: PERRL, EOMI. Anicteric. HENT: Moist mucous membranes. LUNGS: Clear to auscultation bilaterally. CARDIOVASCULAR: Regular rate and rhythm. ABDOMEN: Soft, nontender and nondistended. EXTREMITIES: No edema. NEUROLOGIC: No focal neurological deficits. SKIN: Warm, dry. Labs/Diagnostic Data Labs Test 08/16/25 06:54 08/16/25 05:47 08/16/25 05:16 08/15/25 22:45 Range/Units POC Glucose 93 70-106 mg/dl Influenza Type A Antigen Negative Negative Influenza Type B Antigen Negative Negative SARS-CoV-2 Antigen (Rapid) Negative NEGATIVE White Blood Count 7.9 4.4-10.8 10^3/uL Red Blood Count 4.42 4.0-5.20 10^6/uL Hemoglobin 14.3 12.2-16.2 g/dL Hematocrit 41.3 36.0-46.0 % Mean Corpuscular Volume 93.5 80.0-100.0 fL Mean Corpuscular Hemoglobin 32.4 H 28.0-32.0 pg Mean Corpuscular Hemoglobin Concent 34.7 32.0-36.0 g/dL Red Cell Distribution Width 13.5 11.8-14.3 % Platelet Count 129 L 140-450 10^3/uL Mean Platelet Volume 9.8 6.9-10.8 fL Neutrophils (%) (Auto) 73.1 37.0-80.0 % Lymphocytes (%) (Auto) 18.5 10.0-50.0 % Monocytes (%) (Auto) 5.8 0.0-12.0 % Eosinophils (%) (Auto) 2.3 0.0-7.0 % Basophils (%) (Auto) 0.3 0.0-2.0 % Neutrophils # (Auto) 5.8 1.6-8.6 10 ^3/uL Lymphocytes # (Auto) 1.5 0.4-5.4 10 ^3/uL Monocytes # (Auto) 0.5 0-1.3 10 ^3/uL Eosinophils # (Auto) 0.2 0-0.8 10 ^3/uL Basophils # (Auto) 0 0-0.2 10 ^3/uL Nucleated Red Blood Cells 0.1 % Sodium Level 139 136-145 mmol/L Potassium Level 3.7 3.5-5.1 mmol/L Chloride Level 111 H 98-107 mmol/L Carbon Dioxide Level 24 20-31 mmol/L Anion Gap 4 L 5-15 Blood Urea Nitrogen 14 # 9-23 mg/dL Creatinine 0.57 0.550-1.02 mg/dL Glomerular Filtration Rate Calc 97 >90 mL/min BUN/Creatinine Ratio 24.6 H 10.0-20.0 Serum Glucose 90 74-106 mg/dL Calcium Level 8.9 8.7-10.4 mg/dL Total Bilirubin 1.0 0.2-1.0 mg/dL Aspartate Amino Transferase (AST) 18 13-40 U/L Alanine Aminotransferase (ALT) 10 7-40 U/L Alkaline Phosphatase 82 46-116 U/L Total Protein 6.1 5.7-8.2 g/dL Albumin 3.6 3.2-4.8 g/dL Vitamin B12 Level 446 211-911 pg/mL Vitamin D 25-Hydroxy 68.4 30.0-100 ng/mL Thyroid Stimulating Hormone (TSH) 1.43 0.55-4.78 uIU/mL Prothrombin Time 11.4 9.3-11.8 sec Prothrombin Time INR 1.08 0.9-1.15 Activated Partial Thromboplast Time 26.5 24.5-34.5 SEC Test 08/15/25 16:08 08/15/25 15:44 08/15/25 12:58 Range/Units Urine Color Yellow Yellow Urine Clarity Clear Clear Urine pH 8.0 5.0-9.0 Urine Specific [place] 1.029 1.001-1.035 Urine Protein Trace H Negative Urine Ketones 2+ H Negative Urine Blood Negative Negative /uL Urine Nitrite Negative Negative Urine Bilirubin Negative Negative Urine Urobilinogen 8 H Negative mg/dL Urine Leukocyte Esterase 1+ Negative /uL Urine RBC <1 0 - 4 /hpf Urine Microscopic WBC 6 H 0-5 /HPF Urine Squamous Epithelial Cells Few <5 /hpf Urine Calcium Oxalate Crystals Few None Seen Urine Bacteria None seen None Seen /hpf Urine Mucus Few None Seen Urine Glucose Normal Normal mg/dL Magnesium Level 2.0 1.6-2.6 mg/dL Direct Bilirubin 0.4 H <0.3 mg/dL Troponin I High Sensitivity 5 </=34 ng/L C-Reactive Protein High Sensitivity 0.06 <1.0 mg/dL Erythrocyte Sedimentation Rate 2 0-20 mm/hr Lactic Acid Level 0.9 0.4-2.0 mmol/L B-Type Natriuretic Peptide 158.84 0-100 pg/mL Microbiology Date/Time Source Procedure Growth Status 08/15/25 16:08 Voided Urine Urine Culture - Preliminary Resulted 08/15/25 12:58 Blood Blood Culture - Preliminary NO GROWTH AFTER 24 HOURS OF INCUBATION. Resulted Assessment Unstable angina. Acute intractable chest pain. Pneumonia. Atrial fibrillation. Seizures. Hypertension. MISAEL on CKD. Neuropathy. Depression. Plan/Recommendation I agree with your ongoing assessment and care of plan. Echocardiogram. [place] for pain management. Lipitor, Metoprolol. IV antibiotics as ordered. Digoxin. DVT prophylactics. Diuretics with Lasix. Nitro SL. Additional plan as per the hospital course. A total of 45 minutes was spent reviewing the patient record, examining the patient, making a diagnostic and therapeutic plan, discussing this plan with medical personnel, following up on diagnostic studies and following the patient for clinical stability excluding any and all procedures. At least 50% of this time was spent in direct, [id number] contact. Plan discussed with: Patient MERARI MAIN MD Aug 16, 2025 19:25
[2025-08-16] MEDS: ATORVASTATIN 20 MG TAB PO SCH (21:15)
[2025-08-17] VITALS (14 sets, daily range): BP systolic 103–123; BP diastolic 60–76; PULSE 69–70; RESP 14–20; TEMP 97–99.1; O2SAT 92–100
[2025-08-17] MEDS: FUROSEMIDE 20 MG TAB PO SCH (09:30)
[2025-08-17] MEDS ORDERED: FUROSEMIDE 20 MG/2 ML VIAL IV SCH (10:00)
[2025-08-17] MEDS: AZITHROMYCIN 250 MG TAB PO ONE (13:53)
--- NOTE | 2025-08-17 17:40 | DVHPN2 ---
Progress Note - Dictate Date Seen: Aug 17, 2025 Medical Necessity Reason Pt with a Central, PICC or Fol: No Subjective Patient was seen and evaluated in follow up. No overnight events. Patient is complaining of feeling itchy all over and is requesting Benadryl. Telemetry reviewed. vital signs Vital Sign Date Time Temp Pulse Resp B/P (MAP) Pulse Ox O2 Delivery O2 Flow Rate FiO2 08/17/25 11:05 70 120/72 08/17/25 09:57 98.0 20 96 98.0 08/17/25 07:34 Room Air* 0 21 Total Intake and Output 08/16/25 08/16/25 08/17/25 15:00 23:00 07:00 Intake Total 1780 ml 750 ml Balance 1780 ml 750 ml medications Current Medications Medications Dose Ordered Sig/Lore Route Start Time Stop Time Status Last Admin Dose Admin Acetaminophen/ Hydrocodone Bitart 1 tab Q4HPRN PRN PO 08/15/25 21:30 08/17/25 03:49 1 TAB Acetaminophen/ Hydrocodone Bitart 1 tab Q4HP PRN PO 08/15/25 22:00 Ondansetron HCl 4 mg Q4HP PRN IV 08/15/25 22:00 08/17/25 07:44 4 MG Nitroglycerin 0.4 mg Q5MINP PRN SL 08/15/25 22:00 Albuterol 2.5 mg Q6HR NEB 08/16/25 00:00 08/17/25 00:25 2.5 MG Ipratropium [place] 0.5 mg Q6HPRN PRN NEB 08/15/25 22:00 08/17/25 00:25 0.5 MG Ceftriaxone Sodium 50 ml @ 100 mls/hr DAILY@09 IV 08/16/25 09:00 08/17/25 09:28 100 MLS/HR Atorvastatin Calcium 40 mg HS PO 08/16/25 22:00 08/16/25 21:15 40 MG Enoxaparin Sodium 100 mg Q12HR SC 08/15/25 22:00 08/17/25 09:29 100 MG Digoxin 0.125 mg DAILY PO 08/16/25 10:00 08/17/25 09:29 0.125 MG Levetiracetam 500 mg BID PO 08/15/25 22:00 08/17/25 09:30 500 MG Metoprolol Tartrate 50 mg BID PO 08/15/25 22:00 08/17/25 09:30 50 MG Sertraline HCl 50 mg DAILY PO 08/16/25 10:00 08/17/25 09:30 50 MG Sucralfate 1 gm TID PO 08/16/25 14:00 08/17/25 06:02 1 GM Pregabalin 150 mg TID PO 08/16/25 14:00 08/17/25 06:03 150 MG Pantoprazole Sodium 40 mg BID@0600,1700 PO 08/16/25 17:00 08/17/25 06:02 40 MG Diphenhydramine HCl 10 mg Q6HP PRN PO 08/16/25 23:15 08/17/25 07:44 10 MG Furosemide 20 mg DAILY PO 08/17/25 10:00 08/17/25 09:30 20 MG Azithromycin 500 mg DAILY PO 08/18/25 10:00 objective GENERAL: Alert and oriented x 3. No acute distress. EYES: PERRL, EOMI. Anicteric. HENT: Moist mucous membranes. LUNGS: Clear to auscultation bilaterally. CARDIOVASCULAR: Regular rate and rhythm. ABDOMEN: Soft, nontender and nondistended. EXTREMITIES: No edema. NEUROLOGIC: No focal neurological deficits. SKIN: Warm, dry. laboratory and microbiology Laboratory Tests 08/16/25 05:16 Test 08/16/25 05:16 Range/Units Serum Glucose 90 74-106 mg/dL Problem List Unstable angina. Acute intractable chest pain. Pneumonia. Atrial fibrillation. Seizures. Hypertension. MISAEL on CKD. Neuropathy. Depression. Assessment/Plan Continued all current supportive medical care. Echocardiogram. [place] for pain management. Lipitor, Metoprolol. IV antibiotics as ordered. Digoxin. DVT prophylactics. Diuretics with Lasix. Nitro SL. Additional plan as per the hospital course. Dietary Evaluation Review Comments: [facility] 45 Cardiac Diet Monitor PO intake and control blood sugar. Expected Outcomes/Goals: Controlled DM, Gradual Wt loss Plan discussed with: Patient MERARI MAIN MD Aug 17, 2025 12:37
--- NOTE | 2025-08-17 19:11 | DVHPNRES ---
Progress Note Date Seen: Aug 17, 2025 Resident Creating Document: MARY LOU IRWIN RESIDENT Medical Necessity Reason Pt with a Central, PICC or Fol: No Subjective Review of Systems Maribell Tapia is a 70-year old female with past medical history of CAD s/p ICD placement, CVA with no residual weakness,colon cancer 4 years back s/p colectomy, asthma, COPD not on home oxygen,Diabetes mellitus, GERD, NANY with CPAP use at night, seizure disorder, lymphedema, restless leg syndrome who presented to the ED with the chief complaint of chest pain on the left side, radiating to the let arm, pressure like and progressing to sharp pain, 8/10 in intensity since 1 week which worsened 3 days back. She also complained of abdominal pain in the mid upper abdomen since almost 1 month which is worse after eating associated with gurgling sound. Patient has also had diarrhea on and off since 1 month and weight loss of 10-14 lbs in the last 1 week. She has also had a mild, nonproductive cough since the last 2 days. She denies any fever, chills, shortness of breath,nausea or vomiting. Past medical history: CAD s/p ICD placement, CVA with no residual weakness,colon cancer 4 years back s/p colectomy, asthma, COPD not on home oxygen,Diabetes mellitus, GERD, NANY with CPAP use at night, seizure disorder, lymphedema, restless leg syndrome Past surgical history: colectomy 4 years back, cholecystectomy, hysterectomy, ICD placement, THR-right, TKR -left, hernia repair Social & Personal history: lives at home with family, smokes <1 pack per day for 20 years, denies alcohol and drug use Allergies: Baclofen, enalapril, gabapentin, penicillins Patient seen and examined at bedside. Patient is alert and oriented to time, place person and responding to all questions. Eyes: No Pain, No Vision change, No Conjunctivae inflammation, No Eyelid inflammation, No Redness ENT: No Ear pain, No Ear discharge, No Nose pain, No Nose discharge, No Nose congestion, No Mouth pain, No Mouth swelling, No Throat pain, No Throat swelling Cardiovascular: mild Chest Pain, No Palpitations, No Orthopnea, No Paroxysmal No Dyspnea, No Edema, No Lt Headedness Respiratory: No Cough, No Dry, No Shortness of breath, No SOB with exertion, No Wheezing, No Hemoptysis, No Pleuritic Pain, No Sputum Gastrointestinal: No Nausea, No Vomiting, Abdominal Pain, No Diarrhea, No Constipation, No Melena, No Hematochezia Genitourinary: No Dysuria, No Frequency, No Incontinence, No Hematuria, No Retention 08/17/25- The patient was seen at bedside today. She still complained of a cough and had rales on auscultation. Preliminary respiratory cultures showed gram negative rods, so she was started on zithromax 500mg po daily. Objective vital signs Vital Sign Date Time Temp Pulse Resp B/P (MAP) Pulse Ox O2 Delivery O2 Flow Rate FiO2 08/17/25 18:57 70 18 100 08/17/25 18:49 Room Air* 0 21 08/17/25 16:53 97.4 116/76 (89) 97.4 Total Intake and Output 08/16/25 08/16/25 08/17/25 15:00 23:00 07:00 Intake Total 1780 ml 750 ml Balance 1780 ml 750 ml medications Current Medications Medications Dose Ordered Sig/Lore Route Start Time Stop Time Status Last Admin Dose Admin Acetaminophen/ Hydrocodone Bitart 1 tab Q4HPRN PRN PO 08/15/25 21:30 08/17/25 13:52 1 TAB Acetaminophen/ Hydrocodone Bitart 1 tab Q4HP PRN PO 08/15/25 22:00 Ondansetron HCl 4 mg Q4HP PRN IV 08/15/25 22:00 08/17/25 13:52 4 MG Nitroglycerin 0.4 mg Q5MINP PRN SL 08/15/25 22:00 Albuterol 2.5 mg Q6HR NEB 08/16/25 00:00 08/17/25 18:49 2.5 MG Ipratropium [place] 0.5 mg Q6HPRN PRN NEB 08/15/25 22:00 08/17/25 18:49 0.5 MG Ceftriaxone Sodium 50 ml @ 100 mls/hr DAILY@09 IV 08/16/25 09:00 08/17/25 09:28 100 MLS/HR Atorvastatin Calcium 40 mg HS PO 08/16/25 22:00 08/16/25 21:15 40 MG Enoxaparin Sodium 100 mg Q12HR SC 08/15/25 22:00 08/17/25 09:29 100 MG Digoxin 0.125 mg DAILY PO 08/16/25 10:00 08/17/25 09:29 0.125 MG Levetiracetam 500 mg BID PO 08/15/25 22:00 08/17/25 09:30 500 MG Metoprolol Tartrate 50 mg BID PO 08/15/25 22:00 08/17/25 09:30 50 MG Sertraline HCl 50 mg DAILY PO 08/16/25 10:00 08/17/25 09:30 50 MG Sucralfate 1 gm TID PO 08/16/25 14:00 08/17/25 13:52 1 GM Pregabalin 150 mg TID PO 08/16/25 14:00 08/17/25 13:53 150 MG Pantoprazole Sodium 40 mg BID@0600,1700 PO 08/16/25 17:00 08/17/25 16:25 40 MG Diphenhydramine HCl 10 mg Q6HP PRN PO 08/16/25 23:15 08/17/25 07:44 10 MG Furosemide 20 mg DAILY PO 08/17/25 10:00 08/17/25 09:30 20 MG Azithromycin 500 mg DAILY PO 08/18/25 10:00 Examination General Appearance: Cooperative. Well developed. Well nourished. NAD Head Exam: Normal inspection Neck Exam: Normal inspection. Non-tender. Normal alignment Pulmonary/Respiratory: Chest tenderness left side,b/l rales, no crackles, no wheezing. Cardiovascular/Chest: Regular rate and rhythm. No murmurs. No JVD. Peripheral Pulses: 2+ Radial (R). 2+ Radial (L). 2+ Pedal (R). 2+ Pedal (L) Abdominal Exam: Normal bowel sounds. Soft. normal abdomen, no visible veins, tenderness in upper quadrants, No hepatospenomegaly. No masses Ankle Exam: Negative ankle edema Lower extremities: Negative lower extremity edema Neuro/Mental Status: A&O x4. Coherent. Thoughts/Psych: Normal thought pattern. Appropriate mood and affect. Good judgement and insight Skin Exam: Normal inspection. Normal color. Warm. Dry laboratory and microbiology Laboratory Tests 08/16/25 05:16 Test 08/16/25 05:16 Range/Units Serum Glucose 90 74-106 mg/dL Microbiology Date/Time Source Procedure Growth Status 08/16/25 05:57 Sputum Gram Stain - Final Resulted 08/16/25 05:57 Sputum Respiratory Culture - Preliminary Resulted 08/15/25 16:08 Voided Urine Urine Culture - Preliminary Resulted 08/15/25 12:58 Blood Blood Culture - Preliminary NO GROWTH AFTER 48 HOURS OF INCUBATION. Resulted Labs and/or images reviewed: Labs reviewed by me, Image(s) reviewed by me Problem List/Assessment/Plan Problem List/Assessment/Plan Assessment/Plan # Acute chest pain, R/O Acute coronary syndrome # Acute systolic heart failure # Possible acute costochondritis # Hypertensive heart disease with diastolic dysfunction # Paroxysmal atrial fibrillation, currently paced rhythm -tropes negative -Echo ordered, pending report -chest xray- no acute cardiopulmonary disease -cardiology on board -continue digoxin 0.125 mg po daily -lovenox 100 mg bid -metoprolol 50mg po bid # Acute community acquired pneumonia, gram negative -po zithromax 500mg po daily -gram negative rods on preliminary respiraory culture # GERD - Protonix 40 mg bid and carafate 1 gm bid. # Acute complicated cystitis -ceftriaxone 1gm iv daily - Pending urine culture # Seizure disorder -continue home med keppra 500 mg po bid # Prediabetes -Ordered HbA1c # Peripheral Neuropathy, unknown etiology # Restless leg syndrome -continue home dose pregabalin 150mg po tid PUD prophylaxis: protonix DVT prophylaxis: lovenox Goals of care: Full code, discussed for >16 minutes Plan discussed with patient Plan discussed with Dr Rodgers Plan discussed with: Patient My Orders My Orders Orders - MARY LOU IRWIN RESIDENT Procedure Category Date Status Time Furosemide Tablet PHA 08/17/25 In Process (Lasix Tablet) 10:00 Azithromycin Tablet PHA 08/18/25 In Process (Zithromax Tablet) 10:00 Dietary Evaluation Review Comments: [facility] 45 Cardiac Diet Monitor PO intake and control blood sugar. Expected Outcomes/Goals: Controlled DM, Gradual Wt loss Date of Service: Aug 17, 2025 Billing Provider: PRATIMA RODGERS MD Common Visit Codes: [id number] INP/OBS CARE(HIGH) MARY LOU IRWIN RESIDENT Aug 17, 2025 19:11
[2025-08-18] VITALS (14 sets, daily range): BP systolic 79–167; BP diastolic 46–89; PULSE 70–72; RESP 18–20; TEMP 97.4–99; O2SAT 93–100
[2025-08-18] MEDS: AZITHROMYCIN 250 MG TAB PO SCH (08:52)
[2025-08-18] MEDS ORDERED: FURO1TAB33 PO (14:20)
[2025-08-18] MEDS ORDERED: CIPR500T4 PO (14:20)
--- NOTE | 2025-08-18 18:41 | DVHDSRES ---
Discharge Summary Date of Admission Resident Creating Document: MARY LOU IRWIN RESIDENT Aug 15, 2025 at 21:57 Date of Discharge: Aug 18, 2025 Admitting Diagnosis Acute chest pain Labs/Diagnostic Data: Laboratory Results Test 08/16/25 06:54 08/16/25 05:47 08/16/25 05:16 08/16/25 03:23 POC Glucose 93 mg/dl (70-106) Influenza Type A Antigen Negative (Negative) Influenza Type B Antigen Negative (Negative) SARS-CoV-2 Antigen (Rapid) Negative (NEGATIVE) White Blood Count 7.9 10^3/uL (4.4-10.8) Red Blood Count 4.42 10^6/uL (4.0-5.20) Hemoglobin 14.3 g/dL (12.2-16.2) Hematocrit 41.3 % (36.0-46.0) Mean Corpuscular Volume 93.5 fL (80.0-100.0) Mean Corpuscular Hemoglobin 32.4 pg (28.0-32.0) Mean Corpuscular Hemoglobin Concent 34.7 g/dL (32.0-36.0) Red Cell Distribution Width 13.5 % (11.8-14.3) Platelet Count 129 10^3/uL (140-450) Mean Platelet Volume 9.8 fL (6.9-10.8) Neutrophils (%) (Auto) 73.1 % (37.0-80.0) Lymphocytes (%) (Auto) 18.5 % (10.0-50.0) Monocytes (%) (Auto) 5.8 % (0.0-12.0) Eosinophils (%) (Auto) 2.3 % (0.0-7.0) Basophils (%) (Auto) 0.3 % (0.0-2.0) Neutrophils # (Auto) 5.8 10 ^3/uL (1.6-8.6) Lymphocytes # (Auto) 1.5 10 ^3/uL (0.4-5.4) Monocytes # (Auto) 0.5 10 ^3/uL (0-1.3) Eosinophils # (Auto) 0.2 10 ^3/uL (0-0.8) Basophils # (Auto) 0 10 ^3/uL (0-0.2) Nucleated Red Blood Cells 0.1 % Sodium Level 139 mmol/L (136-145) Potassium Level 3.7 mmol/L (3.5-5.1) Chloride Level 111 mmol/L (98-107) Carbon Dioxide Level 24 mmol/L (20-31) Anion Gap 4 (5-15) Blood Urea Nitrogen 14 mg/dL (9-23) Creatinine 0.57 mg/dL (0.550-1.02) Glomerular Filtration Rate Calc 97 mL/min (>90) BUN/Creatinine Ratio 24.6 (10.0-20.0) Serum Glucose 90 mg/dL (74-106) Hemoglobin A1c 5.6 % A1C (<5.7) Calcium Level 8.9 mg/dL (8.7-10.4) Total Bilirubin 1.0 mg/dL (0.2-1.0) Aspartate Amino Transferase (AST) 18 U/L (13-40) Alanine Aminotransferase (ALT) 10 U/L (7-40) Alkaline Phosphatase 82 U/L (46-116) Total Protein 6.1 g/dL (5.7-8.2) Albumin 3.6 g/dL (3.2-4.8) Vitamin B12 Level 446 pg/mL (211-911) Vitamin D 25-Hydroxy 68.4 ng/mL (30.0-100) Thyroid Stimulating Hormone (TSH) 1.43 uIU/mL (0.55-4.78) Stool for White Cells None seen Test 08/15/25 22:45 08/15/25 16:08 08/15/25 15:44 08/15/25 12:58 Prothrombin Time 11.4 sec (9.3-11.8) Prothrombin Time INR 1.08 (0.9-1.15) Activated Partial Thromboplast Time 26.5 SEC (24.5-34.5) Urine Color Yellow (Yellow) Urine Clarity Clear (Clear) Urine pH 8.0 (5.0-9.0) Urine Specific [place] 1.029 (1.001-1.035) Urine Protein Trace (Negative) Urine Ketones 2+ (Negative) Urine Blood Negative /uL (Negative) Urine Nitrite Negative (Negative) Urine Bilirubin Negative (Negative) Urine Urobilinogen 8 mg/dL (Negative) Urine Leukocyte Esterase 1+ /uL (Negative) Urine RBC <1 /hpf (0 - 4) Urine Microscopic WBC 6 /HPF (0-5) Urine Squamous Epithelial Cells Few /hpf (<5) Urine Calcium Oxalate Crystals Few (None Seen) Urine Bacteria None seen /hpf (None Seen) Urine Mucus Few (None Seen) Urine Glucose Normal mg/dL (Normal) Magnesium Level 2.0 mg/dL (1.6-2.6) Direct Bilirubin 0.4 mg/dL (<0.3) Troponin I High Sensitivity 5 ng/L (</=34) C-Reactive Protein High Sensitivity 0.06 mg/dL (<1.0) Erythrocyte Sedimentation Rate 2 mm/hr (0-20) Lactic Acid Level 0.9 mmol/L (0.4-2.0) B-Type Natriuretic Peptide 158.84 pg/mL (0-100) Other Laboratory Tests 08/16/25 05:16 Brief Hx & Hospital Course: Maribell Tapia is a 70-year old female with past medical history of CAD s/p ICD placement, CVA with no residual weakness,colon cancer 4 years back s/p colectomy, asthma, COPD not on home oxygen, diabetes mellitus, GERD, NANY with CPAP use at night, seizure disorder, lymphedema, restless leg syndrome who presented to the ED with the chief complaint of chest pain on the left side, radiating to the let arm, pressure like and progressing to sharp pain, 8/10 in intensity since 1 week which worsened 3 days back. She also complained of abdominal pain in the mid upper abdomen since almost 1 month which is worse after eating associated with gurgling sound. Patient has also had diarrhea on and off since 1 month and weight loss of 10-14 lbs in the last 1 week. She has also had a mild, nonproductive cough since the last 2 days. She denies any fever, chills, shortness of breath,nausea or vomiting. Respiratory cultures grew gram negative rods so patient was started on po zithromax for gram negative pneumonia. Urinanalysis showed UTI, so she was given iv ceftriaxone. All home medications were continued. Patient started feeling better with reduced chest pain and cough. Her oxygen was gradually tapered off to room air. Stool for white cells was negative. Patient was discharged home in a stable condition on ciprofloxacin po bid for 5 days. All medications and recommendations were thoroughly explained to the patient and she demonstrated understanding of the same. She was recommended to follow-up in discharge Clinic on 08/20/2025 and with PCP in 2 weeks. Past medical history: CAD s/p ICD placement, CVA with no residual weakness,colon cancer 4 years back s/p colectomy, asthma, COPD not on home oxygen,Diabetes mellitus, GERD, NANY with CPAP use at night, seizure disorder, lymphedema, restless leg syndrome Past surgical history: colectomy 4 years back, cholecystectomy, hysterectomy, ICD placement, THR-right, TKR -left, hernia repair Social & Personal history: lives at home with family, smokes <1 pack per day for 20 years, denies alcohol and drug use Allergies: Baclofen, enalapril, gabapentin, penicillins General Appearance: Cooperative. Well developed. Well nourished. NAD Head Exam: Normal inspection Neck Exam: Normal inspection. Non-tender. Normal alignment Pulmonary/Respiratory: Chest tenderness left side,clear lung sounds, no crackles, no wheezing. Cardiovascular/Chest: Regular rate and rhythm. No murmurs. No JVD. Peripheral Pulses: 2+ Radial (R). 2+ Radial (L). 2+ Pedal (R). 2+ Pedal (L) Abdominal Exam: Normal bowel sounds. Soft. normal abdomen, no visible veins, no tenderness, No hepatospenomegaly. No masses Ankle Exam: Negative ankle edema Lower extremities: Negative lower extremity edema Neuro/Mental Status: A&O x4. Coherent. Thoughts/Psych: Normal thought pattern. Appropriate mood and affect. Good judgement and insight Skin Exam: Normal inspection. Normal color. Warm. Dry Operations or Procedures PROCEDURE(s): CXRP - CHEST PORTABLE REASON: CP ORDER NUMBER(s): [id number], ACCESSION NUMBER(s): [id number] EXAM: XY CHEST PORTABLE Indication: CP Technique: Single frontal view of the chest was obtained Comparison: XY CHEST XRAY 1 VIEW on DOS: 12/13/23, XY CHEST XRAY 1 VIEW on DOS: 02/18/23, CXRP on DOS: 08/21/22, EKG on DOS: 08/20/22, CXRP on DOS: 06/08/22 FINDINGS: Lines and Tubes: Cardiac pacemaker projects over left chest wall. Lungs: No focal consolidation. Pleura: No effusion. No pneumothorax. Cardiomediastinal contours: Unremarkable. Atherosclerotic vascular calcifications of the thoracic aorta are noted. Bones: No acute osseous abnormality. IMPRESSION: No acute cardiopulmonary disease. Condition at Discharge: Fair Final Diagnosis/Problems List Acute chest pain, ruled out Acute coronary syndrome Acute systolic heart failure Acute complicated cystitis Acute community acquired pneumonia, gram negative Hypertensive heart disease with diastolic dysfunction Paroxysmal atrial fibrillation, currently paced rhythm Acute costochondritis likely GERD Seizure disorder Prediabetes Peripheral Neuropathy, unknown etiology Restless leg syndrome Discharge Disposition: Home Discharge Instruct/Medications Diet: Consistent carbohydrate, Cardiac 2g Na,low cholest Activity: No Restrictions, As Tolerated Follow Up/Referral: follow up in [facility] follow up with PCP Scheduled Albuterol Sulfate (Ventolin Mdi), 2 PUFF INH QID, (Reported) Alendronate Sodium (Alendronate Sodium), 1 TAB PO QWEEKLY, (Reported) Atorvastatin Calcium (Lipitor), 40 MG PO HS, (Reported) Cholecalciferol (Vitamin D3 Super Strength), 4,000 UNIT PO DAILY Ciprofloxacin Hcl (Ciprofloxacin Hcl), 1 TAB PO BID Digoxin (Digitek), 0.125 MG PO DAILY, (Reported) Docusate Sodium (Colace), 1 CAP PO BID, (Reported) Donepezil Hydrochloride (Donepezil Hcl), 1 TAB PO DAILY, (Reported) Ergocalciferol (Vitamin D 69713 Unit), 50,000 UNIT PO QWEEKLY, (Reported) Ferrous Sulfate (Ferrous Sulfate), 325 MG PO DAILY, (Reported) Furosemide (Lasix), 1 TAB PO DAILY Levetiracetam (Keppra Tablet), 500 MG PO BID, (Reported) Metoprolol Tartrate (Lopressor Tablet), 50 MG PO BID, (Reported) Pantoprazole Sodium Sesquihydr (Protonix), 40 MG PO DAILY, (Reported) Pantoprazole Sodium Sesquihydr (Protonix), 40 MG PO DAILY, (Reported) Pregabalin (Lyrica), 1 CAP PO TID, (Reported) Pyridoxine Hcl (Vitamin B 6), 50 MG PO DAILY, (Reported) Ropinirole Hydrochloride (Requip), 1 TAB PO QPM, (Reported) Sertraline Hcl (Zoloft), 50 MG PO DAILY, (Reported) Sucralfate (Carafate), 10 ML PO BID, (Reported) Scheduled PRN Fluticasone Propionate (Nasal) (Flonase Allergy Relief), 50 MCG NA BIDP PRN for SHORTNESS OF BREATH, (Reported) Ipratropium-Albuterol (Combivent Respimat), 1 PUFF IN TIDPRN PRN for SHORTNESS OF BREATH, (Reported) Discontinued Medications Cyanocobalamin (Vitamin B12), 1 TAB PO DAILY, (Reported) Dicyclomine HCl (Dicyclomine Hydrochloride), 20 MG PO DAILY, (Reported) Diphenhydramine HCl (Benadryl Allergy Extra St), 50 MG PO TIDP, (Reported) Diphenhydramine Hcl (Diphenhydramine Hcl), 50 MG PO PRN, (Reported) Famotidine (Pepcid Tablet), 1 TAB PO BID, (Reported) Fluoxetine Hcl (Fluoxetine Hcl), 1 TAB PO DAILY, (Reported) Furosemide (Furosemide), 1 TAB PO DAILY, (Reported) Hydrocodone-Acetaminophen (Hydrocodone/Acetaminophen 10-325 mg), 1 TAB PO QID PRN, (Reported) Lidocaine (Lidoderm 5% Topical Patch), 1 PATCH TOP DAILY, (Reported) Loratadine (Claritin), 10 MG PO DAILY, (Reported) Loratadine (Claritin), 1 TAB PO DAILY, (Reported) Nitrofurantoin (Macrodantin), 1 CAP PO DAILY, (Reported) Ondansetron (Zofran), 1 TAB PO Q8HR PRN, (Reported) Ondansetron HCl (Ondansetron), 4 MG PO for NAUSEA / VOMITING, (Reported) Pregabalin (Pregabalin), 1 CAP PO TID, (Reported) Secukinumab (Cosentyx), 150 MG SC, (Reported) Discharge Statement: "Patient was advised to return to the ER or call 911 if any headaches, dizziness, shortness of breath, chest pain, abdominal pain, bleeding, fevers, or worsening of medical condition. Patient was counseled about treatment plan, medications, possible side effects, patientverbalized understanding. All questions were answered to the best of my ability. This discharge took greater then 30 minutes in planning, reviewing documentation, counseling the patient, and discussing with other team members." ASSESSMENT ASSESSMENT Assessment Acute gram negative pneumonia Date of Service: Aug 18, 2025 Billing Provider: PRATIMA RODGERS MD Common Visit Codes: 68461-ZUY/OBS DISCH DAY >30min MARY LOU IRWIN RESIDENT Aug 18, 2025 18:41
--- NOTE | 2025-08-18 23:11 | DVHPN2 ---
Progress Note - Dictate Date Seen: Aug 18, 2025 Medical Necessity Reason Pt with a Central, PICC or Fol: No Subjective Patient was seen and evaluated in follow up. Preliminary respiratory cultures showed gram negative rods, so she was started on Zithromax 500mg po daily. Patient is cardiac stable for discharge. Telemetry reviewed. vital signs Vital Sign Date Time Temp Pulse Resp B/P (MAP) Pulse Ox O2 Delivery O2 Flow Rate FiO2 08/18/25 17:00 98.3 70 20 124/75 (91) 95 98.3 08/18/25 11:33 Room Air* 0 21 Total Intake and Output 08/17/25 08/17/25 08/18/25 15:00 23:00 07:00 Intake Total 1680 ml 240 ml Balance 1680 ml 240 ml objective GENERAL: Alert and oriented x 3. No acute distress. EYES: PERRL, EOMI. Anicteric. HENT: Moist mucous membranes. LUNGS: Clear to auscultation bilaterally. CARDIOVASCULAR: Regular rate and rhythm. ABDOMEN: Soft, nontender and nondistended. EXTREMITIES: No edema. NEUROLOGIC: No focal neurological deficits. SKIN: Warm, dry. laboratory and microbiology Laboratory Tests 08/16/25 05:16 Test 08/16/25 05:16 Range/Units Serum Glucose 90 74-106 mg/dL Problem List Unstable angina. Acute intractable chest pain. Pneumonia. Atrial fibrillation. Seizures. Hypertension. MISAEL on CKD. Neuropathy. Depression. Assessment/Plan Continued all current supportive medical care. [place] for pain management. Lipitor, Metoprolol. IV antibiotics as ordered. Digoxin. DVT prophylactics. Diuretics with Lasix. Nitro SL. Additional plan as per the hospital course. Dietary Evaluation Review Comments: [facility] 45 Cardiac Diet Monitor PO intake and control blood sugar. Expected Outcomes/Goals: Controlled DM, Gradual Wt loss Plan discussed with: Patient MERARI MAIN MD Aug 18, 2025 23:11
--- NOTE | 2025-08-19 12:43 | DVHSR ---
APPROVED REPORT EXAM: Two-dimensional and M-mode echocardiogram with Doppler and color Doppler. Blood Pressure: 146/75 mmHg INDICATION Chest Pain Surgery/Intervention mitral valve clip RISK FACTORS Height: 5'6, Weight: 221 DIMENSIONS LVDd 5.8 (3.8-5.7cm) LA (2D) 5.5 (1.9-4.0cm) Aortic Root 3.1 (2.0-3.7cm) LVDs 5.0 (2.5-4.0cm) LA (MM) (1.9-4.0cm) Aortic Cusp Exc 1.7 (1.5-2.0cm) EF (%) 25.0 (55-70%) Rt. Atrium 4.8 (1.9-4.0cm) Asc. Aorta cm IVSd 0.8 (0.7-1.1cm) RV (D) 4.5 (1.8-2.4cm) PWd 0.6 (0.7-1.1cm) Mitral Valve Mitral Mitral Stenosis E wave m/s MV Mean GR. 4mmHg A wave m/s MV Peak GR. 125mmHg E/A ratio 0.0 2D MVA cm2 Aortic Valve Aortic Valve Aortic Stenosis V1 0.73m/s AO Mean GR. 3mmHg V2 1.14m/s AO Peak GR. 5mmHg LVOT Diameter 2.4 (1.8-2.4cm) Doppler SABIHA 2.90cm2 Pulmonic Valve V2 0.91m/s Tricuspid Valve TR Velocity 2.54m/s RVSP 34mmHg Conclusion MODERATELY ENLARGED LV SEVERE GLOBAL HYPOKINESIS OF LV ANTERIOR APICAL WALL IS MORE HYPOKINETIC MODERATELY DEGREE MR MITRAL VALVE CLIP IS SEEN . NO VEGETATION OR THROMBUS SIGNIFICANTLY DILATED LA MODERATELY DILATED RV AND RA NO EFFUSION MILD PULMONARY HYPERTENSION
== END 2025-08-18 18:00 | disposition home or self-care (01) | DRG 177 ==
LOC: ER 11:58 → OVERFLOW 21:57 → TELE-WESTW 22:32
PROVIDERS: ADMIT Internal Medicine; ATTEND Internal Medicine
DX: J15.69 Pneumonia due to other Gram-negative bacteria (principal); I50.21 Acute systolic (congestive) heart failure; I13.0 Hypertensive heart and chronic kidney disease with heart failure and stage 1 through stage 4 chronic kidney disease, or unspecified chronic kidney disease; N17.9 Acute kidney failure, unspecified; I48.0 Paroxysmal atrial fibrillation; E11.22 Type 2 diabetes mellitus with diabetic chronic kidney disease; G25.81 Restless legs syndrome; N30.00 Acute cystitis without hematuria; J45.909 Unspecified asthma, uncomplicated; F32.A Depression, unspecified; N18.9 Chronic kidney disease, unspecified; G40.909 Epilepsy, unspecified, not intractable, without status epilepticus; M94.0 Chondrocostal junction syndrome [Tietze]; R07.89 Other chest pain; I25.10 Atherosclerotic heart disease of native coronary artery without angina pectoris; J44.89 Other specified chronic obstructive pulmonary disease; K21.9 Gastro-esophageal reflux disease without esophagitis; Z20.822 Contact with and (suspected) exposure to COVID-19; F41.9 Anxiety disorder, unspecified; G47.33 Obstructive sleep apnea (adult) (pediatric); F17.210 Nicotine dependence, cigarettes, uncomplicated; E11.42 Type 2 diabetes mellitus with diabetic polyneuropathy; Z96.652 Presence of left artificial knee joint; Z96.641 Presence of right artificial hip joint; Z79.899 Other long term (current) drug therapy; Z82.49 Family history of ischemic heart disease and other diseases of the circulatory system; Z83.3 Family history of diabetes mellitus; Z86.73 Personal history of transient ischemic attack (TIA), and cerebral infarction without residual deficits; Z87.11 Personal history of peptic ulcer disease; Z90.49 Acquired absence of other specified parts of digestive tract; Z90.710 Acquired absence of both cervix and uterus; Z88.0 Allergy status to penicillin; Z88.8 Allergy status to other drugs, medicaments and biological substances; Z95.0 Presence of cardiac pacemaker
CPT/HCPCS: 36415; 71045; 80048; 80053; 80076; 81001; 82306; 82607; 82962; 83036; 83605; 83735; 83880; 84443; 84484; 85025; 85048; 85610; 85652; 85730; 86141; 87040; 87045; 87070; 87077; 87086; 87186; 87205; 87426; 87427; 87804; 93005; 93306; 94640; 99291; G0378; J2405; J2470